=== PATIENT | male | born 1950 | race Caucasian/White ===

== ENCOUNTER 2018-08-03 10:11 | Inpatient (IN) ==
[2018-08-03] MEDS ORDERED: SODIUM CHLORIDE 0.9% 500 ML IV SCH (10:45)
--- NOTE | 2018-08-03 11:11 | XRay Report ---
XR chest 1V portable CLINICAL HISTORY: Chest Pain COMPARISON STUDY: Chest radiograph October or 2018. FINDINGS: There is no pneumothorax or pleural effusion. There is no consolidation or evidence for pul monary edema. Moderate sized hiatal hernia is noted. The appearance of the chest is unchanged. IMPRESSION: 1. No acute cardiopulmonary findings. 2. Moderate sized hiatal hernia. 3. Bibasilar opacities which favor atelectasis. Electronically signed by: Toy Hauser M.D. 08/03/2018 11:10 AM
[2018-08-03 11:22] LABS: Basophils # (auto) 0.04 K/uL (0-0.2); Basophils % (auto) 0.4 %; Eosinophils # (auto) 0.11 K/uL (0-0.5); Hematocrit (blood only) 30.4 % (42-52); Hemoglobin 10.5 g/dL (14.0-18.0); Immature Granulocytes # (auto) 0.06 K/uL (0.00-0.02); Immature Granulocytes % (auto) 0.6 %; Lymphocytes # (auto) 2.87 K/uL (1.2-3.4); Lymphocytes % (auto) 27.4 %; Mean Corpuscular Hgb Conc 34.5 g/dL (32-36); Mean Corpuscular Volume 93.5 fL (80-100); Mean Platelet Volume 10.5 fL (7.4-10.4); Monocytes # (auto) 0.68 K/uL (0.11-0.59); Monocytes % (auto) 6.5 %; Neutrophils # (auto) 6.72 K/uL (1.4-6.5); Neutrophils % (auto) 64.1 %; Platelet Count 237 K/uL (130-400); RDW Coefficient of Variation 13.9 % (11.5-14.5); RDW Standard Deviation 47.1 fL (36.4-46.3); Red Blood Count 3.25 M/uL (4.7-6.1); White Blood Count 10.48 K/uL (4.8-10.8)
[2018-08-03 11:38] LABS: Partial Thromboplastin Ratio 1.1; Partial Thromboplastin Time 29.9 Seconds (21.0-31.0)
[2018-08-03 11:43] LABS: Albumin Level 2.9 gm/dl (3.4-5.0); BUN Creatinine Ratio 40.6 (10-20); Calcium 8.1 mg/dl (8.5-10.1); Creatinine Clr Calc Pharmacy 74.9 ml/min; Est GFR (African American) 64.4; Est GFR (Non-African American) 55.5; Potassium 4.3 mmol/L (3.5-5.1)
[2018-08-03 11:45] LABS: Albumin Globulin Ratio 0.8 (0.9-2); Bilirubin,Total 0.5 mg/dl (0.2-1); Globulin 3.6 gm/dl (2.5-4.0); Total Protein 6.5 gm/dl (6.4-8.2)
[2018-08-03 11:53] LABS: Beta-Hydroxybutyrate 1.75 mg/dl (0.2-2.81)
[2018-08-03] MEDS ORDERED: OPTIRAY 320 125ml IV PRN (11:59)
--- NOTE | 2018-08-03 12:18 | CT Scan Report ---
CT OF THE ABDOMEN AND PELVIS WITH CONTRAST CLINICAL HISTORY: Abdominal pain. Melena. COMPARISON STUDY: CT of the abdomen and pelvis March 28, 2015. TECHNIQUE: Following IV administration of 120 mL of Optiray-320, axial images of the abdomen and pelv is were obtained from the lung bases to the proximal femurs. Images were reviewed in the axial, sagit edgar, and coronal planes. IV contrast was administered without complication. Automated exposure contr ol was utilized for the study. A dose lowering technique was utilized adhering to the principles of ALARA. CT DOSE: 1895.33 mGycm FINDINGS: A moderate sized hiatal hernia is noted. A 1.5 cm hypodense right hepatic lobe lesion is si milar to CT of March 28, 2015. This is benign given stability. The adrenal glands, kidneys and narvaez creas are unremarkable. There is no biliary or pancreatic ductal dilatation. There is no peripancreat ic or pericholecystic infiltration. Exam is compromised by streak artifact from body wall contacting the gantry. There is no evidence for a bowel obstruction. Caliber and wall thickness of small and lar ge bowel are normal. There is colonic diverticulosis without evidence for acute diverticulitis. Sensi tivity for detection of mucosal lesions is diminished given CT technique. No suspicious osseous lesio ns are noted. No ascites or lymphadenopathy. IMPRESSION: 1. No acute process within the abdomen or pelvis. 2. Moderate sized hiatal hernia. 3. No bowel obstruction. Normal appendix. 4. Colonic diverticulosis without evidence for acute diverticulitis. Electronically signed by: Toy Hauser M.D. 08/03/2018 12:16 PM
[2018-08-03] MEDS ORDERED: PANTOprazole 40 MG in SYRINGE 0 ML IV ONE ×2 (12:32→14:00)
[2018-08-03 12:51] LABS: INR 2.6 (0.9-1.1); Prothrombin Time 24.8 Seconds (9.0-12.0)
--- NOTE | 2018-08-03 13:43 | History & Physical Report ---
Date of Service August 03, 2018 Assessment & Plan (1) Acute upper GI bleed: This is a 68-year-old male who has a significant PMH of CAD with history of stent in 2003, T2 DM, paroxysmal atrial fibrillation on warfarin, HTN, history of PUD, morbid obesity, hiatal hernia, diverticulosis who presents to [facility] secondary to black stool x 2 weeks. In ED H/H noted to be 10.5/30.4, stool guaic + with gross melena noted Pre-renal ABDIEL bun 53/cr 1.31, hyperglycemic gluocse 339, LFTs WNL In ED received IV PPI, IVF 500ml bolus -admit to med tele -consult gastroenterology, appreciate input -per GI started on PPI bolus/gtt -vit k 5mg ordered for INR reversal -NPO after midnight, EGD planned in a.m. -trend H/H -repeat cbc, bmp, inr in a.m. (2) Anemia: -baseline hgb 15, today H/H 10.5/30.4 -follow H/H q6h (3) ABDIEL (acute kidney injury): -Bun/Cr 53/1.31 in ED -baseline Cr 1.1-1.2 -received 500ml IVF in ED -clear liquid diet, repeat in a.m. (4) Atrial fibrillation: -rate/rhythm controlled on ECG -continue metoprolol -hold warfarin, vit k 5mg given for reversal -PT/INR in a.m. -monitor on Tele for PAF (5) Coronary artery disease: -continue statin and BB, hold ASA/EARNESTINE in setting of acute GIB and ABDIEL -no chest pain or ecg changes (6) Diabetes: -last A1C 7.9 07/20/18 -hold glimepiride -Lantus/novolog per protocol -hyperglycemic in ED likely secondary to ABDIEL, UGIB -monitor closely (7) Hypertension: -given slight abdiel will hold EARNESTINE/HCTZ -continue metoprolol -monitor (8) DVT prophylaxis: -hold warfarin in setting of ? UGIB -check PT/INR in a.m. -vit k 5mg ordered Disposition: d/c to home when able Follow up: PCP Dr. Smiley upon discharge Patient was seen and examined in collaboration with Dr. Colon, please see addendum Starting 08/04/18 pt will be under the care of Dr. Colon History of Present Illness Chief Complaint: Black stool x 2 weeks. Primary Care Provider: Marina Smiley MD This is a 68-year-old male who has a significant PMH of CAD with history of stent in 2002, T2 DM, paroxysmal atrial fibrillation on warfarin, HTN, history of PUD, morbid obesity, hiatal hernia, diverticulosis who presents to [facility] secondary to black stool x 2 weeks. Over the past 2 weeks he has noted dark black BMs, no bright red blood. He complains of intermittent epigastric discomfort as well as left lower quadrant abdominal discomfort. Discomfort is not constant, comes and goes, not worse with certain meals but worse with soda. Abdominal discomfort occasionally improved with Tums. He denies any significant tobacco, alcohol or NSAID use. He only takes baby aspirin. He further complains of increasing fatigue, listlessness, easy fatigability, dyspnea on exertion. "Usually when I walk at work I get SOB and have to take 2-3 rests but not its more like 5-6." His appetite has been normal and he has been tolerating liquids. He denies fever, chills, sweats, lightheadedness, dizziness, chest pain, shortness breath at rest, palpitations, nausea, vomiting, diarrhea, UTI sx. Hx of PUD in past s/p EGD in 2001 per [facility] but patient doesnt recall this. He does take warfarin secondary to A. fib. Last INR was 3.6 per pt. His normal regimen is 5 mg Thursday and 2.5 mg all other days. He notes for the past 2 days he has been only taking half a tablet because he was concerned this was because of bleeding. Patient keeps a detailed record which was reviewed by me of his blood pressure, pulse, glucose. He states he has a "heart monitor," that he utilizes at home to monitor for arrhythmia. He has noted over the past 2 weeks with signs of melena his heart rate has been higher 70s and 80s. Allergies Allergy/AdvReac Type Severity Reaction Status Date / Time No Known Allergies Allergy Unknown Verified 08/03/18 11:00 Home Medications Home Medications Medication Instructions Recorded Confirmed Type aspirin [Aspir-81] 81 mg PO HS #0 10/24/14 08/03/18 History atorvastatin 80 mg PO HS #0 tab 10/24/14 08/03/18 History coenzyme Q10 [Co Q-10] 100 mg PO QAM #0 10/24/14 08/03/18 History lisinopril-hydrochlorothiazide 1 tab PO QAM #0 tab 10/24/14 08/03/18 History metoprolol tartrate 50 mg PO BID #0 10/24/14 08/03/18 History alpha lipoic acid 200 mg PO QAM 08/03/18 08/03/18 History cholecalciferol (vitamin D3) 1,000 unit PO HS 08/03/18 08/03/18 History [Vitamin D3] glimepiride 4 mg PO QDL 08/03/18 08/03/18 History warfarin [Coumadin] 2.5 mg PO 4XWK 08/03/18 08/03/18 History warfarin [Coumadin] 5 mg PO 3XWK 08/03/18 08/03/18 History Past Med/Surg History Medical History Diverticulosis (Chronic) Atrial fibrillation (Chronic) Obesity (Chronic) Coronary artery disease (Chronic) Kidney stone (Resolved) Hyperlipidemia associated with type 2 diabetes mellitus (Chronic) Diabetes (Chronic) Heart disease (Chronic) Hypertension (Chronic) Atrial fibrillation with RVR (Resolved) History of GI bleed Olecranon bursitis, right elbow Surgical History History of colonoscopy with polypectomy (Chronic) History of heart artery stent (Chronic) History of colonoscopy Family History Father , in 80s Unknown family medical history Mother , in 80s Lymphoma Other No significant family history Social History Preferred Language: Ukrainian Communication Ability: Effective Beliefs That Will Affect Care: None marital status: marri Current Living Situation: Family Current Living Situation Comment: son/daugther Feels Safe at Home: Yes Smoking Status: Never smoker Hx Alcohol Use: No Hx Substance Use: No Review of Systems All systems reviewed & are unremarkable except as noted in HPI & below Physical Exam Vital Signs (Past 24 Hours): Last Vital Signs Temp 37.4 C 08/03/18 10:16 Pulse 88 08/03/18 12:02 Resp 22 08/03/18 12:02 BP 114/64 08/03/18 13:01 Pulse Ox 99 08/03/18 13:01 Physical Exam: Gen: Morbidly obese, male, NAD, sitting up in bed, pleasant, conversing easily Head: Normocephalic, Atraumatic Eyes: Sclera normal, no conjunctival injection, PERRLA, EOMI ENT: Gross hearing intact, normal pharynx, mucous membranes moist Neck: supple, no adenopathy, No JVD, no bruit, Resp: Clear to auscultation b/l, no wheeze, rales, rhonchi. 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 Extremities: No edema bilaterally Skin: warm, moist, no rash, negative turgor, cap refill < 2sec Neuro: Alert and oriented x 3, speech normal, good mood/affect, cran nerve 2-12 intact grossly : deferred Results & Data Laboratory Results Short CBC 08/03/18 Range/Units 10:57 WBC 10.48 (4.8-10.8) K/uL Hgb 10.5 L (14.0-18.0) g/dL Hct 30.4 L (42-52) % Plt Count 237 (130-400) K/uL BMP 08/03/18 10:57 Sodium 139 Potassium 4.3 Chloride 107 Carbon Dioxide 24 BUN 53 H Creatinine 1.31 Glucose 339 H Calcium 8.1 L Liver Function 08/03/18 Range/Units 10:57 Total Bilirubin 0.5 (0.2-1) mg/dl AST 9 L (15-37) U/L ALT 17 (12-78) U/L Alkaline Phosphatase 43 L (45-117) U/L Albumin 2.9 L (3.4-5.0) gm/dl Diagnostic Findings CT abd/pelvis: IMPRESSION: 1. No acute process within the abdomen or pelvis. 2. Moderate sized hiatal hernia. 3. No bowel obstruction. Normal appendix. 4. Colonic diverticulosis without evidence for acute diverticulitis. CXR: IMPRESSION: 1. No acute cardiopulmonary findings. 2. Moderate sized hiatal hernia. 3. Bibasilar opacities which favor atelectasis. Medications Administered Ioversol (Optiray 320 125ml) 120 ml IV ONCE PRN PRN Reason: Interaction Checking Stop: 08/07/18 11:58 Last Admin: 08/03/18 11:59 Dose: 120 ml Documented by: [id number] Discontinued Medications Sodium Chloride (Nss) 500 mls @ 999 mls/hr IV .Q31M CARLA Stop: 08/03/18 11:15 Last Infusion: 08/03/18 11:43 Dose: 0 mls/hr Documented by: [id number] Admin: 08/03/18 11:04 Dose: 999 mls/hr Documented by: [id number] Pantoprazole Sodium 40 mg/ (Syringe) 10 mls @ 5 mls/min IV NOW ONE Stop: 08/03/18 12:33 Last Admin: 08/03/18 13:03 Dose: 5 mls/min Documented by: [id number] ECG Rate (beats per minute): 95 Rhythm: normal sinus Code Status & VTE Plan Code Status Full Code VTE Prophylaxis Plan VTE Prophylaxis will be ordered: Yes Supervising Physician Co-Signing Physician Notes Attending addendum The patient was seen and examined by me in the emergency room He has been complaining of black tarry stool for the last 1 week Has been on baby aspirin and Coumadin Did not take any other NSAID use Complains to have some epigastric discomfort and dizziness on standing and walking around On examination Obese, lying in bed comfortably Hemodynamically stable Chest-clear to auscultate bilaterally Heart-S1-S2, regular Abdomen-distended, soft, mild discomfort with history of on palpation Extremities no edema- Admission labs and imaging studies noted Has upper GI bleed with therapeutic INR We will reverse INR with vitamin K as per GI Protonix drip Likely endoscopy tomorrow Acute ischemic plan as outlined above by Camila Colon (1) Diabetes Diabetes mellitus complication status: without complication Diabetes mellitus fpc insulin use: without fpc use Diabetes mellitus type: type 2 Qualified Code(s): E11.9 - Type 2 diabetes mellitus without complications (2) Coronary artery disease Associated angina: without angina Coronary Disease-Associated Artery/Lesion type: grayling artery Pala vs. transplanted heart: grayling heart Qualified Code(s): I25.10 - Atherosclerotic heart disease of grayling coronary artery without angina pectoris (3) Anemia Anemia type: other cause Other causes of anemia: acute posthemorrhagic Qualified Code(s): D62 - Acute posthemorrhagic anemia (4) Atrial fibrillation Atrial fibrillation type: unspecified Qualified Code(s): I48.91 - Unspecified atrial fibrillation (5) Hypertension Hypertension type: essential hypertension Qualified Code(s): I10 - Essential (primary) hypertension
[2018-08-03] MEDS ORDERED: PANTOPRAZOLE BOLUS/DRIP 1 EA IV STA (13:55)
[2018-08-03] MEDS ORDERED: PANTOprazole 80 MG in DEXTROSE 5% 100 ML IV ONE (13:55)
--- NOTE | 2018-08-03 14:00 | Gastrointestinal Consultation ---
Date of Consultation August 03, 2018 Supervising Physician Co-Signing Physician Notes I saw and evaluated the patient. We are consulted for history of intermittent melena over the last few weeks. The patient has had a significant drop in his hemoglobin and hematocrit. He denies having any hematemesis or abdominal discomfort. No prior abdominal surgeries are noted by the patient. Physical examination No obvious distress, pleasant appearing male Obese abdomen, soft nontender Impression: Patient presenting with melena on long-standing anticoagulation. We will proceed with upper endoscopy to evaluate for evidence of peptic ulcer disease. We have discussed the risks and benefits to include bleeding, infection, perforation and need for subsequent studies. Overnight I would suggest nothing to eat or drink and beginning a Protonix drip. I would also consider reversal of the patient's anticoagulation with vitamin K if possible. History of Present Illness Reason for Consultation: Melena, anemia Requesting Physician: Dr. Kenzie Colon Attending Physician: Dr. Cheryl Han History of Present Illness Pt is a 68 y/o male who presented to ED w c/o weakness, LUIS, dizziness since last Thursday. He also began to notice dark tarry stools since yesterday. He denies any associated fever, chills, CP, resting SOB. + mild mid abd tenderness. No N/V. Labs on review showed H/H 10.5/30.4, INR 2.6. BUN up 53. Cr 1.3. His baseline Hgb is around 14-15. CXR and Abd CT scan w findings of bilateral atelectasis, hiatal hernia and diverticulosis but no other acute processes including no bowel obstruction. He is currently on Coumadin and baby ASA for Afib. He has hx of hiatal hernia, and per admission H&P hx of PUD but in my conversation w him, he denies this. He never had EGD eval in the past. Hx of colonoscopy in 2007 - diverticulosis and hyperplastic polyps. He denies NSAIDs, tobacco, ETOH uses. ASSESMENT AND PLAN: Pt is a 68 y/o male w melena, anemia in setting of Coumadin & baby ASA use for Afib. INR 2.6 on presentation. - PPI bolus and gtt - Reverse INR w Vit K 5mg IV x 1 dose. Repeat CBC and PT/INR tomorrow AM. - Monitor H/H and transfuse prn - NPO after midnight for EGD evaluation tomorrow. - If continues to have melena may consider tagged RBC scan today to help locate source of bleed. Allergies Allergy/AdvReac Type Severity Reaction Status Date / Time No Known Allergies Allergy Unknown Verified 08/03/18 11:00 Home Medications Home Medications Medication Instructions Recorded Confirmed Type aspirin [Aspir-81] 81 mg PO HS #0 10/24/14 08/03/18 History atorvastatin 80 mg PO HS #0 tab 10/24/14 08/03/18 History coenzyme Q10 [Co Q-10] 100 mg PO QAM #0 10/24/14 08/03/18 History lisinopril-hydrochlorothiazide 1 tab PO QAM #0 tab 10/24/14 08/03/18 History metoprolol tartrate 50 mg PO BID #0 10/24/14 08/03/18 History alpha lipoic acid 200 mg PO QAM 08/03/18 08/03/18 History cholecalciferol (vitamin D3) 1,000 unit PO HS 08/03/18 08/03/18 History [Vitamin D3] glimepiride 4 mg PO QDL 08/03/18 08/03/18 History warfarin [Coumadin] 2.5 mg PO 4XWK 08/03/18 08/03/18 History warfarin [Coumadin] 5 mg PO 3XWK 08/03/18 08/03/18 History Patient History Medical History Diverticulosis (Chronic) Atrial fibrillation (Chronic) Obesity (Chronic) Coronary artery disease (Chronic) Kidney stone (Resolved) Hyperlipidemia associated with type 2 diabetes mellitus (Chronic) Diabetes (Chronic) Heart disease (Chronic) Hypertension (Chronic) Atrial fibrillation with RVR (Resolved) History of GI bleed Olecranon bursitis, right elbow Surgical History History of colonoscopy with polypectomy (Chronic) History of heart artery stent (Chronic) History of colonoscopy Family History Father , in 80s Unknown family medical history Mother , in 80s Lymphoma Other No significant family history Social History Preferred Language: Luxembourgish Communication Ability: Effective Beliefs That Will Affect Care: None marital status: marri Current Living Situation: Family Current Living Situation Comment: son/daugther Feels Safe at Home: Yes Smoking Status: Never smoker Hx Alcohol Use: No Hx Substance Use: No Review of Systems See HPI above; rest of systems review negative. Physical Exam Vital Signs (Past 24 Hours): Last Vital Signs Temp 37.4 C 08/03/18 10:16 Pulse 88 08/03/18 12:02 Resp 20 08/03/18 13:31 BP 148/67 H 08/03/18 13:31 Pulse Ox 98 08/03/18 13:31 Constitutional: WD/WN, vitals as above + obese, well groomed, cooperative and comfortable Eyes: PERRL, conjunctivae normal, anicteric sclerae ENMT: external ear and nose normal, oropharynx normal Respiratory: normal respiratory effort, lungs clear to auscultation Cardiovascular: RRR, no murmur, no edema Gastrointestinal (Abdomen): normal bowel sounds, soft, nontender, no hepatosplenomegaly Skin: no rashes, warm and dry no jaundice Neurologic: Motor/Sensory: no asterixis Psychiatric: A+Ox3, euthymic affect Lymphatic: no lymphedema Results & Data Laboratory Results Laboratory Results - last 72 hr 08/03/18 08/03/18 08/03/18 10:57 10:57 10:57 WBC 10.48 RBC 3.25 L Hgb 10.5 L Hct 30.4 L MCV 93.5 MCH 32.3 MCHC 34.5 RDW Std Deviation 47.1 H RDW Coeff of Darrius 13.9 Plt Count 237 MPV 10.5 H Immature Gran % (Auto) 0.6 Neut % (Auto) 64.1 Lymph % (Auto) 27.4 Bennett % (Auto) 6.5 Eos % (Auto) 1.0 Baso % (Auto) 0.4 Immature Gran # (Auto) 0.06 H Neut # (Auto) 6.72 H Lymph # (Auto) 2.87 Bennett # (Auto) 0.68 H Eos # (Auto) 0.11 Baso # (Auto) 0.04 PT INR APTT 29.9 PTT Ratio 1.1 Sodium 139 Potassium 4.3 Chloride 107 Carbon Dioxide 24 Anion Gap 8.0 BUN 53 H Creatinine 1.31 Est Cr Clr Drug Dosing 74.9 Est GFR ( Amer) 64.4 Est GFR (Non-Af Amer) 55.5 BUN/Creatinine Ratio 40.6 H Glucose 339 H Calcium 8.1 L Total Bilirubin 0.5 AST 9 L ALT 17 Alkaline Phosphatase 43 L Total Protein 6.5 Albumin 2.9 L Globulin 3.6 Albumin/Globulin Ratio 0.8 L Lipase 214 Beta-Hydroxybutyric Acd 1.75 Blood Type Antibody Screen 08/03/18 08/03/18 10:57 11:40 WBC RBC Hgb Hct MCV MCH MCHC RDW Std Deviation RDW Coeff of Darrius Plt Count MPV Immature Gran % (Auto) Neut % (Auto) Lymph % (Auto) Bennett % (Auto) Eos % (Auto) Baso % (Auto) Immature Gran # (Auto) Neut # (Auto) Lymph # (Auto) Bennett # (Auto) Eos # (Auto) Baso # (Auto) PT 24.8 H INR 2.6 H APTT PTT Ratio Sodium Potassium Chloride Carbon Dioxide Anion Gap BUN Creatinine Est Cr Clr Drug Dosing Est GFR ( Amer) Est GFR (Non-Af Amer) BUN/Creatinine Ratio Glucose Calcium Total Bilirubin AST ALT Alkaline Phosphatase Total Protein Albumin Globulin Albumin/Globulin Ratio Lipase Beta-Hydroxybutyric Acd Blood Type O Positive Antibody Screen NEGATIVE
[2018-08-03] MEDS: PANTOprazole 40 MG in DEXTROSE 5% 100 ML IV SCH ×2 (14:30→21:06)
[2018-08-03] MEDS ORDERED: PHYTONADIONE 5 MG in SODIUM CHLORIDE 0.9% 50 ML IV ONE (14:30)
--- NOTE | 2018-08-03 15:43 | Emergency Department Note ---
Entered by Elisha Elaine acting as a scribe for History of Present Illness General Chief complaint: Rectal Bleed Stated complaint: INTERNAL BLEEDING OF SOME SORT, DR LEIGH Time Seen by Provider: 08/03/18 10:38 Source: patient History of Present Illness Onset (ago): day(s) 3 Location: abdomen (GI tract) Pain Consistency: + other (episodes) Quality: + other (black stools) Associated symptoms: + other (pain under sternum); no fever/chills The patient is a 68 year old male who presents to the Emergency Room with complaints of black stools that started several days ago. The patient reports that he did not defecate for several days which is abnormal for him. The following day he noticed an episode of black and tarry stool and then had another episode the following day. The patient notes that he has not had similar symptoms in the past. He notes that he may have had abnormal stools several years ago that he believed was due to a subjective ulcer. He states his PCP changed his diabetes medication at that time and his symptoms improved. He denies having received an endoscopy in the past. He denies any history of acid reflux but does note that he was belching 2 days prior to the start of his constipation episode and took a couple of Tums. The patient reports that he monitors his own heart rate and rhythm at home. He states that he was in the Emergency Room for an arrhythmia 5 months ago and was found to have atrial fibrillation at that time. He reports that he was admitted to the hospital for 4 days and started on Coumadin. He notes that he was seen in the hospital again overnight for another episode of atrial fibrillation in May. He states that his pulse rate is normally around 60 bpm and his blood pressure is generally within normal limits. He denies any fever or chills but notes he has a constant pain under his sternum. He denies drinking a lot of coffee or using ibuprofen. Home Medications Home Medications Medication Instructions Recorded Confirmed Type aspirin [Aspir-81] 81 mg PO HS #0 10/24/14 08/03/18 History atorvastatin 80 mg PO HS #0 tab 10/24/14 08/03/18 History coenzyme Q10 [Co Q-10] 100 mg PO QAM #0 10/24/14 08/03/18 History lisinopril-hydrochlorothiazide 1 tab PO QAM #0 tab 10/24/14 08/03/18 History metoprolol tartrate 50 mg PO BID #0 10/24/14 08/03/18 History alpha lipoic acid 200 mg PO QAM 08/03/18 08/03/18 History cholecalciferol (vitamin D3) 1,000 unit PO HS 08/03/18 08/03/18 History [Vitamin D3] glimepiride 4 mg PO QDL 08/03/18 08/03/18 History warfarin [Coumadin] 2.5 mg PO 4XWK 08/03/18 08/03/18 History warfarin [Coumadin] 5 mg PO 3XWK 08/03/18 08/03/18 History Allergies Allergy/AdvReac Type Severity Reaction Status Date / Time No Known Allergies Allergy Unknown Verified 08/03/18 11:00 Past Med/Surg History Medical History Diverticulosis (Chronic) Atrial fibrillation (Chronic) Obesity (Chronic) Coronary artery disease (Chronic) Kidney stone (Resolved) Hyperlipidemia associated with type 2 diabetes mellitus (Chronic) Diabetes (Chronic) Heart disease (Chronic) Hypertension (Chronic) Atrial fibrillation with RVR (Resolved) History of GI bleed Olecranon bursitis, right elbow Surgical History History of colonoscopy with polypectomy (Chronic) History of heart artery stent (Chronic) History of colonoscopy Family History Father , in 80s Unknown family medical history Mother , in 80s Lymphoma Other No significant family history Social History Preferred Language: Togolese Communication Ability: Effective Media Reconciliation Specialist Required: No Beliefs That Will Affect Care: None marital status: marri Current Living Situation: Family Current Living Situation Comment: own home w/ son and daugther Other Information That Helps Us Care for You: No Feels Safe at Home: Yes Safety Concerns: Feels Safe At This Time Smoking Status: Never smoker Hx Alcohol Use: No Hx Substance Use: No Review of Systems See HPI for pertinent positives & negatives. and A total of 10 systems reviewed and were otherwise negative Physical Exam Vital Signs Vital Signs - 24 hr 08/03/18 10:16 08/03/18 11:02 08/03/18 11:03 Temperature 37.4 C Temperature Source Oral Sepsis Recent Fever Within 48 Hours No Sepsis New/Unexplained Change in Mental Status No Sepsis Action Taken by Nursing No Action Required Pulse Rate 102 H Pulse Rate [Finger] 95 H Pulse Rate from SpO2 Sensor Respiratory Rate 20 18 Respiratory Effort / Characteristics Non-Labored Respiratory Depth Normal Blood Pressure 128/68 Blood Pressure [Right Arm] 161/80 H Blood Pressure Mean 88 Blood Pressure Mean [Right Arm] 107 Blood Pressure Position [Right Arm] Pulse Oximetry 97 99 98 Oxygen Delivery Method Room Air Room Air 08/03/18 12:02 08/03/18 13:01 08/03/18 13:31 Temperature Temperature Source Sepsis Recent Fever Within 48 Hours Sepsis New/Unexplained Change in Mental Status Sepsis Action Taken by Nursing Pulse Rate 88 Pulse Rate [Finger] Pulse Rate from SpO2 Sensor 87 78 81 Respiratory Rate 22 20 Respiratory Effort / Characteristics Respiratory Depth Blood Pressure 137/70 114/64 148/67 H Blood Pressure [Right Arm] Blood Pressure Mean 92 80 94 Blood Pressure Mean [Right Arm] Blood Pressure Position [Right Arm] Pulse Oximetry 96 99 98 Oxygen Delivery Method 08/03/18 14:22 08/03/18 14:42 08/03/18 14:46 Temperature Temperature Source Sepsis Recent Fever Within 48 Hours Sepsis New/Unexplained Change in Mental Status Sepsis Action Taken by Nursing Pulse Rate 98 H Pulse Rate [Finger] 97 H 94 H Pulse Rate from SpO2 Sensor 96 H Respiratory Rate 20 18 24 Respiratory Effort / Characteristics Non-Labored Respiratory Depth Normal Normal Blood Pressure 104/61 Blood Pressure [Right Arm] 109/60 117/65 Blood Pressure Mean 75 Blood Pressure Mean [Right Arm] 76 82 Blood Pressure Position [Right Arm] Pulse Oximetry 99 99 100 Oxygen Delivery Method Room Air Room Air 08/03/18 15:01 08/03/18 15:48 08/03/18 19:51 Temperature 36.8 C 36.9 C Temperature Source Oral Oral Sepsis Recent Fever Within 48 Hours Sepsis New/Unexplained Change in Mental Status Sepsis Action Taken by Nursing Pulse Rate Pulse Rate [Finger] 98 H 94 H Pulse Rate from SpO2 Sensor Respiratory Rate 18 18 Respiratory Effort / Characteristics Respiratory Depth Blood Pressure Blood Pressure [Right Arm] 133/83 132/80 Blood Pressure Mean Blood Pressure Mean [Right Arm] 99 97 Blood Pressure Position [Right Arm] Lying Left Lateral Pulse Oximetry 99 100 Oxygen Delivery Method Room Air Room Air Room Air GENERAL: Awake, alert, relatively well-appearing, in no distress HENT: Normocephalic, atraumatic. Oropharynx with dry mucous membranes and otherwise unremarkable. EYES: Normal conjunctiva. Sclera non-icteric. NECK: Supple. No nuchal rigidity. FROM. No JVD. RESPIRATORY: Clear to auscultation. CARDIAC: Regular rate, normal rhythm. Extremities warm and well perfused. Pulses equal. ABDOMEN: Soft, non-distended. Mild epigastric discomfort without discrete tenderness to palpation. No rebound or guarding. No masses. RECTAL: Gross melena, No red blood, Guaiac positive MUSCULOSKELETAL: Chest examination reveals no tenderness. The back is symmetrical on inspection without obvious abnormality. There is no CVA tenderness to palpation. No joint edema. LOWER EXTREMITIES: Calves are equal size bilaterally and non-tender. No edema. No discoloration. NEURO: Normal sensorium. No sensory or motor deficits noted. SKIN: No rash or jaundice noted. Course 1121: The patient was evaluated in room C07, and a complete history and physical examination were performed. 1236: I discussed the patient's case with KATHERINE Cardozo, who will evaluate the patient for further management and care. 1300: I discussed today's finding with the patient. He verbally agreed to the course of treatment. He will be evaluated for further management and care. Consultations Consultation #1: I discussed the patient's case with KATHERINE Cardozo, who will evaluate the patient for further management and care. Time: 12:36 Administered Medications Pantoprazole Sodium 40 mg/ (Dextrose) 100 mls @ 20 mls/hr IV Q5H CARLA Stop: 09/02/18 14:00 Last Infusion: 08/03/18 15:50 Dose: 20 mls/hr Documented by: [id number] Infusion: 08/03/18 14:38 Dose: 0 mls/hr Documented by: [id number] Admin: 08/03/18 14:30 Dose: 20 mls/hr Documented by: [id number] Sodium Chloride (Nss 1000ml) 1,000 mls @ 125 mls/hr IV .Q8H CARLA Stop: 08/04/18 02:14 Last Admin: 08/03/18 18:26 Dose: 125 mls/hr Documented by: [id number] Insulin Aspart (Novolog Flexpen) 0 units SC ACHS CARLA Stop: 09/02/18 16:29 Last Admin: 08/03/18 18:24 Dose: 10 units Documented by: [id number] Cosigned by: [id number] Discontinued Medications Sodium Chloride (Nss) 500 mls @ 999 mls/hr IV .Q31M CARLA Stop: 08/03/18 11:15 Last Infusion: 08/03/18 11:43 Dose: 0 mls/hr Documented by: [id number] Admin: 08/03/18 11:04 Dose: 999 mls/hr Documented by: [id number] Pantoprazole Sodium 40 mg/ (Syringe) 10 mls @ 5 mls/min IV NOW ONE Stop: 08/03/18 12:33 Last Admin: 08/03/18 13:03 Dose: 5 mls/min Documented by: [id number] Pantoprazole Sodium 40 mg/ (Syringe) 10 mls @ 5 mls/min IV NOW ONE; Protocol Stop: 08/03/18 14:01 Last Admin: 08/03/18 14:30 Dose: 5 mls/min Documented by: [id number] Phytonadione 5 mg/ Sodium (Chloride) 50.5 mls @ 101 mls/hr IV ONE ONE Stop: 08/03/18 14:59 Last Infusion: 08/03/18 15:08 Dose: 0 mls/hr Documented by: [id number] Admin: 08/03/18 14:38 Dose: 101 mls/hr Documented by: [id number] Ioversol (Optiray 320 125ml) 120 ml IV ONCE PRN PRN Reason: Interaction Checking Stop: 08/07/18 11:58 Last Admin: 08/03/18 11:59 Dose: 120 ml Documented by: [id number] Medical Decision Making Differential Diagnosis Differential diagnosis: Etiologies such as esophagitis, variceal bleed, [place], [place]imm[place] tear, gastritis, peptic ulcer disease, AVM, inflammatory bowel disease, ischemia, diverticulosis, colitis, malignancy, coagulopathy, thrombocytopenia, fissure, hemorrhoid, epistaxis , as well as others were entertained. Medical Records Attestation: I reviewed the patient's medical records. Home Medications Current Medication List: was personally reviewed by me Laboratory Data Attestation: I reviewed the patient's lab results. Result diagrams: 08/03/18 17:23 08/03/18 10:57 Lab Results 08/03/18 08/03/18 08/03/18 Range/Units 10:57 10:57 10:57 WBC 10.48 (4.8-10.8) K/uL RBC 3.25 L (4.7-6.1) M/uL Hgb 10.5 L (14.0-18.0) g/dL Hct 30.4 L (42-52) % MCV 93.5 (80-100) fL MCH 32.3 (25-34) pg MCHC 34.5 (32-36) g/dL RDW Std Deviation 47.1 H (36.4-46.3) fL RDW Coeff of Darrius 13.9 (11.5-14.5) % Plt Count 237 (130-400) K/uL MPV 10.5 H (7.4-10.4) fL Immature Gran % (Auto) 0.6 % Neut % (Auto) 64.1 % Lymph % (Auto) 27.4 % [place] % (Auto) 6.5 % Eos % (Auto) 1.0 % Baso % (Auto) 0.4 % Immature Gran # (Auto) 0.06 H (0.00-0.02) K/uL Neut # (Auto) 6.72 H (1.4-6.5) K/uL Lymph # (Auto) 2.87 (1.2-3.4) K/uL [place] # (Auto) 0.68 H (0.11-0.59) K/uL Eos # (Auto) 0.11 (0-0.5) K/uL Baso # (Auto) 0.04 (0-0.2) K/uL PT (9.0-12.0) Seconds INR (0.9-1.1) APTT 29.9 (21.0-31.0) Seconds PTT Ratio 1.1 Sodium 139 (136-145) mmol/L Potassium 4.3 (3.5-5.1) mmol/L Chloride 107 (98-107) mmol/L Carbon Dioxide 24 (21-32) mmol/L Anion Gap 8.0 (3-11) BUN 53 H (7-18) mg/dl Creatinine 1.31 (0.6-1.4) mg/dl Est Cr Clr Drug Dosing 74.9 ml/min Est GFR ( Amer) 64.4 Est GFR (Non-Af Amer) 55.5 BUN/Creatinine Ratio 40.6 H (10-20) Glucose 339 H (70-99) mg/dl POC Glucose (70-99) Calcium 8.1 L (8.5-10.1) mg/dl Total Bilirubin 0.5 (0.2-1) mg/dl AST 9 L (15-37) U/L ALT 17 (12-78) U/L Alkaline Phosphatase 43 L (45-117) U/L Total Protein 6.5 (6.4-8.2) gm/dl Albumin 2.9 L (3.4-5.0) gm/dl Globulin 3.6 (2.5-4.0) gm/dl Albumin/Globulin Ratio 0.8 L (0.9-2) Lipase 214 (73-393) U/L Beta-Hydroxybutyric Acd 1.75 (0.2-2.81) mg/dl Blood Type Antibody Screen 08/03/18 08/03/18 08/03/18 Range/Units 10:57 11:40 16:37 WBC (4.8-10.8) K/uL RBC (4.7-6.1) M/uL Hgb (14.0-18.0) g/dL Hct (42-52) % MCV (80-100) fL MCH (25-34) pg MCHC (32-36) g/dL RDW Std Deviation (36.4-46.3) fL RDW Coeff of Darrius (11.5-14.5) % Plt Count (130-400) K/uL MPV (7.4-10.4) fL Immature Gran % (Auto) % Neut % (Auto) % Lymph % (Auto) % [place] % (Auto) % Eos % (Auto) % Baso % (Auto) % Immature Gran # (Auto) (0.00-0.02) K/uL Neut # (Auto) (1.4-6.5) K/uL Lymph # (Auto) (1.2-3.4) K/uL [place] # (Auto) (0.11-0.59) K/uL Eos # (Auto) (0-0.5) K/uL Baso # (Auto) (0-0.2) K/uL PT 24.8 H (9.0-12.0) Seconds INR 2.6 H (0.9-1.1) APTT (21.0-31.0) Seconds PTT Ratio Sodium (136-145) mmol/L Potassium (3.5-5.1) mmol/L Chloride (98-107) mmol/L Carbon Dioxide (21-32) mmol/L Anion Gap (3-11) BUN (7-18) mg/dl Creatinine (0.6-1.4) mg/dl Est Cr Clr Drug Dosing ml/min Est GFR ( Amer) Est GFR (Non-Af Amer) BUN/Creatinine Ratio (10-20) Glucose (70-99) mg/dl POC Glucose 314 H (70-99) Calcium (8.5-10.1) mg/dl Total Bilirubin (0.2-1) mg/dl AST (15-37) U/L ALT (12-78) U/L Alkaline Phosphatase (45-117) U/L Total Protein (6.4-8.2) gm/dl Albumin (3.4-5.0) gm/dl Globulin (2.5-4.0) gm/dl Albumin/Globulin Ratio (0.9-2) Lipase (73-393) U/L Beta-Hydroxybutyric Acd (0.2-2.81) mg/dl Blood Type O Positive Antibody Screen NEGATIVE 08/03/18 08/03/18 Range/Units 17:23 20:19 WBC (4.8-10.8) K/uL RBC (4.7-6.1) M/uL Hgb 9.2 L (14.0-18.0) g/dL Hct 27.3 L (42-52) % MCV (80-100) fL MCH (25-34) pg MCHC (32-36) g/dL RDW Std Deviation (36.4-46.3) fL RDW Coeff of Darrius (11.5-14.5) % Plt Count (130-400) K/uL MPV (7.4-10.4) fL Immature Gran % (Auto) % Neut % (Auto) % Lymph % (Auto) % [place] % (Auto) % Eos % (Auto) % Baso % (Auto) % Immature Gran # (Auto) (0.00-0.02) K/uL Neut # (Auto) (1.4-6.5) K/uL Lymph # (Auto) (1.2-3.4) K/uL [place] # (Auto) (0.11-0.59) K/uL Eos # (Auto) (0-0.5) K/uL Baso # (Auto) (0-0.2) K/uL PT (9.0-12.0) Seconds INR (0.9-1.1) APTT (21.0-31.0) Seconds PTT Ratio Sodium (136-145) mmol/L Potassium (3.5-5.1) mmol/L Chloride (98-107) mmol/L Carbon Dioxide (21-32) mmol/L Anion Gap (3-11) BUN (7-18) mg/dl Creatinine (0.6-1.4) mg/dl Est Cr Clr Drug Dosing ml/min Est GFR ( Amer) Est GFR (Non-Af Amer) BUN/Creatinine Ratio (10-20) Glucose (70-99) mg/dl POC Glucose 281 H (70-99) Calcium (8.5-10.1) mg/dl Total Bilirubin (0.2-1) mg/dl AST (15-37) U/L ALT (12-78) U/L Alkaline Phosphatase (45-117) U/L Total Protein (6.4-8.2) gm/dl Albumin (3.4-5.0) gm/dl Globulin (2.5-4.0) gm/dl Albumin/Globulin Ratio (0.9-2) Lipase (73-393) U/L Beta-Hydroxybutyric Acd (0.2-2.81) mg/dl Blood Type Antibody Screen Imaging Data Radiologist's Impression: Radiology results as stated below per my review and the radiologist's interpretation: XR chest 1V portable CLINICAL HISTORY: Chest Pain COMPARISON STUDY: Chest radiograph October or 2018. FINDINGS: There is no pneumothorax or pleural effusion. There is no consolidation or evidence for pulmonary edema. Moderate sized hiatal hernia is noted. The appearance of the chest is unchanged. IMPRESSION: 1. No acute cardiopulmonary findings. 2. Moderate sized hiatal hernia. 3. Bibasilar opacities which favor atelectasis. Electronically signed by: Toy Hauser M.D. 08/03/2018 11:[address] OF THE ABDOMEN AND PELVIS WITH CONTRAST CLINICAL HISTORY: Abdominal pain. Melena. COMPARISON STUDY: CT of the abdomen and pelvis March 28, 2015. TECHNIQUE: Following IV administration of 120 mL of Optiray-320, axial images of the abdomen and pelvis were obtained from the lung bases to the proximal femurs. Images were reviewed in the axial, sagittal, and coronal planes. IV contrast was administered without complication. Automated exposure control was utilized for the study. A dose lowering technique was utilized adhering to the principles of ALARA. CT DOSE: 1895.33 mGycm FINDINGS: A moderate sized hiatal hernia is noted. A 1.5 cm hypodense right hepatic lobe lesion is similar to CT of March 28, 2015. This is benign given stability. The adrenal glands, kidneys and pancreas are unremarkable. There is no biliary or pancreatic ductal dilatation. There is no peripancreatic or pericholecystic infiltration. Exam is compromised by streak artifact from body wall contacting the gantry. There is no evidence for a bowel obstruction. C aliber and wall thickness of small and large bowel are normal. There is colonic diverticulosis without evidence for acute diverticulitis. Sensitivity for detection of mucosal lesions is diminished given CT technique. No suspicious osseous lesions are noted. No ascites or lymphadenopathy. IMPRESSION: 1. No acute process within the abdomen or pelvis. 2. Moderate sized hiatal hernia. 3. No bowel obstruction. Normal appendix. 4. Colonic diverticulosis without evidence for acute diverticulitis. Electronically signed by: Toy Hauser M.D. 08/03/2018 12:16 PM ECG Data Attestation: I personally reviewed and interpreted this ECG as follows: Indication: abdominal pain Rate (beats per minute): 95 Rhythm: sinus rhythm Findings: + other (normal axis) and + PVC; no ST depression, no ST elevation and no acute ischemic change Blood Pressure Blood Pressure Findings: Normal blood pressure MDM Narrative The patient is a pleasant 68-year-old gentleman with a past medical history of A. fib on Coumadin, who presents to emergency department with several days of melena in the setting of chronic history of epigastric discomfort per hpi. On arrival patient is in no acute distress, afebrile stable vital signs. Mild epigastric discomfort without discrete tenderness to palpation. Rectal exam demonstrates gross melena without gross red blood. Guaiac positive. EKG without overt ischemia. Chest x-ray is most likely bibasilar atelectasis. There is no evidence of free air or acute process otherwise. Hemoglobin is 10.5 down from 15 in May however no recent lab values for comparison. WBC and platelets within normal limits. INR 2.6. Glucose 300s however chemistry without acidosis. However, BUN 53 increased from 20 in May further consistent with the melena. CT of the abdomen pelvis negative for acute process. Patient was treated with IV fluid hydration and Protonix. Given the patient is hemodynamically stable unclear chronicity of the patient's new anemia will defer transfusion and/or INR reversal at this time to admitting team. Case was discussed with Ramon Cardozo PA-C, who will evaluate the patient for admission. Impression & Plan Acute upper GI bleed Discharge Plan Visit Data *Final* Discharge Date/Time: 08/03/18 14:56 Chief Complaint: Rectal Bleed Stated Complaint: INTERNAL BLEEDING OF SOME SORT, DR REFERRED ED Provider: Ziyad Milligan Discharge Problem: Acute upper GI bleed Patient Disposition: Admitted As Inpatient Discharge Instructions Interventions: ED Discharge Assessment Last Done: 08/03/18 14:56 The ayalaibe's documentation has been prepared under my direction and personally reviewed by me in its entirety. I confirm that the note above accurately reflects all work, treatment, procedures, and medical decision making performed by me.
[2018-08-03] MEDS ORDERED: CARBOHYDRATES FOR HYPOGLYCEMIA PO PRN (15:45)
[2018-08-03] MEDS ORDERED: GLUCOSE 40% GEL 15 GM TUBE PO PRN (15:45)
[2018-08-03] MEDS ORDERED: POLYETHYLENE (MIRALAX) 17 GM PACK PO PRN (15:45)
[2018-08-03] MEDS ORDERED: GLUCOSE 10 TABS/TUBE PO PRN (15:45)
[2018-08-03] MEDS ORDERED: DEXTROSE 50% 50 ML SYRINGE IV PRN (15:45)
[2018-08-03] MEDS ORDERED: ACETAMINOPHEN 325 MG TAB PO PRN (15:45)
[2018-08-03] MEDS ORDERED: GLUCAGON FOR INJ 1 MG VIAL SQ PRN (15:45)
[2018-08-03] MEDS ORDERED: MAGNESIUM HYDROXIDE SUSP 30 ML UDC PO PRN (15:45)
[2018-08-03] MEDS ORDERED: ALUMINUM/MAGNESIUM SUSP 30 ML UDC PO PRN (15:45)
[2018-08-03] MEDS ORDERED: ONDANSETRON INJ 2 MG/ML 2 ML VIAL IV PRN (15:45)
[2018-08-03 17:30] LABS: Hematocrit (blood only) 27.3 % (42-52); Hemoglobin 9.2 g/dL (14.0-18.0)
[2018-08-03] MEDS ORDERED: SODIUM CHLORIDE 0.9% 1000ML 1,000 ML IV SCH (18:15)
[2018-08-03] MEDS: INSULIN ASPART 100 UNITS/ML 3 ML PEN SC SCH ×2 (18:24→21:06)
[2018-08-03] MEDS: INSULIN GLARGINE SOLOSTAR 100 UNITS/ML 3 ML PEN SC SCH (21:07)
[2018-08-03] MEDS: METOPROLOL TARTRATE 50 MG TAB PO SCH (21:07)
[2018-08-03] MEDS: SUCRALFATE 1 GM TAB PO SCH (21:07)
[2018-08-03] MEDS: ATORVASTATIN 40 MG TAB PO SCH (21:07)
[2018-08-03] MEDS: CHOLECALCIFEROL 1,000 UNITS TAB PO SCH (21:08)
[2018-08-03 23:14] LABS: Hematocrit (blood only) 25.7 % (42-52); Hemoglobin 8.8 g/dL (14.0-18.0)
[2018-08-04] MEDS: PANTOprazole 40 MG in DEXTROSE 5% 100 ML IV SCH ×5 (01:36→21:21)
[2018-08-04 06:40] LABS: Basophils # (auto) 0.06 K/uL (0-0.2); Basophils % (auto) 0.5 %; Eosinophils # (auto) 0.19 K/uL (0-0.5); Eosinophils % (auto) 1.7 %; Hematocrit (blood only) 24.6 % (42-52); Hemoglobin 8.3 g/dL (14.0-18.0); Immature Granulocytes # (auto) 0.08 K/uL (0.00-0.02); Immature Granulocytes % (auto) 0.7 %; Lymphocytes # (auto) 3.81 K/uL (1.2-3.4); Lymphocytes % (auto) 34.2 %; Mean Corpuscular Hgb Conc 33.7 g/dL (32-36); Mean Corpuscular Volume 94.3 fL (80-100); Mean Platelet Volume 10.1 fL (7.4-10.4); Monocytes # (auto) 0.85 K/uL (0.11-0.59); Monocytes % (auto) 7.6 %; Neutrophils # (auto) 6.16 K/uL (1.4-6.5); Neutrophils % (auto) 55.3 %; Nucleated RBC # (auto) 0.04 K/uL (0-0); Nucleated RBC % (auto) 0.4 %; Platelet Count 227 K/uL (130-400); RDW Coefficient of Variation 14.3 % (11.5-14.5); RDW Standard Deviation 47.6 fL (36.4-46.3); Red Blood Count 2.61 M/uL (4.7-6.1); White Blood Count 11.15 K/uL (4.8-10.8)
[2018-08-04 06:55] LABS: INR 1.5 (0.9-1.1); Prothrombin Time 14.6 Seconds (9.0-12.0)
[2018-08-04 07:29] LABS: BUN Creatinine Ratio 30.3 (10-20); Calcium 7.7 mg/dl (8.5-10.1); Creatinine Clr Calc Pharmacy 83.8 ml/min; Est GFR (African American) 73.8; Est GFR (Non-African American) 63.7; Potassium 3.8 mmol/L (3.5-5.1)
[2018-08-04] MEDS: SUCRALFATE 1 GM TAB PO SCH (08:10)
[2018-08-04] MEDS: METOPROLOL TARTRATE 50 MG TAB PO SCH ×2 (08:10→20:29)
[2018-08-04] MEDS: INSULIN GLARGINE SOLOSTAR 100 UNITS/ML 3 ML PEN SC SCH ×2 (08:11→20:33)
[2018-08-04] MEDS: INSULIN ASPART 100 UNITS/ML 3 ML PEN SC SCH ×4 (08:11→20:35)
[2018-08-04 08:27] LABS: Estimated Average Glucose 183 mg/dl
--- NOTE | 2018-08-04 08:51 | History & Physical Bridge Note ---
Date of Service August 04, 2018 History & Physical Bridge Note I have examined the patient, reviewed the History & Physical and in the interval since the performance of the History & Physical I have noted the following changes of clinical significance: no changes noted Pt continued to have black stools overnight. No n/v, abd pain. H/H 8.3/24.6. He's NPO since midnight. Still on PPI gtt. He is scheduled for EGD by Dr. Han today. Exam: AAOx3, in NAD. CTA bilateral lungs, HRR no murmur or gallops, Abd soft, non tender, BS present. GI will give further recs after EGD is completed. Supervising Physician Co-Signing Physician Notes I saw and evaluated the patient. We are planning for upper endoscopy today to evaluate for suspected upper GI bleeding. The patient and I have discussed the risks to include bleeding, infection, perforation, pain and need for follow-up studies.
[2018-08-04] MEDS ORDERED: NON-FORMULARY MEDICATION (Alpha Lipoic Acid 200 MG) PO SCH (09:00)
[2018-08-04] MEDS ORDERED: NON-FORMULARY MEDICATION (Coenzyme Q10 [Co Q-10] 100 MG) PO SCH (09:00)
[2018-08-04] MEDS ORDERED: SODIUM CHLORIDE 0.9% 250 ML IV PRN (10:11)
--- NOTE | 2018-08-04 10:26 | Hospitalist Progress Note ---
Date of Service August 04, 2018 Assessment & Plan (1) Acute upper GI bleed: This is a 68-year-old male who has a significant PMH of CAD with history of stent in 2003, T2 DM, paroxysmal atrial fibrillation on warfarin, HTN, history of PUD, morbid obesity, hiatal hernia, diverticulosis who presents to [facility] secondary to black stool x 2 weeks. Plan for EGD this afternoon Continue Protonix gtt and carafate Hgb dropped further to 8.3, type and screen already done Will have attending obtain informed consent for transfusion IF HGB < 8.0 will transfuse 2 units of PRBC (order pending) Educated patient on risk/benefits of transfusion (2) Anemia: -baseline hgb 15, today H/H 8.3 and 24.6 -continue to follow H/H q6h -will transfuse 2 units PRBC hgb < 8.0 (3) ABDIEL (acute kidney injury): -improving, bun/cr 35/1.17 today -baseline Cr 1.1-1.2 -received 500ml IVF in ED and 1 L NS on 08/03 -NPO currently for upcoming EGD -start D5 1/2 NS with 10meq KCL 80 cc/hr while NPO (4) Atrial fibrillation: -rate/rhythm controlled on ECG -continue metoprolol -hold warfarin, vit k 5mg given for reversal -INR 1.5 today -monitor on Tele for PAF (5) Coronary artery disease: -continue statin and BB, hold ASA/EARNESTINE in setting of acute GIB and ABDIEL -no chest pain or ecg changes (6) Diabetes: -A1C 8.0 -hold glimepiride -Lantus/novolog per protocol ( will increase regimen if BSG still > 180 after NPO is lifted) -monitor closely -would recommending adding metformin to patients outpatient regimen at discharge (7) Hypertension: -given slight abdiel will hold EARNESTINE/HCTZ -continue metoprolol -monitor (8) DVT prophylaxis: -hold warfarin in setting of ? UGIB -check PT/INR in a.m. Disposition: d/c to home when able Follow up: PCP Dr. Smiley upon discharge Patient was seen and examined in collaboration with Dr. Colon, please see addendum Subjective Patient was seen and examined in room 261-1 with daughter at bedside. Follow-up for acute blood loss anemia and presumed upper GI bleed. "I feel the same as I did yesterday." He continues to complain of abdominal discomfort, constant, 3/10, no alleviating factors. He further continues to have LUIS, easy fatigability, lightheadedness upon standing. He denies fever, chills, sweats, chest pain, shortness breath at rest, palpitations, nausea, vomiting, diarrhea. He did have BM last evening which was black. He states GI was in to see him this morning and he is going to have endoscopy later this afternoon. Physical Exam Vital Signs (Past 24 Hours): Last Vital Signs Temp 36.6 C 08/04/18 07:53 Pulse 64 08/04/18 08:00 Resp 16 08/04/18 07:53 BP 96/56 L 08/04/18 07:53 Pulse Ox 98 08/04/18 07:53 Physical Exam: Gen: WD/WN, Male, NAD, A&O x3 HEENT: Normocephalic, atraumatic, conjunctivae moist, sclerae anicteric, mucous membranes moist. Lung: Clear to Auscultation bilaterally, no wheezes/rales/rhonchi Heart: Regular rate, regular rhythm, no murmurs, rubs, or gallops Abdomen: +obese abdomen, Soft, NT, ND +BS x 4 Extremities: No edema Skin: Warm, no rash, negative turgor. Results & Data Laboratory Results Short CBC 08/03/18 08/03/18 08/03/18 Range/Units 10:57 10:57 16:37 WBC 10.48 (4.8-10.8) K/uL Hgb 10.5 L (14.0-18.0) g/dL Hct 30.4 L (42-52) % Plt Count 237 (130-400) K/uL Glucose 339 H (70-99) mg/dl POC Glucose 314 H (70-99) 08/03/18 08/03/18 08/03/18 Range/Units 17:23 20:19 23:06 WBC (4.8-10.8) K/uL Hgb 9.2 L 8.8 L (14.0-18.0) g/dL Hct 27.3 L 25.7 L (42-52) % Plt Count (130-400) K/uL Glucose (70-99) mg/dl POC Glucose 281 H (70-99) 08/04/18 08/04/18 08/04/18 Range/Units 06:06 06:06 07:47 WBC 11.15 H (4.8-10.8) K/uL Hgb 8.3 L (14.0-18.0) g/dL Hct 24.6 L (42-52) % Plt Count 227 (130-400) K/uL Glucose 202 H (70-99) mg/dl POC Glucose 207 H (70-99) BMP 08/03/18 08/04/18 10:57 06:06 Sodium 139 141 Potassium 4.3 3.8 Chloride 107 110 H Carbon Dioxide 24 24 BUN 53 H 35 H Creatinine 1.31 1.17 Glucose 339 H 202 H Calcium 8.1 L 7.7 L Liver Function 08/03/18 Range/Units 10:57 Total Bilirubin 0.5 (0.2-1) mg/dl AST 9 L (15-37) U/L ALT 17 (12-78) U/L Alkaline Phosphatase 43 L (45-117) U/L Albumin 2.9 L (3.4-5.0) gm/dl Medications Administered Current Inpatient Medications Acetaminophen (Tylenol) 650 mg PO Q4H PRN PRN Reason: Pain or Fever Stop: 09/02/18 15:44 Al Hydrox/Mg Hydrox/Simethicone (Maalox) 15 ml PO Q4H PRN PRN Reason: Dyspepsia Stop: 09/02/18 15:44 Atorvastatin Calcium (Lipitor) 80 mg PO HS [facility] Stop: 09/02/18 20:59 Last Admin: 08/03/18 21:07 Dose: 80 mg Documented by: Dextrose (Dextrose 50%) 25 - 50 ml IV UD PRN; Protocol PRN Reason: Hypoglycemia Protocol Stop: 09/02/18 15:44 Glucagon (Glucagen) 1 mg SQ UD PRN; Protocol PRN Reason: Hypoglycemia Protocol Stop: 09/02/18 15:44 Glucose (Glucose 40%) 15 - 30 gm PO UD PRN; Protocol PRN Reason: Hypoglycemia Protocol Stop: 09/02/18 15:44 Glucose (Dex4 Glucose) 4 - 8 tabs PO UD PRN; Protocol PRN Reason: Hypoglycemia Protocol Stop: 09/02/18 15:44 Pantoprazole Sodium 40 mg/ (Dextrose) 100 mls @ 20 mls/hr IV Q5H [facility] Stop: 09/02/18 14:00 Last Admin: 08/04/18 06:10 Dose: 20 mls/hr Documented by: Potassium Chloride 10 meq/ (Dextrose/Sodium Chloride) 1,005 mls @ 80 mls/hr IV .[id number] CARLA Stop: 09/03/18 10:14 Sodium Chloride (Nss) 250 mls @ 15 mls/hr IV .[id number] PRN PRN Reason: For Transfusion Stop: 09/03/18 10:10 Insulin Aspart (Novolog Flexpen) 0 units SC ACHS [facility] Stop: 09/02/18 16:29 Last Admin: 08/04/18 08:11 Dose: 2 units Documented by: Insulin Glargine (Lantus Solostar Pen) 0 units SC BID [facility]; Protocol Stop: 09/02/18 20:59 Last Admin: 08/04/18 08:11 Dose: 10 units Documented by: Magnesium Hydroxide (Milk Of Magnesia) 30 ml PO Q12H PRN PRN Reason: Constipation Stop: 09/02/18 15:44 Metoprolol Tartrate (Lopressor) 50 mg PO BID [facility] Stop: 09/02/18 20:59 Last Admin: 08/04/18 08:10 Dose: Not Given Documented by: Miscellaneous (Carbohydrates For Hypoglycemia) 15 - 30 gm PO UD PRN PRN Reason: Hypoglycemia Treatment Stop: 09/02/18 15:44 Ondansetron HCl (Zofran) 4 mg IV Q6H PRN PRN Reason: Nausea Stop: 09/02/18 15:44 Polyethylene Glycol (Miralax Powder Packet) 17 gm PO DAILY PRN PRN Reason: Constipation Stop: 09/02/18 15:44 Sucralfate (Carafate Tab) 1 gm PO ACHS [facility] Stop: 09/02/18 20:59 Last Admin: 08/04/18 08:10 Dose: 1 gm Documented by: Vitamin D (Vitamin D3) 1,000 units PO HS [facility]LA Stop: 09/02/18 20:59 Last Admin: 08/03/18 21:08 Dose: 1,000 units Documented by: (1) Anemia Anemia type: other cause Other causes of anemia: acute posthemorrhagic Qualified Code(s): D62 - Acute posthemorrhagic anemia (2) Atrial fibrillation Atrial fibrillation type: unspecified Qualified Code(s): I48.91 - Unspecified atrial fibrillation (3) Coronary artery disease Coronary Disease-Associated Artery/Lesion type: [place] artery [place] vs. transplanted heart: [place] heart Associated angina: without angina Qualified Code(s): I25.10 - Atherosclerotic heart disease of [place] coronary artery without angina pectoris (4) Diabetes Diabetes mellitus type: type 2 Diabetes mellitus penitentiary insulin use: without terminal gauger use Diabetes mellitus complication status: without complication Qualified Code(s): E11.9 - Type 2 diabetes mellitus without complications (5) Hypertension Hypertension type: essential hypertension Qualified Code(s): I10 - Essential (primary) hypertension
--- NOTE | 2018-08-04 10:36 | History & Physical Bridge Note ---
Date of Service August 04, 2018 History & Physical Bridge Note I have examined the patient, reviewed the History & Physical and in the interval since the performance of the History & Physical I have noted the following changes of clinical significance: no changes noted. The patient presented with melena yesterday and we are evaluating with upper endoscopy today for suspected upper GI bleeding.
[2018-08-04] MEDS ORDERED: POTASSIUM CHLORIDE 10 MEQ in D5W AND 1/2NSS 1,000 ML IV SCH (10:45)
--- NOTE | 2018-08-04 10:46 | Anesthesiology Consultation ---
Date of Service August 04, 2018 Assessment & Plan (1) Encounter for pre-operative examination: Chart Review Chart Review: Acceptable Risk for Surgery NPO Date Last Intake of Fluids: 08/04/18 Time Last Intake of Fluids: 07:30 Date Last Intake of Solids: 08/03/18 Time Last Intake of Solids: 19:00 History Surgery Operation Date: 08/04/18 10:15 Proposed Procedures p Esophagogastroduodenoscopy Dr Guille Han Height/Weight Height: 5 ft 9 in Weight: 139 kg Allergies Allergy/AdvReac Type Severity Reaction Status Date / Time No Known Allergies Allergy Unknown Verified 08/03/18 11:00 Medications Home Medications Medication Instructions Recorded Confirmed Last Taken aspirin [Aspir-81] 81 mg PO HS #0 10/24/14 08/03/18 08/02/18 atorvastatin 80 mg PO HS #0 tab 10/24/14 08/03/18 08/02/18 coenzyme Q10 [Co Q-10] 100 mg PO QAM #0 10/24/14 08/03/18 08/02/18 lisinopril-hydrochlorothiazide 1 tab PO QAM #0 tab 10/24/14 08/03/18 08/02/18 metoprolol tartrate 50 mg PO BID #0 10/24/14 08/03/18 08/02/18 21:00 alpha lipoic acid 200 mg PO QAM 08/03/18 08/03/18 08/02/18 cholecalciferol (vitamin D3) 1,000 unit PO HS 08/03/18 08/03/18 08/02/18 [Vitamin D3] glimepiride 4 mg PO QDL 08/03/18 08/03/18 08/02/18 warfarin [Coumadin] 2.5 mg PO 4XWK 08/03/18 08/03/18 08/01/18 14:00 warfarin [Coumadin] 5 mg PO 3XWK 08/03/18 08/03/18 08/02/18 14:00 Active Medications Generic Name Dose Route Start Last Admin Trade Name Freq PRN Reason Stop Dose Admin Atorvastatin Calcium 80 mg 08/03/18 21:00 08/03/18 21:07 Lipitor PO 09/02/18 20:59 80 mg HS CARLA Administration Pantoprazole Sodium 40 mg/ 100 mls @ 20 mls/hr 08/03/18 14:01 08/04/18 06:10 Dextrose IV 09/02/18 14:00 20 mls/hr Q5H CARLA Administration Insulin Aspart 0 units 08/03/18 16:30 08/04/18 08:11 Novolog Flexpen SC 09/02/18 16:29 2 units ACHS CARLA Administration Insulin Glargine 0 units 08/03/18 21:00 08/04/18 08:11 Lantus Solostar Pen SC 09/02/18 20:59 10 units BID CARLA Administration Protocol Metoprolol Tartrate 50 mg 08/03/18 21:00 08/04/18 08:10 Lopressor PO 09/02/18 20:59 Not Given BID CARLA Sucralfate 1 gm 08/03/18 21:00 08/04/18 08:10 Carafate Tab PO 09/02/18 20:59 1 gm ACHS CARLA Administration Vitamin D 1,000 units 08/03/18 21:00 08/03/18 21:08 Vitamin D3 PO 09/02/18 20:59 1,000 units HS CARLA Administration Past Medical History Medical History Diverticulosis (Chronic) Atrial fibrillation (Chronic) Obesity (Chronic) Coronary artery disease (Chronic) Kidney stone (Resolved) Hyperlipidemia associated with type 2 diabetes mellitus (Chronic) Diabetes (Chronic) Heart disease (Chronic) Hypertension (Chronic) Atrial fibrillation with RVR (Resolved) History of GI bleed Olecranon bursitis, right elbow Past Family History Family History Father , in 80s Unknown family medical history Mother , in 80s Lymphoma Other No significant family history Past Surgical History Surgical History History of colonoscopy with polypectomy (Chronic) History of heart artery stent (Chronic) History of colonoscopy Social History Smoking Status: Never smoker Do You Dip or Chew Tobacco: No Hx Alcohol Use: No Hx Substance Use: No Physical Exam Vital Signs Last Vital Signs Temp 36.8 C 08/04/18 10:23 Pulse 65 08/04/18 10:23 Resp 20 08/04/18 10:23 BP 124/56 L 08/04/18 10:23 Pulse Ox 97 08/04/18 10:23 Testing Electrocardiogram Date: 08/04/18 Findings: + NSR @ (67 prolonged QT) Laboratory Results 08/04/18 06:06 08/04/18 06:06 Blood Type O Positive 08/03/18 11:40 Antibody Screen NEGATIVE 08/03/18 11:40 PT 14.6 Seconds (9.0-12.0) H 08/04/18 06:06 INR 1.5 (0.9-1.1) H 08/04/18 06:06 APTT 29.9 Seconds (21.0-31.0) 08/03/18 10:57 Hemoglobin A1c 8.0 % (4.5-5.6) H 08/04/18 06:06 08/04/18 07:47 POC Glucose 207 H
[2018-08-04] MEDS ORDERED: PROPOFOL IV EMULSION 10 MG/ML 20 ML VIAL IV ONE (11:15)
--- NOTE | 2018-08-04 11:25 | GI REPORT ---
Patient Name: Connor Johnson Procedure Date: 08/04/2018 10:23 AM Date of : 1950 Admit Type: Inpatient Age: 68 Gender: Male Attending MD: Cheryl Han DO Procedure: Upper GI endoscopy Providers: Cheryl Han DO Referring MD: Marina Barcenas Indications: Melena Medicines: Monitored Anesthesia Care Complications: No immediate complications. Estimated blood loss: Minimal. Estimated Blood Loss: Estimated blood loss was minimal. Procedure: Pre-Anesthesia Assessment: - Prior to the procedure, a History and Physical was performed, and patient medications, allergies and sensitivities were reviewed. The patient's tolerance of previous anesthesia was reviewed. - Patient identification and proposed procedure were verified prior to the procedure by the physician, the nurse and the cloth piecer. The procedure was verified in the procedure room. - Pre-procedure physical examination revealed no contraindications to sedation. - ASA Grade Assessment: III - A patient with severe systemic disease. - After reviewing the risks and benefits, the patient was deemed in satisfactory condition to undergo the procedure. - The anesthesia plan was to use monitored anesthesia care (MAC). - Immediately prior to administration of medications, the patient was re-assessed for adequacy to receive sedatives. - The heart rate, respiratory rate, oxygen saturations, blood pressure, adequacy of pulmonary ventilation, and response to care were monitored throughout the procedure. - The physical status of the patient was re-assessed after the procedure. After obtaining informed consent, the endoscope was passed under direct vision. Throughout the procedure, the patient's blood pressure, pulse, and oxygen saturations were monitored continuously. The Scope was introduced through the mouth, and advanced to the third part of duodenum. The upper GI endoscopy was accomplished without difficulty. The patient tolerated the procedure well. Findings: The upper third of the esophagus was normal. The middle third of the esophagus and lower third of the esophagus were mildly tortuous. A non-obstructing Schatzki ring was found at the gastroesophageal junction. A medium-sized type-III paraesophageal hernia was found. The proximal extent of the gastric folds (end of tubular esophagus) was 36 cm from the incisors. The hiatal narrowing was 41 cm from the incisors. The Z-line was 36 cm from the incisors. The gastric body, incisura and gastric antrum were normal. Biopsies were taken with a cold forceps for histology. Estimated blood loss was minimal. One partially obstructing oozing cratered duodenal ulcer (posterior bulb) with oozing hemorrhage (Alberto Class Ib) was found in the duodenal bulb. The lesion was 20 mm in largest dimension. Area was successfully injected with 4 mL of a 1:10,000 solution of epinephrine for hemostasis. Coagulation for hemostasis using bipolar probe was successful. Estimated blood loss: none. The second portion of the duodenum and third portion of the duodenum were normal. Impression: - Normal upper third of esophagus. - Tortuous esophagus. - Non-obstructing Schatzki ring. - Medium-sized paraesophageal hernia. - Normal gastric body, incisura and antrum. Biopsied. - One partially obstructing oozing duodenal ulcer with oozing hemorrhage (Alberto Class Ib). NSAID induced etiology. Injected. Treated with bipolar cautery. - Normal second portion of the duodenum and third portion of the duodenum. Recommendation: - Return patient to hospital chan for ongoing care. - Full liquid diet today. - Give Protonix (pantoprazole): 8 mg/hr IV by continuous infusion for another 48 hours. Then Protonix (or equivalent) 40 mg twice daily for 4 weeks then reduce to 40 mg per day. - Carafate slurry 2 times daily - If rebleeding recurrs would suggest IR intervention or surgery. - Repeat upper endoscopy in 3 months for surveillance. - Do an upper GI series at appointment to be scheduled. Cheryl Han D.O. Cheryl Han, 08/04/2018 11:24:30 AM This report has been signed electronically. Note Initiated On: 08/04/2018 10:23 AM Number of Addenda: 0 I attest to the content of the Intraoperative Record and orders documented therein, exceptions below {[id number]}
--- NOTE | 2018-08-04 11:29 | Anesthesiology Progress Note ---
Date of Service August 04, 2018 Anesthesia Post Procedure Vital Signs Vital Signs: Temp Pulse Pulse Resp BP BP Pulse Ox 08/04/18 11:12 60 18 108/49 L 99 08/04/18 10:23 36.8 C 65 20 124/56 L 97 08/04/18 08:00 64 08/04/18 07:53 36.6 C 60 16 96/56 L 98 08/04/18 04:22 36.8 C 92 H 20 130/79 99 08/03/18 23:57 75 08/03/18 23:09 36.8 C 20 130/84 100 08/03/18 19:51 36.9 C 94 H 18 132/80 100 08/03/18 16:10 98 H 08/03/18 15:48 36.8 C 98 H 18 133/83 99 08/03/18 14:46 98 H 24 104/61 100 08/03/18 14:42 94 H 18 117/65 99 08/03/18 14:22 97 H 20 109/60 99 08/03/18 13:31 20 148/67 H 98 08/03/18 13:01 114/64 99 08/03/18 12:02 88 22 137/70 96 Notes Mental Status: alert / awake / arousable Patient Amnestic to Procedure: Yes Nausea / Vomiting: adequately controlled Pain: adequately controlled Airway Patency, RR, SpO2: stable & adequate BP & HR: stable & adequate Hydration State: stable & adequate Anesthetic Complications: no major complications apparent
[2018-08-04 12:37] LABS: Hematocrit (blood only) 24.8 % (42-52); Hemoglobin 8.4 g/dL (14.0-18.0)
[2018-08-04 17:34] LABS: Hematocrit (blood only) 24.4 % (42-52); Hemoglobin 8.2 g/dL (14.0-18.0)
[2018-08-04] MEDS: SUCRALFATE 1 GM/10 ML UDC PO SCH (20:27)
[2018-08-04] MEDS: ATORVASTATIN 40 MG TAB PO SCH (20:28)
[2018-08-04] MEDS: CHOLECALCIFEROL 1,000 UNITS TAB PO SCH (20:32)
[2018-08-04 23:05] LABS: Hematocrit (blood only) 22.5 % (42-52); Hemoglobin 7.8 g/dL (14.0-18.0)
[2018-08-05] MEDS: PANTOprazole 40 MG in DEXTROSE 5% 100 ML IV SCH ×5 (02:00→21:13)
[2018-08-05] MEDS ORDERED: SODIUM CHLORIDE 0.9% 250 ML IV PRN (06:43)
[2018-08-05 06:44] LABS: Hematocrit (blood only) 21.9 % (42-52); Hemoglobin 7.4 g/dL (14.0-18.0); Mean Corpuscular Hgb Conc 33.8 g/dL (32-36); Mean Corpuscular Volume 96.5 fL (80-100); Mean Platelet Volume 8.8 fL (7.4-10.4); Nucleated RBC # (auto) 0.03 K/uL (0-0); Nucleated RBC % (auto) 0.4 %; Platelet Count 180 K/uL (130-400); RDW Coefficient of Variation 14.7 % (11.5-14.5); RDW Standard Deviation 49.8 fL (36.4-46.3); Red Blood Count 2.27 M/uL (4.7-6.1); White Blood Count 7.86 K/uL (4.8-10.8)
[2018-08-05] MEDS ORDERED: ACETAMINOPHEN 325 MG TAB PO ONE (06:45)
[2018-08-05 06:57] LABS: INR 1.3 (0.9-1.1); Prothrombin Time 12.8 Seconds (9.0-12.0)
[2018-08-05 07:10] LABS: BUN Creatinine Ratio 16.7 (10-20); Creatinine Clr Calc Pharmacy 84.3 ml/min; Est GFR (African American) 74.6; Est GFR (Non-African American) 64.3
[2018-08-05] MEDS: SUCRALFATE 1 GM/10 ML UDC PO SCH ×2 (07:31→21:09)
[2018-08-05] MEDS: METOPROLOL TARTRATE 50 MG TAB PO SCH ×2 (07:31→21:08)
[2018-08-05] MEDS ORDERED: FUROSEMIDE 20 MG in SYRINGE 0 ML IV SCH (08:00)
[2018-08-05] MEDS: INSULIN GLARGINE SOLOSTAR 100 UNITS/ML 3 ML PEN SC SCH ×2 (08:06→21:18)
[2018-08-05] MEDS: INSULIN ASPART 100 UNITS/ML 3 ML PEN SC SCH ×4 (08:08→21:17)
--- NOTE | 2018-08-05 08:38 | Gastroenterology Progress Note ---
Date of Service August 05, 2018 Assessment & Plan (1) Paraesophageal hernia: (2) Anemia: (3) Melena: (4) Duodenal ulcer: Pt is a 68 y/o male, admitted for melena, anemia in setting of Coumadin and baby ASA use for Afib. EGD done on 08/04 revealed tortous esophagus, Schatzki's ring, medium paraesophageal hernia oozing partially obstructing duodenal ulcer treated w epinephrine injection and thermal probe. Blood ct dropped a gram today but he denies any more BMs since EGD yesterday. He's getting 2U PRBC this morning - Monitor H/H and signs of GI bleeding closely. If he rebleeds will likely need to be transferred to tertiary care center w IR support for embolization. - FL diet - PPI gtt to complete x 72hrs; then convert to PO BID dose x 2 weeks then once daily - Carafate 1g susp BID - Repeat EGD in 3 month's time to reeval ulcer healing. - Outpt upper GI series to eval his paraesophageal hernia. Supervising Physician Co-Signing Physician Notes I saw and evaluated the patient. He appears to be somewhat improved today. I would suggest another 24 hours of intravenous Protonix then transition to Protonix 40 mg twice daily for 6 weeks. We will plan on repeating an upper endoscopy in 8-12 weeks. Subjective Pt denies any more BMs since EGD procedure. No abd pain, n/v. Tolerating FL diet well. Hgb down to 7.4 today, going to get 2U PRBC transfusion Physical Exam Vital Signs (Past 24 Hours): Last Vital Signs Temp 36.8 C 08/05/18 08:30 Pulse 66 08/05/18 08:30 Resp 20 08/05/18 08:30 BP 107/65 08/05/18 08:30 Pulse Ox 98 08/05/18 08:30 Constitutional: WD/WN, vitals as above + obese, well groomed, cooperative and comfortable Eyes: PERRL, conjunctivae normal, anicteric sclerae ENMT: external ear and nose normal, oropharynx normal Respiratory: normal respiratory effort, lungs clear to auscultation Cardiovascular: RRR, no murmur, no edema Gastrointestinal (Abdomen): normal bowel sounds, soft, nontender, no hepatosplenomegaly Skin: no rashes, warm and dry no jaundice Neurologic: Motor/Sensory: no asterixis Psychiatric: A+Ox3, euthymic affect Lymphatic: no lymphedema Results & Data Laboratory Results Laboratory Results - last 72 hr 08/03/18 08/03/18 08/03/18 10:57 10:57 10:57 WBC 10.48 RBC 3.25 L Hgb 10.5 L Hct 30.4 L MCV 93.5 MCH 32.3 MCHC 34.5 RDW Std Deviation 47.1 H RDW Coeff of Darrius 13.9 Plt Count 237 MPV 10.5 H Immature Gran % (Auto) 0.6 Neut % (Auto) 64.1 Lymph % (Auto) 27.4 [place] % (Auto) 6.5 Eos % (Auto) 1.0 Baso % (Auto) 0.4 Immature Gran # (Auto) 0.06 H Neut # (Auto) 6.72 H Lymph # (Auto) 2.87 [place] # (Auto) 0.68 H Eos # (Auto) 0.11 Baso # (Auto) 0.04 Absolute Nucleated RBC Nucleated RBC % (auto) PT INR APTT 29.9 PTT Ratio 1.1 Sodium 139 Potassium 4.3 Chloride 107 Carbon Dioxide 24 Anion Gap 8.0 BUN 53 H Creatinine 1.31 Est Cr Clr Drug Dosing 74.9 Est GFR ( Amer) 64.4 Est GFR (Non-Af Amer) 55.5 BUN/Creatinine Ratio 40.6 H Glucose 339 H POC Glucose Estimat Average Glucose Hemoglobin A1c Calcium 8.1 L Total Bilirubin 0.5 AST 9 L ALT 17 Alkaline Phosphatase 43 L Total Protein 6.5 Albumin 2.9 L Globulin 3.6 Albumin/Globulin Ratio 0.8 L Lipase 214 Beta-Hydroxybutyric Acd 1.75 Blood Type Blood Type Recheck Antibody Screen Crossmatch 08/03/18 08/03/18 08/03/18 10:57 11:40 16:37 WBC RBC Hgb Hct MCV MCH MCHC RDW Std Deviation RDW Coeff of Darrius Plt Count MPV Immature Gran % (Auto) Neut % (Auto) Lymph % (Auto) [place] % (Auto) Eos % (Auto) Baso % (Auto) Immature Gran # (Auto) Neut # (Auto) Lymph # (Auto) [place] # (Auto) Eos # (Auto) Baso # (Auto) Absolute Nucleated RBC Nucleated RBC % (auto) PT 24.8 H INR 2.6 H APTT PTT Ratio Sodium Potassium Chloride Carbon Dioxide Anion Gap BUN Creatinine Est Cr Clr Drug Dosing Est GFR ( Amer) Est GFR (Non-Af Amer) BUN/Creatinine Ratio Glucose POC Glucose 314 H Estimat Average Glucose Hemoglobin A1c Calcium Total Bilirubin AST ALT Alkaline Phosphatase Total Protein Albumin Globulin Albumin/Globulin Ratio Lipase Beta-Hydroxybutyric Acd Blood Type O Positive Blood Type Recheck Antibody Screen NEGATIVE Crossmatch See Detail 08/03/18 08/03/18 08/03/18 17:23 20:19 23:06 WBC RBC Hgb 9.2 L 8.8 L Hct 27.3 L 25.7 L MCV MCH MCHC RDW Std Deviation RDW Coeff of Darrius Plt Count MPV Immature Gran % (Auto) Neut % (Auto) Lymph % (Auto) [place] % (Auto) Eos % (Auto) Baso % (Auto) Immature Gran # (Auto) Neut # (Auto) Lymph # (Auto) [place] # (Auto) Eos # (Auto) Baso # (Auto) Absolute Nucleated RBC Nucleated RBC % (auto) PT INR APTT PTT Ratio Sodium Potassium Chloride Carbon Dioxide Anion Gap BUN Creatinine Est Cr Clr Drug Dosing Est GFR ( Amer) Est GFR (Non-Af Amer) BUN/Creatinine Ratio Glucose POC Glucose 281 H Estimat Average Glucose Hemoglobin A1c Calcium Total Bilirubin AST ALT Alkaline Phosphatase Total Protein Albumin Globulin Albumin/Globulin Ratio Lipase Beta-Hydroxybutyric Acd Blood Type Blood Type Recheck Antibody Screen Crossmatch 08/04/18 08/04/18 08/04/18 06:06 06:06 06:06 WBC 11.15 H RBC 2.61 L Hgb 8.3 L Hct 24.6 L MCV 94.3 MCH 31.8 MCHC 33.7 RDW Std Deviation 47.6 H RDW Coeff of Darrius 14.3 Plt Count 227 MPV 10.1 Immature Gran % (Auto) 0.7 Neut % (Auto) 55.3 Lymph % (Auto) 34.2 [place] % (Auto) 7.6 Eos % (Auto) 1.7 Baso % (Auto) 0.5 Immature Gran # (Auto) 0.08 H Neut # (Auto) 6.16 Lymph # (Auto) 3.81 H [place] # (Auto) 0.85 H Eos # (Auto) 0.19 Baso # (Auto) 0.06 Absolute Nucleated RBC 0.04 H Nucleated RBC % (auto) 0.4 PT 14.6 H INR 1.5 H APTT PTT Ratio Sodium 141 Potassium 3.8 Chloride 110 H Carbon Dioxide 24 Anion Gap 7.0 BUN 35 H Creatinine 1.17 Est Cr Clr Drug Dosing 83.8 Est GFR ( Amer) 73.8 Est GFR (Non-Af Amer) 63.7 BUN/Creatinine Ratio 30.3 H Glucose 202 H POC Glucose Estimat Average Glucose Hemoglobin A1c Calcium 7.7 L Total Bilirubin AST ALT Alkaline Phosphatase Total Protein Albumin Globulin Albumin/Globulin Ratio Lipase Beta-Hydroxybutyric Acd Blood Type Blood Type Recheck Antibody Screen Crossmatch 08/04/18 08/04/18 08/04/18 06:06 06:06 07:47 WBC RBC Hgb Hct MCV MCH MCHC RDW Std Deviation RDW Coeff of Darrius Plt Count MPV Immature Gran % (Auto) Neut % (Auto) Lymph % (Auto) [place] % (Auto) Eos % (Auto) Baso % (Auto) Immature Gran # (Auto) Neut # (Auto) Lymph # (Auto) [place] # (Auto) Eos # (Auto) Baso # (Auto) Absolute Nucleated RBC Nucleated RBC % (auto) PT INR APTT PTT Ratio Sodium Potassium Chloride Carbon Dioxide Anion Gap BUN Creatinine Est Cr Clr Drug Dosing Est GFR ( Amer) Est GFR (Non-Af Amer) BUN/Creatinine Ratio Glucose POC Glucose 207 H Estimat Average Glucose 183 Hemoglobin A1c 8.0 H Calcium Total Bilirubin AST ALT Alkaline Phosphatase Total Protein Albumin Globulin Albumin/Globulin Ratio Lipase Beta-Hydroxybutyric Acd Blood Type Blood Type Recheck O Positive Antibody Screen Crossmatch 08/04/18 08/04/18 08/04/18 12:13 12:22 16:48 WBC RBC Hgb 8.4 L Hct 24.8 L MCV MCH MCHC RDW Std Deviation RDW Coeff of Darrius Plt Count MPV Immature Gran % (Auto) Neut % (Auto) Lymph % (Auto) [place] % (Auto) Eos % (Auto) Baso % (Auto) Immature Gran # (Auto) Neut # (Auto) Lymph # (Auto) [place] # (Auto) Eos # (Auto) Baso # (Auto) Absolute Nucleated RBC Nucleated RBC % (auto) PT INR APTT PTT Ratio Sodium Potassium Chloride Carbon Dioxide Anion Gap BUN Creatinine Est Cr Clr Drug Dosing Est GFR ( Amer) Est GFR (Non-Af Amer) BUN/Creatinine Ratio Glucose POC Glucose 202 H 172 H Estimat Average Glucose Hemoglobin A1c Calcium Total Bilirubin AST ALT Alkaline Phosphatase Total Protein Albumin Globulin Albumin/Globulin Ratio Lipase Beta-Hydroxybutyric Acd Blood Type Blood Type Recheck Antibody Screen Crossmatch 08/04/18 08/04/18 08/04/18 16:54 20:26 22:56 WBC RBC Hgb 8.2 L 7.8 L Hct 24.4 L 22.5 L MCV MCH MCHC RDW Std Deviation RDW Coeff of Darrius Plt Count MPV Immature Gran % (Auto) Neut % (Auto) Lymph % (Auto) [place] % (Auto) Eos % (Auto) Baso % (Auto) Immature Gran # (Auto) Neut # (Auto) Lymph # (Auto) [place] # (Auto) Eos # (Auto) Baso # (Auto) Absolute Nucleated RBC Nucleated RBC % (auto) PT INR APTT PTT Ratio Sodium Potassium Chloride Carbon Dioxide Anion Gap BUN Creatinine Est Cr Clr Drug Dosing Est GFR ( Amer) Est GFR (Non-Af Amer) BUN/Creatinine Ratio Glucose POC Glucose 185 H Estimat Average Glucose Hemoglobin A1c Calcium Total Bilirubin AST ALT Alkaline Phosphatase Total Protein Albumin Globulin Albumin/Globulin Ratio Lipase Beta-Hydroxybutyric Acd Blood Type Blood Type Recheck Antibody Screen Crossmatch 08/05/18 08/05/18 08/05/18 06:32 06:32 06:32 WBC 7.86 RBC 2.27 L Hgb 7.4 L Hct 21.9 L MCV 96.5 MCH 32.6 MCHC 33.8 RDW Std Deviation 49.8 H RDW Coeff of Darrius 14.7 H Plt Count 180 MPV 8.8 Immature Gran % (Auto) Neut % (Auto) Lymph % (Auto) [place] % (Auto) Eos % (Auto) Baso % (Auto) Immature Gran # (Auto) Neut # (Auto) Lymph # (Auto) [place] # (Auto) Eos # (Auto) Baso # (Auto) Absolute Nucleated RBC 0.03 H Nucleated RBC % (auto) 0.4 PT 12.8 H INR 1.3 H APTT PTT Ratio Sodium 144 Potassium 4.0 Chloride 113 H Carbon Dioxide 28 Anion Gap 3.0 BUN 19 H Creatinine 1.16 Est Cr Clr Drug Dosing 84.3 Est GFR ( Amer) 74.6 Est GFR (Non-Af Amer) 64.3 BUN/Creatinine Ratio 16.7 Glucose 162 H POC Glucose Estimat Average Glucose Hemoglobin A1c Calcium 8.0 L Total Bilirubin AST ALT Alkaline Phosphatase Total Protein Albumin Globulin Albumin/Globulin Ratio Lipase Beta-Hydroxybutyric Acd Blood Type Blood Type Recheck Antibody Screen Crossmatch 08/05/18 07:28 WBC RBC Hgb Hct MCV MCH MCHC RDW Std Deviation RDW Coeff of Darrius Plt Count MPV Immature Gran % (Auto) Neut % (Auto) Lymph % (Auto) [place] % (Auto) Eos % (Auto) Baso % (Auto) Immature Gran # (Auto) Neut # (Auto) Lymph # (Auto) [place] # (Auto) Eos # (Auto) Baso # (Auto) Absolute Nucleated RBC Nucleated RBC % (auto) PT INR APTT PTT Ratio Sodium Potassium Chloride Carbon Dioxide Anion Gap BUN Creatinine Est Cr Clr Drug Dosing Est GFR ( Amer) Est GFR (Non-Af Amer) BUN/Creatinine Ratio Glucose POC Glucose 174 H Estimat Average Glucose Hemoglobin A1c Calcium Total Bilirubin AST ALT Alkaline Phosphatase Total Protein Albumin Globulin Albumin/Globulin Ratio Lipase Beta-Hydroxybutyric Acd Blood Type Blood Type Recheck Antibody Screen Crossmatch (1) Anemia Anemia type: other cause Other causes of anemia: acute posthemorrhagic Qualified Code(s): D62 - Acute posthemorrhagic anemia
--- NOTE | 2018-08-05 15:17 | Hospitalist Progress Note ---
Date of Service August 05, 2018 Assessment & Plan (1) Acute upper GI bleed: This is a 68-year-old male who has a significant PMH of CAD with history of stent in 2003, T2 DM, paroxysmal atrial fibrillation on warfarin, HTN, history of PUD, morbid obesity, hiatal hernia, diverticulosis who presents to [facility] secondary to black stool x 2 weeks. EGD showed significant duodenal ulcer with bleeding which were cauterized and injected Continue Protonix gtt for a total of 72 hours and carafate Hemoglobin dropped to 7.4 this morning We will get 2 units of PRBC Remains a stable clinically (2) Anemia: -baseline hgb 15, today H/H 8.3 and 24.6 -continue to follow H/H q6h -will transfuse 2 units PRBC hgb < 8.0 -Receiving 2 units of blood transfusion today (3) ABDIEL (acute kidney injury): -improving, bun/cr 35/1.17 today -baseline Cr 1.1-1.2 -received 500ml IVF in ED and 1 L NS on 08/03 -NPO currently for upcoming EGD -start D5 1/2 NS with 10meq KCL 80 cc/hr while NPO -Has been eating -Kidney function is much better (4) Atrial fibrillation: -rate/rhythm controlled on ECG -continue metoprolol -hold warfarin, vit k 5mg given for reversal -INR 1.5 today -monitor on Tele for PAF -We will hold any anticoagulation at least for today, likely start heparin low- dose with a bolus tomorrow and Coumadin after 5 days from the date of the EGD (5) Coronary artery disease: -continue statin and BB, hold ASA/EARNESTINE in setting of acute GIB and ABDIEL -no chest pain or ecg changes (6) Diabetes: -A1C 8.0 -hold glimepiride -Lantus/novolog per protocol ( will increase regimen if BSG still > 180 after NPO is lifted) -monitor closely -would recommending adding metformin to patients outpatient regimen at discharge (7) Hypertension: -given slight abdiel will hold EARNESTINE/HCTZ -continue metoprolol -monitor (8) DVT prophylaxis: -hold warfarin in setting of ? UGIB -check PT/INR in a.m. Disposition: d/c to home when able Subjective 08/05: The patient was seen and examined in telemetry He denies any complaints today His hemoglobin dropped to 7.8 and going to receive blood transfusion of 2 units Bowel has been removed. Physical Exam Vital Signs (Past 24 Hours): Last Vital Signs Temp 37.4 C 08/05/18 13:30 Pulse 62 08/05/18 13:30 Resp 16 08/05/18 13:30 BP 104/62 08/05/18 13:30 Pulse Ox 97 08/05/18 13:30 Physical Exam: No apparent distress at rest Constitutional: WD/WN, vitals as above + obese, well groomed, cooperative and comfortable Eyes: PERRL, conjunctivae normal, anicteric sclerae ENMT: external ear and nose normal, oropharynx normal Mouth: no dentition abnormality Mallampati Class: I Neck: normal visual inspection Respiratory: normal respiratory effort, lungs clear to auscultation normal respiratory effort Auscultation: lungs clear to auscultation bilaterally Cardiovascular: RRR, no murmur, no edema Rate/Rhythm: regular rate and regular rhythm Gastrointestinal (Abdomen): normal bowel sounds, soft, nontender, no hepatosplenomegaly Percussion/Palpation: + abdomen tender (Minimal tenderness in epigastrium) and abdomen soft Skin: no rashes, warm and dry no jaundice Neurologic: Motor/Sensory: no asterixis Psychiatric: A+Ox3, euthymic affect Lymphatic: no lymphedema Results & Data Laboratory Results Short CBC 08/04/18 08/04/18 08/05/18 Range/Units 16:54 22:56 06:32 WBC 7.86 (4.8-10.8) K/uL Hgb 8.2 L 7.8 L 7.4 L (14.0-18.0) g/dL Hct 24.4 L 22.5 L 21.9 L (42-52) % Plt Count 180 (130-400) K/uL BMP 08/05/18 06:32 Sodium 144 Potassium 4.0 Chloride 113 H Carbon Dioxide 28 BUN 19 H Creatinine 1.16 Glucose 162 H Calcium 8.0 L Medications Administered Current Inpatient Medications Acetaminophen (Tylenol) 650 mg PO Q4H PRN PRN Reason: Pain or Fever Stop: 09/02/18 15:44 Al Hydrox/Mg Hydrox/Simethicone (Maalox) 15 ml PO Q4H PRN PRN Reason: Dyspepsia Stop: 09/02/18 15:44 Atorvastatin Calcium (Lipitor) 80 mg PO HS [facility] Stop: 09/02/18 20:59 Last Admin: 08/04/18 20:28 Dose: 80 mg Documented by: Dextrose (Dextrose 50%) 25 - 50 ml IV UD PRN; Protocol PRN Reason: Hypoglycemia Protocol Stop: 09/02/18 15:44 Glucagon (Glucagen) 1 mg SQ UD PRN; Protocol PRN Reason: Hypoglycemia Protocol Stop: 09/02/18 15:44 Glucose (Glucose 40%) 15 - 30 gm PO UD PRN; Protocol PRN Reason: Hypoglycemia Protocol Stop: 09/02/18 15:44 Glucose (Dex4 Glucose) 4 - 8 tabs PO UD PRN; Protocol PRN Reason: Hypoglycemia Protocol Stop: 09/02/18 15:44 Pantoprazole Sodium 40 mg/ (Dextrose) 100 mls @ 20 mls/hr IV Q5H [facility] Stop: 09/02/18 14:00 Last Admin: 08/05/18 11:52 Dose: 20 mls/hr Documented by: Sodium Chloride (Nss) 250 mls @ 15 mls/hr IV .[id number] PRN PRN Reason: For Transfusion Stop: 09/03/18 10:10 Furosemide 20 mg/ Syringe 2 mls @ 4 mls/min IV TODAY@0800 [facility] Stop: 08/05/18 16:00 Last Admin: 08/05/18 08:06 Dose: 4 mls/min Documented by: Sodium Chloride (Nss) 250 mls @ 15 mls/hr IV .[id number] PRN PRN Reason: For Transfusion Stop: 09/04/18 06:42 Insulin Aspart (Novolog Flexpen) 0 units SC ACHS [facility] Stop: 09/02/18 16:29 Last Admin: 08/05/18 11:53 Dose: 7 units Documented by: Insulin Glargine (Lantus Solostar Pen) 0 - 10 units SC BID [facility]; Protocol Stop: 09/03/18 20:59 Last Admin: 08/05/18 08:06 Dose: 5 units Documented by: Magnesium Hydroxide (Milk Of Magnesia) 30 ml PO Q12H PRN PRN Reason: Constipation Stop: 09/02/18 15:44 Metoprolol Tartrate (Lopressor) 50 mg PO BID [facility] Stop: 09/02/18 20:59 Last Admin: 08/05/18 07:31 Dose: 50 mg Documented by: Miscellaneous (Carbohydrates For Hypoglycemia) 15 - 30 gm PO UD PRN PRN Reason: Hypoglycemia Treatment Stop: 09/02/18 15:44 Polyethylene Glycol (Miralax Powder Packet) 17 gm PO DAILY PRN PRN Reason: Constipation Stop: 09/02/18 15:44 Sucralfate (Carafate) 1 gm PO BID [facility] Stop: 09/03/18 20:59 Last Admin: 08/05/18 07:31 Dose: 1 gm Documented by: Vitamin D (Vitamin D3) 1,000 units PO HS [facility] Stop: 09/02/18 20:59 Last Admin: 08/04/18 20:32 Dose: 1,000 units Documented by: (1) Anemia Anemia type: other cause Other causes of anemia: acute posthemorrhagic Qualified Code(s): D62 - Acute posthemorrhagic anemia (2) Atrial fibrillation Atrial fibrillation type: unspecified Qualified Code(s): I48.91 - Unspecified atrial fibrillation (3) Coronary artery disease Coronary Disease-Associated Artery/Lesion type: [place] artery [place] vs. transplanted heart: [place] heart Associated angina: without angina Qualified Code(s): I25.10 - Atherosclerotic heart disease of [place] coronary artery without angina pectoris (4) Diabetes Diabetes mellitus type: type 2 Diabetes mellitus [employer] insulin use: without [employer] use Diabetes mellitus complication status: without complication Qualified Code(s): E11.9 - Type 2 diabetes mellitus without complications (5) Hypertension Hypertension type: essential hypertension Qualified Code(s): I10 - Essential (primary) hypertension
[2018-08-05] MEDS: ATORVASTATIN 40 MG TAB PO SCH (21:08)
[2018-08-05] MEDS: CHOLECALCIFEROL 1,000 UNITS TAB PO SCH (21:09)
[2018-08-06] MEDS: PANTOprazole 40 MG in DEXTROSE 5% 100 ML IV SCH ×3 (02:55→13:31)
[2018-08-06 07:42] LABS: Basophils # (auto) 0.04 K/uL (0-0.2); Basophils % (auto) 0.6 %; Eosinophils # (auto) 0.21 K/uL (0-0.5); Eosinophils % (auto) 3.4 %; Hematocrit (blood only) 26.5 % (42-52); Hemoglobin 8.9 g/dL (14.0-18.0); Immature Granulocytes # (auto) 0.04 K/uL (0.00-0.02); Immature Granulocytes % (auto) 0.6 %; Lymphocytes # (auto) 1.93 K/uL (1.2-3.4); Lymphocytes % (auto) 31.1 %; Mean Corpuscular Hgb Conc 33.6 g/dL (32-36); Mean Corpuscular Volume 93.3 fL (80-100); Mean Platelet Volume 9.9 fL (7.4-10.4); Monocytes # (auto) 0.52 K/uL (0.11-0.59); Monocytes % (auto) 8.4 %; Neutrophils # (auto) 3.47 K/uL (1.4-6.5); Neutrophils % (auto) 55.9 %; Platelet Count 189 K/uL (130-400); RDW Coefficient of Variation 15.8 % (11.5-14.5); RDW Standard Deviation 51.5 fL (36.4-46.3); Red Blood Count 2.84 M/uL (4.7-6.1); White Blood Count 6.21 K/uL (4.8-10.8)
[2018-08-06 08:07] LABS: RBC Morphology Unremarkable
[2018-08-06 08:17] LABS: BUN Creatinine Ratio 10.8 (10-20); Calcium 7.8 mg/dl (8.5-10.1); Creatinine Clr Calc Pharmacy 82.5 ml/min; Est GFR (African American) 72.3; Est GFR (Non-African American) 62.4; Magnesium 2.3 mg/dl (1.8-2.4); Potassium 3.4 mmol/L (3.5-5.1)
--- NOTE | 2018-08-06 09:00 | Fluoroscopy Report ---
FL upper GI with air RTN CLINICAL HISTORY: eval paraesophageal hernia COMPARISON STUDY: CT of the abdomen and pelvis August 03, 2018. FLUOROSCOPY TIME: 2.2 minutes. FLUOROSCOPIC IMAGES: 23 FINDINGS: Moderate esophageal dysmotility is noted. Mucosal detail is diminished on this exam. A mode rate sized hiatal hernia is noted. The gastric cardia and fundus are located within the chest. The ga stroesophageal junction appears to be within the chest. Caliber of opacified small bowel is normal. N o reflux was elicited. IMPRESSION: 1. Moderate sized hiatal hernia. Gastric cardia and fundus located within the chest. Gastroesophageal junction likely within the chest and therefore this favors a sliding-type hiatal hernia. 2. Esophageal dysmotility. Electronically signed by: Toy Hauser M.D. 08/06/2018 8:59 AM
[2018-08-06] MEDS: SUCRALFATE 1 GM/10 ML UDC PO SCH (09:45)
[2018-08-06] MEDS: INSULIN GLARGINE SOLOSTAR 100 UNITS/ML 3 ML PEN SC SCH (09:46)
[2018-08-06] MEDS: INSULIN ASPART 100 UNITS/ML 3 ML PEN SC SCH ×3 (09:47→17:34)
[2018-08-06] MEDS: METOPROLOL TARTRATE 50 MG TAB PO SCH (09:48)
--- NOTE | 2018-08-06 11:31 | Gastroenterology Progress Note ---
Date of Service August 06, 2018 Assessment & Plan (1) Paraesophageal hernia: (2) Anemia: (3) Melena: (4) Duodenal ulcer: Pt is a 68 y/o male, admitted for melena, anemia in setting of Coumadin and baby ASA use for Afib. EGD done on 08/04 revealed tortous esophagus, Schatzki's ring, medium paraesophageal hernia oozing partially obstructing duodenal ulcer treated w epinephrine injection and thermal probe. Plan: 1. Hb stable post transfusion at 8.6 today. No further gross bleeding. 2. May DC protonix drip at 2 today (total 36 hrs at that time). Replace with po BID PPI. 3. Carafate 1g susp BID 4. Repeat EGD in 3 month the verify healing of ulcer. Supervising Physician Co-Signing Physician Notes I saw and evaluated the patient. He does appear to be somewhat improved today. He is tolerating p.o. without any difficulty. I would recommend that he be on Protonix 40 mg twice daily for 6 weeks then 1 time daily thereafter. We will plan for an upper endoscopy as an outpatient in 3 months. Subjective Presented 08/03 for Melena EGD 08/04 with a partially obstructing duodenal bulb cratered ulcer and a medium sized type III paraesophageal hernia. UGI series today with a medium sized hiatal hernia, esophageal dysmotility No BM since EGD. No abd pain or n/v. Tolerating [place] diet well. Hgb on arrival 10.5, received 2 units of RBCs, today Hb 8.9. BUN today 13. Protonix drip infusing. Physical Exam Vital Signs (Past 24 Hours): Last Vital Signs Temp 36.6 C 08/06/18 07:23 Pulse 63 08/06/18 07:23 Resp 18 08/06/18 07:23 BP 117/74 08/06/18 07:23 Pulse Ox 95 08/06/18 07:23 Constitutional: WD/WN, vitals as above + obese Eyes: PERRL, conjunctivae normal, anicteric sclerae ENMT: external ear and nose normal, oropharynx normal Neck: trachea midline, no thyromegaly Respiratory: normal respiratory effort, lungs clear to auscultation Cardiovascular: RRR, no murmur, no edema Gastrointestinal (Abdomen): Percussion/Palpation: abdomen soft obese, no palpable masses Musculoskeletal: no cyanosis or clubbing, extremities motor strength 5/5 Skin: no rashes, warm and dry Neurologic: PERRL, EOMI, accommodation nl, no face palsy, no dysarthria Psychiatric: A+Ox3, euthymic affect Lymphatic: no cervical or axillary lymphadenopathy Results & Data Laboratory Results See HPI Diagnostic Findings UGI series 08/06: . Moderate sized hiatal hernia. Gastric cardia and fundus located within the chest. Gastroesophageal junction likely within the chest and therefore this favors a sliding-type hiatal hernia. 2. Esophageal dysmotility. Medications Administered Protonix drip (1) Anemia Anemia type: other cause Other causes of anemia: acute posthemorrhagic Qualified Code(s): D62 - Acute posthemorrhagic anemia
--- NOTE | 2018-08-06 15:14 | Hospitalist Progress Note ---
Date of Service August 06, 2018 Assessment & Plan (1) Acute upper GI bleed: This is a 68-year-old male who has a significant PMH of CAD with history of stent in 2002, T2 DM, paroxysmal atrial fibrillation on warfarin, HTN, history of PUD, morbid obesity, hiatal hernia, diverticulosis who presents to [facility] secondary to black stool x 2 weeks. EGD showed significant duodenal ulcer with bleeding which were cauterized and injected Continue Protonix gtt for a total of 72 hours and carafate Hemoglobin dropped to 7.4 this morning We will get 2 units of PRBC Hemoglobin is 8.9 today, will repeat at around 4 PM, stable at the time, relating the Protonix 40 mg twice daily for 6 weeks and then daily (2) Anemia: -baseline hgb 15, today H/H 8.3 and 24.6 -continue to follow H/H q6h -will transfuse 2 units PRBC hgb < 8.0 -Receiving 2 units of blood transfusion today -Hemoglobin 8.9 on 08/06 -Repeat at 4 PM today (3) ABDIEL (acute kidney injury): -improving, bun/cr 35/1.17 today -baseline Cr 1.1-1.2 -received 500ml IVF in ED and 1 L NS on 08/03 -NPO currently for upcoming EGD -start D5 1/2 NS with 10meq KCL 80 cc/hr while NPO -Has been eating -Kidney function is much better (4) Atrial fibrillation: -rate/rhythm controlled on ECG -continue metoprolol -hold warfarin, vit k 5mg given for reversal -INR 1.5 today -monitor on Tele for PAF -We will hold any anticoagulation at least for today, likely start heparin low- dose with a bolus tomorrow and Coumadin after 5 days from the date of the EGD -We will restart anticoagulation on discharge (5) Coronary artery disease: -continue statin and BB, hold ASA/EARNESTINE in setting of acute GIB and ABDIEL -no chest pain or ecg changes (6) Diabetes: -A1C 8.0 -hold glimepiride -Lantus/novolog per protocol ( will increase regimen if BSG still > 180 after NPO is lifted) -monitor closely -would recommending adding metformin to patients outpatient regimen at discharge (7) Hypertension: -given slight abdiel will hold EARNESTINE/HCTZ -continue metoprolol -monitor (8) DVT prophylaxis: -hold warfarin in setting of ? UGIB -check PT/INR in a.m. Disposition: d/c to home when able Subjective 08/05: The patient was seen and examined in telemetry He denies any complaints today His hemoglobin dropped to 7.8 and going to receive blood transfusion of 2 units Bowel has been removed. 08/06 The patient was seen and examined the medical telemetry He denies any symptoms except that bowel has been minimal bleeding Diet advanced to regular Physical Exam Vital Signs (Past 24 Hours): Last Vital Signs Temp 36.8 C 08/06/18 11:48 Pulse 56 L 08/06/18 11:48 Resp 17 08/06/18 11:48 BP 110/66 08/06/18 11:48 Pulse Ox 100 08/06/18 11:48 Physical Exam: No apparent distress at rest Constitutional: WD/WN, vitals as above + obese, well groomed, cooperative and comfortable Eyes: PERRL, conjunctivae normal, anicteric sclerae ENMT: external ear and nose normal, oropharynx normal Mouth: no dentition abnormality Mallampati Class: I Neck: normal visual inspection Respiratory: normal respiratory effort, lungs clear to auscultation normal respiratory effort Auscultation: lungs clear to auscultation bilaterally Cardiovascular: RRR, no murmur, no edema Rate/Rhythm: regular rate and regular rhythm Gastrointestinal (Abdomen): normal bowel sounds, soft, nontender, no hepatosplenomegaly Percussion/Palpation: + abdomen tender (Minimal tenderness in epigastrium) and abdomen soft Skin: no rashes, warm and dry no jaundice Neurologic: Motor/Sensory: no asterixis Psychiatric: A+Ox3, euthymic affect Lymphatic: no lymphedema Results & Data Laboratory Results Short CBC 08/06/18 Range/Units 06:59 WBC 6.21 (4.8-10.8) K/uL Hgb 8.9 L (14.0-18.0) g/dL Hct 26.5 L (42-52) % Plt Count 189 (130-400) K/uL BMP 08/06/18 06:59 Sodium 144 Potassium 3.4 L Chloride 111 H Carbon Dioxide 28 BUN 13 Creatinine 1.19 Glucose 162 H Calcium 7.8 L Medications Administered Current Inpatient Medications Acetaminophen (Tylenol) 650 mg PO Q4H PRN PRN Reason: Pain or Fever Stop: 09/02/18 15:44 Al Hydrox/Mg Hydrox/Simethicone (Maalox) 15 ml PO Q4H PRN PRN Reason: Dyspepsia Stop: 09/02/18 15:44 Atorvastatin Calcium (Lipitor) 80 mg PO HS [facility] Stop: 09/02/18 20:59 Last Admin: 08/05/18 21:08 Dose: 80 mg Documented by: Dextrose (Dextrose 50%) 25 - 50 ml IV UD PRN; Protocol PRN Reason: Hypoglycemia Protocol Stop: 09/02/18 15:44 Glucagon (Glucagen) 1 mg SQ UD PRN; Protocol PRN Reason: Hypoglycemia Protocol Stop: 09/02/18 15:44 Glucose (Glucose 40%) 15 - 30 gm PO UD PRN; Protocol PRN Reason: Hypoglycemia Protocol Stop: 09/02/18 15:44 Glucose (Dex4 Glucose) 4 - 8 tabs PO UD PRN; Protocol PRN Reason: Hypoglycemia Protocol Stop: 09/02/18 15:44 Sodium Chloride (Nss) 250 mls @ 15 mls/hr IV .[id number] PRN PRN Reason: For Transfusion Stop: 09/03/18 10:10 Sodium Chloride (Nss) 250 mls @ 15 mls/hr IV .[id number] PRN PRN Reason: For Transfusion Stop: 09/04/18 06:42 Pantoprazole Sodium 40 mg/ (Syringe) 10 mls @ 5 mls/min IV BID@0900,2100 [facility] Stop: 09/05/18 20:59 Insulin Aspart (Novolog Flexpen) 0 units SC ACHS [facility] Stop: 09/02/18 16:29 Last Admin: 08/06/18 12:24 Dose: 5 units Documented by: Insulin Glargine (Lantus Solostar Pen) 0 - 10 units SC BID [facility]; Protocol Stop: 09/03/18 20:59 Last Admin: 08/06/18 09:46 Dose: 5 units Documented by: Magnesium Hydroxide (Milk Of Magnesia) 30 ml PO Q12H PRN PRN Reason: Constipation Stop: 09/02/18 15:44 Metoprolol Tartrate (Lopressor) 50 mg PO BID [facility] Stop: 09/02/18 20:59 Last Admin: 08/06/18 09:48 Dose: 50 mg Documented by: Miscellaneous (Carbohydrates For Hypoglycemia) 15 - 30 gm PO UD PRN PRN Reason: Hypoglycemia Treatment Stop: 09/02/18 15:44 Polyethylene Glycol (Miralax Powder Packet) 17 gm PO DAILY PRN PRN Reason: Constipation Stop: 09/02/18 15:44 Sucralfate (Carafate) 1 gm PO BID [facility] Stop: 09/03/18 20:59 Last Admin: 08/06/18 09:45 Dose: 1 gm Documented by: Vitamin D (Vitamin D3) 1,000 units PO HS [facility] Stop: 09/02/18 20:59 Last Admin: 08/05/18 21:09 Dose: 1,000 units Documented by: (1) Anemia Anemia type: other cause Other causes of anemia: acute posthemorrhagic Qualified Code(s): D62 - Acute posthemorrhagic anemia (2) Atrial fibrillation Atrial fibrillation type: unspecified Qualified Code(s): I48.91 - Unspecified atrial fibrillation (3) Coronary artery disease Coronary Disease-Associated Artery/Lesion type: [place] artery [place] vs. transplanted heart: [place] heart Associated angina: without angina Qualified Code(s): I25.10 - Atherosclerotic heart disease of [place] coronary artery without angina pectoris (4) Diabetes Diabetes mellitus type: type 2 Diabetes mellitus rn long term care insulin use: roberto driver rn long term care use Diabetes mellitus complication status: without complication Qualified Code(s): E11.9 - Type 2 diabetes mellitus without complications (5) Hypertension Hypertension type: essential hypertension Qualified Code(s): I10 - Essential (primary) hypertension
[2018-08-06 16:07] LABS: Hematocrit (blood only) 27.7 % (42-52); Hemoglobin 9.3 g/dL (14.0-18.0)
[2018-08-06] MEDS ORDERED: PANTOprazole 40 MG in SYRINGE 0 ML IV SCH (21:00)
--- NOTE | 2018-08-07 08:32 | Discharge Summary ---
Date of Service August 07, 2018 Admission HPI Per Admitting Provider This is a 68-year-old male who has a significant PMH of CAD with history of stent in 2002, T2 DM, paroxysmal atrial fibrillation on warfarin, HTN, history of PUD, morbid obesity, hiatal hernia, diverticulosis who presents to [facility] secondary to black stool x 2 weeks. Over the past 2 weeks he has noted dark black BMs, no bright red blood. He complains of intermittent epigastric discomfort as well as left lower quadrant abdominal discomfort. Discomfort is not constant, comes and goes, not worse with certain meals but worse with soda. Abdominal discomfort occasionally improved with Tums. He denies any significant tobacco, alcohol or NSAID use. He only takes baby aspirin. He further complains of increasing fatigue, listlessness, easy fatigability, dyspnea on exertion. "Usually when I walk at work I get SOB and have to take 2-3 rests but not its more like 5-6." His appetite has been normal and he has been tolerating liquids. He denies fever, chills, sweats, lightheadedness, dizziness, chest pain, shortness breath at rest, palpitations, nausea, vomiting, diarrhea, UTI sx. Hx of PUD in past s/p EGD in 2001 per [facility] but patient doesnt recall this. He does take warfarin secondary to A. fib. Last INR was 3.6 per pt. His normal regimen is 5 mg Thursday and 2.5 mg all other days. He notes for the past 2 days he has been only taking half a tablet because he was concerned this was because of bleeding. Patient keeps a detailed record which was reviewed by me of his blood pressure, pulse, glucose. He states he has a "heart monitor," that he utilizes at home to monitor for arrhythmia. He has noted over the past 2 weeks with signs of melena his heart rate has been higher 70s and 80s. Admission Exam Per Admitting Provider Vital Signs (Past 24 Hours): Last Vital Signs Temp 37.4 C 08/03/18 10:16 Pulse 88 08/03/18 12:02 Resp 22 08/03/18 12:02 BP 114/64 08/03/18 13:01 Pulse Ox 99 08/03/18 13:01 Physical Exam: Gen: Morbidly obese, male, NAD, sitting up in bed, pleasant, conversing easily Head: Normocephalic, Atraumatic Eyes: Sclera normal, no conjunctival injection, PERRLA, EOMI ENT: Gross hearing intact, normal pharynx, mucous membranes moist Neck: supple, no adenopathy, No JVD, no bruit, Resp: Clear to auscultation b/l, no wheeze, rales, rhonchi. Normal insp/exp effort, no accessory muscle use CV: Regular rate, regular rhythm, no murmur, rub, gallop, or ectopy Abd: +obese protuberant, +BS x 4, soft, nontender Musculoskeletal: moves extremities active rom x 4, strength intact, good register of wills strength Extremities: No edema bilaterally Skin: warm, moist, no rash, negative turgor, cap refill < 2sec Neuro: Alert and oriented x 3, speech normal, good mood/affect, cran nerve 2-12 intact grossly : deferred Principal Diagnosis Acute duodenal ulcer bleed, status post EGD with cauterization of the ulcer bleeding, atrial fibrillation Discharge Exam Constitutional WD/WN, vitals as above + obese, well groomed, cooperative and comfortable Eyes PERRL, conjunctivae normal, anicteric sclerae ENMT external ear and nose normal, oropharynx normal Mouth: no dentition abnormality Mallampati Class: I Neck normal visual inspection Respiratory normal respiratory effort, lungs clear to auscultation normal respiratory effort Auscultation: lungs clear to auscultation bilaterally Cardiovascular RRR, no murmur, no edema Rate/Rhythm: regular rate and regular rhythm Gastrointestinal (Abdomen) normal bowel sounds, soft, nontender, no hepatosplenomegaly Percussion/Palpation: + abdomen tender (Minimal tenderness in epigastrium) and abdomen soft Skin no rashes, warm and dry no jaundice Neurologic Motor/Sensory: no asterixis Psychiatric A+Ox3, euthymic affect Lymphatic no lymphedema Discharge Data Allergies Allergy/AdvReac Type Severity Reaction Status Date / Time No Known Allergies Allergy Unknown Verified 08/03/18 11:00 Consultations 08/03/18 12:33 ED Decision to Admit Stat 08/03/18 13:38 Consult Gastroenterology Routine Procedures Performed Operation Date: 08/04/18 10:15 Actual Procedures p EGD Hemostasis - Cheryl Han Ordered Studies 08/03/18 11:12 CT abd pelvis IV con only Stat 08/06/18 08:30 FL upper GI with air RTN Routine Hospital Course (1) Acute upper GI bleed: This is a 68-year-old male who has a significant PMH of CAD with history of stent in 2002, T2 DM, paroxysmal atrial fibrillation on warfarin, HTN, history of PUD, morbid obesity, hiatal hernia, diverticulosis who presents to [facility] secondary to black stool x 2 weeks. EGD showed significant duodenal ulcer with bleeding which were cauterized and injected Continue Protonix gtt for a total of 72 hours and carafate Hemoglobin dropped to 7.4 this morning We will get 2 units of PRBC Hemoglobin is 8.9 today, will repeat at around 4 PM, stable at the time, rela ting the Protonix 40 mg twice daily for 6 weeks and then daily (2) Anemia: -baseline hgb 15, today H/H 8.3 and 24.6 -continue to follow H/H q6h -will transfuse 2 units PRBC hgb < 8.0 -Receiving 2 units of blood transfusion today -Hemoglobin 8.9 on 08/06 -Repeat at 4 PM today (3) ABDIEL (acute kidney injury): -improving, bun/cr 35/1.17 today -baseline Cr 1.1-1.2 -received 500ml IVF in ED and 1 L NS on 08/03 -NPO currently for upcoming EGD -start D5 1/2 NS with 10meq KCL 80 cc/hr while NPO -Has been eating -Kidney function is much better (4) Atrial fibrillation: -rate/rhythm controlled on ECG -continue metoprolol -hold warfarin, vit k 5mg given for reversal -INR 1.5 today -monitor on Tele for PAF -We will hold any anticoagulation at least for today, likely start heparin low- dose with a bolus tomorrow and Coumadin after 5 days from the date of the EGD -We will restart anticoagulation on discharge (5) Coronary artery disease: -continue statin and BB, hold ASA/EARNESTINE in setting of acute GIB and ABDIEL -no chest pain or ecg changes (6) Diabetes: -A1C 8.0 -hold glimepiride -Lantus/novolog per protocol ( will increase regimen if BSG still > 180 after NPO is lifted) -monitor closely -would recommending adding metformin to patients outpatient regimen at discharge (7) Hypertension: -given slight abdiel will hold EARNESTINE/HCTZ -continue metoprolol -monitor (8) DVT prophylaxis: -hold warfarin in setting of ? UGIB -check PT/INR in a.m. Disposition: d/c to home when able Total Time Total Time Spent Total Time Spent (In Minutes): 35 minutes Total Time Includes: Examination of the Patient, Discharge Planning, Medication Reconciliation and Communication With Other Providers Discharge Plan Discharge Items Patient Disposition: Home - Self-Care Reason For Visit: CONCERN FOR UPPER GI BLEED Discharge Diagnosis: Acute duodenal ulcer bleed, status post EGD with cauterization of the ulcer bleeding, atrial fibrillation Condition: Good Discharge Goals: Decrease discomfort, Improve function and Increase independence Activity: Resume your previous activity Non-emergency contact: Primary Care Provider Call non-emergency contact if: you have any medication questions and your symptoms worsen Follow-up/Referrals: Marina Smiley MD [Primary Care Provider] - 08/10/18 11:05 am ([facility] clinic notified. GI will call for appointment and will need a repeat endoscopy in 3 months) Diet: Heart Healthy Addtl Provider Instructions: Avoid any aspirin and/or NSAIDS Prescriptions: New sucralfate 100 mg/mL Suspension 10 ml PO BID 15 Days Qty: 300 RF: 0 pantoprazole [Protonix] 40 mg tablet,delayed release (DR/EC) 40 mg PO UD Qty: 60 RF: 0 Continued atorvastatin 80 mg Tablet 80 mg PO HS Qty: 0 RF: 0 lisinopril-hydrochlorothiazide 10-12.5 mg Tablet 1 tab PO QAM Qty: 0 RF: 0 metoprolol tartrate 50 mg Tablet 50 mg PO BID Qty: 0 RF: 0 coenzyme Q10 [Co Q-10] 100 mg Capsule 100 mg PO QAM Qty: 0 RF: 0 glimepiride 4 mg tablet 4 mg PO QDL RF: 0 warfarin [Coumadin] 5 mg tablet 2.5 mg PO 4XWK RF: 0 cholecalciferol (vitamin D3) [Vitamin D3] 1,000 unit Capsule 1,000 unit PO HS RF: 0 alpha lipoic acid 200 mg Tablet 200 mg PO QAM RF: 0 warfarin [Coumadin] 5 mg tablet 5 mg PO 3XWK RF: 0 Discontinued aspirin [Aspir-81] 81 mg Tablet,Delayed Release (Dr/Ec) 81 mg PO HS Qty: 0 RF: 0 Stand-Alone Forms: [facility] Discharge Orders: Discharge Order (Routine); Ordered 08/06/18 Ordered By: Kenzie Colon Admission Data Admit Date/Time: 08/03/18 13:38 Attending Provider: Kenzie Colon Admit Provider: Kenzie Colon Primary Care Provider: Marina Smliey Other Providers: Kenzie Colon ; Cheryl Han ; German Mcelroy Service: Telemetry Other Interventions: Discharge Summary Assessment (RN) Last Done: 08/06/18 17:08 DC Date/Time DO NOT enter until pt leaves facility: 08/06/18 18:15
== END 2018-08-06 18:15 | disposition home or self-care (01) | DRG 378 ==
LOC: ED 10:11 → SUATTDRO 13:38 → 2W 13:38

== ENCOUNTER 2019-04-22 07:23 | Inpatient (IN) ==
[2019-04-22 08:28] LABS: Basophils # (auto) 0.03 K/uL (0-0.2); Basophils % (auto) 0.4 %; Eosinophils # (auto) 0.24 K/uL (0-0.5); Eosinophils % (auto) 3.2 %; Hemoglobin 12.1 g/dL (14.0-18.0); Immature Granulocytes # (auto) 0.02 K/uL (0.00-0.02); Immature Granulocytes % (auto) 0.3 %; Lymphocytes # (auto) 1.64 K/uL (1.2-3.4); Lymphocytes % (auto) 21.8 %; Mean Corpuscular Hemoglobin 27.1 pg (25-34); Mean Corpuscular Hgb Conc 31.8 g/dL (32-36); Mean Platelet Volume 10.2 fL (7.4-10.4); Monocytes # (auto) 0.58 K/uL (0.11-0.59); Monocytes % (auto) 7.7 %; Neutrophils # (auto) 5.03 K/uL (1.4-6.5); Neutrophils % (auto) 66.6 %; Platelet Count 215 K/uL (130-400); RDW Coefficient of Variation 15.3 % (11.5-14.5); RDW Standard Deviation 47.5 fL (36.4-46.3); Red Blood Count 4.47 M/uL (4.7-6.1); White Blood Count 7.54 K/uL (4.8-10.8)
[2019-04-22 08:36] LABS: INR 1.9 (0.9-1.1); Prothrombin Time 18.8 Seconds (9.0-12.0)
[2019-04-22 09:13] LABS: BUN Creatinine Ratio 9.8 (10-20); Calcium 8.8 mg/dl (8.5-10.1); Est GFR (African American) 70.9; Est GFR (Non-African American) 61.1; Potassium 3.9 mmol/L (3.5-5.1)
[2019-04-22] MEDS ORDERED: INSULIN 70% ASPART PROTAMINE/30% ASPART SC ONE (09:21)
[2019-04-22] MEDS ORDERED: NovoLIN-R INSULIN PER UNIT CHARGE SC STA (09:22)
[2019-04-22 09:29] LABS: Beta-Hydroxybutyrate 5.09 mg/dl (0.2-2.81)
[2019-04-22] MEDS ORDERED: ONDANSETRON INJ 2 MG/ML 2 ML VIAL IV STA (09:41)
[2019-04-22] MEDS ORDERED: HYDROmorphone INJ 0.5 MG/0.5 ML SYR IV STA (09:41)
[2019-04-22] MEDS ORDERED: SODIUM CHLORIDE 0.9% 1000ML 1,000 ML IV SCH (10:00)
[2019-04-22] MEDS ORDERED: OPTIRAY 320 125ml IV PRN (10:09)
--- NOTE | 2019-04-22 10:27 | Emergency Department Note ---
ED Visit Note This patient was seen in concert with Dr. Castle and we discussed and agreed upon the history, physical, assessment and plan. See attending's note for details. Resident Activity Tracking Resident Involvement: Resident Care Provided Care Provided: Adult ED
--- NOTE | 2019-04-22 10:28 | CT Scan Report ---
HEAD & NECK CTA HISTORY: Stroke symptoms. Dizziness. Left eye pain. TECHNIQUE: Multiaxial CT images of the head were performed both before and after the intravenous admi nistration of contrast to evaluate the major cerebral vessels. Multiaxial CT images of the neck were also performed following the intravenous administration of contrast to evaluate the major cervical ve ssels. Maximum intensity projection images were also obtained. A dose lowering technique was utilized adhering to the principles of ALARA. COMPARISON: Head CT 04/21/2019. FINDINGS: Questionable subtle hypodense focus within the left posterior parietal lobe on image 17. This could r epresent a small infarct. There is no mass, hematoma, midline shift. The ventricles and sulci are wit hin normal limits. The paranasal sinuses and mastoid air cells are clear. The calvarium and skull bas e are intact. Visualized intracranial internal carotid arteries, distal vertebral arteries, and basil ar artery are widely patent. There is no significant stenosis, occlusion, or aneurysm seen within the bilateral ACAs, MCAs, or social group worker. The aortic arch and proximal great vessels are widely patent. Mild calcified plaque at the origin o f the right subclavian artery. The bilateral vertebral arteries and right carotid arteries are normal in course and caliber. There is moderate crescentic calcified and noncalcified plaque within the lef t carotid bulb resulting in approximately 60% stenosis. IMPRESSION: 1. Possible small hypodense focus within left posterior parietal lobe raising the possibility of an a cute infarct. This will be better appreciated on the same day brain MRI. 2. No significant stenosis, occlusion, or aneurysm within the [place]. 3. Approximately 60% stenosis within the left proximal internal carotid artery. 4. The right carotid arteries and vertebral arteries are patent. ACT 112: Negative or not required by law. Electronically signed by: Franco Shah M.D. 04/22/2019 10:27 AM
--- NOTE | 2019-04-22 10:28 | CT Scan Report ---
HEAD & NECK CTA HISTORY: Stroke symptoms. Dizziness. Left eye pain. TECHNIQUE: Multiaxial CT images of the head were performed both before and after the intravenous admi nistration of contrast to evaluate the major cerebral vessels. Multiaxial CT images of the neck were also performed following the intravenous administration of contrast to evaluate the major cervical ve ssels. Maximum intensity projection images were also obtained. A dose lowering technique was utilized adhering to the principles of ALARA. COMPARISON: Head CT 04/21/2019. FINDINGS: Questionable subtle hypodense focus within the left posterior parietal lobe on image 17. This could r epresent a small infarct. There is no mass, hematoma, midline shift. The ventricles and sulci are wit hin normal limits. The paranasal sinuses and mastoid air cells are clear. The calvarium and skull bas e are intact. Visualized intracranial internal carotid arteries, distal vertebral arteries, and basil ar artery are widely patent. There is no significant stenosis, occlusion, or aneurysm seen within the bilateral ACAs, MCAs, or training and development assistant. The aortic arch and proximal great vessels are widely patent. Mild calcified plaque at the origin o f the right subclavian artery. The bilateral vertebral arteries and right carotid arteries are normal in course and caliber. There is moderate crescentic calcified and noncalcified plaque within the lef t carotid bulb resulting in approximately 60% stenosis. IMPRESSION: 1. Possible small hypodense focus within left posterior parietal lobe raising the possibility of an a cute infarct. This will be better appreciated on the same day brain MRI. 2. No significant stenosis, occlusion, or aneurysm within the [place]. 3. Approximately 60% stenosis within the left proximal internal carotid artery. 4. The right carotid arteries and vertebral arteries are patent. ACT 112: Negative or not required by law. Electronically signed by: Franco Shah M.D. 04/22/2019 10:27 AM
--- NOTE | 2019-04-22 10:37 | XRay Report ---
XR chest 1V portable HISTORY: confusion COMPARISON: Chest 4/2 cm 19. FINDINGS: Moderate hiatus hernia, unchanged. The heart remains mildly enlarged. A few bibasilar linea r densities are again noted and favor atelectasis or scarring. No new focal lung consolidations. No e vidence for pulmonary edema. No pleural effusions. No pneumothorax. IMPRESSION: No significant change compared to the prior study. No acute process. ACT 112: Negative or not required by law. Electronically signed by: Franco Shah M.D. 04/22/2019 10:36 AM
--- NOTE | 2019-04-22 10:48 | Emergency Department Note ---
Entered by Will Holm acting as a scribe for History of Present Illness General Chief complaint: Neuro Symptoms/Deficit Stated complaint: LIGHTHEADED,THIGH PAIN,CONFUSION Time Seen by Provider: 04/22/19 07:25 Source: patient History of Present Illness Provider complaint: Neurological Symptoms Onset (ago): day(s) 2 Location: head Pain Consistency: + constant and + intermittent Maximum Pain Intensity: 1 Quality: + stabbing Relieved By: + none Associated symptoms: + other (Eye pain ); no headaches and no weakness The patient is a 68 year old male who presents to the Emergency Room with complaints of constant neurological symptoms that started about 2 days ago. The patient reports that he has been having trouble formulating sentences and focusing on what he is trying to say. The patient adds that he knows what he is trying to say but is unable to put the right words together. The patient was here yesterday for the same symptoms and his sugar was in the high 400s, however the remainder of the evaluation was unrevealing. Patient seemed to have significant improvement after IV fluids and insulin. His speech returned to baseline and he was discharged home as he did not wish to stay. The patient states that shortly after being discharged he started noticing intermittent stabbing left eye pain that lasts for a couple seconds each time. The patient adds that the pain is exacerbated by changing position or coughing. He denies any visual impairments. The patient does have a history of Afib and is on Coumadin. He also reports his sugars have been 200-400 for the past month. The patient denies any headache or weakness. Home Medications Home Medications Medication Instructions Recorded Confirmed Type atorvastatin [Lipitor] 80 mg PO HS #0 tab 10/24/14 04/22/19 History coenzyme Q10 [Co Q-10] 100 mg PO QAM #0 10/24/14 04/22/19 History lisinopril-hydrochlorothiazide 1 tab PO QAM #0 tab 10/24/14 04/22/19 History [Zestoretic] metoprolol tartrate [Lopressor] 50 mg PO BID #0 10/24/14 04/22/19 History alpha lipoic acid 200 mg PO QAM 08/03/18 04/22/19 History glimepiride [Amaryl] 4 mg PO QDL 08/03/18 04/22/19 History warfarin [Coumadin] 2.5 mg PO SUTUTHSA 08/03/18 04/22/19 History warfarin [Coumadin] 5 mg PO MOWEFR 08/03/18 04/22/19 History aspirin 81 mg PO HS 11/09/18 04/22/19 History nitroglycerin [Nitrostat] 0.4 mg SUBLINGUAL UD PRN 11/09/18 04/22/19 History Allergies Allergy/AdvReac Type Severity Reaction Status Date / Time No Known Allergies Allergy Unknown Verified 04/22/19 08:16 Past Med/Surg History Medical History (Updated 04/22/19 @ 13:08 by Teena Smalls PA-C) Atrial fibrillation (Chronic) on warfarin Chronic back pain Coronary artery disease (Chronic) Diabetes mellitus, type 2 Diabetes mellitus, type II GERD (gastroesophageal reflux disease) Heart disease (Chronic) Hiatal hernia History of colon polyps History of duodenal ulcer History of GI bleed bleeding ulcer HLD (hyperlipidemia) Hyperlipidemia associated with type 2 diabetes mellitus (Chronic) Hypertension (Chronic) Kidney stone (Resolved) Myocardial Infarction 2002 Obesity (Chronic) On anticoagulant therapy warfarin daily Osteoarthritis Prolonged Q-T interval on ECG Schatzki's ring Sleep apnea cpap Surgical History History of cardiac cath 2002 @ [facility] History of colonoscopy History of esophagogastroduodenoscopy (EGD) History of heart artery stent (Chronic) 2002--3 stents placed History of tooth extraction Family History Father , in 80s Unknown family medical history Mother , in 80s Lymphoma Grandmother (Maternal) Family history of diabetes mellitus Other No family history of adverse response to anesthesia Social History Preferred Language: Armenian Communication Ability: Effective Communication Ability Comment: able to sign name on Code Word, expresses some difficulty writing name Visual Impairment: No Limitations Mobility Manager Required: No Beliefs That Will Affect Care: None marital status: marri Current Living Situation: Family Current Living Situation Comment: lives with daughter Other Information That Helps Us Care for You: No Feels Safe at Home: Yes Safety Concerns: Feels Safe At This Time Smoking Status: Never smoker Do You Dip or Chew Tobacco: No ; Second Hand Exposure: No ; Tobacco Cessation Education Requested by Patient: No Hx Alcohol Use: No Hx Substance Use: No Review of Systems See HPI for pertinent positives & negatives. and A total of 10 systems reviewed and were otherwise negative Physical Exam Vital Signs Vital Signs - 24 hr 04/22/19 07:27 04/22/19 09:37 04/22/19 11:31 Temperature 36.8 C Temperature Source Oral Pulse Rate 61 Pulse Rate [Finger] 55 L 62 Pulse Rhythm Regular Pulse Strength Normal Respiratory Rate 22 16 16 Respiratory Effort / Characteristics Non-Labored Spontaneous Respiratory Depth Normal Respiratory Pattern Regular Blood Pressure 155/78 H Blood Pressure [Right Arm] 182/110 H 171/51 H Blood Pressure Mean 103 Blood Pressure Mean [Right Arm] 134 91 Blood Pressure Position Sitting Pulse Oximetry 95 99 96 Oxygen Delivery Method Room Air Room Air Room Air Sepsis Recent Fever Within 48 Hours No Sepsis New/Unexplained Change in Mental Status No Sepsis Action Taken by Nursing No Action Required Vital signs reviewed. General: Morbidly obese. Well-appearing 68 year old male, in no significant distress. HEENT: No scleral icterus, PERRLA, neck supple. Atraumatic. Cardiovascular: Regular rate and rhythm, no extra sounds. Pulmonary: Clear to auscultation bilaterally, normal work of breathing. Abdomen: Soft, nontender, nondistended, positive bowel sounds. Musculoskeletal: Atraumatic, no peripheral edema. Neurologic: Patient awake alert and oriented x 3, full strength in all 4 extremities. Cranial nerves 2 through 12 grossly intact. Negative pronator drift, intact finger to nose, speech is clear. Skin: Warm, dry, no rash Course Course 0733: Past medical records reviewed. The patient was evaluated in room B06 by the resident Dr. Garnett, and a complete history and physical examination were performed. I then performed my own assessment of the patient. 0939: I reevaluated the patient and he is resting comfortably in stable condition. 1038: Dr. Garnett (resident) updated the patient with results. They also discussed the treatment plan. 1047: Dr. Garnett discussed the patient's case with Teena GARCIA who is working under Dr. Christiana Navarro Hospitalist. They are going to accept the patient for further evaluation. Administered Medications Lisinopril/HCTZ (Prinzide 20/12.5mg) 1 tab PO QAM [facility] Stop: 05/22/19 10:59 Last Admin: 04/22/19 13:07 Dose: 1 tab Documented by: [id number] Discontinued Medications Hydromorphone HCl (Dilaudid) 0.5 mg IV NOW STA Stop: 04/22/19 09:42 Last Admin: 04/22/19 13:07 Dose: Not Given Documented by: [id number] Hydromorphone HCl (Dilaudid) Confirm Administered Dose 0.5 mg .ROUTE .STK-MED ONE Stop: 04/22/19 12:59 Last Admin: 04/22/19 13:02 Dose: 0.5 mg Documented by: [id number] Sodium Chloride (Nss 1000ml) 1,000 mls @ 200 mls/hr IV .Q5H CARLA Stop: 05/22/19 09:59 Last Admin: 04/22/19 11:01 Dose: 200 mls/hr Documented by: [id number] Insulin Aspart (Novolog Mix 70/30) 6 units SC ONE ONE Stop: 04/22/19 09:22 Last Admin: 04/22/19 13:07 Dose: Not Given Documented by: [id number] Insulin Human Regular (Novolin R U-100 Per Unit) 6 units SC NOW STA; Protocol Stop: 04/22/19 09:23 Last Admin: 04/22/19 09:33 Dose: 6 units Documented by: [id number] Cosigned by: [id number] Ioversol (Optiray 320 125ml) 118 ml IV ONCE PRN PRN Reason: Interaction Checking Stop: 04/26/19 10:08 Last Admin: 04/22/19 10:09 Dose: 118 ml Documented by: [id number] Metoprolol Tartrate (Lopressor) 50 mg PO NOW STA Stop: 04/22/19 10:51 Last Admin: 04/22/19 13:07 Dose: Not Given Documented by: [id number] Metoprolol Tartrate (Lopressor) Confirm Administered Dose 50 mg .ROUTE .STK-MED ONE Stop: 04/22/19 12:57 Last Admin: 04/22/19 13:02 Dose: 50 mg Documented by: [id number] Ondansetron HCl (Zofran) 4 mg IV NOW STA Stop: 04/22/19 09:42 Last Admin: 04/22/19 13:07 Dose: Not Given Documented by: [id number] Ondansetron HCl (Zofran) Confirm Administered Dose 4 mg .ROUTE .STK-MED ONE Stop: 04/22/19 12:58 Last Admin: 04/22/19 13:02 Dose: 4 mg Documented by: [id number] Medical Decision Making Differential Diagnosis Differential Diagnosis includes but is not limited to dehydration, stroke, anemia, hypoglycemia, hyponatremia, hypernatremia, urinary tract infection, pneumonia, bronchitis, sepsis, gastroenteritis, additional abdominal pathology, metabolic abnormalities and infections. Medical Records Attestation: I reviewed the patient's medical records. Home Medications Current Medication List: was personally reviewed by me Laboratory Data Attestation: I reviewed the patient's lab results. Result diagrams: 04/22/19 08:12 04/22/19 08:12 Lab Results 04/22/19 04/22/19 04/22/19 Range/Units 08:12 08:12 08:12 WBC 7.54 (4.8-10.8) K/uL RBC 4.47 L (4.7-6.1) M/uL Hgb 12.1 L (14.0-18.0) g/dL Hct 38.0 L (42-52) % MCV 85.0 (80-100) fL MCH 27.1 (25-34) pg MCHC 31.8 L (32-36) g/dL RDW Std Deviation 47.5 H (36.4-46.3) fL RDW Coeff of Darrius 15.3 H (11.5-14.5) % Plt Count 215 (130-400) K/uL MPV 10.2 (7.4-10.4) fL Immature Gran % (Auto) 0.3 % Neut % (Auto) 66.6 % Lymph % (Auto) 21.8 % [place] % (Auto) 7.7 % Eos % (Auto) 3.2 % Baso % (Auto) 0.4 % Immature Gran # (Auto) 0.02 (0.00-0.02) K/uL Neut # (Auto) 5.03 (1.4-6.5) K/uL Lymph # (Auto) 1.64 (1.2-3.4) K/uL [place] # (Auto) 0.58 (0.11-0.59) K/uL Eos # (Auto) 0.24 (0-0.5) K/uL Baso # (Auto) 0.03 (0-0.2) K/uL PT 18.8 H (9.0-12.0) Seconds INR 1.9 H (0.9-1.1) Sodium 136 (136-145) mmol/L Potassium 3.9 (3.5-5.1) mmol/L Chloride 105 (98-107) mmol/L Carbon Dioxide 27 (21-32) mmol/L Anion Gap 4.0 (3-11) BUN 12 (7-18) mg/dl Creatinine 1.21 (0.6-1.4) mg/dl Est Cr Clr Drug Dosing 82.0 ml/min Est GFR ( Amer) 70.9 Est GFR (Non-Af Amer) 61.1 BUN/Creatinine Ratio 9.8 L (10-20) Glucose 340 H* (70-99) mg/dl Calcium 8.8 (8.5-10.1) mg/dl Beta-Hydroxybutyric Acd 5.09 H (0.2-2.81) mg/dl Imaging Data Radiologist's Impression: Radiology results as stated below per my review and the radiologist's interpretation: XR chest 1V portable HISTORY: confusion COMPARISON: Chest 4/2 cm 19. FINDINGS: Moderate hiatus hernia, unchanged. The heart remains mildly enlarged. A few bibasilar linear densities are again noted and favor atelectasis or scarring. No new focal lung consolidations. No evidence for pulmonary edema. No pleural effusions. No pneumothorax. IMPRESSION: No significant change compared to the prior study. No acute process. ACT 112: Negative or not required by law. Electronically signed by: Franco Shah M.D. 04/22/2019 10:36 AM HEAD & NECK CTA HISTORY: Stroke symptoms. Dizziness. Left eye pain. TECHNIQUE: Multiaxial CT images of the head were performed both before and after the intravenous administration of contrast to evaluate the major cerebral vessels. Multiaxial CT images of the neck were also performed following the intravenous administration of contrast to evaluate the major cervical vessels. Maximum intensity projection images were also obtained. A dose lowering technique was utilized adhering to the principles of ALARA. COMPARISON: Head CT 04/21/2019. FINDINGS: Questionable subtle hypodense focus within the left posterior parietal lobe on image 17. This could represent a small infarct. There is no mass, hematoma, midline shift. The ventricles and sulci are within normal limits. The paranasal sinuses and mastoid air cells are clear. The calvarium and skull base are intact. Visualized intracranial internal carotid arteries, distal vertebral arteries, and basilar artery are widely patent. There is no significant stenosis, occlusion, or aneurysm seen within the bilateral ACAs, MCAs, or dressmaking teacher. The aortic arch and proximal great vessels are widely patent. Mild calcified plaque at the origin of the right subclavian artery. The bilateral vertebral arteries and right carotid arteries are normal in course and caliber. There is moderate crescentic calcified and noncalcified plaque within the left carotid bulb resulting in approximately 60% stenosis. IMPRESSION: 1. Possible small hypodense focus within left posterior parietal lobe raising the possibility of an acute infarct. This will be better appreciated on the same day brain MRI. 2. No significant stenosis, occlusion, or aneurysm within the [place] of [place]. 3. Approximately 60% stenosis within the left proximal internal carotid artery. 4. The right carotid arteries and vertebral arteries are patent. ACT 112: Negative or not required by law. Electronically signed by: Franco Shah M.D. 04/22/2019 10:27 AM Brain MRI WITHOUT CONTRAST HISTORY: headache, confusion TECHNIQUE: Multiplanar multisequence MRI of the brain was performed without the use of contrast. COMPARISON STUDY: Head CT 04/21/2019. FINDINGS: Multiple focal areas of restricted diffusion within the left posterior frontal and left posterior parietal lobes. Dominant focus measures 2.3 cm within the left posterior parietal lobe and corresponds to the abnormality on the same day head CT. These are consistent with acute infarct. The midline structures are intact. There is no mass, hematoma, midline shift. The ventricles are within normal limits. The major vascular flow-voids at the skull base are well- maintained. Cytotoxic edema within the left posterior frontal and parietal lobes at the site of infarcts. No significant mass effect. The paranasal sinuses and mastoid air cells are clear. IMPRESSION: Multiple small left posterior frontal and parietal lobe acute infarcts. ACT 112: Negative or not required by law. Electronically signed by: Franco Shah M.D. 04/22/2019 1:14 PM Dictated: 04/22/19 1256 Transcribed: 04/22/19 1256 ECG Data Attestation: I personally reviewed and interpreted this ECG as follows: Indication: + other (Neurological symptoms) Rate (beats per minute): 58 Rhythm: + sinus bradycardia ECG Intervals/blocks: + Normal QT-c (431) ECG ST segments: no ST depression and no ST elevation ECG Findings: + Other (Low voltage); no PACs and no PVCs Blood Pressure Blood Pressure Findings: Elevated blood pressure Blood Pressure Disposition: further management by hospitalist MDM Narrative This patient was evaluated and appeared to be in no significant distress. IV access was obtained and laboratory work was drawn. Patient was hydrated with normal saline solution. Patient was given 6 units of subcutaneous regular insulin for blood glucose of 340. CT imaging of the head yesterday was reviewed and unrevealing. MRI/MRA was ordered however there was a significant delay in obtaining the studies. CT angiogram head and neck was then performed. This study is read as above. There is concern for left posterior parietal lobe hypodense focus. MRI of the brain was performed shortly thereafter that confirm s these findings. Patient was discussed with the [facility] Hospitalist service for further evaluation and management. Patient is aware of the plan and agrees. Impression & Plan Stroke, Hyperglycemia Discharge Plan Visit Data *Final* Discharge Date/Time: 04/22/19 13:37 Chief Complaint: Neuro Symptoms/Deficit Stated Complaint: LIGHTHEADED,THIGH PAIN,CONFUSION ED Provider: Fel[facility] ED Midlevel Provider: Fartun Garnett Discharge Problem: Stroke, Hyperglycemia Patient Disposition: Admitted As Inpatient Discharge Instructions Interventions: ED Discharge Assessment Last Done: 04/22/19 13:37 Discharge Problem: Stroke Qualifiers: CVA mechanism: unspecified Qualified Code(s): I63.9 - Cerebral infarction, unspecified The scribe's documentation has been prepared under my direction and personally reviewed by me in its entirety. I confirm that the note above accurately reflects all work, treatment, procedures, and medical decision making performed by me.
[2019-04-22] MEDS ORDERED: METOPROLOL TARTRATE 50 MG TAB PO STA (10:50)
[2019-04-22] MEDS ORDERED: LISINOPRIL/HCTZ 20/12.5MG 1 TAB TAB PO SCH (11:00)
--- NOTE | 2019-04-22 12:04 | History & Physical Report ---
Date of Service April 22, 2019 Assessment & Plan (1) Stroke-like symptom: Pt is 68 y/o M with PMH CAD s/p stent x 2 in 2002, A-fib on Coumadin, HTN, HLD, DM II presented to ER with complaint of confusion. Patient states yesterday around 10 AM noticed that he was having confusion and could not use the phone and also had headache around left eye. Difficulty with reading, writing, typing. Reports trouble with word finding and trouble with comprehension. Was seen in ER 04/21/2019 and had unremarkable [address]contrast CT head Today in ER afebrile, P: 55-61, R: 22, BP: 155/78, 182/110, 95% on RA CTA HEAD & CTA NECK: 1. Possible small hypodense focus within left posterior parietal lobe raising the possibility of an acute infarct. This will be better appreciated on the same day brain MRI. 2. No significant stenosis, occlusion, or aneurysm within the [place]. 3. Approximately 60% stenosis within the left proximal internal carotid artery. 4. The right carotid arteries and vertebral arteries are patent. -Tele to monitor for arrhythmias -EKG in am -Lipid, HA1C in am -MRI brain pending -Echo with bubble study -Aspiration precautions -PT/OT consult -Continue statin, aspirin -Allow permissive HTN -Neurology consult (2) Hyperglycemia: (3) Diabetes mellitus, type II: Pt with h/o uncontrolled BSG's for months per home fasting BSG's. A1c: 8 in 08/2018 Random glucose: 340. In ER given Novolin R 6 units SQ -A1c in Am -Monitor BSGs -Hold glimeperide -Basal bolus insulin per protocol (4) Atrial fibrillation: On Coumadin INR: 1.9 -Continue Coumadin, Metoprolol -INR in am (5) Hypertension: Pt unsure if he took his PM meds yesterday and did not take morning meds today -Continue lisinopril/HCTZ, metoprolol (6) Coronary artery disease: S/P stent x 2 in 2002 Denies CP or SOB -Continue aspirin, atorvastatin, metoprolol (7) HLD (hyperlipidemia): -Continue atorvastatin DVT Prophylaxis -On Coumadin Full Code as per discussion with pt Follows with Dr Smiley for routine care Pt was seen and care coordinated with Dr Villeda. See addendum History of Present Illness Chief Complaint: Confusion Primary Care Provider: Marina Smiley MD Pt is 68 y/o M with PMH CAD s/p stent x 2 in 2002, A-fib on Coumadin, HTN, HLD, DM II presented to ER with complaint of confusion. Patient states yesterday around 10 AM noticed that he was having confusion and could not use the phone and also had headache around left eye. Patient reports cannot read, right, type or text. Reports trouble with word finding and trouble with comprehension. Was seen in ER 04/21/2019 and had unremarkable noncontrast CT head and was found to be hyperglycemic and given insulin with some improvement and was discharged home. Patient reports symptoms have continued with no improvement and return to ER for evaluation today. Patient denies any dizziness, vision loss, blurry vision, slurred speech, facial drooping, extremity weakness, dysphagia. Reports chronic bilateral feet paresthesias, denies any other extremity paresthesias. Reports fasting BSG's have been in the 300s for over a month and in 200s for previous months. Denies fever/chills, diaphoresis, N/V/D/C, syncope, neck pain, CP, SOB, orthopnea, palpitations, cough, sore throat, choking, otalgia, rhinorrhea, abdominal pain, extremity edema, rashes, urinary symptoms. Allergies Allergy/AdvReac Type Severity Reaction Status Date / Time No Known Allergies Allergy Unknown Verified 04/22/19 08:16 Home Medications Home Medications Medication Instructions Recorded Confirmed Type atorvastatin [Lipitor] 80 mg PO HS #0 tab 10/24/14 04/22/19 History coenzyme Q10 [Co Q-10] 100 mg PO QAM #0 10/24/14 04/22/19 History lisinopril-hydrochlorothiazide 1 tab PO QAM #0 tab 10/24/14 04/22/19 History [Zestoretic] metoprolol tartrate [Lopressor] 50 mg PO BID #0 10/24/14 04/22/19 History alpha lipoic acid 200 mg PO QAM 08/03/18 04/22/19 History glimepiride [Amaryl] 4 mg PO QDL 08/03/18 04/22/19 History warfarin [Coumadin] 2.5 mg PO SUTUTHSA 08/03/18 04/22/19 History warfarin [Coumadin] 5 mg PO MOWEFR 08/03/18 04/22/19 History aspirin 81 mg PO HS 11/09/18 04/22/19 History nitroglycerin [Nitrostat] 0.4 mg SUBLINGUAL UD PRN 11/09/18 04/22/19 History Past Med/Surg History Medical History (Updated 04/22/19 @ 13:08 by Teena Smalls PA-C) Atrial fibrillation (Chronic) on warfarin Chronic back pain Coronary artery disease (Chronic) Diabetes mellitus, type 2 Diabetes mellitus, type II GERD (gastroesophageal reflux disease) Heart disease (Chronic) Hiatal hernia History of colon polyps History of duodenal ulcer History of GI bleed bleeding ulcer HLD (hyperlipidemia) Hyperlipidemia associated with type 2 diabetes mellitus (Chronic) Hypertension (Chronic) Kidney stone (Resolved) Myocardial Infarction 2002 Obesity (Chronic) On anticoagulant therapy warfarin daily Osteoarthritis Prolonged Q-T interval on ECG Schatzki's ring Sleep apnea cpap Surgical History History of cardiac cath 2002 @ [facility] History of colonoscopy History of esophagogastroduodenoscopy (EGD) History of heart artery stent (Chronic) 2002--3 stents placed History of tooth extraction Family History Father , in 80s Unknown family medical history Mother , in 80s Lymphoma Grandmother (Maternal) Family history of diabetes mellitus Other No family history of adverse response to anesthesia Social History Preferred Language: [place] Communication Ability: Effective Communication Ability Comment: able to sign name on Code Word, expresses some difficulty writing name Visual Impairment: No Limitations Steeping Press Tender Required: No Beliefs That Will Affect Care: None marital status: marri Current Living Situation: Family Current Living Situation Comment: lives with daughter Other Information That Helps Us Care for You: No Feels Safe at Home: Yes Safety Concerns: Feels Safe At This Time Smoking Status: Never smoker Do You Dip or Chew Tobacco: No ; Second Hand Exposure: No ; Tobacco Cessation Education Requested by Patient: No Hx Alcohol Use: No Hx Substance Use: No Review of Systems Review of Systems: All systems reviewed & are unremarkable except as noted in HPI & below Physical Exam 2 Physical Exam: General: no distress, WDWN Head: normocephalic, atraumatic Eyes: PERRL, EOM's intact, no nystagmus, conjunctiva non-injected, anicteric ENT: normal inspection external ears, nose, mucous membranes moist Neck: supple, trachea midline, non-tender, ROM intact Lungs: clear, no respiratory distress, no wheezing/rhonchi/rales CV: Rate 58, regular rhythm, no murmur, no JVD, no pretibial edema Abd: normal BS, soft, non-tender Ext: no cyanosis, no calf tenderness Neuro: A&O x 3, normal affect, Facial sensation is intact and symmetric, The face is strong and symmetric, Hearing grossly intact, Soft palate elevates symmetrically, no dysarthria, Shoulder shrug intact, Tongue is midline, normal movement, no fasciculations, finger to nose intact, rapid alternating movements intact, Negative Romberg. Pt with noted difficulty trying to sign name on paper Skin: warm, dry Results & Data Vital Signs (Past 12 Hours) Vital Signs Temp Pulse Pulse Resp BP BP Pulse Ox 04/22/19 11:31 62 16 171/51 H 96 04/22/19 09:37 55 L 16 182/110 H 99 04/22/19 07:27 36.8 C 61 22 155/78 H 95 Laboratory Results Short CBC 04/22/19 Range/Units 08:12 WBC 7.54 (4.8-10.8) K/uL Hgb 12.1 L (14.0-18.0) g/dL Hct 38.0 L (42-52) % Plt Count 215 (130-400) K/uL [facility] 04/22/19 08:12 Sodium 136 Potassium 3.9 Chloride 105 Carbon Dioxide 27 BUN 12 Creatinine 1.21 Glucose 340 H* Calcium 8.8 Diagnostic Findings CTA HEAD & CTA NECK: IMPRESSION: 1. Possible small hypodense focus within left posterior parietal lobe raising the possibility of an acute infarct. This will be better appreciated on the same day brain MRI. 2. No significant stenosis, occlusion, or aneurysm within the [place]. 3. Approximately 60% stenosis within the left proximal internal carotid artery. 4. The right carotid arteries and vertebral arteries are patent. CXR: IMPRESSION: No significant change compared to the prior study. No acute process. ECG Rate (beats per minute): 58 Rhythm: sinus bradycardia Supervising Physician Co-Signing Physician Notes Pt was seen and examined. Agreed with Teena MURPHY exam, assessment and plan. 68 y/o M with PMH CAD s/p stent x 2 in 2002, A-fib on Coumadin, HTN, HLD, DM II presented to ER with stroke like symptoms. Patient states yesterday around 10 AM noticed that he was confused and could not use the phone and also had headache around left eye. As per family patient had trouble to read, write, type or text. Pt had trouble to find word and to comprehend. CTA head showed Possible small hypodense focus within left posterior parietal lobe raising the possibility of an acute infarct and approximately 60% stenosis within the left proximal internal carotid artery. MRI head showed multiple small left posterior frontal and parietal lobe acute infarcts. MRI finding discussed with patient and family. Pt said that he sometimes missed his coumadin dose, but in the last few weeks that he has been taking daily except last night. He said that his coumadin has been therapeutic, but when reviewed his outpatient lab, his INR was 1.4 on 03/29/19. I am not sure that pt failed coumadin therapy since his INR was sub therapeutic on 03/29 and we don't have any INR result for about 3 weeks until yesterday when he came to the ER with INR 2.4. Neurology consulted. Case discussed with neurology who will see the patient and provides recommendation. Will get an echo. PT/OT and speech therapy eval. Continue coumadin, aspirin and statin for now. Will continue monitor in tele. MD Christiana (1) Coronary artery disease Associated angina: without angina Coronary Disease-Associated Artery/Lesion type: [place] artery [place] vs. transplanted heart: [place] heart Qualified Code(s): I25.10 - Atherosclerotic heart disease of [place] coronary artery without angina pectoris (2) Atrial fibrillation Atrial fibrillation type: unspecified Qualified Code(s): I48.91 - Unspecified atrial fibrillation (3) Hypertension Hypertension type: essential hypertension Qualified Code(s): I10 - Essential (primary) hypertension
[2019-04-22] MEDS ORDERED: METOPROLOL TARTRATE 50 MG TAB ONE (12:56)
[2019-04-22] MEDS ORDERED: ONDANSETRON INJ 2 MG/ML 2 ML VIAL ONE (12:57)
[2019-04-22] MEDS ORDERED: HYDROmorphone INJ 0.5 MG/0.5 ML SYR ONE (12:58)
--- NOTE | 2019-04-22 13:15 | Magnetic Resonance Report ---
Brain MRI WITHOUT CONTRAST HISTORY: headache, confusion TECHNIQUE: Multiplanar multisequence MRI of the brain was performed without the use of contrast. COMPARISON STUDY: Head CT 04/21/2019. FINDINGS: Multiple focal areas of restricted diffusion within the left posterior frontal and left pos terior parietal lobes. Dominant focus measures 2.3 cm within the left posterior parietal lobe and cor responds to the abnormality on the same day head CT. These are consistent with acute infarct. The mid line structures are intact. There is no mass, hematoma, midline shift. The ventricles are within norm al limits. The major vascular flow-voids at the skull base are well-maintained. Cytotoxic edema withi n the left posterior frontal and parietal lobes at the site of infarcts. No significant mass effect. The paranasal sinuses and mastoid air cells are clear. IMPRESSION: Multiple small left posterior frontal and parietal lobe acute infarcts. ACT 112: Negative or not required by law. Electronically signed by: Franco Shah M.D. 04/22/2019 1:14 PM
[2019-04-22] MEDS ORDERED: DEXTROSE 50% 50 ML SYRINGE IV PRN (14:17)
[2019-04-22] MEDS ORDERED: CARBOHYDRATES FOR HYPOGLYCEMIA PO PRN (14:17)
[2019-04-22] MEDS ORDERED: PHARMACIST DISCHARGE MED REC CONSULT PRN (14:17)
[2019-04-22] MEDS ORDERED: GLUCOSE 10 TABS/TUBE PO PRN (14:17)
[2019-04-22] MEDS ORDERED: ONDANSETRON INJ 2 MG/ML 2 ML VIAL IV PRN (14:17)
[2019-04-22] MEDS ORDERED: GLUCAGON FOR INJ 1 MG VIAL SQ PRN (14:17)
[2019-04-22] MEDS ORDERED: GLUCOSE 40% GEL 15 GM TUBE PO PRN (14:17)
[2019-04-22] MEDS: WARFARIN SOD 5 MG TAB PO SCH (15:36)
[2019-04-22] MEDS: INSULIN GLARGINE SOLOSTAR 100 UNITS/ML 3 ML PEN SC SCH ×2 (15:37→21:11)
--- NOTE | 2019-04-22 15:37 | Neurology Consultation ---
Date of Consultation April 22, 2019 Assessment & Plan (1) Stroke: 1. MRI brain- stroke -multiple small left posterior frontal parietal infarcts 2. CTA 60% left proximal ICA stenosis- should be followed as outpatient in 6 months 3. TTE pending read 4. optimize coumadin INR 2.5-3.0 and continue aspirin 81 mg- cardiology for any changes 5. optimize DM, HTN, HLD LDL <70 6. PT/OT/speech for discharge needs 7. would not recommend driving until confusion has resolved and has seen ophthalmology (2) Hyperglycemia: as above (3) Diabetes mellitus, type II: as above (4) Acute confusion: as above (5) Atrial fibrillation: Supervising Physician Co-Signing Physician Notes I have seen and discussed above patient with Dr Claudia Paris, neurology. Patient seen and examined. Has a history of atrial fibrillation diabetes which is out of control. Sudden onset of confusion and speech and language dysfunction. This was accompanied by a mild left-sided headache. He is not otherwise been ill or had fever chills or sweats or medical or dental procedures. INR on admission was 1.9. MRI of the brain shows a left MCA infarction.. Left internal carotid artery is approximately 60%. On exam mild disfluency of speech. Apparent decreased vision in right eye supero-and infero-temporally. No facial asymmetry. No asymmetric strength. No dystaxia on [id number]. Impression left MCA infarction query related to mildly subtherapeutic INR. Plan recommend INR goal of 2.5-3. Patient encouraged to have much better control of blood sugar. Goal LDL 70 or below. The degree of stenosis in the left internal carotid is likely not significant enough to attributed to have caused the stroke. A follow-up carotid ultrasound should be performed in 6 months and then yearly thereafter with referral to vascular surgery of greater than 70% stenosis. We will follow with you. Claudia almeida MD History of Present Illness Reason for Consultation: stroke Requesting Physician: Dolores Villeda MD Attending Physician: Dolores Villeda MD History of Present Illness Connor is a 68 year old male with PMH- CAD s/p stent x 2 in 2002, A-fib on Coumadin, HTN, HLD, DM II presented to [facility] with complaint of confusion. In the am he notice he was confused and could not use the phone and also had headache around left eye. He could not right, type or text, word finding and trouble with comprehension. On 04/21/2019 he was seen in the ED and had unremarkable noncontrast CT head and was found to be hyperglycemic and given insulin with some improvement and was discharged home. There was no improvement of his symptoms and he returned to the ER for further evaluation. His ex and daughter are in the room and state he has been saying the wrong word for answers all day. There was an incident at home which caused him to miss his coumadin yesterday. denies CP, SOB, abdominal pain, one sided weakness, numbness tingling, N, V, new bowel or bladder issues, falls, vision changes or loss of vision. Allergies Allergy/AdvReac Type Severity Reaction Status Date / Time No Known Allergies Allergy Unknown Verified 04/22/19 08:16 Home Medications Home Medications Medication Instructions Recorded Confirmed Type atorvastatin [Lipitor] 80 mg PO HS #0 tab 10/24/14 04/22/19 History coenzyme Q10 [Co Q-10] 100 mg PO QAM #0 10/24/14 04/22/19 History lisinopril-hydrochlorothiazide 1 tab PO QAM #0 tab 10/24/14 04/22/19 History [Zestoretic] metoprolol tartrate [Lopressor] 50 mg PO BID #0 10/24/14 04/22/19 History alpha lipoic acid 200 mg PO QAM 08/03/18 04/22/19 History glimepiride [Amaryl] 4 mg PO QDL 08/03/18 04/22/19 History warfarin [Coumadin] 2.5 mg PO SUTUTHSA 08/03/18 04/22/19 History warfarin [Coumadin] 5 mg PO MOWEFR 08/03/18 04/22/19 History aspirin 81 mg PO HS 11/09/18 04/22/19 History nitroglycerin [Nitrostat] 0.4 mg SUBLINGUAL UD PRN 11/09/18 04/22/19 History Patient History Medical History (Updated 04/22/19 @ 13:08 by Teena Smalls PA-C) Atrial fibrillation (Chronic) on warfarin Chronic back pain Coronary artery disease (Chronic) Diabetes mellitus, type 2 Diabetes mellitus, type II GERD (gastroesophageal reflux disease) Heart disease (Chronic) Hiatal hernia History of colon polyps History of duodenal ulcer History of GI bleed bleeding ulcer HLD (hyperlipidemia) Hyperlipidemia associated with type 2 diabetes mellitus (Chronic) Hypertension (Chronic) Kidney stone (Resolved) Myocardial Infarction 2002 Obesity (Chronic) On anticoagulant therapy warfarin daily Osteoarthritis Prolonged Q-T interval on ECG Schatzki's ring Sleep apnea cpap Surgical History History of cardiac cath 2002 @ [facility] History of colonoscopy History of esophagogastroduodenoscopy (EGD) History of heart artery stent (Chronic) 2002--3 stents placed History of tooth extraction Family History Father , in 80s Unknown family medical history Mother , in 80s Lymphoma Grandmother (Maternal) Family history of diabetes mellitus Other No family history of adverse response to anesthesia Social History Preferred Language: [place]une[place] Communication Ability: Effective Communication Ability Comment: able to sign name on Code Word, expresses some difficulty writing name Visual Impairment: No Limitations Director Of Recreation Therapy Required: No Beliefs That Will Affect Care: None marital status: marri Current Living Situation: Family Current Living Situation Comment: lives with daughter Other Information That Helps Us Care for You: No Feels Safe at Home: Yes Safety Concerns: Feels Safe At This Time Smoking Status: Never smoker Do You Dip or Chew Tobacco: No ; Second Hand Exposure: No ; Tobacco Cessation Education Requested by Patient: No Hx Alcohol Use: No Hx Substance Use: No Physical Exam Physical Exam: Physical Exam: Constitutional: appearance nourished, morbidly obese Ears, Nose, Mouth and Throat: mucous membranes moist, no injection and skin normal, eyes normal Cardiovascular: irregular Respiratory: course breath sounds Musculoskeletal: non pitting peripheral edema Skin: no stigmata of neurocutaneous disease noted and normal and intact Eyes: extraocular muscles intact (EOMI) and pupils equal, round and reactive to light (PERRL), gross visual diego intact NEUROLOGIC EXAMINATION: Mental status: Alert and interactive Oriented [facility], not year, April, David next holiday, sticks out tongue, closes eye but points to ceiling with left rather than asked right Oriented to person Speech fluent with no evidence of aphasia, some word finding issues Cranial Nerves smile eye brow raise symmetric Reflexes: Deep tendon reflexes were symmetrical decreased Sensory: intact to light and cool touch Coordination: finger to nose no bipass, rapid hand movement slowed Gait/Stance: Posture normal. Gait normal: tandem gait, able to get out of bed with no issues. Motor: Negative for pronator drift of out stretched arms with eyes closed. Strength: biceps triceps hand flat knitter intrinsics 5/5 bilaterally hip flex plantar flex ext 5/5 bilaterally Results & Data Vital Signs (Past 12 Hours) Vital Signs Temp Pulse Pulse Resp BP BP Pulse Ox 04/22/19 14:23 37 C 55 L 20 146/81 H 98 04/22/19 13:08 64 16 160/88 H 99 04/22/19 11:31 62 16 171/51 H 96 04/22/19 09:37 55 L 16 182/110 H 99 04/22/19 07:27 36.8 C 61 22 155/78 H 95 Laboratory Results Abnormal lab results 04/22/19 04/22/19 04/22/19 Range/Units 08:12 08:12 08:12 RBC 4.47 L (4.7-6.1) M/uL Hgb 12.1 L (14.0-18.0) g/dL Hct 38.0 L (42-52) % MCHC 31.8 L (32-36) g/dL RDW Std Deviation 47.5 H (36.4-46.3) fL RDW Coeff of Darri[place] 15.3 H (11.5-14.5) % PT 18.8 H (9.0-12.0) Seconds INR 1.9 H (0.9-1.1) BUN/Creatinine Ratio 9.8 L (10-20) Glucose 340 H* (70-99) mg/dl POC Glucose (70-99) Beta-Hydroxybutyric Acd 5.09 H (0.2-2.81) mg/dl 04/22/19 04/22/19 Range/Units 14:45 14:46 RBC (4.7-6.1) M/uL Hgb (14.0-18.0) g/dL Hct (42-52) % MCHC (32-36) g/dL RDW Std Deviation (36.4-46.3) fL RDW Coeff of Darrius (11.5-14.5) % PT (9.0-12.0) Seconds INR (0.9-1.1) BUN/Creatinine Ratio (10-20) Glucose (70-99) mg/dl POC Glucose 327 H* 327 H* (70-99) Beta-Hydroxybutyric Acd (0.2-2.81) mg/dl Diagnostic Findings CTA head/neck- Possible small hypodense focus within left posterior parietal lobe raising the possibility of an acute infarct. This will be better appreciated on the same day brain MRI. 2. No significant stenosis, occlusion, or aneurysm within the [place]. Approximately 60% stenosis within the left proximal internal carotid artery. The right carotid arteries and vertebral arteries are patent. MRI brain- Multiple small left posterior frontal and parietal lobe acute infarcts. TTE pending read (1) Atrial fibrillation Atrial fibrillation type: unspecified Qualified Code(s): I48.91 - Unspecified atrial fibrillation (2) Stroke CVA mechanism: unspecified Qualified Code(s): I63.9 - Cerebral infarction, unspecified
[2019-04-22] MEDS: ACETAMINOPHEN 325 MG TAB PO PRN ×2 (16:58→21:10)
[2019-04-22] MEDS: INSULIN ASPART 100 UNITS/ML 3 ML PEN SC SCH ×2 (17:15→21:12)
[2019-04-22] MEDS: ASPIRIN 81 MG ECTAB PO SCH (21:13)
[2019-04-22] MEDS: ATORVASTATIN 40 MG TAB PO SCH (21:13)
[2019-04-22] MEDS: METOPROLOL TARTRATE 50 MG TAB PO SCH (21:13)
[2019-04-23 06:43] LABS: Basophils # (auto) 0.03 K/uL (0-0.2); Basophils % (auto) 0.4 %; Eosinophils # (auto) 0.21 K/uL (0-0.5); Eosinophils % (auto) 2.8 %; Hemoglobin 12.2 g/dL (14.0-18.0); Immature Granulocytes # (auto) 0.02 K/uL (0.00-0.02); Immature Granulocytes % (auto) 0.3 %; Lymphocytes # (auto) 2.34 K/uL (1.2-3.4); Lymphocytes % (auto) 31.5 %; Mean Corpuscular Hemoglobin 27.7 pg (25-34); Mean Corpuscular Hgb Conc 32.1 g/dL (32-36); Mean Corpuscular Volume 86.4 fL (80-100); Mean Platelet Volume 9.7 fL (7.4-10.4); Monocytes # (auto) 0.67 K/uL (0.11-0.59); Neutrophils # (auto) 4.17 K/uL (1.4-6.5); Platelet Count 219 K/uL (130-400); RDW Coefficient of Variation 15.5 % (11.5-14.5); White Blood Count 7.44 K/uL (4.8-10.8)
[2019-04-23 06:58] LABS: INR 2.2 (0.9-1.1); Prothrombin Time 21.5 Seconds (9.0-12.0)
[2019-04-23 07:02] LABS: Estimated Average Glucose 280 mg/dl; Hemoglobin A1C 11.4 % (4.5-5.6)
[2019-04-23 07:19] LABS: BUN Creatinine Ratio 10.6 (10-20); Calcium 8.6 mg/dl (8.5-10.1); Creatinine Clr Calc Pharmacy 80.6 ml/min; Est GFR (African American) 70.9; Est GFR (Non-African American) 61.1; Potassium 3.7 mmol/L (3.5-5.1)
[2019-04-23] MEDS: INSULIN ASPART 100 UNITS/ML 3 ML PEN SC SCH ×4 (09:09→20:05)
[2019-04-23] MEDS: INSULIN GLARGINE SOLOSTAR 100 UNITS/ML 3 ML PEN SC SCH (09:09)
[2019-04-23] MEDS: LISINOPRIL/HCTZ 10/12.5MG TAB PO SCH (09:10)
[2019-04-23] MEDS: METOPROLOL TARTRATE 50 MG TAB PO SCH ×2 (09:10→20:04)
[2019-04-23] MEDS: ACETAMINOPHEN 325 MG TAB PO PRN ×2 (10:36→20:10)
--- NOTE | 2019-04-23 10:42 | Progress Note ---
DATE: 04/23/2019 SUBJECTIVE: I am seeing Mr. Johnson in followup of a left posterior frontal and parietal acute infarct. CTA of head and neck showing an approximately 60% stenosis within the left proximal internal carotid artery with LDL is 87. Hemoglobin A1c 11.4. The patient has no new complaints, although does indicate that he feels mildly clumsy with the right hand while using it. This has been occurring since yesterday. He also has a mild headache in the left hemicrania. PHYSICAL EXAMINATION: VITAL SIGNS: 146/71, 52, 17, 37. GENERAL: The patient is awake and alert, oriented, some minor difficulty with naming. He is somewhat slow intermittently to answer. Repetitions are normal, 3-step commands are normal. NEUROLOGIC: Pupils are equal. I could not reliably visualize the optic nerve secondary to cataracts. There appears to be abnormal diego in the right eye, supero and inferotemporally. Whether or not this is related to the patient's untreated glaucoma is unclear. There is normal facial sensation and symmetry. Speech is normal. Language as above. Motor 5/5, no drift, equal rapid alternating movements. [id number] and [id number] are normal. There is no dysdiadochokinesia. Reflexes are symmetric. Toes are downgoing. No [id number] sensory loss to light touch. IMPRESSION: Left middle cerebral artery, cortical infarction. Likely related to atrial fibrillation. INR was subtherapeutic. Goal INR 2.5-3. PLAN: Continue antiplatelet therapy with aspirin. Due to some subjective fluctuation, recommend followup CT of the head. Would also recommend an EEG to rule out partial complex seizure. LDL remains elevated. Increase dose of statin with a goal LDL of less than 70. His uncontrolled diabetes remains a modifiable risk factor. We will follow with you.
--- NOTE | 2019-04-23 11:18 | CT Scan Report ---
CT head/brain wo con CLINICAL HISTORY: 68 years-old Male presenting with headache, right-sided weakness. TECHNIQUE: Multidetector CT imaging of the head was performed without the use of intravenous contrast . IV contrast: None. One or more dose lowering techniques were used consistent with the principles of ALARA (as low as reasonably achievable), including automatic exposure control, mA or kV adjustment t o individual patient size, and/or use of iterative reconstruction. COMPARISON: 04/21/2019. CT DOSE (mGy.cm): The estimated cumulative dose is 823.12 mGy.cm. FINDINGS: Regional Marketing Manager topogram: Unremarkable. Ventricles and sulci normal in size. No hemorrhage. Limited cortical infarct in the left parietal lob e new from prior exam consistent with an acute to subacute time course. No mass effect or midline kylah ft. No extra-axial fluid collection. Paranasal sinuses and mastoid air cells clear. Calvarium intact. IMPRESSION: 1. Acute to subacute limited cortical infarct in the left parietal lobe new from prior exam. No hemo rrhagic conversion. The report will be called/faxed according to standard departmental protocol for a critical finding. ACT 112: Negative or not required by law. Electronically signed by: Jeremie Gao M.D. 04/23/2019 11:17 AM
[2019-04-23] MEDS ORDERED: PHARMACY GLYCEMIC MGMT CONSULT PRN (11:45)
[2019-04-23] MEDS ORDERED: INSULIN HUMAN REGULAR IV BOLUS 5 UNITS in SYRINGE 0 ML IV ONE (12:15)
[2019-04-23] MEDS ORDERED: INSULIN GLARGINE SOLOSTAR 100 UNITS/ML 3 ML PEN SC ONE (12:15)
--- NOTE | 2019-04-23 13:04 | Pharmacy Report ---
Glycemic Control Consultation - Date of Service April 23, 2019 - Scope Scope: Glycemic Pharmacist consulted by Dr Rios on 04/23/19 for glycemic control and to write orders per [facility] inpatient glycemic control protocol - Objective Weight: 134.4 kg Accuchecks BSG (last 24hrs): 04/22/19 04/22/19 04/22/19 14:45 14:46 15:55 Glucose POC Glucose 327 H* 327 H* 320 H* 04/22/19 04/22/19 04/22/19 15:57 16:51 19:44 Glucose POC Glucose 327 H* 294 H 251 H 04/23/19 04/23/19 04/23/19 06:20 07:17 11:21 Glucose 243 H POC Glucose 242 H 321 H* 04/23/19 11:22 Glucose POC Glucose 305 H* Laboratory Data (last 24hrs): 04/23/19 06:20 Potassium 3.7 Carbon Dioxide 29 Anion Gap 5.0 Creatinine 1.21 Est Cr Clr Drug Dosing 80.6 HbA1c: Hemoglobin A1c 11.4 % (4.5-5.6) H 04/23/19 06:20 - Recent Pertinent Medications Outpatient Anti-diabetic Regimen: * Amaryl 4 mg QDL The patient is currently receiving: * Basal insulin: Lantus 20 units every 12 hours * Correctional Insulin: Novolog Correction per scale ACHS Goal Range: Low 120 mg/dL - High 160 mg/dL Correction Factor: 15 mg/dL/unit * Prandial insulin: Per carb ratio of 1 unit per 6 grams CHO consumed Risk Factors for Insulin Resistance: * Diet: T2DM - Assessment & Plan Assessment & Plan: ASSESSMENT: * Mr Johnson is a 68 y/o M with uncontrolled T2DM who presents s/p stroke. * Yesterday, the patient received 62 units of insulin with 40 units of Lantus. Blood sugars were elevated above goal range and fasting today was 243 mg/dL. * Based upon body habitus, adjusted body weight utilized for weight-based dosing. Will provide full weight-based stress of 3 Lantus for today (this is an increase of 10 units or 20%). Will also tighten Novolog as blood sugars climbed yesterday and at lunch today from weight-based stress of 3. Due to blood sugar over 300 mg/dL, small 5 units IV bolus given. * Since patient is not extremely high risk, will not order blood sugar overnight. * Pt is maintained on oral antidiabetic agents as an outpatient * Oral agents are not recommended for inpatient use d/t drug interactions, changing PO intake, and difficulty titrating for acute hyper/hypoglycemia. ADA recommends re-initiating outpatient oral agents 1-2 days prior to discharge if/when appropriate if they were held on admission. * Will hold oral agents for admission and utilize SQ basal bolus insulin regimen which is the recommended regimen for inpatient glycemic control. * Will initiate weight based insulin dosing for insulin johanna patient and titrate based on BSG trends. PLAN FOR INPATIENT GLYCEMIC CONTROL: * Basal insulin * Lantus 25 units SQ BID * Bolus insulin * NovoLog per scale ACHS or Q6hrs while NPO * Goal Range: Low 120 mg/dL - High 160 mg/dL * Correction Factor: 12 mg/dL/unit * Nutritional / Prandial insulin per carb ratio of 1 unit per 4 grams CHO consumed * Please note that the plan above was derived based on current level of insulin resistance and hospital stress. These recommendations are appropriate for inpatient admission only. Plan of care upon discharge will need to be reassessed to avoid potential outpatient hypo/hyperglycemia. Thank you.
--- NOTE | 2019-04-23 13:35 | Hospitalist Progress Note ---
Date of Service April 23, 2019 Assessment & Plan (1) Stroke-like symptom: Left MCA infarction Left internal carotid stenosis Pt is 68 y/o M with PMH CAD s/p stent x 2 in 2002, A-fib on Coumadin, HTN, HLD, DM II presented to ER with complaint of confusion. Patient noticed that he was having confusion and could not use the phone and also had headache around left eye. Difficulty with reading, writing, typing. Reports trouble with word finding and trouble with comprehension. Was seen in ER 04/21/2019 and had un[address]contrast CT head On this admission in ER afebrile, P: 55-61, R: 22, BP: 155/78, 182/110, 95% on RA CTA HEAD & CTA NECK: 1. Possible small hypodense focus within left posterior parietal lobe raising the possibility of an acute infarct. This will be better appreciated on the same day brain MRI. 2. No significant stenosis, occlusion, or aneurysm within the [place]. 3. Approximately 60% stenosis within the left proximal internal carotid artery. 4. The right carotid arteries and vertebral arteries are patent. - goal LDL<70 - cont. atorvastatin - cont. ASA Hx of pAfib, INR 1.9 - goal INR 2.5-3.5 -Allow permissive HTN Uncontrolled DM type 2, see below -Echo with bubble study: no ASD, EF 55-60%, mild concentric LVH, grade II diast. dysfunction, no LV wall motion abnormalities -Neurology consulted - pt will need carotid US follow up in 6 months and then yearly, if stenosis greater than 70%, need consult w/ vascular surgery -PT/OT (2) Hyperglycemia: Pt with h/o uncontrolled BSG's for months per home fasting BSG's Random glucose: 340. In ER given Novolin R 6 units -Hgb A1c 11.4%, says that this is due to neglect - early childhood special educator and pharm consulted for hyperglycemia management -plan to d/c home on lantus (3) Diabetes mellitus, type II: Pt with h/o uncontrolled BSG's for months per home fasting BSG's. A1c: 8 in 08/2018 Random glucose: 340. In ER given Novolin R 6 units SQ -HgbA1c 11.4% (04/23/2019) -early childhood special educator and pharm consulted for hyperglycemia management -Monitor BSGs -Hold glimeperide -plan to discharge home on lantus (4) Atrial fibrillation: On Coumadin INR: 1.9 -Continue Coumadin, Metoprolol -goal INR 2.5-3.5 (5) Hypertension: -Continue lisinopril/HCTZ, metoprolol - will cont. to monitor (6) Coronary artery disease: S/P stent x 2 in 2002 Denies CP or SOB -Continue aspirin, atorvastatin, metoprolol (7) HLD (hyperlipidemia): -Continue atorvastatin DVT Prophylaxis -On Coumadin Full Code as per discussion with pt Follows with Dr. Smiley for routine care Subjective Patient is sitting up on the edge of bed, patient's daughter and significant other present at the bedside. Patient states that he still feels very confused, difficulty to process and answer questions appropriately. Patient's daughter states that his main symptoms started on , at the time he was confused, came to the ED his blood sugar levels were quite elevated, this was treated and patient was offered admission however decided to go home as he felt somewhat better. Confusion however got worse then, daughter says that he was trying to put on his pants even though he was already wearing a pair of pants, etc. Discussed his conversation with neurology, patient is aware of stroke and need for further medications, especially talked about his uncontrolled diabetes mellitus. He saw early childhood special educator here and also pharmacy was consulted for management of his hyperglycemia. Discussed that I plan to discharge him on insulin, and even though it is difficult for him to follow instructions properly at this time, we will continue to educate him and his family so he is comfortable with the plan on discharge. Review of Systems Review of Systems: All systems reviewed & are unremarkable except as noted in HPI & below Constitutional: no fever and no chills Respiratory: no cough and no dyspnea Cardiovascular: no chest pain, no palpitations and no edema Gastrointestinal: no abdominal pain, no nausea and no vomiting Neurologic: + confusion Physical Exam Physical Exam: General: obese male, sitting up in the bed, in NAD Head: normocephalic, atraumatic Eyes: PERRL, EOM's intact, conjunctiva non-injected ENT: normal inspection external ears, nose, mucous membranes moist Neck: supple, trachea midline, non-tender, ROM intact Lungs: clear, no respiratory distress, no wheezing/rhonchi/rales CV: irregular, no murmur, no JVD, no pretibial edema Abd: normal BS, soft, non-tender Ext: no cyanosis, no calf tenderness Neuro: A&O x 3 but reports difficulty w/ processing information, answers questions slowly or is unable to answer,speech slow but fluent, no sensory loss, moves all 4 extremities spontaneously and w/o difficulty Skin: warm, dry Results & Data Vital Signs (Past 12 Hours) Vital Signs Temp Pulse Pulse Resp BP Pulse Ox 04/23/19 12:49 36.8 C 57 L 18 136/76 92 04/23/19 08:00 52 L 04/23/19 07:45 37.0 C 58 L 17 146/71 H 96 04/23/19 02:51 37.0 C 55 L 18 120/51 L 96 Laboratory Results 04/23/19 04/23/19 04/23/19 Range/Units 11:22 11:21 07:17 WBC (4.8-10.8) K/uL RBC (4.7-6.1) M/uL Hgb (14.0-18.0) g/dL Hct (42-52) % MCV (80-100) fL MCH (25-34) pg MCHC (32-36) g/dL RDW Std Deviation (36.4-46.3) fL RDW Coeff of [place] (11.5-14.5) % Plt Count (130-400) K/uL MPV (7.4-10.4) fL Immature Gran % (Auto) % Neut % (Auto) % Lymph % (Auto) % [place] % (Auto) % Eos % (Auto) % Baso % (Auto) % Immature Gran # (Auto) (0.00-0.02) K/uL Neut # (Auto) (1.4-6.5) K/uL Lymph # (Auto) (1.2-3.4) K/uL [place] # (Auto) (0.11-0.59) K/uL Eos # (Auto) (0-0.5) K/uL Baso # (Auto) (0-0.2) K/uL PT (9.0-12.0) Seconds INR (0.9-1.1) Sodium (136-145) mmol/L Potassium (3.5-5.1) mmol/L Chloride (98-107) mmol/L Carbon Dioxide (21-32) mmol/L Anion Gap (3-11) BUN (7-18) mg/dl Creatinine (0.6-1.4) mg/dl Est Cr Clr Drug Dosing ml/min Est GFR ( Amer) Est GFR (Non-Af Amer) BUN/Creatinine Ratio (10-20) Glucose (70-99) mg/dl POC Glucose 305 H* 321 H* 242 H (70-99) Estimat Average Glucose mg/dl Hemoglobin A1c (4.5-5.6) % Calcium (8.5-10.1) mg/dl Triglycerides (0-150) mg/dl Cholesterol (0-200) mg/dl LDL Cholesterol, Calc mg/dl VLDL Cholesterol, Calc mg/dl HDL Cholesterol mg/dl Cholesterol/HDL Ratio TSH (0.300-4.500) uIu/ml 04/23/19 04/23/19 04/23/19 Range/Units 06:20 06:20 06:20 WBC (4.8-10.8) K/uL RBC (4.7-6.1) M/uL Hgb (14.0-18.0) g/dL Hct (42-52) % MCV (80-100) fL MCH (25-34) pg MCHC (32-36) g/dL RDW Std Deviation (36.4-46.3) fL RDW Coeff of [place] (11.5-14.5) % Plt Count (130-400) K/uL MPV (7.4-10.4) fL Immature Gran % (Auto) % Neut % (Auto) % Lymph % (Auto) % [place] % (Auto) % Eos % (Auto) % Baso % (Auto) % Immature Gran # (Auto) (0.00-0.02) K/uL Neut # (Auto) (1.4-6.5) K/uL Lymph # (Auto) (1.2-3.4) K/uL [place] # (Auto) (0.11-0.59) K/uL Eos # (Auto) (0-0.5) K/uL Baso # (Auto) (0-0.2) K/uL PT 21.5 H (9.0-12.0) Seconds INR 2.2 H (0.9-1.1) Sodium 137 (136-145) mmol/L Potassium 3.7 (3.5-5.1) mmol/L Chloride 103 (98-107) mmol/L Carbon Dioxide 29 (21-32) mmol/L Anion Gap 5.0 (3-11) BUN 13 (7-18) mg/dl Creatinine 1.21 (0.6-1.4) mg/dl Est Cr Clr Drug Dosing 80.6 ml/min Est GFR ( Amer) 70.9 Est GFR (Non-Af Amer) 61.1 BUN/Creatinine Ratio 10.6 (10-20) Glucose 243 H (70-99) mg/dl POC Glucose (70-99) Estimat Average Glucose 280 mg/dl Hemoglobin A1c 11.4 H (4.5-5.6) % Calcium 8.6 (8.5-10.1) mg/dl Triglycerides 210 H (0-150) mg/dl Cholesterol 168 (0-200) mg/dl LDL Cholesterol, Calc 87 mg/dl VLDL Cholesterol, Calc 42 mg/dl HDL Cholesterol 39 mg/dl Cholesterol/HDL Ratio 4 TSH (0.300-4.500) uIu/ml 04/23/19 04/22/19 04/22/19 Range/Units 06:20 19:44 16:51 WBC 7.44 (4.8-10.8) K/uL RBC 4.40 L (4.7-6.1) M/uL Hgb 12.2 L (14.0-18.0) g/dL Hct 38.0 L (42-52) % MCV 86.4 (80-100) fL MCH 27.7 (25-34) pg MCHC 32.1 (32-36) g/dL RDW Std Deviation 49.0 H (36.4-46.3) fL RDW Coeff of [place] 15.5 H (11.5-14.5) % Plt Count 219 (130-400) K/uL MPV 9.7 (7.4-10.4) fL Immature Gran % (Auto) 0.3 % Neut % (Auto) 56.0 % Lymph % (Auto) 31.5 % [place] % (Auto) 9.0 % Eos % (Auto) 2.8 % Baso % (Auto) 0.4 % Immature Gran # (Auto) 0.02 (0.00-0.02) K/uL Neut # (Auto) 4.17 (1.4-6.5) K/uL Lymph # (Auto) 2.34 (1.2-3.4) K/uL [place] # (Auto) 0.67 H (0.11-0.59) K/uL Eos # (Auto) 0.21 (0-0.5) K/uL Baso # (Auto) 0.03 (0-0.2) K/uL PT (9.0-12.0) Seconds INR (0.9-1.1) Sodium (136-145) mmol/L Potassium (3.5-5.1) mmol/L Chloride (98-107) mmol/L Carbon Dioxide (21-32) mmol/L Anion Gap (3-11) BUN (7-18) mg/dl Creatinine (0.6-1.4) mg/dl Est Cr Clr Drug Dosing ml/min Est GFR ( Amer) Est GFR (Non-Af Amer) BUN/Creatinine Ratio (10-20) Glucose (70-99) mg/dl POC Glucose 251 H 294 H (70-99) Estimat Average Glucose mg/dl Hemoglobin A1c (4.5-5.6) % Calcium (8.5-10.1) mg/dl Triglycerides (0-150) mg/dl Cholesterol (0-200) mg/dl LDL Cholesterol, Calc mg/dl VLDL Cholesterol, Calc mg/dl HDL Cholesterol mg/dl Cholesterol/HDL Ratio TSH (0.300-4.500) uIu/ml 04/22/19 04/22/19 04/22/19 Range/Units 15:57 15:55 14:46 WBC (4.8-10.8) K/uL RBC (4.7-6.1) M/uL Hgb (14.0-18.0) g/dL Hct (42-52) % MCV (80-100) fL MCH (25-34) pg MCHC (32-36) g/dL RDW Std Deviation (36.4-46.3) fL RDW Coeff of [place] (11.5-14.5) % Plt Count (130-400) K/uL MPV (7.4-10.4) fL Immature Gran % (Auto) % Neut % (Auto) % Lymph % (Auto) % [place] % (Auto) % Eos % (Auto) % Baso % (Auto) % Immature Gran # (Auto) (0.00-0.02) K/uL Neut # (Auto) (1.4-6.5) K/uL Lymph # (Auto) (1.2-3.4) K/uL [place] # (Auto) (0.11-0.59) K/uL Eos # (Auto) (0-0.5) K/uL Baso # (Auto) (0-0.2) K/uL PT (9.0-12.0) Seconds INR (0.9-1.1) Sodium (136-145) mmol/L Potassium (3.5-5.1) mmol/L Chloride (98-107) mmol/L Carbon Dioxide (21-32) mmol/L Anion Gap (3-11) BUN (7-18) mg/dl Creatinine (0.6-1.4) mg/dl Est Cr Clr Drug Dosing ml/min Est GFR ( Amer) Est GFR (Non-Af Amer) BUN/Creatinine Ratio (10-20) Glucose (70-99) mg/dl POC Glucose 327 H* 320 H* 327 H* (70-99) Estimat Average Glucose mg/dl Hemoglobin A1c (4.5-5.6) % Calcium (8.5-10.1) mg/dl Triglycerides (0-150) mg/dl Cholesterol (0-200) mg/dl LDL Cholesterol, Calc mg/dl VLDL Cholesterol, Calc mg/dl HDL Cholesterol mg/dl Cholesterol/HDL Ratio TSH (0.300-4.500) uIu/ml 04/22/19 04/22/19 Range/Units 14:45 08:12 WBC (4.8-10.8) K/uL RBC (4.7-6.1) M/uL Hgb (14.0-18.0) g/dL Hct (42-52) % MCV (80-100) fL MCH (25-34) pg MCHC (32-36) g/dL RDW Std Deviation (36.4-46.3) fL RDW Coeff of [place] (11.5-14.5) % Plt Count (130-400) K/uL MPV (7.4-10.4) fL Immature Gran % (Auto) % Neut % (Auto) % Lymph % (Auto) % [place] % (Auto) % Eos % (Auto) % Baso % (Auto) % Immature Gran # (Auto) (0.00-0.02) K/uL Neut # (Auto) (1.4-6.5) K/uL Lymph # (Auto) (1.2-3.4) K/uL [place] # (Auto) (0.11-0.59) K/uL Eos # (Auto) (0-0.5) K/uL Baso # (Auto) (0-0.2) K/uL PT (9.0-12.0) Seconds INR (0.9-1.1) Sodium (136-145) mmol/L Potassium (3.5-5.1) mmol/L Chloride (98-107) mmol/L Carbon Dioxide (21-32) mmol/L Anion Gap (3-11) BUN (7-18) mg/dl Creatinine (0.6-1.4) mg/dl Est Cr Clr Drug Dosing ml/min Est GFR ( Amer) Est GFR (Non-Af Amer) BUN/Creatinine Ratio (10-20) Glucose (70-99) mg/dl POC Glucose 327 H* (70-99) Estimat Average Glucose mg/dl Hemoglobin A1c (4.5-5.6) % Calcium (8.5-10.1) mg/dl Triglycerides (0-150) mg/dl Cholesterol (0-200) mg/dl LDL Cholesterol, Calc mg/dl VLDL Cholesterol, Calc mg/dl HDL Cholesterol mg/dl Cholesterol/HDL Ratio TSH 1.870 (0.300-4.500) uIu/ml Medications Administered Current Inpatient Medications Acetaminophen (Tylenol) 650 mg PO Q4H PRN PRN Reason: Pain or Fever Stop: 05/22/19 14:16 Last Admin: 04/23/19 10:36 Dose: 650 mg Documented by: Aspirin (Ecotrin Ectab) 81 mg PO [facility] Stop: 05/22/19 20:59 Last Admin: 04/22/19 21:13 Dose: 81 mg Documented by: Atorvastatin Calcium (Lipitor) 80 mg PO [facility] Stop: 05/22/19 20:59 Last Admin: 04/22/19 21:13 Dose: 80 mg Documented by: Dextrose (Dextrose 50%) 25 - 50 ml IV UD PRN; Protocol PRN Reason: Hypoglycemia Protocol Stop: 05/22/19 14:16 Glucagon (Glucagen) 1 mg SQ UD PRN; Protocol PRN Reason: Hypoglycemia Protocol Stop: 05/22/19 14:16 Glucose (Dex4 Glucose) 4 - 8 tabs PO UD PRN; Protocol PRN Reason: Hypoglycemia Protocol Stop: 05/22/19 14:16 Glucose (Glucose 40%) 15 - 30 gm PO UD PRN; Protocol PRN Reason: Hypoglycemia Protocol Stop: 05/22/19 14:16 Lisinopril/HCTZ (Prinzide 10/12.5mg) 1 tab PO QAM [facility] Stop: 05/23/19 08:59 Last Admin: 04/23/19 09:10 Dose: 1 tab Documented by: Insulin Aspart (Novolog Flexpen) 0 units SC ACHS [facility] Stop: 05/22/19 16:29 Last Admin: 04/23/19 12:59 Dose: 26 units Documented by: Insulin Glargine (Lantus Solostar Pen) 25 units SC BID [facility] Stop: 05/23/19 20:59 Metoprolol Tartrate (Lopressor) 50 mg PO BID [facility] Stop: 05/22/19 20:59 Last Admin: 04/23/19 09:10 Dose: 50 mg Documented by: Miscellaneous (Carbohydrates For Hypoglycemia) 15 - 30 gm PO UD PRN PRN Reason: Hypoglycemia Protocol Stop: 05/22/19 14:16 Miscellaneous Information (Pharmacist Discharge Med Rec Consult) 1 ea N/A UD PRN PRN Reason: Consult Stop: 05/22/19 14:16 Miscellaneous Information (Consult Glycemic Management Pharmacy) 1 ea N/A UD PRN PRN Reason: Consult Stop: 05/23/19 11:44 Ondansetron HCl (Zofran) 4 mg IV Q6H PRN PRN Reason: Nausea Stop: 05/22/19 14:16 Warfarin Sodium (Coumadin) 5 mg PO [email or web address] [facility] Stop: 05/22/19 15:59 Last Admin: 04/22/19 15:36 Dose: 5 mg Documented by: Warfarin Sodium (Coumadin) 2.5 mg PO [email or web address] [facility] Stop: 05/23/19 15:59 (1) Atrial fibrillation Atrial fibrillation type: unspecified Qualified Code(s): I48.91 - Unspecified atrial fibrillation (2) Hypertension Hypertension type: essential hypertension Qualified Code(s): I10 - Essential (primary) hypertension (3) Coronary artery disease Coronary Disease-Associated Artery/Lesion type: [place] artery [place] vs. transplanted heart: [place] heart Associated angina: without angina Qualified Code(s): I25.10 - Atherosclerotic heart disease of [place] coronary artery without angina pectoris
[2019-04-23] MEDS: WARFARIN SOD 2.5 MG TAB PO SCH (17:19)
[2019-04-23] MEDS: ASPIRIN 81 MG ECTAB PO SCH (20:04)
[2019-04-23] MEDS: ATORVASTATIN 40 MG TAB PO SCH (20:04)
[2019-04-23] MEDS ORDERED: INSULIN GLARGINE SOLOSTAR 100 UNITS/ML 3 ML PEN SC SCH (21:00)
[2019-04-24 05:28] LABS: Basophils # (auto) 0.02 K/uL (0-0.2); Basophils % (auto) 0.2 %; Eosinophils % (auto) 3.5 %; Hematocrit (blood only) 39.3 % (42-52); Hemoglobin 12.5 g/dL (14.0-18.0); Immature Granulocytes # (auto) 0.03 K/uL (0.00-0.02); Immature Granulocytes % (auto) 0.3 %; Lymphocytes # (auto) 2.66 K/uL (1.2-3.4); Lymphocytes % (auto) 30.7 %; Mean Corpuscular Hemoglobin 27.7 pg (25-34); Mean Corpuscular Hgb Conc 31.8 g/dL (32-36); Mean Corpuscular Volume 87.1 fL (80-100); Mean Platelet Volume 9.9 fL (7.4-10.4); Monocytes # (auto) 0.87 K/uL (0.11-0.59); Neutrophils # (auto) 4.78 K/uL (1.4-6.5); Neutrophils % (auto) 55.3 %; Platelet Count 255 K/uL (130-400); RDW Coefficient of Variation 15.7 % (11.5-14.5); RDW Standard Deviation 50.2 fL (36.4-46.3); Red Blood Count 4.51 M/uL (4.7-6.1); White Blood Count 8.66 K/uL (4.8-10.8)
[2019-04-24 05:39] LABS: INR 2.7 (0.9-1.1); Prothrombin Time 26.1 Seconds (9.0-12.0)
[2019-04-24 05:56] LABS: BUN Creatinine Ratio 13.3 (10-20); Calcium 8.7 mg/dl (8.5-10.1); Creatinine Clr Calc Pharmacy 81.3 ml/min; Est GFR (African American) 71.6; Est GFR (Non-African American) 61.8; Potassium 3.8 mmol/L (3.5-5.1)
[2019-04-24] MEDS: LISINOPRIL/HCTZ 10/12.5MG TAB PO SCH (08:40)
[2019-04-24] MEDS: METOPROLOL TARTRATE 50 MG TAB PO SCH ×2 (08:40→20:52)
[2019-04-24] MEDS: INSULIN ASPART 100 UNITS/ML 3 ML PEN SC SCH ×4 (08:41→22:34)
[2019-04-24] MEDS ORDERED: INSULIN GLARGINE SOLOSTAR 100 UNITS/ML 3 ML PEN SC SCH ×2 (09:00→17:00)
--- NOTE | 2019-04-24 11:02 | Electroencephalogram ---
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 Home Medication List Home Medications Medication Instructions Recorded Confirmed Type atorvastatin [Lipitor] 80 mg PO HS #0 tab 10/24/14 04/22/19 History coenzyme Q10 [Co Q-10] 100 mg PO QAM #0 10/24/14 04/22/19 History lisinopril-hydrochlorothiazide 1 tab PO QAM #0 tab 10/24/14 04/22/19 History [Zestoretic] metoprolol tartrate [Lopressor] 50 mg PO BID #0 10/24/14 04/22/19 History alpha lipoic acid 200 mg PO QAM 08/03/18 04/22/19 History glimepiride [Amaryl] 4 mg PO QDL 08/03/18 04/22/19 History warfarin [Coumadin] 2.5 mg PO SUTUTHSA 08/03/18 04/22/19 History warfarin [Coumadin] 5 mg PO MOWEFR 08/03/18 04/22/19 History aspirin 81 mg PO HS 11/09/18 04/22/19 History nitroglycerin [Nitrostat] 0.4 mg SUBLINGUAL UD PRN 11/09/18 04/22/19 History Inpatient Medication List Acetaminophen (Tylenol) 650 mg PO Q4H PRN PRN Reason: Pain or Fever Stop: 05/22/19 14:16 Last Admin: 04/23/19 20:10 Dose: 650 mg Documented by: [id number] Admin: 04/23/19 10:36 Dose: 650 mg Documented by: [id number] Admin: 04/22/19 21:10 Dose: 650 mg Documented by: [id number] Admin: 04/22/19 16:58 Dose: 650 mg Documented by: [id number] Aspirin (Ecotrin Ectab) 81 mg PO [facility] Stop: 05/22/19 20:59 Last Admin: 04/23/19 20:04 Dose: 81 mg Documented by: [id number] Admin: 04/22/19 21:13 Dose: 81 mg Documented by: [id number] Atorvastatin Calcium (Lipitor) 80 mg PO [facility] Stop: 05/22/19 20:59 Last Admin: 04/23/19 20:04 Dose: 80 mg Documented by: [id number] Admin: 04/22/19 21:13 Dose: 80 mg Documented by: [id number] Lisinopril/HCTZ (Prinzide 10/12.5mg) 1 tab PO QAM [facility] Stop: 05/23/19 08:59 Last Admin: 04/24/19 08:40 Dose: 1 tab Documented by: [id number] Admin: 04/23/19 09:10 Dose: 1 tab Documented by: [id number] Insulin Aspart (Novolog Flexpen) 0 units SC ACHS [facility] Stop: 05/22/19 16:29 Last Admin: 04/24/19 08:41 Dose: 14 units Documented by: [id number] Cosigned by: [id number] Admin: 04/23/19 20:05 Dose: 2 units Documented by: [id number] Cosigned by: [id number] Admin: 04/23/19 17:20 Dose: 18 units Documented by: [id number] Cosigned by: [id number] Admin: 04/23/19 12:59 Dose: 26 units Documented by: [id number] Cosigned by: [id number] Admin: 04/23/19 09:09 Dose: 16 units Documented by: [id number] Cosigned by: [id number] Admin: 04/22/19 21:12 Dose: 7 units Documented by: [id number] Cosigned by: [id number] Admin: 04/22/19 17:15 Dose: 15 units Documented by: [id number] Cosigned by: [id number] Insulin Glargine (Lantus Solostar Pen) 20 units SC BID [facility] Stop: 05/24/19 08:59 Last Admin: 04/24/19 08:41 Dose: 20 units Documented by: [id number] Cosigned by: [id number] Metoprolol Tartrate (Lopressor) 50 mg PO BID [facility] Stop: 05/22/19 20:59 Last Admin: 04/24/19 08:40 Dose: 50 mg Documented by: [id number] Admin: 04/23/19 20:04 Dose: 50 mg Documented by: [id number] Admin: 04/23/19 09:10 Dose: 50 mg Documented by: [id number] Admin: 04/22/19 21:13 Dose: Not Given Documented by: [id number] Warfarin Sodium (Coumadin) 5 mg PO MoWeFr@1600 [facility] Stop: 05/22/19 15:59 Last Admin: 04/22/19 15:36 Dose: 5 mg Documented by: [id number] Warfarin Sodium (Coumadin) 2.5 mg PO SuTuThSa@1600 [facility] Stop: 05/23/19 15:59 Last Admin: 04/23/19 17:19 Dose: 2.5 mg Documented by: [id number] Discontinued Medications Lisinopril/HCTZ (Prinzide 20/12.5mg) 1 tab PO QAM [facility] Stop: 05/22/19 10:59 Last Admin: 04/22/19 13:07 Dose: 1 tab Documented by: [id number] Hydromorphone HCl (Dilaudid) 0.5 mg IV NOW STA Stop: 04/22/19 09:42 Last Admin: 04/22/19 13:07 Dose: Not Given Documented by: [id number] Hydromorphone HCl (Dilaudid) Confirm Administered Dose 0.5 mg .ROUTE .STK-MED ONE Stop: 04/22/19 12:59 Last Admin: 04/22/19 13:02 Dose: 0.5 mg Documented by: [id number] Sodium Chloride (Nss 1000ml) 1,000 mls @ 200 mls/hr IV .Q5H [facility] Stop: 05/22/19 09:59 Last Infusion: 04/22/19 14:40 Dose: 0 mls/hr Documented by: [id number] Admin: 04/22/19 11:01 Dose: 200 mls/hr Documented by: [id number] Insulin Human Regular 5 units/ (Syringe) 5 mls @ 2.5 mls/min IV TODAY@1215 ONE Stop: 04/23/19 12:16 Last Admin: 04/23/19 12:24 Dose: 2.5 mls/min Documented by: [id number] Cosigned by: [id number] Insulin Aspart (Novolog Mix 70/30) 6 units SC ONE ONE Stop: 04/22/19 09:22 Last Admin: 04/22/19 13:07 Dose: Not Given Documented by: [id number] Insulin Glargine (Lantus Solostar Pen) 0 - 20 units SC BID [facility]; Protocol Stop: 05/22/19 14:16 Last Admin: 04/23/19 09:09 Dose: 20 units Documented by: [id number] Cosigned by: [id number] Admin: 04/22/19 21:11 Dose: 20 units Documented by: [id number] Cosigned by: [id number] Admin: 04/22/19 15:37 Dose: 20 units Documented by: [id number] Cosigned by: [id number] Insulin Glargine (Lantus Solostar Pen) 5 units SC NOW ONE Stop: 04/23/19 12:16 Last Admin: 04/23/19 12:24 Dose: 5 units Documented by: [id number] Cosigned by: [id number] Insulin Glargine (Lantus Solostar Pen) 25 units SC BID [facility] Stop: 05/23/19 20:59 Last Admin: 04/23/19 20:06 Dose: 25 units Documented by: [id number] Cosigned by: [id number] Insulin Human Regular (Novolin R U-100 Per Unit) 6 units SC NOW STA; Protocol Stop: 04/22/19 09:23 Last Admin: 04/22/19 09:33 Dose: 6 units Documented by: [id number] Cosigned by: [id number] Ioversol (Optiray 320 125ml) 118 ml IV ONCE PRN PRN Reason: Interaction Checking Stop: 04/26/19 10:08 Last Admin: 04/22/19 10:09 Dose: 118 ml Documented by: [id number] Metoprolol Tartrate (Lopressor) 50 mg PO NOW STA Stop: 04/22/19 10:51 Last Admin: 04/22/19 13:07 Dose: Not Given Documented by: [id number] Metoprolol Tartrate (Lopressor) Confirm Administered Dose 50 mg .ROUTE .STK-MED ONE Stop: 04/22/19 12:57 Last Admin: 04/22/19 13:02 Dose: 50 mg Documented by: [id number] Ondansetron HCl (Zofran) 4 mg IV NOW STA Stop: 04/22/19 09:42 Last Admin: 04/22/19 13:07 Dose: Not Given Documented by: [id number] Ondansetron HCl (Zofran) Confirm Administered Dose 4 mg .ROUTE .STK-MED ONE Stop: 04/22/19 12:58 Last Admin: 04/22/19 13:02 Dose: 4 mg Documented by: [id number] Description This is a 21 electrode EEG with a single channel dedicated to limited EKG. The electrodes were placed in accordance with the International 10-20 system. This EEG is done as a bedside recording and is of good technical quality with few or no muscle or movement artifacts. Simultaneous video analysis patient moving the behavior is obtained Based on video recording the patient does appear to be intermittently drowsy but no abnormal involuntary motor activity is noted Under these conditions there is evidence for a background rhythm in the alpha range of up to 9 to 10 Hz and maximum frequency of up to 30 V maximum amplitude which is bilaterally symmetrical and maximum posterior head regions Polymorphic mid frequency theta activity is seen in normal amounts over the right hemisphere but over the left hemisphere there is a generalized increase in the amplitude and reduction in the frequency of this activity and occasionally isolated waveforms in the delta range are seen Beta activity seen bifrontally and symmetrically Major abnormal feature of the tracing is the presence of variable duration episodes (up to 1 to 2 minutes) abnormal EEG activity overlying the left hemisphere characterized by the appearance of increased higher amplitude slow wave activity and the emergence of periodic low amplitude sharp waves occurring at a frequency of up to 1/s and consistent with "periodic lateralized epileptiform discharges" no clear clinical accompaniments are noted during these intervals of time although it could be argued the patient may appear to be slightly more drowsy When the above abnormal activity stops the EEG reverts to its prior mildly focally abnormal state with a slight increase in slow-wave activity over the left hemisphere maximum in the mid portions Interpretation This is an abnormal EEG revealing evidence for a slow wave focus overlying the left hemisphere maximum in the central regions and extending into the temporal regions. This is certainly consistent with the known clinical appearance of a cerebrovascular accident on imaging and clinical exam There is also evidence for episodic relatively long runs of "periodic lateralized epileptiform discharges" or PLEDS which certainly have potentially epileptogenic features and are often associated with underlying structural disease particularly cerebrovascular accidents are not specific for this causation and may be seen with focal areas of inflammation etc. Clinical Correlation This is an abnormal EEG revealing evidence for a focal abnormality overlying the left hemisphere consistent with a CVA and revealing evidence for periodic lateralized epileptiform discharges which certainly could indicate ongoing subclinical electrographic seizure activity. A text message outlining these abnormal findings has been sent to the requesting physician Sim Horner MD
--- NOTE | 2019-04-24 13:24 | Pharmacy Report ---
Glycemic Control Progress Note - Date of Service April 24, 2019 - Scope Glycemic Pharmacist consulted for glycemic control to write orders per [facility] inpatient glycemic control protocol. - Objective Accuchecks BSG(last 24 hours):: 04/23/19 04/23/19 04/24/19 16:35 20:04 04:51 Glucose 128 H POC Glucose 147 H 179 H 04/24/19 04/24/19 07:20 11:05 Glucose POC Glucose 145 H 218 H HbA1c:: Hemoglobin A1c 11.4 % (4.5-5.6) H 04/23/19 06:20 - Recent Pertinent Medications The patient is currently receiving: * Basal insulin: Lantus 25 units every 12 hours * Correctional Insulin: Novolog Correction per scale ACHS Goal Range: Low 120 mg/dL - High 160 mg/dL Correction Factor: 12 mg/dL/unit * Prandial insulin: Per carb ratio of 1 unit per 4 grams CHO consumed * Oral Agents: - Outpatient Anti-Diabetic Meds Amaryl 4 mg qdl - Assessment & Plan ASSESSMENT: * See progress note from 04/23/19 for more background info, in short: * Pt receiving SQ basal bolus insulin regimen for hyperglycemia secondary to baseline DM (outpatient regimen on hold). * Patient is currently receiving an average of 112 units of insulin per day * 50 units of basal insulin * 62 units of prandial/correctional insulin * BSGs ranging 147 - 323 mg/dl over the past 24hrs * Changes needed to insulin regimen: * AM Fasting BSG = 145 mg/dl. This is in goal range for patient based on inpatient targets and co-morbidities. This was significantly decreased from yesterday's fasting of 242 mg/dL therefore will reduce by 20% to prevent future hypoglycemia. After discussion with hospital educator, will move to once daily insulin injection start tonight. * Post-prandial BSGs did trend downwards yesterday. Patient may require a slight tightening to a carbohydrate ratio of 3. Consider for tomorrow. * Total daily dose = ~110-120 units. PLAN FOR INPATIENT GLYCEMIC CONTROL: * Decreasing Lantus to 20 units SQ BID * Continuing correction factor of 12 mg/dl/unit * Continuing carb ratio of 1 unit per 4 grams CHO consumed * Continuing goal range of Low 120 mg/dL - High 160 mg/dL RECOMMENDATIONS FOR DISCHARGE: * Patient's HbA1C is elevated above 10% which necessitates at least two diabetic medications. * Recommend starting metformin XR 500 mg daily. Titrate every 1-2 weeks by 500 mg daily to maximum of 2000 mg daily (Patient did not tolerate immediate release metformin in the past. May be appropriate to have lower maximum dose in patient). * Recommend once daily Lantus. Dose is currently TBD. Patient is tolerating at least 40 units daily. * In the future, would recommend a once weekly GLP agonist such as Ozempic. This would be particularly beneficial due to the patient's cardiovascular history. Thank you.
[2019-04-24] MEDS ORDERED: levETIRAcetam 250 MG in DEXTROSE 5% 100 ML IV STA (14:06)
[2019-04-24] MEDS: WARFARIN SOD 2.5 MG TAB PO SCH (16:39)
--- NOTE | 2019-04-24 17:44 | Hospitalist Progress Note ---
Date of Service April 24, 2019 Assessment & Plan (1) Stroke-like symptom: Left MCA infarction Left internal carotid stenosis Pt is 68 y/o M with PMH CAD s/p stent x 2 in 2002, A-fib on Coumadin, HTN, HLD, DM II presented to ER with complaint of confusion. Patient noticed that he was having confusion and could not use the phone and also had headache around left eye. Difficulty with reading, writing, typing. Reports trouble with word finding and trouble with comprehension. Was seen in ER 04/21/2019 and had un[address] CT head On this admission in ER afebrile, P: 55-61, R: 22, BP: 155/78, 182/110, 95% on RA CTA HEAD & CTA NECK: 1. Possible small hypodense focus within left posterior parietal lobe raising the possibility of an acute infarct. This will be better appreciated on the same day brain MRI. 2. No significant stenosis, occlusion, or aneurysm within the [place]. 3. Approximately 60% stenosis within the left proximal internal carotid artery. 4. The right carotid arteries and vertebral arteries are patent. MRI Multiple small left posterior frontal and parietal lobe acute infarcts. - goal LDL<70 - cont. atorvastatin - cont. ASA Hx of pAfib, INR 1.9 - goal INR 2.5-3.5 - HTN - controlled Uncontrolled DM type 2, see below -Echo with bubble study: no ASD, EF 55-60%, mild concentric LVH, grade II diast. dysfunction, no LV wall motion abnormalities -Neurology consulted - pt will need carotid US follow up in 6 months and then yearly, if stenosis greater than 70%, need consult w/ vascular surgery -PT/OT Seizure activity -Secondary to above -Patient had shaking movements of his right body, observed by nursing staff and family, EEG also confirmed epileptiform waves/activity -Patient was started on Keppra, neurology notified and follows (2) Hyperglycemia: - Secondary to uncontrolled diabetes mellitus type 2 - Hgb A1c 11.4%, says that this is due to neglect - lollypop machine operator and pharm consulted for hyperglycemia management - Patient underwent thorough insulin education today (04/24), by diabetes educat or, family was present at the bedside - plan to d/c home on lantus (3) Diabetes mellitus, type II: Pt with h/o uncontrolled BSG's for months per home fasting BSG's. A1c: 8 in 08/2018 Random glucose: 340. In ER given Novolin R 6 units SQ -HgbA1c 11.4% (04/23/2019) -lollypop machine operator and pharm consulted for hyperglycemia management - Patient underwent thorough insulin education today (04/24), by lollypop machine operator, family was present at the bedside -Monitor BSGs -Hold glimeperide -plan to discharge home on lantus (4) Atrial fibrillation: On Coumadin INR: 1.9 on admission -Continue Coumadin, Metoprolol -goal INR 2.5-3.5 (5) Hypertension: -Continue lisinopril/HCTZ, metoprolol - will cont. to monitor (6) Coronary artery disease: S/P stent x 2 in 2002 Denies CP or SOB -Continue aspirin, atorvastatin, metoprolol (7) HLD (hyperlipidemia): -Continue atorvastatin DVT Prophylaxis -On Coumadin Full Code as per discussion with pt Follows with Dr. Smiley for routine care Subjective Patient is currently sitting up in bed, in no acute distress. Currently denies any fevers, chills, chest pain, shortness of breath, abdominal pain, nausea or vomiting. This morning it was reported by nursing staff, that patient had shaking movements of his right body. This was concerning for seizure and neurology was notified. Patient also underwent EEG which showed epileptic activity. He was started on Keppra. Currently actually seems to be more clear, answers questions more easily than yesterday. He was able to color a holiday picture from newspaper, and feels very proud that he is able to do it now. Earlier today also underwent education with lollypop machine operator, his family was at the bedside present, understand the need for insulin and how to administer it. Review of Systems Review of Systems: All systems reviewed & are unremarkable except as noted in HPI & below Constitutional: no fever and no chills Respiratory: no cough, no dyspnea and no pain on inspiration Cardiovascular: no chest pain, no palpitations and no edema Gastrointestinal: no abdominal pain, no nausea and no vomiting Musculoskeletal: + muscle weakness (reports RUE weakness) Neurologic: + confusion Physical Exam Physical Exam: General: obese male, sitting up in the bed, in NAD Head: normocephalic, atraumatic Eyes: PERRL, EOM's intact, conjunctiva non-injected ENT: normal inspection external ears, nose, mucous membranes moist Neck: supple, trachea midline, non-tender, ROM intact Lungs: clear, no respiratory distress, no wheezing/rhonchi/rales CV: irregular, no murmur, no JVD, no pretibial edema Abd: normal BS, soft, non-tender Ext: no cyanosis, no calf tenderness Neuro: A&O x 3 answers questions slowly, speech slow but fluent, no sensory loss, moves all 4 extremities spontaneously and w/o difficulty, strength 5/5 in all major muscle groups Skin: warm, dry Results & Data Vital Signs (Past 12 Hours) Vital Signs Temp Pulse Pulse Resp BP Pulse Ox 04/24/19 15:32 36.9 C 52 L 20 103/56 L 95 04/24/19 08:00 53 L 04/24/19 07:37 36.8 C 59 L 20 140/84 94 Laboratory Results 04/24/19 04/24/19 04/24/19 Range/Units 16:20 11:05 07:20 WBC (4.8-10.8) K/uL RBC (4.7-6.1) M/uL Hgb (14.0-18.0) g/dL Hct (42-52) % MCV (80-100) fL MCH (25-34) pg MCHC (32-36) g/dL RDW Std Deviation (36.4-46.3) fL RDW Coeff of [place] (11.5-14.5) % Plt Count (130-400) K/uL MPV (7.4-10.4) fL Immature Gran % (Auto) % Neut % (Auto) % Lymph % (Auto) % [place] % (Auto) % Eos % (Auto) % Baso % (Auto) % Immature Gran # (Auto) (0.00-0.02) K/uL Neut # (Auto) (1.4-6.5) K/uL Lymph # (Auto) (1.2-3.4) K/uL [place] # (Auto) (0.11-0.59) K/uL Eos # (Auto) (0-0.5) K/uL Baso # (Auto) (0-0.2) K/uL PT (9.0-12.0) Seconds INR (0.9-1.1) Sodium (136-145) mmol/L Potassium (3.5-5.1) mmol/L Chloride (98-107) mmol/L Carbon Dioxide (21-32) mmol/L Anion Gap (3-11) BUN (7-18) mg/dl Creatinine (0.6-1.4) mg/dl Est Cr Clr Drug Dosing ml/min Est GFR ( Amer) Est GFR (Non-Af Amer) BUN/Creatinine Ratio (10-20) Glucose (70-99) mg/dl POC Glucose 176 H 218 H 145 H (70-99) Calcium (8.5-10.1) mg/dl 04/24/19 04/24/19 04/24/19 Range/Units 04:51 04:51 04:51 WBC 8.66 (4.8-10.8) K/uL RBC 4.51 L (4.7-6.1) M/uL Hgb 12.5 L (14.0-18.0) g/dL Hct 39.3 L (42-52) % MCV 87.1 (80-100) fL MCH 27.7 (25-34) pg MCHC 31.8 L (32-36) g/dL RDW Std Deviation 50.2 H (36.4-46.3) fL RDW Coeff of [place] 15.7 H (11.5-14.5) % Plt Count 255 (130-400) K/uL MPV 9.9 (7.4-10.4) fL Immature Gran % (Auto) 0.3 % Neut % (Auto) 55.3 % Lymph % (Auto) 30.7 % [place] % (Auto) 10.0 % Eos % (Auto) 3.5 % Baso % (Auto) 0.2 % Immature Gran # (Auto) 0.03 H (0.00-0.02) K/uL Neut # (Auto) 4.78 (1.4-6.5) K/uL Lymph # (Auto) 2.66 (1.2-3.4) K/uL [place] # (Auto) 0.87 H (0.11-0.59) K/uL Eos # (Auto) 0.30 (0-0.5) K/uL Baso # (Auto) 0.02 (0-0.2) K/uL PT 26.1 H (9.0-12.0) Seconds INR 2.7 H (0.9-1.1) Sodium 139 (136-145) mmol/L Potassium 3.8 (3.5-5.1) mmol/L Chloride 104 (98-107) mmol/L Carbon Dioxide 32 (21-32) mmol/L Anion Gap 3.0 (3-11) BUN 16 (7-18) mg/dl Creatinine 1.20 (0.6-1.4) mg/dl Est Cr Clr Drug Dosing 81.3 ml/min Est GFR ( Amer) 71.6 Est GFR (Non-Af Amer) 61.8 BUN/Creatinine Ratio 13.3 (10-20) Glucose 128 H (70-99) mg/dl POC Glucose (70-99) Calcium 8.7 (8.5-10.1) mg/dl 04/23/19 Range/Units 20:04 WBC (4.8-10.8) K/uL RBC (4.7-6.1) M/uL Hgb (14.0-18.0) g/dL Hct (42-52) % MCV (80-100) fL MCH (25-34) pg MCHC (32-36) g/dL RDW Std Deviation (36.4-46.3) fL RDW Coeff of [place]ri[place] (11.5-14.5) % Plt Count (130-400) K/uL MPV (7.4-10.4) fL Immature Gran % (Auto) % Neut % (Auto) % Lymph % (Auto) % [place] % (Auto) % Eos % (Auto) % Baso % (Auto) % Immature Gran # (Auto) (0.00-0.02) K/uL Neut # (Auto) (1.4-6.5) K/uL Lymph # (Auto) (1.2-3.4) K/uL [place] # (Auto) (0.11-0.59) K/uL Eos # (Auto) (0-0.5) K/uL Baso # (Auto) (0-0.2) K/uL PT (9.0-12.0) Seconds INR (0.9-1.1) Sodium (136-145) mmol/L Potassium (3.5-5.1) mmol/L Chloride (98-107) mmol/L Carbon Dioxide (21-32) mmol/L Anion Gap (3-11) BUN (7-18) mg/dl Creatinine (0.6-1.4) mg/dl Est Cr Clr Drug Dosing ml/min Est GFR ( Amer) Est GFR (Non-Af Amer) BUN/Creatinine Ratio (10-20) Glucose (70-99) mg/dl POC Glucose 179 H (70-99) Calcium (8.5-10.1) mg/dl Diagnostic Findings MRI (04/22/2019) IMPRESSION: Multiple small left posterior frontal and parietal lobe acute infarcts. EEG(04/24/2019) Interpretation This is an abnormal EEG revealing evidence for a slow wave focus overlying the left hemisphere maximum in the central regions and extending into the temporal regions. This is certainly consistent with the known clinical appearance of a cerebrovascular accident on imaging and clinical exam There is also evidence for episodic relatively long runs of "periodic lateralized epileptiform discharges" or PLEDS which certainly have potentially epileptogenic features and are often associated with underlying structural disease particularly cerebrovascular accidents are not specific for this causation and may be seen with focal areas of inflammation etc. Clinical Correlation This is an abnormal EEG revealing evidence for a focal abnormality overlying the left hemisphere consistent with a CVA and revealing evidence for periodic lateralized epileptiform discharges which certainly could indicate ongoing subclinical electrographic seizure activity. Medications Administered Current Inpatient Medications Acetaminophen (Tylenol) 650 mg PO Q4H PRN PRN Reason: Pain or Fever Stop: 05/22/19 14:16 Last Admin: 04/23/19 20:10 Dose: 650 mg Documented by: Aspirin (Ecotrin Ectab) 81 mg PO [facility] Stop: 05/22/19 20:59 Last Admin: 04/23/19 20:04 Dose: 81 mg Documented by: Atorvastatin Calcium (Lipitor) 80 mg PO [facility] Stop: 05/22/19 20:59 Last Admin: 04/23/19 20:04 Dose: 80 mg Documented by: Dextrose (Dextrose 50%) 25 - 50 ml IV UD PRN; Protocol PRN Reason: Hypoglycemia Protocol Stop: 05/22/19 14:16 Glucagon (Glucagen) 1 mg SQ UD PRN; Protocol PRN Reason: Hypoglycemia Protocol Stop: 05/22/19 14:16 Glucose (Dex4 Glucose) 4 - 8 tabs PO UD PRN; Protocol PRN Reason: Hypoglycemia Protocol Stop: 05/22/19 14:16 Glucose (Glucose 40%) 15 - 30 gm PO UD PRN; Protocol PRN Reason: Hypoglycemia Protocol Stop: 05/22/19 14:16 Lisinopril/HCTZ (Prinzide 10/12.5mg) 1 tab PO QAM [facility] Stop: 05/23/19 08:59 Last Admin: 04/24/19 08:40 Dose: 1 tab Documented by: Insulin Aspart (Novolog Flexpen) 0 units SC ACHS [facility] Stop: 05/22/19 16:29 Last Admin: 04/24/19 16:40 Dose: 14 units Documented by: Insulin Glargine (Lantus Solostar Pen) 40 units SC DAILY [facility] Stop: 05/25/19 08:59 Levetiracetam (Keppra) 500 mg PO BID [facility] Stop: 05/24/19 20:59 Metoprolol Tartrate (Lopressor) 50 mg PO BID [facility] Stop: 05/22/19 20:59 Last Admin: 04/24/19 08:40 Dose: 50 mg Documented by: Miscellaneous (Carbohydrates For Hypoglycemia) 15 - 30 gm PO UD PRN PRN Reason: Hypoglycemia Protocol Stop: 05/22/19 14:16 Miscellaneous Information (Pharmacist Discharge Med Rec Consult) 1 ea N/A UD PRN PRN Reason: Consult Stop: 05/22/19 14:16 Miscellaneous Information (Consult Glycemic Management Pharmacy) 1 ea N/A UD PRN PRN Reason: Consult Stop: 05/23/19 11:44 Ondansetron HCl (Zofran) 4 mg IV Q6H PRN PRN Reason: Nausea Stop: 05/22/19 14:16 Warfarin Sodium (Coumadin) 5 mg PO [id number]@1600 [facility] Stop: 05/22/19 15:59 Last Admin: 04/22/19 15:36 Dose: 5 mg Documented by: Warfarin Sodium (Coumadin) 2.5 mg PO [id number]@1600 [facility] Stop: 05/23/19 15:59 Last Admin: 04/24/19 16:39 Dose: 2.5 mg Documented by: (1) Atrial fibrillation Atrial fibrillation type: unspecified Qualified Code(s): I48.91 - Unspecified atrial fibrillation (2) Hypertension Hypertension type: essential hypertension Qualified Code(s): I10 - Essential (primary) hypertension (3) Coronary artery disease Coronary Disease-Associated Artery/Lesion type: [place] artery [place] vs. transplanted heart: [place] heart Associated angina: without angina Qualified Code(s): I25.10 - Atherosclerotic heart disease of [place] coronary artery without angina pectoris
[2019-04-24] MEDS: levETIRAcetam 500 MG TAB PO SCH (20:51)
[2019-04-24] MEDS: ATORVASTATIN 40 MG TAB PO SCH (20:51)
[2019-04-24] MEDS: ASPIRIN 81 MG ECTAB PO SCH (20:52)
[2019-04-25] MEDS: levETIRAcetam 500 MG TAB PO SCH (07:56)
[2019-04-25] MEDS: INSULIN GLARGINE SOLOSTAR 100 UNITS/ML 3 ML PEN SC SCH (08:48)
[2019-04-25] MEDS: INSULIN ASPART 100 UNITS/ML 3 ML PEN SC SCH ×4 (08:49→21:09)
[2019-04-25] MEDS ORDERED: INSULIN GLARGINE SOLOSTAR 100 UNITS/ML 3 ML PEN SC SCH (09:00)
[2019-04-25 09:26] LABS: Hematocrit (blood only) 42.7 % (42-52); Hemoglobin 13.5 g/dL (14.0-18.0); Mean Corpuscular Hemoglobin 27.3 pg (25-34); Mean Corpuscular Hgb Conc 31.6 g/dL (32-36); Mean Corpuscular Volume 86.4 fL (80-100); Mean Platelet Volume 10.3 fL (7.4-10.4); Platelet Count 293 K/uL (130-400); RDW Coefficient of Variation 15.8 % (11.5-14.5); RDW Standard Deviation 50.1 fL (36.4-46.3); Red Blood Count 4.94 M/uL (4.7-6.1); White Blood Count 8.69 K/uL (4.8-10.8)
--- NOTE | 2019-04-25 09:32 | Pharmacy Report ---
Pharmacy Glycemic Short Note 2 - Date of Service April 25, 2019 - Glycemic Short BSG Results (Last 24 hours): 04/24/19 04/24/19 04/24/19 11:05 16:20 19:58 POC Glucose 218 H 176 H 103 H 04/25/19 07:11 POC Glucose 125 H OUTPATIENT ANTIDIABETIC REGIMEN: * Amaryl 4 mg qdl ASSESSMENT: 04/25: * Patient is received 87 units of insulin yesterday * 40 units of basal insulin * 47 units of prandial/correctional insulin * BSGs ranging 103 - 218 mg/dl over the past 24hrs * Changes needed to insulin regimen: * AM Fasting BSG = 125 mg/dl. This is in goal range for patient based on inpatient targets and co-morbidities. Fasting decreased somewhat again today, but still within range. Will reduce by ~12%. Lantus was changed to once daily dosing starting this morning * Post-prandial BSGs did trend downwards yesterday, and significantly downtrended at bedtime. Will loosen novolog scale today. 04/24 * Pt receiving SQ basal bolus insulin regimen for hyperglycemia secondary to baseline DM (outpatient regimen on hold). * Patient is currently receiving an average of 112 units of insulin per day * 50 units of basal insulin * 62 units of prandial/correctional insulin * BSGs ranging 147 - 323 mg/dl over the past 24hrs * Changes needed to insulin regimen: * AM Fasting BSG = 145 mg/dl. This is in goal range for patient based on inpatient targets and co-morbidities. This was significantly decreased from yesterday's fasting of 242 mg/dL therefore will reduce by 20% to prevent future hypoglycemia. After discussion with community nutrition educator, will move to once daily insulin injection start tonight. * Post-prandial BSGs did trend downwards yesterday. Patient may require a slight tightening to a carbohydrate ratio of 3. Consider for tomorrow. * Total daily dose = ~110-120 units. PLAN FOR INPATIENT GLYCEMIC CONTROL: * Hold outpatient oral diabetes medications * Basal insulin * Lantus 35 units SQ qam * Bolus insulin * NovoLog per scale ACHS or Q6hrs while NPO * Goal Range: Low 120 mg/dL - High 160 mg/dL * Correction Factor: 18 mg/dL/unit * Nutritional / Prandial insulin per carb ratio of 1 unit per 6 grams CHO c onsumed PLAN FOR DISCHARGE (as per 04/24 RX note): * Patient's HbA1C is elevated above 10% which necessitates at least two diabetic medications. * Recommend starting metformin XR 500 mg daily. Titrate every 1-2 weeks by 500 mg daily to maximum of 2000 mg daily (Patient did not tolerate immediate release metformin in the past. May be appropriate to have lower maximum dose in patient). * Recommend once daily Lantus. Dose is currently TBD. Patient is tolerating at least 40 units daily. * In the future, would recommend a once weekly GLP agonist such as Ozempic. This would be particularly beneficial due to the patient's cardiovascular history.
--- NOTE | 2019-04-25 09:33 | Progress Note ---
DATE: 04/24/2019 SUBJECTIVE: I am seeing Mr. 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 Follow up CT of the brain, which I have reviewed shows the infarct to be more noted on CAT scan that it was on the initial CT. There is an acute to subacute limited cortical infarction in the left parietal lobe. EEG showed intermittent long runs of left hemisphere PLEDs. Nursing notes that they have noted at least 1 episode of jerking of the right hand, lasting about 5 seconds. Today, he is feeling better, still with some minor left frontal headache. When I went into the room, he was certainly awake, alert, spontaneous language was fluent. At some point during the exam, I asked him to roll over onto his back. He appeared not to understand that and sat up. He did lay down then after a few seconds, but again appeared mildly confused, which also resolved. His naming, repetitions and 3-step commands are normal. Still appears to have impaired vision in the right eye in the supra and temporal field, no facial asymmetry, no dysarthria. No weakness in the upper and lowers. No drift. Equal rapid alternating movements. IMPRESSION: Left parietal infarction PLEDs, likely representing seizure. PLAN: After discussion with family, will give Keppra 1000 mg IV x1 followed by 500 mg twice a day orally. We will repeat an EEG tomorrow to see if the PLEDs have resolved or improved and to see if the patient clinically is better. I believe the spells or seizures have been simple partial and partial complex. It appears that the INR is at goal. We will follow with you.
[2019-04-25 09:34] LABS: INR 2.3 (0.9-1.1)
--- NOTE | 2019-04-25 09:35 | Anesthesiology Consultation ---
Date of Service April 25, 2019 History Height/Weight Height: 5 ft 10 in Weight: 133.9 kg Allergies Allergy/AdvReac Type Severity Reaction Status Date / Time No Known Allergies Allergy Unknown Verified 04/22/19 08:16 Medications Home Medications Medication Instructions Recorded Confirmed Last Taken atorvastatin [Lipitor] 80 mg PO HS #0 tab 10/24/14 04/22/19 04/21/19 coenzyme Q10 [Co Q-10] 100 mg PO QAM #0 10/24/14 04/22/19 04/21/19 lisinopril-hydrochlorothiazide 1 tab PO QAM #0 tab 10/24/14 04/22/19 04/21/19 [Zestoretic] metoprolol tartrate [Lopressor] 50 mg PO BID #0 10/24/14 04/22/19 04/21/19 alpha lipoic acid 200 mg PO QAM 08/03/18 04/22/19 04/21/19 glimepiride [Amaryl] 4 mg PO QDL 08/03/18 04/22/19 04/21/19 warfarin [Coumadin] 2.5 mg PO SUTUTHSA 08/03/18 04/22/19 04/19/19 warfarin [Coumadin] 5 mg PO MOWEFR 08/03/18 04/22/19 04/20/19 aspirin 81 mg PO HS 11/09/18 04/22/19 04/21/19 nitroglycerin [Nitrostat] 0.4 mg SUBLINGUAL UD PRN 11/09/18 04/22/19 Unknown Active Medications Generic Name Dose Route Start Last Admin Trade Name Freq PRN Reason Stop Dose Admin Acetaminophen 650 mg 04/22/19 14:17 04/23/19 20:10 Tylenol PO 05/22/19 14:16 650 mg Q4H PRN Administration Pain or Fever Aspirin 81 mg 04/22/19 21:00 04/24/19 20:52 Ecotrin Ectab PO 05/22/19 20:59 81 mg HS CARLA Administration Atorvastatin Calcium 80 mg 04/22/19 21:00 04/24/19 20:51 Lipitor PO 05/22/19 20:59 80 mg HS CARLA Administration Lisinopril/HCTZ 1 tab 04/23/19 09:00 04/24/19 08:40 Prinzide 10/12.5mg PO 05/23/19 08:59 1 tab QAM CARLA Administration Insulin Aspart 0 units 04/22/19 16:30 04/25/19 08:49 Novolog Flexpen SC 05/22/19 16:29 Not Given ACHS CARLA Insulin Glargine 35 units 04/25/19 09:00 04/25/19 08:48 Lantus Solostar Pen SC 05/25/19 08:59 35 units DAILY CARLA Administration Levetiracetam 500 mg 04/24/19 21:00 04/25/19 07:56 Keppra PO 05/24/19 20:59 500 mg BID CARLA Administration Metoprolol Tartrate 50 mg 04/22/19 21:00 04/24/19 20:52 Lopressor PO 05/22/19 20:59 50 mg BID CARLA Administration Warfarin Sodium 5 mg 04/22/19 16:00 04/22/19 15:36 Coumadin PO 05/22/19 15:59 5 mg [email or web address] CARLA Administration Warfarin Sodium 2.5 mg 04/23/19 16:00 04/24/19 16:39 Coumadin PO 05/23/19 15:59 2.5 mg [email or web address] CARLA Administration Past Medical History Medical History Atrial fibrillation (Chronic) on warfarin Chronic back pain Coronary artery disease (Chronic) Diabetes mellitus, type 2 Diabetes mellitus, type II GERD (gastroesophageal reflux disease) Heart disease (Chronic) Hiatal hernia History of colon polyps History of duodenal ulcer History of GI bleed bleeding ulcer HLD (hyperlipidemia) Hyperlipidemia associated with type 2 diabetes mellitus (Chronic) Hypertension (Chronic) Kidney stone (Resolved) Myocardial Infarction 2003 Obesity (Chronic) On anticoagulant therapy warfarin daily Osteoarthritis Prolonged Q-T interval on ECG Schatzki's ring Sleep apnea cpap Past Family History Family History Father , in 80s Unknown family medical history Mother , in 80s Lymphoma Grandmother (Maternal) Family history of diabetes mellitus Other No family history of adverse response to anesthesia Past Surgical History Surgical History [place] [facility] [place]oscopy History of esophagogastroduodenoscopy (EGD) History of heart artery stent (Chronic) 2002--3 stents placed History of tooth extraction Social History Smoking Status: Never smoker Do You Dip or Chew Tobacco: No Hx Alcohol Use: No Alcohol type: other alcohol intake frequency: other Hx Substance Use: No substance use type: does not use Physical Exam Vital Signs Last Vital Signs Temp 36.8 C 04/25/19 07:03 Pulse 47 L 04/25/19 08:00 Resp 22 04/25/19 07:03 BP 110/54 L 04/25/19 07:03 Pulse Ox 96 04/25/19 07:03 Testing Laboratory Results 04/25/19 09:02 PT 22.0 Seconds (9.0-12.0) H 04/25/19 09:02 INR 2.3 (0.9-1.1) H 04/25/19 09:02 Hemoglobin A1c 11.4 % (4.5-5.6) H 04/23/19 06:20 04/25/19 07:11 POC Glucose 125 H
--- NOTE | 2019-04-25 09:40 | Anesthesiology Consultation ---
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 History Height/Weight Height: 5 ft 10 in Weight: 133.9 kg Allergies Allergy/AdvReac Type Severity Reaction Status Date / Time No Known Allergies Allergy Unknown Verified 04/22/19 08:16 Medications Home Medications Medication Instructions Recorded Confirmed Last Taken atorvastatin [Lipitor] 80 mg PO HS #0 tab 10/24/14 04/22/19 04/21/19 coenzyme Q10 [Co Q-10] 100 mg PO QAM #0 10/24/14 04/22/19 04/21/19 lisinopril-hydrochlorothiazide 1 tab PO QAM #0 tab 10/24/14 04/22/19 04/21/19 [Zestoretic] metoprolol tartrate [Lopressor] 50 mg PO BID #0 10/24/14 04/22/19 04/21/19 alpha lipoic acid 200 mg PO QAM 08/03/18 04/22/19 04/21/19 glimepiride [Amaryl] 4 mg PO QDL 08/03/18 04/22/19 04/21/19 warfarin [Coumadin] 2.5 mg PO SUTUTHSA 08/03/18 04/22/19 04/19/19 warfarin [Coumadin] 5 mg PO MOWEFR 08/03/18 04/22/19 04/20/19 aspirin 81 mg PO HS 11/09/18 04/22/19 04/21/19 nitroglycerin [Nitrostat] 0.4 mg SUBLINGUAL UD PRN 11/09/18 04/22/19 Unknown Active Medications Generic Name Dose Route Start Last Admin Trade Name Freq PRN Reason Stop Dose Admin Acetaminophen 650 mg 04/22/19 14:17 04/23/19 20:10 Tylenol PO 05/22/19 14:16 650 mg Q4H PRN Administration Pain or Fever Aspirin 81 mg 04/22/19 21:00 04/24/19 20:52 Ecotrin Ectab PO 05/22/19 20:59 81 mg HS CARLA Administration Atorvastatin Calcium 80 mg 04/22/19 21:00 04/24/19 20:51 Lipitor PO 05/22/19 20:59 80 mg HS CARLA Administration Lisinopril/HCTZ 1 tab 04/23/19 09:00 04/24/19 08:40 Prinzide 10/12.5mg PO 05/23/19 08:59 1 tab QAM CARLA Administration Insulin Aspart 0 units 04/22/19 16:30 04/25/19 08:49 Novolog Flexpen SC 05/22/19 16:29 Not Given ACHS CARLA Insulin Glargine 35 units 04/25/19 09:00 04/25/19 08:48 Lantus Solostar Pen SC 05/25/19 08:59 35 units DAILY CARLA Administration Levetiracetam 500 mg 04/24/19 21:00 04/25/19 07:56 Keppra PO 05/24/19 20:59 500 mg BID CARLA Administration Metoprolol Tartrate 50 mg 04/22/19 21:00 04/24/19 20:52 Lopressor PO 05/22/19 20:59 50 mg BID CARLA Administration Warfarin Sodium 5 mg 04/22/19 16:00 04/22/19 15:36 Coumadin PO 05/22/19 15:59 5 mg [email or web address] CARLA Administration Warfarin Sodium 2.5 mg 04/23/19 16:00 04/24/19 16:39 Coumadin PO 05/23/19 15:59 2.5 mg [email or web address] CARLA Administration Past Medical History Medical History Atrial fibrillation (Chronic) on warfarin Chronic back pain Coronary artery disease (Chronic) Diabetes mellitus, type 2 Diabetes mellitus, type II GERD (gastroesophageal reflux disease) Heart disease (Chronic) Hiatal hernia History of colon polyps History of duodenal ulcer History of GI bleed bleeding ulcer HLD (hyperlipidemia) Hyperlipidemia associated with type 2 diabetes mellitus (Chronic) Hypertension (Chronic) Kidney stone (Resolved) Myocardial Infarction 2002 Obesity (Chronic) On anticoagulant therapy warfarin daily Osteoarthritis Prolonged Q-T interval on ECG Schatzki's ring Sleep apnea cpap Past Family History Family History Father , in 80s Unknown family medical history Mother , in 80s Lymphoma Grandmother (Maternal) Family history of diabetes mellitus Other No family history of adverse response to anesthesia Past Surgical History Surgical History History of cardiac cath 2002 @ [facility] [place] History of colonoscopy History of esophagogastroduodenoscopy (EGD) History of heart artery stent (Chronic) 2002--3 stents placed History of tooth extraction Social History Smoking Status: Never smoker Do You Dip or Chew Tobacco: No Hx Alcohol Use: No Alcohol type: other alcohol intake frequency: other Hx Substance Use: No substance use type: does not use Physical Exam Vital Signs Last Vital Signs Temp 36.8 C 04/25/19 07:03 Pulse 47 L 04/25/19 08:00 Resp 22 04/25/19 07:03 BP 110/54 L 04/25/19 07:03 Pulse Ox 96 04/25/19 07:03 Testing Laboratory Results 04/25/19 09:02 PT 22.0 Seconds (9.0-12.0) H 04/25/19 09:02 INR 2.3 (0.9-1.1) H 04/25/19 09:02 Hemoglobin A1c 11.4 % (4.5-5.6) H 04/23/19 06:20 04/25/19 07:11 POC Glucose 125 H Laboratory Tests 04/24/19 04:51 Sodium 139 Potassium 3.8 Chloride 104 Carbon Dioxide 32 BUN 16 Creatinine 1.20 Glucose 128 H Electrocardiogram Date: 04/23/19 Findings: + SB @ 56 bpm Chest X-Ray Date: 04/22/19 Findings: + NAD Echocardiogram Date: 04/23/19 EF: 55-60% LV Function: normal Other Findings: + LVH mild cocentric LVH
[2019-04-25 10:11] LABS: Calcium 8.8 mg/dl (8.5-10.1); Creatinine Clr Calc Pharmacy 72.1 ml/min; Est GFR (African American) 62.1; Est GFR (Non-African American) 53.6; Potassium 3.4 mmol/L (3.5-5.1)
--- NOTE | 2019-04-25 12:30 | Electroencephalogram ---
EEG Procedure Note Date of Service April 25, 2019 Start / End Times Start Time: 808 End Time: 828 Referring Physician Claudia Paris MD History PLED Left middle cerebral artery infarction with abnormal EEG showing left hemispheric PLEDs question persistent evidence for abnormal periodic discharges Home Medication List Home Medications Medication Instructions Recorded Confirmed Type atorvastatin [Lipitor] 80 mg PO HS #0 tab 10/24/14 04/22/19 History coenzyme Q10 [Co Q-10] 100 mg PO QAM #0 10/24/14 04/22/19 History lisinopril-hydrochlorothiazide 1 tab PO QAM #0 tab 10/24/14 04/22/19 History [Zestoretic] metoprolol tartrate [Lopressor] 50 mg PO BID #0 10/24/14 04/22/19 History alpha lipoic acid 200 mg PO QAM 08/03/18 04/22/19 History glimepiride [Amaryl] 4 mg PO QDL 08/03/18 04/22/19 History warfarin [Coumadin] 2.5 mg PO SUTUTHSA 08/03/18 04/22/19 History warfarin [Coumadin] 5 mg PO MOWEFR 08/03/18 04/22/19 History aspirin 81 mg PO HS 11/09/18 04/22/19 History nitroglycerin [Nitrostat] 0.4 mg SUBLINGUAL UD PRN 11/09/18 04/22/19 History Inpatient Medication List Acetaminophen (Tylenol) 650 mg PO Q4H PRN PRN Reason: Pain or Fever Stop: 05/22/19 14:16 Last Admin: 04/23/19 20:10 Dose: 650 mg Documented by: [id number] Admin: 04/23/19 10:36 Dose: 650 mg Documented by: [id number] Admin: 04/22/19 21:10 Dose: 650 mg Documented by: [id number] Admin: 04/22/19 16:58 Dose: 650 mg Documented by: [id number] Aspirin (Ecotrin Ectab) 81 mg PO HS [facility] Stop: 05/22/19 20:59 Last Admin: 04/24/19 20:52 Dose: 81 mg Documented by: [id number] Admin: 04/23/19 20:04 Dose: 81 mg Documented by: [id number] Admin: 04/22/19 21:13 Dose: 81 mg Documented by: [id number] Atorvastatin Calcium (Lipitor) 80 mg PO HS [facility] Stop: 05/22/19 20:59 Last Admin: 04/24/19 20:51 Dose: 80 mg Documented by: [id number] Admin: 04/23/19 20:04 Dose: 80 mg Documented by: [id number] Admin: 04/22/19 21:13 Dose: 80 mg Documented by: [id number] Lisinopril/HCTZ (Prinzide 10/12.5mg) 1 tab PO QAM [facility] Stop: 05/23/19 08:59 Last Admin: 04/24/19 08:40 Dose: 1 tab Documented by: [id number] Admin: 04/23/19 09:10 Dose: 1 tab Documented by: [id number] Insulin Aspart (Novolog Flexpen) 0 units SC ACHS [facility] Stop: 05/22/19 16:29 Last Admin: 04/25/19 08:49 Dose: Not Given Documented by: [id number] Cosigned by: [id number] Admin: 04/24/19 22:34 Dose: Not Given Documented by: [id number] Cosigned by: [id number] Admin: 04/24/19 16:40 Dose: 14 units Documented by: [id number] Cosigned by: [id number] Admin: 04/24/19 13:21 Dose: 19 units Documented by: [id number] Cosigned by: [id number] Admin: 04/24/19 08:41 Dose: 14 units Documented by: [id number] Cosigned by: [id number] Admin: 04/23/19 20:05 Dose: 2 units Documented by: [id number] Cosigned by: [id number] Admin: 04/23/19 17:20 Dose: 18 units Documented by: [id number] Cosigned by: [id number] Admin: 04/23/19 12:59 Dose: 26 units Documented by: [id number] Cosigned by: [id number] Admin: 04/23/19 09:09 Dose: 16 units Documented by: [id number] Cosigned by: [id number] Admin: 04/22/19 21:12 Dose: 7 units Documented by: [id number] Cosigned by: [id number] Admin: 04/22/19 17:15 Dose: 15 units Documented by: [id number] Cosigned by: [id number] Insulin Glargine (Lantus Solostar Pen) 35 units SC DAILY [facility] Stop: 05/25/19 08:59 Last Admin: 04/25/19 08:48 Dose: 35 units Documented by: [id number] Cosigned by: [id number] Levetiracetam (Keppra) 500 mg PO BID [facility] Stop: 05/24/19 20:59 Last Admin: 04/25/19 07:56 Dose: 500 mg Documented by: [id number] Admin: 04/24/19 20:51 Dose: 500 mg Documented by: [id number] Metoprolol Tartrate (Lopressor) 50 mg PO BID [facility] Stop: 05/22/19 20:59 Last Admin: 04/24/19 20:52 Dose: 50 mg Documented by: [id number] Admin: 04/24/19 08:40 Dose: 50 mg Documented by: [id number] Admin: 04/23/19 20:04 Dose: 50 mg Documented by: [id number] Admin: 04/23/19 09:10 Dose: 50 mg Documented by: [id number] Admin: 04/22/19 21:13 Dose: Not Given Documented by: [id number] Warfarin Sodium (Coumadin) 5 mg PO [email or web address] [facility] Stop: 05/22/19 15:59 Last Admin: 04/22/19 15:36 Dose: 5 mg Documented by: [id number] Warfarin Sodium (Coumadin) 2.5 mg PO [email or web address] [facility] Stop: 05/23/19 15:59 Last Admin: 04/24/19 16:39 Dose: 2.5 mg Documented by: [id number] Admin: 04/23/19 17:19 Dose: 2.5 mg Documented by: [id number] Discontinued Medications Lisinopril/HCTZ (Prinzide 20/12.5mg) 1 tab PO QAM [facility] Stop: 05/22/19 10:59 Last Admin: 04/22/19 13:07 Dose: 1 tab Documented by: [id number] Hydromorphone HCl (Dilaudid) 0.5 mg IV NOW [facility] Stop: 04/22/19 09:42 Last Admin: 04/22/19 13:07 Dose: Not Given Documented by: [id number] Hydromorphone HCl (Dilaudid) Confirm Administered Dose 0.5 mg .ROUTE .STK-MED ONE Stop: 04/22/19 12:59 Last Admin: 04/22/19 13:02 Dose: 0.5 mg Documented by: [id number] Sodium Chloride (Nss 1000ml) 1,000 mls @ 200 mls/hr IV .Q5H CARLA Stop: 05/22/19 09:59 Last Infusion: 04/22/19 14:40 Dose: 0 mls/hr Documented by: [id number] Admin: 04/22/19 11:01 Dose: 200 mls/hr Documented by: [id number] Insulin Human Regular 5 units/ (Syringe) 5 mls @ 2.5 mls/min IV TODAY@1215 ONE Stop: 04/23/19 12:16 Last Admin: 04/23/19 12:24 Dose: 2.5 mls/min Documented by: [id number] Cosigned by: [id number] Levetiracetam 1,000 mg/ (Dextrose) 110 mls @ 440 mls/hr IV NOW ONE Stop: 04/24/19 12:29 Last Infusion: 04/24/19 13:04 Dose: 0 mls/hr Documented by: [id number] Admin: 04/24/19 12:41 Dose: 440 mls/hr Documented by: [id number] Levetiracetam 250 mg/ Dextrose 102.5 mls @ 420 mls/hr IV NOW STA Stop: 04/24/19 14:20 Last Infusion: 04/24/19 14:48 Dose: 0 mls/hr Documented by: [id number] Admin: 04/24/19 14:27 Dose: 420 mls/hr Documented by: [id number] Insulin Aspart (Novolog Mix 70/30) 6 units SC ONE ONE Stop: 04/22/19 09:22 Last Admin: 04/22/19 13:07 Dose: Not Given Documented by: [id number] Insulin Glargine (Lantus Solostar Pen) 0 - 20 units SC BID [facility]; Protocol Stop: 05/22/19 14:16 Last Admin: 04/23/19 09:09 Dose: 20 units Documented by: [id number] Cosigned by: [id number] Admin: 04/22/19 21:11 Dose: 20 units Documented by: [id number] Cosigned by: [id number] Admin: 04/22/19 15:37 Dose: 20 units Documented by: [id number] Cosigned by: [id number] Insulin Glargine (Lantus Solostar Pen) 5 units SC NOW ONE Stop: 04/23/19 12:16 Last Admin: 04/23/19 12:24 Dose: 5 units Documented by: [id number] Cosigned by: [id number] Insulin Glargine (Lantus Solostar Pen) 25 units SC BID [facility] Stop: 05/23/19 20:59 Last Admin: 04/23/19 20:06 Dose: 25 units Documented by: [id number] Cosigned by: [id number] Insulin Glargine (Lantus Solostar Pen) 20 units SC BID [facility] Stop: 05/24/19 08:59 Last Admin: 04/24/19 08:41 Dose: 20 units Documented by: [id number] Cosigned by: [id number] Insulin Glargine (Lantus Solostar Pen) 20 units SC TODAY@1700 [facility] Stop: 04/24/19 17:01 Last Admin: 04/24/19 16:41 Dose: 20 units Documented by: [id number] Cosigned by: [id number] Insulin Human Regular (Novolin R U-100 Per Unit) 6 units SC NOW STA; Protocol Stop: 04/22/19 09:23 Last Admin: 04/22/19 09:33 Dose: 6 units Documented by: [id number] Cosigned by: [id number] Ioversol (Optiray 320 125ml) 118 ml IV ONCE PRN PRN Reason: Interaction Checking Stop: 04/26/19 10:08 Last Admin: 04/22/19 10:09 Dose: 118 ml Documented by: [id number] Metoprolol Tartrate (Lopressor) 50 mg PO NOW STA Stop: 04/22/19 10:51 Last Admin: 04/22/19 13:07 Dose: Not Given Documented by: [id number] Metoprolol Tartrate (Lopressor) Confirm Administered Dose 50 mg .ROUTE .STK-MED ONE Stop: 04/22/19 12:57 Last Admin: 04/22/19 13:02 Dose: 50 mg Documented by: [id number] Ondansetron HCl (Zofran) 4 mg IV NOW STA Stop: 04/22/19 09:42 Last Admin: 04/22/19 13:07 Dose: Not Given Documented by: [id number] Ondansetron HCl (Zofran) Confirm Administered Dose 4 mg .ROUTE .STK-MED ONE Stop: 04/22/19 12:58 Last Admin: 04/22/19 13:02 Dose: 4 mg Documented by: [id number] Description This is a 21 electrode EEG with a single channel dedicated to limited EKG. The above recording was performed at the bedside EEG and no photic stimulation was performed. While video analysis is said to have been recorded it was not transferred to the present tracing and it was impossible to assess patient's clinical status. Under these conditions there continues to be evidence for normal-appearing background rhythm in the alpha range of about 9 to 10 Hz and maximum frequency of up to 30 V maximal amplitude which is maximum posterior head regions bilaterally symmetrical The previously noted slight increase in slower frequency theta activity of higher amplitude over the central portion left hemisphere persists but may be a little less evident on today's recording. Rare waveforms in the delta range are seen but these remain of low amplitude and are not rhythmic overlying the left hemisphere Right hemispheric theta activity is normal as is the low amplitude bifrontal beta activity The current study continues to reveal evidence for periodic lateralized potentially epileptiform discharges in the central regions of the left hemisphere but on today's recording are of lower frequency occurring now up to 1 every 3 to 4 seconds, and appear to be a low amplitude. When this activity is present there is increased slow-wave activity overlying the central portions of the left hemispher similar to that which was seen on recording of 04/23. The abnormal patterns persist for minutes and then replaced by what appears to be an almost normal recording on the left hemisphere with the exception of some increased slower frequency theta and rare waves in the delta range Unfortunately without video analysis of patient movement and behavior it remains almost impossible to state whether or not the periodic lateralized epileptiform patterns are associated with clinical seizure activity Interpretation His EEG remains abnormal in a focal fashion with slight increase slow-wave activity overlying the central portion of the left hemisphere and revealing long intervals of time during which there are periodic lateralized epileptiform discharges. On current tracing the frequency of the abnormal discharges is reduced along with her amplitude with the duration of the intervals of time during which the pattern is present seems to be perhaps slightly greater Correlation with clinical findings is suggested The change in the appearance of the periodic lateralized epileptiform discharges may well be a normal evolutionary process and cortical reorganization after a CVA Clinical Correlation See above description and interpretation for details. Current tracing is changed in that there appears to be lower frequency and lower amplitude in the periodic lateralized epileptiform discharges but without adequate video analysis it is impossible to state whether or not these are clinically significant. Their presence however remains potentially epileptogenic Sim Horner MD
[2019-04-25] MEDS: METOPROLOL TARTRATE 50 MG TAB PO SCH ×2 (13:16→21:11)
[2019-04-25] MEDS: LISINOPRIL/HCTZ 10/12.5MG TAB PO SCH (13:16)
--- NOTE | 2019-04-25 14:13 | Neurology Progress Note ---
Date of Service April 25, 2019 Assessment & Plan (1) Stroke: 1. MRI brain- stroke -multiple small left posterior frontal parietal infarcts 2. CTA 60% left proximal ICA stenosis- should be followed as outpatient in 6 months 3. TTE pending read 4. optimize coumadin INR 2.5-3.0 and continue aspirin 81 mg- cardiology for any changes 5. optimize DM, HTN, HLD LDL <70 6. PT/OT/speech for discharge needs 7. would not recommend driving until confusion has resolved and has seen ophthalmology 8. EEG- still abnormal but may be normal evolution of stroke 9. Keppra 500 mg BID - will need to watch for breakthrough activity and mood issues. 10. ok to discharge to rehab once medically stable return to neurology 4-6 weeks after rehab Claudia Sapp PAC schedule (2) Hyperglycemia: as above (3) Diabetes mellitus, type II: as above (4) Acute confusion: as above (5) Atrial fibrillation: Supervising Physician Co-Signing Physician Notes I have seen and discussed above patient with Dr Claudia Paris, neurology Pt seen and examined. Cognitively mildly slow. Some diff with naming. unchanged OD field cut. No dysarthria, facial asymm or weakness. Imp L MCA infarct, intermittent confusion.EEG cw PLEDs which can be seen in sz. EEG today less PLEDS. Clinically still with confusion which waxes and wanes. Given addl Keppra 500 mg and Keppra dose increased to 750 mg twice a day. Repeat eeg in am, may need continuous EEG monitoring. CT head reordered, r/o bleed. Carotid us to confirm the LICA stenosis is less than 60%. Goal INR 2.5-3. GLORIA Paris MD Kashmir Ryan is a 68 year old male with PMH- CAD s/p stent x 2 in 2002, A-fib on Coumadin, HTN, HLD, DM II presented to [facility] with complaint of confusion. In the am he notice he was confused and could not use the phone and also had headache around left eye. He could not right, type or text, word finding and trouble with comprehension. On 04/21/2019 he was seen in the ED and had unremarkable noncontrast CT head and was found to be hyperglycemic and given insulin with some improvement and was discharged home. There was no improvement of his symptoms and he returned to the ER for further evaluation. His ex and daughter are in the room and state he has been saying the wrong word for answers all day. There was an incident at home which caused him to miss his coumadin the day prior to admission. His daughter is in the room and states she has not seen any abnormal movement with his right side since the Keppra was started. He still has confusion which is off from his baseline. denies CP, SOB, abdominal pain, one sided weakness, numbness tingling, N, V, new bowel or bladder issues, falls, vision changes or loss of vision. 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 triceps bilaterally 5/5 hip flex plantar flex ext 5/5 Results & Data Vital Signs (Past 12 Hours) Vital Signs Temp Pulse Pulse Resp BP Pulse Ox 04/25/19 10:38 36.8 C 55 L 19 112/63 92 04/25/19 08:00 47 L 04/25/19 07:03 36.8 C 55 L 22 110/54 L 96 04/25/19 04:10 36.8 C 59 L 18 120/68 97 Laboratory Results Abnormal lab results 04/24/19 04/24/19 04/25/19 Range/Units 16:20 19:58 07:11 Hgb (14.0-18.0) g/dL MCHC (32-36) g/dL RDW Std Deviation (36.4-46.3) fL RDW Coeff of [place] (11.5-14.5) % PT (9.0-12.0) Seconds INR (0.9-1.1) Potassium (3.5-5.1) mmol/L BUN (7-18) mg/dl Glucose (70-99) mg/dl POC Glucose 176 H 103 H 125 H (70-99) 04/25/19 04/25/19 04/25/19 Range/Units 09:02 09:02 09:02 Hgb 13.5 L (14.0-18.0) g/dL MCHC 31.6 L (32-36) g/dL RDW Std Deviation 50.1 H (36.4-46.3) fL RDW Coeff of [place]ri[place] 15.8 H (11.5-14.5) % PT 22.0 H (9.0-12.0) Seconds INR 2.3 H (0.9-1.1) Potassium 3.4 L (3.5-5.1) mmol/L BUN 19 H (7-18) mg/dl Glucose 197 H (70-99) mg/dl POC Glucose (70-99) 04/25/19 Range/Units 11:16 Hgb (14.0-18.0) g/dL MCHC (32-36) g/dL RDW Std Deviation (36.4-46.3) fL RDW Coeff of [place] (11.5-14.5) % PT (9.0-12.0) Seconds INR (0.9-1.1) Potassium (3.5-5.1) mmol/L BUN (7-18) mg/dl Glucose (70-99) mg/dl POC Glucose 172 H (70-99) Diagnostic Findings EEG-His EEG remains abnormal in a focal fashion with slight increase slow-wave activity overlying the central portion of the left hemisphere and revealing long intervals of time during which there are periodic lateralized epileptiform discharges. On current tracing the frequency of the abnormal discharges is reduced along with her amplitude with the duration of the intervals of time during which the pattern is present seems to be perhaps slightly greater Correlation with clinical findings is suggested The change in the appearance of the periodic lateralized epileptiform discharges may well be a normal evolutionary process and cortical reorganization after a CVA (1) Atrial fibrillation Atrial fibrillation type: unspecified Qualified Code(s): I48.91 - Unspecified atrial fibrillation (2) Stroke CVA mechanism: unspecified Qualified Code(s): I63.9 - Cerebral infarction, unspecified
[2019-04-25] MEDS: WARFARIN SOD 5 MG TAB PO SCH (16:39)
--- NOTE | 2019-04-25 17:37 | CT Scan Report ---
CT head/brain wo con CLINICAL HISTORY: Increased aphasia COMPARISON STUDY: 04/23/2019, MRI the brain dated 04/22/2019 TECHNIQUE: Axial CT of the brain is performed from the vertex to the skull base. IV contrast was not administered for this examination. A dose lowering technique was utilized adhering to the principles of ALARA. CT DOSE: 729.78 mGycm FINDINGS: No intra or extra-axial mass lesions are visualized. There are subacute infarction in the left fronta l lobe and left parietal lobe, unchanged in appearance. There is no acute hemorrhage. There is no mid line shift. There is no evidence of pathologic ventricular dilatation. There is no evidence of acute sinusitis IMPRESSION: 1. Areas of subacute infarction within the left frontal lobe and left parietal lobe, similar in appea alvaro to the preceding study 2. No evidence of acute hemorrhage. ACT 112: Negative or not required by law. Electronically signed by: Ramon Corral M.D. 04/25/2019 5:36 PM
--- NOTE | 2019-04-25 18:02 | Ultrasound Report ---
CAROTID ARTERY ULTRASOUND CLINICAL HISTORY: recurrent l kate ischemia, cta [place] 60% COMPARISON STUDY: CTA of the neck April 22, 2019. TECHNIQUE: Real-time, grayscale, and color Doppler sonography of the carotid and vertebral arteries w as performed. Images were viewed in the transverse and longitudinal planes. FINDINGS: There is moderate atherosclerotic plaque within the proximal left internal carotid artery. Velocity m easurements are listed below. COMMON CAROTID PEAK SYSTOLIC VELOCITY (CM/S): RIGHT 100 LEFT 86 ICA PEAK SYSTOLIC VELOCITY (CM/S): RIGHT 71 LEFT 93 Systolic ratios between the internal to common carotid arteries are normal. Antegrade flow is seen in the vertebral arteries. The external carotid arteries are patent. Blood pressure in the right arm measured 118/76. Blood pressure in the left arm measured 117/70. IMPRESSION: Moderate plaque within the proximal left internal carotid artery. Findings suggest less than 50% stenosis by sonographic criteria. ACT 112: Negative or not required by law. Electronically signed by: Toy Hauser M.D. 04/25/2019 6:01 PM
[2019-04-25] MEDS: levETIRAcetam 250 MG TAB PO SCH (21:08)
[2019-04-25] MEDS: ASPIRIN 81 MG ECTAB PO SCH (21:11)
[2019-04-25] MEDS: ATORVASTATIN 40 MG TAB PO SCH (21:14)
[2019-04-26] MEDS: ACETAMINOPHEN 325 MG TAB PO PRN ×2 (01:24→11:44)
--- NOTE | 2019-04-26 05:37 | Hospitalist Progress Note ---
Date of Service April 25, 2019 Assessment & Plan (1) Stroke-like symptom: Left MCA infarction Left internal carotid stenosis Pt is 68 y/o M with PMH CAD s/p stent x 2 in 2002, A-fib on Coumadin, HTN, HLD, DM II presented to ER with complaint of confusion. Patient noticed that he was having confusion and could not use the phone and also had headache around left eye. Difficulty with reading, writing, typing. Reports trouble with word finding and trouble with comprehension. Was seen in ER 04/21/2019 and had un[address]contrast CT head On this admission in ER afebrile, P: 55-61, R: 22, BP: 155/78, 182/110, 95% on RA CTA HEAD & CTA NECK: 1. Possible small hypodense focus within left posterior parietal lobe raising the possibility of an acute infarct. This will be better appreciated on the same day brain MRI. 2. No significant stenosis, occlusion, or aneurysm within the [place]. 3. Approximately 60% stenosis within the left proximal internal carotid artery. 4. The right carotid arteries and vertebral arteries are patent. MRI Multiple small left posterior frontal and parietal lobe acute infarcts. - goal LDL<70 - cont. atorvastatin - cont. ASA Hx of pAfib, INR 1.9 on admission, current 2.3 - goal INR 2.5-3.5 - HTN - controlled Uncontrolled DM type 2, see below -Echo with bubble study: no ASD, EF 55-60%, mild concentric LVH, grade II diast. dysfunction, no LV wall motion abnormalities -Neurology consulted - pt will need carotid US follow up in 6 months and then yearly, if stenosis greater than 70%, need consult w/ vascular surgery -PT/OT Seizure activity -Secondary to above -Patient had shaking movements of his right body, observed by nursing staff and family, EEG also confirmed epileptiform waves/activity -Patient was started on Keppra, neurology notified and follows -Given his clinical progress/persistent confusion, EEG will be repeated, CT head was also repeated Update: Increase in Keppra to 750 mg twice daily (2) Hyperglycemia: - Secondary to uncontrolled diabetes mellitus type 2 - Hgb A1c 11.4%, says that this is due to neglect - extension educator and pharm consulted for hyperglycemia management - Patient underwent thorough insulin education today (04/24), by extension educator, family was present at the bedside - plan to d/c home on lantus (3) Diabetes mellitus, type II: Pt with h/o uncontrolled BSG's for months per home fasting BSG's. A1c: 8 in 08/2018 Random glucose: 340. In ER given Novolin R 6 units SQ -HgbA1c 11.4% (04/23/2019) -extension educator and pharm consulted for hyperglycemia management - Patient underwent thorough insulin education (04/24), by extension educator, family was present at the bedside -Monitor BSGs -Hold glimeperide -plan to discharge home on lantus (4) Atrial fibrillation: On Coumadin INR: 1.9 on admission -Continue Coumadin, Metoprolol -goal INR 2.5-3.5, current INR 2.3 (5) Hypertension: -Continue lisinopril/HCTZ, metoprolol - will cont. to monitor (6) Coronary artery disease: S/P stent x 2 in 2002 Denies CP or SOB -Continue aspirin, atorvastatin, metoprolol (7) HLD (hyperlipidemia): -Continue atorvastatin DVT Prophylaxis: On Coumadin Full Code as per discussion with pt Follows with Dr. Smiley for routine care Subjective Patient says that he was brushing his teeth late at night, and then he fell on the floor, but did not say anything to anybody. Now family is present in the room, and he told them that he knows that it was wrong and he should have told the nurse or somebody. When asked about how he fell or what he had, he says he is not hurting anywhere and he could not answer anything about the possible fall. He said that he got up to bed and he felt fine at that lightheadedness say anything to anybody. He denies any pain in his legs buttocks arms, he was thoroughly examined by me and the nursing staff, we did not see any erythema or swelling or anything to identify what patient possibly could heard when he got to the floor. Right now patient is sitting on the edge of the bed, comfortable, in no acute distress. He is still having difficulty formulating sentences. His daughter is at the bedside with her . He otherwise denies any chest pain, shortness of breath, abdominal pain, nausea or vomiting. Nitoppra increased dose to 750 mg twice daily, by neurology. Review of Systems Review of Systems: All systems reviewed & are unremarkable except as noted in HPI & below Constitutional: no fever and no chills Respiratory: no cough, no dyspnea and no pain on inspiration Cardiovascular: no chest pain, no dyspnea on exertion, no palpitations and no edema Gastrointestinal: no abdominal pain, no nausea and no vomiting Musculoskeletal: + muscle weakness (reports RUE weakness) RUE weakness Neurologic: + confusion Physical Exam Physical Exam: General: obese male, sitting up in the bed, in NAD Head: normocephalic, atraumatic Eyes: PERRL, EOM's intact, conjunctiva non-injected ENT: normal inspection external ears, nose, mucous membranes moist Neck: supple, trachea midline, non-tender, ROM intact Lungs: clear, no respiratory distress, no wheezing/rhonchi/rales CV: irregular, no murmur, no JVD, no pretibial edema Abd: normal BS, soft, non-tender, obese, no guarding Ext: no cyanosis, no calf tenderness, moves extremities spontaneously, good strength in upper and lower extremities however patient feels his right upper extremity is weaker Neuro: A&O x 3 answers questions slowly, speech slow but fluent, no sensory loss, moves all 4 extremities spontaneously, he follows simple commands, however it takes him some time, good strength 5/5 in upper and lower extremities however patient feels his right upper extremity is weaker Skin: warm, dry Results & Data Vital Signs (Past 12 Hours) Vital Signs Temp Pulse Pulse Resp BP BP Pulse Ox 04/26/19 03:39 36.8 C 51 L 20 122/72 96 04/25/19 23:38 56 L 04/25/19 22:59 37 C 55 L 20 118/59 L 94 04/25/19 18:57 36.8 C 64 20 117/70 96 Diagnostic Findings EEG 04/25/2019 Interpretation His EEG remains abnormal in a focal fashion with slight increase slow-wave activity overlying the central portion of the left hemisphere and revealing long intervals of time during which there are periodic lateralized epileptiform discharges. On current tracing the frequency of the abnormal discharges is reduced along with her amplitude with the duration of the intervals of time during which the pattern is present seems to be perhaps slightly greater Correlation with clinical findings is suggested The change in the appearance of the periodic lateralized epileptiform discharges may well be a normal evolutionary process and cortical reorganization after a CVA Clinical Correlation See above description and interpretation for details. Current tracing is changed in that there appears to be lower frequency and lower amplitude in the periodic lateralized epileptiform discharges but without adequate video analysis it is impossible to state whether or not these are clinically significant. Their presence however remains potentially epileptogenic (1) Coronary artery disease Associated angina: without angina Coronary Disease-Associated Artery/Lesion type: [place] artery [place] vs. transplanted heart: [place] heart Qualified Code(s): I25.10 - Atherosclerotic heart disease of [place] coronary artery without angina pectoris (2) Atrial fibrillation Atrial fibrillation type: unspecified Qualified Code(s): I48.91 - Unspecified atrial fibrillation (3) Hypertension Hypertension type: essential hypertension Qualified Code(s): I10 - Essential (primary) hypertension
[2019-04-26] MEDS: METOPROLOL TARTRATE 50 MG TAB PO SCH ×2 (08:22→19:50)
[2019-04-26] MEDS: LISINOPRIL/HCTZ 10/12.5MG TAB PO SCH (08:22)
[2019-04-26] MEDS: levETIRAcetam 250 MG TAB PO SCH (08:22)
[2019-04-26] MEDS: INSULIN ASPART 100 UNITS/ML 3 ML PEN SC SCH ×4 (09:47→19:49)
[2019-04-26] MEDS: INSULIN GLARGINE SOLOSTAR 100 UNITS/ML 3 ML PEN SC SCH (09:48)
--- NOTE | 2019-04-26 10:28 | Electroencephalogram ---
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 potentially epileptogenic activity and clinically demonstrating intermittent confusion Home Medication List Home Medications Medication Instructions Recorded Confirmed Type atorvastatin [Lipitor] 80 mg PO HS #0 tab 10/24/14 04/22/19 History coenzyme Q10 [Co Q-10] 100 mg PO QAM #0 10/24/14 04/22/19 History lisinopril-hydrochlorothiazide 1 tab PO QAM #0 tab 10/24/14 04/22/19 History [Zestoretic] metoprolol tartrate [Lopressor] 50 mg PO BID #0 10/24/14 04/22/19 History alpha lipoic acid 200 mg PO QAM 08/03/18 04/22/19 History glimepiride [Amaryl] 4 mg PO QDL 08/03/18 04/22/19 History warfarin [Coumadin] 2.5 mg PO SUTUTHSA 08/03/18 04/22/19 History warfarin [Coumadin] 5 mg PO MOWEFR 08/03/18 04/22/19 History aspirin 81 mg PO HS 11/09/18 04/22/19 History nitroglycerin [Nitrostat] 0.4 mg SUBLINGUAL UD PRN 11/09/18 04/22/19 History Inpatient Medication List Acetaminophen (Tylenol) 650 mg PO Q4H PRN PRN Reason: Pain or Fever Stop: 05/22/19 14:16 Last Admin: 04/26/19 01:24 Dose: 650 mg Documented by: [id number] Admin: 04/23/19 20:10 Dose: 650 mg Documented by: [id number] Admin: 04/23/19 10:36 Dose: 650 mg Documented by: [id number] Admin: 04/22/19 21:10 Dose: 650 mg Documented by: [id number] Admin: 04/22/19 16:58 Dose: 650 mg Documented by: [id number] Aspirin (Ecotrin Ectab) 81 mg PO HS [facility] Stop: 05/22/19 20:59 Last Admin: 04/25/19 21:11 Dose: 81 mg Documented by: [id number] Admin: 04/24/19 20:52 Dose: 81 mg Documented by: [id number] Admin: 04/23/19 20:04 Dose: 81 mg Documented by: [id number] Admin: 04/22/19 21:13 Dose: 81 mg Documented by: [id number] Atorvastatin Calcium (Lipitor) 80 mg PO HS [facility] Stop: 05/22/19 20:59 Last Admin: 04/25/19 21:14 Dose: 80 mg Documented by: [id number] Admin: 04/24/19 20:51 Dose: 80 mg Documented by: [id number] Admin: 04/23/19 20:04 Dose: 80 mg Documented by: [id number] Admin: 04/22/19 21:13 Dose: 80 mg Documented by: [id number] Lisinopril/HCTZ (Prinzide 10/12.5mg) 1 tab PO QAM [facility] Stop: 05/23/19 08:59 Last Admin: 04/26/19 08:22 Dose: 1 tab Documented by: [id number] Admin: 04/25/19 13:16 Dose: Not Given Documented by: [id number] Admin: 04/24/19 08:40 Dose: 1 tab Documented by: [id number] Admin: 04/23/19 09:10 Dose: 1 tab Documented by: [id number] Insulin Aspart (Novolog Flexpen) 0 units SC ACHS [facility] Stop: 05/22/19 16:29 Last Admin: 04/26/19 09:47 Dose: 4 units Documented by: [id number] Cosigned by: [id number] Admin: 04/25/19 21:09 Dose: 1 units Documented by: [id number] Cosigned by: [id number] Admin: 04/25/19 17:54 Dose: 13 units Documented by: [id number] Cosigned by: [id number] Admin: 04/25/19 13:17 Dose: 7 units Documented by: [id number] Cosigned by: [id number] Admin: 04/25/19 08:49 Dose: Not Given Documented by: [id number] Cosigned by: [id number] Admin: 04/24/19 22:34 Dose: Not Given Documented by: [id number] Cosigned by: [id number] Admin: 04/24/19 16:40 Dose: 14 units Documented by: [id number] Cosigned by: [id number] Admin: 04/24/19 13:21 Dose: 19 units Documented by: [id number] Cosigned by: [id number] Admin: 04/24/19 08:41 Dose: 14 units Documented by: [id number] Cosigned by: [id number] Admin: 04/23/19 20:05 Dose: 2 units Documented by: [id number] Cosigned by: [id number] Admin: 04/23/19 17:20 Dose: 18 units Documented by: [id number] Cosigned by: [id number] Admin: 04/23/19 12:59 Dose: 26 units Documented by: [id number] Cosigned by: [id number] Admin: 04/23/19 09:09 Dose: 16 units Documented by: [id number] Cosigned by: [id number] Admin: 04/22/19 21:12 Dose: 7 units Documented by: [id number] Cosigned by: [id number] Admin: 04/22/19 17:15 Dose: 15 units Documented by: [id number] Cosigned by: [id number] Insulin Glargine (Lantus Solostar Pen) 35 units SC DAILY [facility] Stop: 05/25/19 08:59 Last Admin: 04/26/19 09:48 Dose: 35 units Documented by: [id number] Cosigned by: [id number] Admin: 04/25/19 08:48 Dose: 35 units Documented by: [id number] Cosigned by: [id number] Levetiracetam (Keppra) 750 mg PO BID [facility] Stop: 05/25/19 20:59 Last Admin: 04/26/19 08:22 Dose: 750 mg Documented by: [id number] Admin: 04/25/19 21:08 Dose: 750 mg Documented by: [id number] Metoprolol Tartrate (Lopressor) 50 mg PO BID [facility] Stop: 05/22/19 20:59 Last Admin: 04/26/19 08:22 Dose: 50 mg Documented by: [id number] Admin: 04/25/19 21:11 Dose: 50 mg Documented by: [id number] Admin: 04/25/19 13:16 Dose: Not Given Documented by: [id number] Admin: 04/24/19 20:52 Dose: 50 mg Documented by: [id number] Admin: 04/24/19 08:40 Dose: 50 mg Documented by: [id number] Admin: 04/23/19 20:04 Dose: 50 mg Documented by: [id number] Admin: 04/23/19 09:10 Dose: 50 mg Documented by: [id number] Admin: 04/22/19 21:13 Dose: Not Given Documented by: [id number] Warfarin Sodium (Coumadin) 5 mg PO [id number] [facility] Stop: 05/22/19 15:59 Last Admin: 04/25/19 16:39 Dose: 5 mg Documented by: [id number] Admin: 04/22/19 15:36 Dose: 5 mg Documented by: [id number] Warfarin Sodium (Coumadin) 2.5 mg PO [id number] [facility] Stop: 05/23/19 15:59 Last Admin: 04/24/19 16:39 Dose: 2.5 mg Documented by: [id number] Admin: 04/23/19 17:19 Dose: 2.5 mg Documented by: [id number] Discontinued Medications Lisinopril/HCTZ (Prinzide 20/12.5mg) 1 tab PO QAM [facility] Stop: 05/22/19 10:59 Last Admin: 04/22/19 13:07 Dose: 1 tab Documented by: [id number] Hydromorphone HCl (Dilaudid) 0.5 mg IV NOW [facility] Stop: 04/22/19 09:42 Last Admin: 04/22/19 13:07 Dose: Not Given Documented by: [id number] Hydromorphone HCl (Dilaudid) Confirm Administered Dose 0.5 mg .ROUTE .STK-MED ONE Stop: 04/22/19 12:59 Last Admin: 04/22/19 13:02 Dose: 0.5 mg Documented by: [id number] Sodium Chloride (Nss 1000ml) 1,000 mls @ 200 mls/hr IV .Q5H [facility] Stop: 05/22/19 09:59 Last Infusion: 04/22/19 14:40 Dose: 0 mls/hr Documented by: [id number] Admin: 04/22/19 11:01 Dose: 200 mls/hr Documented by: [id number] Insulin Human Regular 5 units/ (Syringe) 5 mls @ 2.5 mls/min IV TODAY@1215 [facility] Stop: 04/23/19 12:16 Last Admin: 04/23/19 12:24 Dose: 2.5 mls/min Documented by: [id number] Cosigned by: [id number] Levetiracetam 1,000 mg/ (Dextrose) 110 mls @ 440 mls/hr IV NOW ONE Stop: 04/24/19 12:29 Last Infusion: 04/24/19 13:04 Dose: 0 mls/hr Documented by: [id number] Admin: 04/24/19 12:41 Dose: 440 mls/hr Documented by: [id number] Levetiracetam 250 mg/ Dextrose 102.5 mls @ 420 mls/hr IV NOW [facility] Stop: 04/24/19 14:20 Last Infusion: 04/24/19 14:48 Dose: 0 mls/hr Documented by: [id number] Admin: 04/24/19 14:27 Dose: 420 mls/hr Documented by: [id number] Levetiracetam 500 mg/ Dextrose 105 mls @ 420 mls/hr IV NOW [facility] Stop: 04/25/19 16:35 Last Infusion: 04/25/19 17:56 Dose: 0 mls/hr Documented by: [id number] Infusion: 04/25/19 17:45 Dose: 420 mls/hr Documented by: [id number] Infusion: 04/25/19 16:43 Dose: 0 mls/hr Documented by: [id number] Admin: 04/25/19 16:39 Dose: 420 mls/hr Documented by: [id number] Insulin Aspart (Novolog Mix 70/30) 6 units SC ONE ONE Stop: 04/22/19 09:22 Last Admin: 04/22/19 13:07 Dose: Not Given Documented by: [id number] Insulin Glargine (Lantus Solostar Pen) 0 - 20 units SC BID [facility]; Protocol Stop: 05/22/19 14:16 Last Admin: 04/23/19 09:09 Dose: 20 units Documented by: [id number] Cosigned by: [id number] Admin: 04/22/19 21:11 Dose: 20 units Documented by: [id number] Cosigned by: [id number] Admin: 04/22/19 15:37 Dose: 20 units Documented by: [id number] Cosigned by: [id number] Insulin Glargine (Lantus Solostar Pen) 5 units SC NOW ONE Stop: 04/23/19 12:16 Last Admin: 04/23/19 12:24 Dose: 5 units Documented by: [id number] Cosigned by: [id number] Insulin Glargine (Lantus Solostar Pen) 25 units SC BID [facility] Stop: 05/23/19 20:59 Last Admin: 04/23/19 20:06 Dose: 25 units Documented by: [id number] Cosigned by: [id number] Insulin Glargine (Lantus Solostar Pen) 20 units SC BID [facility] Stop: 05/24/19 08:59 Last Admin: 04/24/19 08:41 Dose: 20 units Documented by: [id number] Cosigned by: [id number] Insulin Glargine (Lantus Solostar Pen) 20 units SC TODAY@1700 [facility] Stop: 04/24/19 17:01 Last Admin: 04/24/19 16:41 Dose: 20 units Documented by: [id number] Cosigned by: [id number] Insulin Human Regular (Novolin R U-100 Per Unit) 6 units SC NOW [facility]; Protocol Stop: 04/22/19 09:23 Last Admin: 04/22/19 09:33 Dose: 6 units Documented by: [id number] Cosigned by: [id number] Ioversol (Optiray 320 125ml) 118 ml IV ONCE PRN PRN Reason: Interaction Checking Stop: 04/26/19 10:08 Last Admin: 04/22/19 10:09 Dose: 118 ml Documented by: [id number] Levetiracetam (Keppra) 500 mg PO BID [facility] Stop: 05/24/19 20:59 Last Admin: 04/25/19 07:56 Dose: 500 mg Documented by: [id number] Admin: 04/24/19 20:51 Dose: 500 mg Documented by: [id number] Metoprolol Tartrate (Lopressor) 50 mg PO NOW [facility] Stop: 04/22/19 10:51 Last Admin: 04/22/19 13:07 Dose: Not Given Documented by: [id number] Metoprolol Tartrate (Lopressor) Confirm Administered Dose 50 mg .ROUTE .STK-MED ONE Stop: 04/22/19 12:57 Last Admin: 04/22/19 13:02 Dose: 50 mg Documented by: [id number] Ondansetron HCl (Zofran) 4 mg IV NOW [facility] Stop: 04/22/19 09:42 Last Admin: 04/22/19 13:07 Dose: Not Given Documented by: [id number] Ondansetron HCl (Zofran) Confirm Administered Dose 4 mg .ROUTE .STK-MED ONE Stop: 04/22/19 12:58 Last Admin: 04/22/19 13:02 Dose: 4 mg Documented by: [id number] Description This is a 21 electrode EEG with a single channel dedicated to limited EKG. The electrodes were placed in accordance with the International 10-20 system. This EEG was recorded as a bedside tracing is of good technical quality. No activation procedures were utilized. Drowsiness and light sleep are not clearly recorded. The video recording of the patient's head was obtained during the entirety of the tracing Under these conditions the tracing initially shows evidence for some mild focal slow-wave activity overlying the left mid temporal and central regions with preservation of the background alpha rhythm bilaterally and with very low amplitude random sharp appearing waveforms which were described previously but are now much less evident and prominent and demonstrate no periodicity Approximately 2 minutes into the tracing higher amplitude almost triphasic appearing waveforms emerge overlying the left mid temporal region predominantly but extending into the central regions and occurring at a frequency of about once every 2 to 3 seconds. Over the ensuing 2 to 3 minutes these waveforms increase in frequency and culminated in the appearance of high amplitude rhythmic theta delta activity overlying the mid temporal and central regions on the left with occasionally sharp appearing waveforms superimposed. Video recording of the patient's facial expressions however it does not change at all during this 2 and half minute to 3-minute period of time that from electroencephalographic viewpoint certainly would be consistent with a focal electroencephalographic seizure Tracing then returns to its baseline status of mild focal slowing overlying the left central mid temporal regions with occasional truncated sharp waves occu rring in a non-periodic fashion Towards the terminal portions of the recording another electroencephalographic appearing seizure event emerges again preceded by high amplitude triphasic appearing sharp waves initially at low frequency and of maximum focality over the left mid temporal region. These then increase in frequency and distribution and culminated in a several minute period of time during which the left hemisphere particularly central mid to upper portions is engulfed by high amplitude periodic theta delta activity with superimposed sharp forms Again no obvious clinical manifestations are seen on observing the video recording of the patient's face and head Interpretation This is an abnormal tracing revealing evidence of what appears to be 2 electroencephalographic focal seizures originating from the left mid temporal and central regions and lasting up to 3 minutes in duration but with no associated obvious clinical manifestations based on video recording is limited to the patient's face and head Clinical Correlation This EEG is consistent with 2 recorded electroencephalographic seizures originating from the left temporal and central regions in the setting of a baseline focus of altered EEG activity in the same area and in the clinical setting of a recent CVA involving the left hemisphere This patient may be an ideal candidate for inpatient electroencephalographic monitoring to determine efficacy of anticonvulsant treatment. This type of monitoring however is not available at this institution and transfer to a tertiary care center would be necessary Sim Horner MD
--- NOTE | 2019-04-26 11:35 | Hospitalist Progress Note ---
Date of Service April 26, 2019 Assessment & Plan (1) Stroke-like symptom: Left MCA infarction Left internal carotid stenosis Pt is 68 y/o M with PMH CAD s/p stent x 2 in 2002, A-fib on Coumadin, HTN, HLD, DM II presented to ER with complaint of confusion. Patient noticed that he was having confusion and could not use the phone and also had headache around left eye. Difficulty with reading, writing, typing. Reports trouble with word finding and trouble with comprehension. Was seen in ER 04/21/2019 and had unremark[address] noncontrast CT head On this admission in ER afebrile, P: 55-61, R: 22, BP: 155/78, 182/110, 95% on RA CTA HEAD & CTA NECK: 1. Possible small hypodense focus within left posterior parietal lobe raising the possibility of an acute infarct. This will be better appreciated on the same day brain MRI. 2. No significant stenosis, occlusion, or aneurysm within the [place]. 3. Approximately 60% stenosis within the left proximal internal carotid artery. 4. The right carotid arteries and vertebral arteries are patent. MRI Multiple small left posterior frontal and parietal lobe acute infarcts. - goal LDL<70 - cont. atorvastatin - cont. ASA Hx of pAfib, INR 1.9 on admission, current 2.3 - goal INR 2.5-3.5 - HTN - controlled Uncontrolled DM type 2, see below -Echo with bubble study: no ASD, EF 55-60%, mild concentric LVH, grade II diast. dysfunction, no LV wall motion abnormalities -Neurology consulted - pt will need carotid US follow up in 6 months and then yearly, if stenosis greater than 70%, then need consult w/ vascular surgery -PT/OT Seizure activity -Secondary to above -Patient had shaking movements of his right body, observed by nursing staff and family, EEG also confirmed epileptiform waves/activity -also continues to have episodes of confusion -Patient was started on Keppra, neurology notified and follows -Given his clinical progress/persistent confusion, EEG was repeated, CT head was also repeated - another EEG today (04/26), per neurology result abnormal/worsening (see details in result section ) and he should be transferred to [place] for contin uous EEG - also gave pt 1,000 mg of IV Keppra and increased his dose to 1500 mg twice a day (2) Hyperglycemia: - Secondary to uncontrolled diabetes mellitus type 2 - Hgb A1c 11.4%, says that this is due to neglect - wellness educator and pharm consulted for hyperglycemia management - Patient underwent thorough insulin education on (04/24), by wellness educator, family was present at the bedside - plan to d/c home on lantus (35 to 40 units) (3) Diabetes mellitus, type II: Pt with h/o uncontrolled BSG's for months per home fasting BSG's. A1c: 8 in 08/2018 Random glucose: 340. In ER given Novolin R 6 units SQ -HgbA1c 11.4% (04/23/2019) -wellness educator and pharm consulted for hyperglycemia management - Patient underwent thorough insulin education (04/24), by wellness educator, family was present at the bedside -Monitor BSGs -Hold glimeperide -plan to discharge home on lantus (4) Atrial fibrillation: On Coumadin INR: 1.9 on admission -Continue Coumadin, Metoprolol -goal INR 2.5-3.5, current INR 2.3 (5) Hypertension: - Continue lisinopril/HCTZ, metoprolol - will cont. to monitor (6) Coronary artery disease: S/P stent x 2 in 2002 Denies CP or SOB -Continue aspirin, atorvastatin, metoprolol (7) HLD (hyperlipidemia): -Continue atorvastatin DVT Prophylaxis: On Coumadin Full Code as per discussion with pt Follows with Dr. Smiley for routine care Subjective Notified by neurologist, that the patient's EEG is changing/worsening, and they recommend the need for continuous EEG and transfer to [place]. Also recommended to give 1000 mg of IV Keppra now and increase his dose to 1500 twice daily, which I did. Patient is sitting on the bed, his ex- is at the bedside. Currently he feels well, eating lunch. Denies any fevers, chills, chest pain, shortness of breath, abdominal pain nausea or vomiting. Per his ex-, patient seems to be less confused and more clear today. Discussed with them possibility of transfer to [place], they understand and agree with the plan. Discussed with neurologist, Dr. Tucker Alvarez in [place], who accepts the patient. Review of Systems Review of Systems: All systems reviewed & are unremarkable except as noted in HPI & below Constitutional: no fever and no chills Respiratory: no cough and no dyspnea Cardiovascular: no chest pain, no palpitations and no edema Gastrointestinal: no abdominal pain, no nausea and no vomiting Musculoskeletal: + muscle weakness (reports RUE weakness) RUE weakness Neurologic: + confusion Physical Exam Physical Exam: General: obese male, sitting up in the bed, in NAD Head: normocephalic, atraumatic Eyes: PERRL, EOM's intact, conjunctiva non-injected ENT: normal inspection external ears, nose, mucous membranes moist Neck: supple, trachea midline, non-tender, ROM intact Lungs: clear, no respiratory distress, no wheezing/rhonchi/rales CV: irregular, no murmur, no JVD, no pretibial edema Abd: normal BS, soft, non-tender, obese, no guarding Ext: no cyanosis, no calf tenderness, moves extremities spontaneously, strength 4/5 in RUE, otherwise 5/5 strength in all other major muscle groups Neuro: A&O x 3 answers questions slowly, speech slow but fluent, no sensory loss, moves all 4 extremities spontaneously, he follows simple commands, however it takes him some time to follow through,strength 4/5 in RUE, otherwise 5/5 strength in all other major muscle groups Skin: warm, dry Results & Data Vital Signs (Past 12 Hours) Vital Signs Temp Pulse Pulse Resp BP BP Pulse Ox 04/26/19 11:00 36.6 C 57 L 18 107/57 L 91 04/26/19 08:00 54 L 04/26/19 06:58 36.7 C 59 L 20 130/84 59 L 04/26/19 03:39 36.8 C 51 L 20 122/72 96 04/25/19 23:38 56 L Laboratory Results 04/26/19 04/26/19 04/26/19 Range/Units 11:47 11:47 11:47 WBC 7.91 (4.8-10.8) K/uL RBC 4.88 (4.7-6.1) M/uL Hgb 13.7 L (14.0-18.0) g/dL Hct 43.3 (42-52) % MCV 88.7 (80-100) fL MCH 28.1 (25-34) pg MCHC 31.6 L (32-36) g/dL RDW Std Deviation 50.2 H (36.4-46.3) fL RDW Coeff of [place] 15.5 H (11.5-14.5) % Plt Count 314 (130-400) K/uL MPV 9.7 (7.4-10.4) fL PT 23.5 H (9.0-12.0) Seconds INR 2.4 H (0.9-1.1) Sodium 139 (136-145) mmol/L Potassium 3.7 (3.5-5.1) mmol/L Chloride 104 (98-107) mmol/L Carbon Dioxide 32 (21-32) mmol/L Anion Gap 4.0 (3-11) BUN 23 H (7-18) mg/dl Creatinine 1.35 (0.6-1.4) mg/dl Est Cr Clr Drug Dosing 72.1 ml/min Est GFR ( Amer) 62.1 Est GFR (Non-Af Amer) 53.6 BUN/Creatinine Ratio 16.7 (10-20) Glucose 179 H (70-99) mg/dl POC Glucose (70-99) Calcium 9.0 (8.5-10.1) mg/dl 04/26/19 04/26/19 04/25/19 Range/Units 10:59 06:57 20:06 WBC (4.8-10.8) K/uL RBC (4.7-6.1) M/uL Hgb (14.0-18.0) g/dL Hct (42-52) % MCV (80-100) fL MCH (25-34) pg MCHC (32-36) g/dL RDW Std Deviation (36.4-46.3) fL RDW Coeff of [place] (11.5-14.5) % Plt Count (130-400) K/uL MPV (7.4-10.4) fL PT (9.0-12.0) Seconds INR (0.9-1.1) Sodium (136-145) mmol/L Potassium (3.5-5.1) mmol/L Chloride (98-107) mmol/L Carbon Dioxide (21-32) mmol/L Anion Gap (3-11) BUN (7-18) mg/dl Creatinine (0.6-1.4) mg/dl Est Cr Clr Drug Dosing ml/min Est GFR ( Amer) Est GFR (Non-Af Amer) BUN/Creatinine Ratio (10-20) Glucose (70-99) mg/dl POC Glucose 174 H 143 H 178 H (70-99) Calcium (8.5-10.1) mg/dl 04/25/19 Range/Units 16:28 WBC (4.8-10.8) K/uL RBC (4.7-6.1) M/uL Hgb (14.0-18.0) g/dL Hct (42-52) % MCV (80-100) fL MCH (25-34) pg MCHC (32-36) g/dL RDW Std Deviation (36.4-46.3) fL RDW Coeff of [place] (11.5-14.5) % Plt Count (130-400) K/uL MPV (7.4-10.4) fL PT (9.0-12.0) Seconds INR (0.9-1.1) Sodium (136-145) mmol/L Potassium (3.5-5.1) mmol/L Chloride (98-107) mmol/L Carbon Dioxide (21-32) mmol/L Anion Gap (3-11) BUN (7-18) mg/dl Creatinine (0.6-1.4) mg/dl Est Cr Clr Drug Dosing ml/min Est GFR ( Amer) Est GFR (Non-Af Amer) BUN/Creatinine Ratio (10-20) Glucose (70-99) mg/dl POC Glucose 238 H (70-99) Calcium (8.5-10.1) mg/dl 04/26/19 04/25/19 04/25/19 Range/Units 06:57 20:06 16:28 POC Glucose 143 H 178 H 238 H (70-99) 04/25/19 Range/Units 11:16 POC Glucose 172 H (70-99) Diagnostic Findings EEG 04/26 Interpretation This is an abnormal tracing revealing evidence of what appears to be 2 electroencephalographic focal seizures originating from the left mid temporal and central regions and lasting up to 3 minutes in duration but with no associated obvious clinical manifestations based on video recording is limited to the patient's face and head Clinical Correlation This EEG is consistent with 2 recorded electroencephalographic seizures originating from the left temporal and central regions in the setting of a baseline focus of altered EEG activity in the same area and in the clinical setting of a recent CVA involving the left hemisphere This patient may be an ideal candidate for inpatient electroencephalographic monitoring to determine efficacy of anticonvulsant treatment. This type of monitoring however is not available at this institution and transfer to a tertiary care center would be necessary. Medications Administered Current Inpatient Medications Acetaminophen (Tylenol) 650 mg PO Q4H PRN PRN Reason: Pain or Fever Stop: 05/22/19 14:16 Last Admin: 04/26/19 01:24 Dose: 650 mg Documented by: Aspirin (Ecotrin Ectab) 81 mg PO HS CARLA Stop: 05/22/19 20:59 Last Admin: 04/25/19 21:11 Dose: 81 mg Documented by: Atorvastatin Calcium (Lipitor) 80 mg PO HS [facility] Stop: 05/22/19 20:59 Last Admin: 04/25/19 21:14 Dose: 80 mg Documented by: Dextrose (Dextrose 50%) 25 - 50 ml IV UD PRN; Protocol PRN Reason: Hypoglycemia Protocol Stop: 05/22/19 14:16 Glucagon (Glucagen) 1 mg SQ UD PRN; Protocol PRN Reason: Hypoglycemia Protocol Stop: 05/22/19 14:16 Glucose (Dex4 Glucose) 4 - 8 tabs PO UD PRN; Protocol PRN Reason: Hypoglycemia Protocol Stop: 05/22/19 14:16 Glucose (Glucose 40%) 15 - 30 gm PO UD PRN; Protocol PRN Reason: Hypoglycemia Protocol Stop: 05/22/19 14:16 Lisinopril/HCTZ (Prinzide 10/12.5mg) 1 tab PO QAM CARLA Stop: 05/23/19 08:59 Last Admin: 04/26/19 08:22 Dose: 1 tab Documented by: Levetiracetam 1,000 mg/ (Dextrose) 110 mls @ 440 mls/hr IV NOW STA Stop: 04/26/19 11:41 Insulin Aspart (Novolog Flexpen) 0 units SC ACHS [facility] Stop: 05/22/19 16:29 Last Admin: 04/26/19 09:47 Dose: 4 units Documented by: Insulin Glargine (Lantus Solostar Pen) 35 units SC DAILY CARLA Stop: 05/25/19 08:59 Last Admin: 12/24/19 09:48 Dose: 35 units Documented by: Levetiracetam (Keppra) 1,500 mg PO BID [facility] Stop: 05/26/19 20:59 Metoprolol Tartrate (Lopressor) 50 mg PO BID [facility] Stop: 05/22/19 20:59 Last Admin: 04/26/19 08:22 Dose: 50 mg Documented by: Miscellaneous (Carbohydrates For Hypoglycemia) 15 - 30 gm PO UD PRN PRN Reason: Hypoglycemia Protocol Stop: 05/22/19 14:16 Miscellaneous Information (Pharmacist Discharge Med Rec Consult) 1 ea N/A UD PRN PRN Reason: Consult Stop: 05/22/19 14:16 Miscellaneous Information (Consult Glycemic Management Pharmacy) 1 ea N/A UD PRN PRN Reason: Consult Stop: 05/23/19 11:44 Ondansetron HCl (Zofran) 4 mg IV Q6H PRN PRN Reason: Nausea Stop: 05/22/19 14:16 Warfarin Sodium (Coumadin) 5 mg PO [id number]@1600 [facility] Stop: 05/22/19 15:59 Last Admin: 04/25/19 16:39 Dose: 5 mg Documented by: Warfarin Sodium (Coumadin) 2.5 mg PO [id number]@1600 [facility] Stop: 05/23/19 15:59 Last Admin: 04/24/19 16:39 Dose: 2.5 mg Documented by: (1) Coronary artery disease Associated angina: without angina Coronary Disease-Associated Artery/Lesion type: [place] artery [place] vs. transplanted heart: [place] heart Qualified Code(s): I25.10 - Atherosclerotic heart disease of [place] coronary artery without angina pectoris (2) Atrial fibrillation Atrial fibrillation type: unspecified Qualified Code(s): I48.91 - Unspecified atrial fibrillation (3) Hypertension Hypertension type: essential hypertension Qualified Code(s): I10 - Essential (primary) hypertension
[2019-04-26 11:59] LABS: Hematocrit (blood only) 43.3 % (42-52); Hemoglobin 13.7 g/dL (14.0-18.0); Mean Corpuscular Hemoglobin 28.1 pg (25-34); Mean Corpuscular Hgb Conc 31.6 g/dL (32-36); Mean Corpuscular Volume 88.7 fL (80-100); Mean Platelet Volume 9.7 fL (7.4-10.4); Platelet Count 314 K/uL (130-400); RDW Coefficient of Variation 15.5 % (11.5-14.5); RDW Standard Deviation 50.2 fL (36.4-46.3); Red Blood Count 4.88 M/uL (4.7-6.1); White Blood Count 7.91 K/uL (4.8-10.8)
[2019-04-26 12:12] LABS: INR 2.4 (0.9-1.1); Prothrombin Time 23.5 Seconds (9.0-12.0)
[2019-04-26 12:24] LABS: BUN Creatinine Ratio 16.7 (10-20); Creatinine Clr Calc Pharmacy 72.1 ml/min; Est GFR (African American) 62.1; Est GFR (Non-African American) 53.6; Potassium 3.7 mmol/L (3.5-5.1)
--- NOTE | 2019-04-26 13:08 | Discharge Summary ---
Date of Service April 26, 2019 Admission HPI Per Admitting Provider Pt is 68 y/o M with PMH CAD s/p stent x 2 in 2002, A-fib on Coumadin, HTN, HLD, DM II presented to ER with complaint of confusion. Patient states yesterday around 10 AM noticed that he was having confusion and could not use the phone and also had headache around left eye. Patient reports cannot read, right, type or text. Reports trouble with word finding and trouble with comprehension. Was seen in ER 04/21/2019 and had unremarkable noncontrast CT head and was found to be hyperglycemic and given insulin with some improvement and was discharged home. Patient reports symptoms have continued with no improvement and return to ER for evaluation today. Patient denies any dizziness, vision loss, blurry vision, slurred speech, facial drooping, extremity weakness, dysphagia. Reports chronic bilateral feet paresthesias, denies any other extremity paresthesias. Reports fasting BSG's have been in the 300s for over a month and in 200s for previous months. Denies fever/chills, diaphoresis, N/V/D/C, syncope, neck pain, CP, SOB, orthopnea, palpitations, cough, sore throat, choking, otalgia, rhinorrhea, abdominal pain, extremity edema, rashes, urinary symptoms. Admission Exam Per Admitting Provider General: no distress, WDWN Head: normocephalic, atraumatic Eyes: PERRL, EOM's intact, no nystagmus, conjunctiva non-injected, anicteric ENT: normal inspection external ears, nose, mucous membranes moist Neck: supple, trachea midline, non-tender, ROM intact Lungs: clear, no respiratory distress, no wheezing/rhonchi/rales CV: Rate 58, regular rhythm, no murmur, no JVD, no pretibial edema Abd: normal BS, soft, non-tender Ext: no cyanosis, no calf tenderness Neuro: A&O x 3, normal affect, Facial sensation is intact and symmetric, The face is strong and symmetric, Hearing grossly intact, Soft palate elevates symmetrically, no dysarthria, Shoulder shrug intact, Tongue is midline, normal movement, no fasciculations, finger to nose intact, rapid alternating movements intact, Negative Romberg. Pt with noted difficulty trying to sign name on paper Skin: warm, dry Principal Diagnosis Left MCA infarction, seizure, uncontrolled diabetes mellitus type 2, A. fib, subtherapeutic INR Discharge Exam General: obese male, sitting up in the bed, in NAD Head: normocephalic, atraumatic Eyes: PERRL, EOM's intact, conjunctiva non-injected ENT: normal inspection external ears, nose, mucous membranes moist Neck: supple, trachea midline, non-tender, ROM intact Lungs: clear, no respiratory distress, no wheezing/rhonchi/rales CV: irregular, no murmur, no JVD, no pretibial edema Abd: normal BS, soft, non-tender, obese, no guarding Ext: no cyanosis, no calf tenderness, moves extremities spontaneously, strength 4/5 in RUE, otherwise 5/5 strength in all other major muscle groups Neuro: A&O x 3 answers questions slowly, speech slow but fluent, no sensory loss, moves all 4 extremities spontaneously, he follows simple commands, however it takes him some time to follow through,strength 4/5 in RUE, otherwise 5/5 strength in all other major muscle groups Skin: warm, dry Discharge Data Allergies Allergy/AdvReac Type Severity Reaction Status Date / Time No Known Allergies Allergy Unknown Verified 04/22/19 08:16 Consultations 04/22/19 10:48 ED Decision to Admit Stat 04/22/19 14:17 Consult Case Management - Discharge Planning Routine Consult Neurology Routine 04/26/19 12:43 Burn CD for patient Stat Ordered Studies 04/22/19 08:11 MR brain wo con Stat FINDINGS: Multiple focal areas of restricted diffusion within the left posterior frontal and left posterior parietal lobes. Dominant focus measures 2.3 cm within the left posterior parietal lobe and corresponds to the abnormality on the same day head CT. These are consistent with acute infarct. The midline structures are intact. There is no mass, hematoma, midline shift. The ventricles are within normal limits. The major vascular flow-voids at the skull base are well- maintained. Cytotoxic edema within the left posterior frontal and parietal lobes at the site of infarcts. No significant mass effect. The paranasal sinuses and mastoid air cells are clear. IMPRESSION: Multiple small left posterior frontal and parietal lobe acute infarcts. 04/22/19 09:47 CT angio head wo/w Stat CT angio neck with con Stat FINDINGS: Questionable subtle hypodense focus within the left posterior parietal lobe on image 17. This could represent a small infarct. There is no mass, hematoma, midline shift. The ventricles and sulci are within normal limits. The paranasal sinuses and mastoid air cells are clear. The calvarium and skull base are intact. Visualized intracranial internal carotid arteries, distal vertebral arteries, and basilar artery are widely patent. There is no significant stenosi s, occlusion, or aneurysm seen within the bilateral ACAs, MCAs, or elevating grader operator. The aortic arch and proximal great vessels are widely patent. Mild calcified plaque at the origin of the right subclavian artery. The bilateral vertebral arteries and right carotid arteries are normal in course and caliber. There is moderate crescentic calcified and noncalcified plaque within the left carotid bulb resulting in approximately 60% stenosis. IMPRESSION: 1. Possible small hypodense focus within left posterior parietal lobe raising the possibility of an acute infarct. This will be better appreciated on the same day brain MRI. 2. No significant stenosis, occlusion, or aneurysm within the [place] of [place]. 3. Approximately 60% stenosis within the left proximal internal carotid artery. 4. The right carotid arteries and vertebral arteries are patent. 04/23/19 09:44 CT head/brain wo con Stat 04/25/19 16:20 US carotid doppler BI Routine FINDINGS: There is moderate atherosclerotic plaque within the proximal left internal carotid artery. Velocity measurements are listed below. COMMON CAROTID PEAK SYSTOLIC VELOCITY (CM/S): RIGHT 100 LEFT 86 ICA PEAK SYSTOLIC VELOCITY (CM/S): RIGHT 71 LEFT 93 Systolic ratios between the internal to common carotid arteries are normal. Antegrade flow is seen in the vertebral arteries. The external carotid arteries are patent. Blood pressure in the right arm measured 118/76. Blood pressure in the left arm measured 117/70. IMPRESSION: Moderate plaque within the proximal left internal carotid artery. Findings suggest less than 50% stenosis by sonographic criteria. 04/25/19 16:21 CT head/brain wo con Stat EEG 04/26/2019 Description This is a 21 electrode EEG with a single channel dedicated to limited EKG. The electrodes were placed in accordance with the International 10-20 system. This EEG was recorded as a bedside tracing is of good technical quality. No activation procedures were utilized. Drowsiness and light sleep are not clearly recorded. The video recording of the patient's head was obtained during the entirety of the tracing Under these conditions the tracing initially shows evidence for some mild focal slow-wave activity overlying the left mid temporal and central regions with preservation of the background alpha rhythm bilaterally and with very low amplitude random sharp appearing waveforms which were described previously but are now much less evident and prominent and demonstrate no periodicity Approximately 2 minutes into the tracing higher amplitude almost triphasic appearing waveforms emerge overlying the left mid temporal region predominantly but extending into the central regions and occurring at a frequency of about once every 2 to 3 seconds. Over the ensuing 2 to 3 minutes these waveforms increase in frequency and culminated in the appearance of high amplitude rhythmic theta delta activity overlying the mid temporal and central regions on the left with occasionally sharp appearing waveforms superimposed. Video recording of the patient's facial expressions however it does not change at all during this 2 and half minute to 3-minute period of time that from electroencephalographic viewpoint certainly would be consistent with a focal electroencephalographic seizure Tracing then returns to its baseline status of mild focal slowing overlying the left central mid temporal regions with occasional truncated sharp waves occurring in a non-periodic fashion Towards the terminal portions of the recording another electroencephalographic appearing seizure event emerges again preceded by high amplitude triphasic appearing sharp waves initially at low frequency and of maximum focality over the left mid temporal region. These then increase in frequency and distribution and culminated in a several minute period of time during which the left hemisphere particularly central mid to upper portions is engulfed by high amplitude periodic theta delta activity with superimposed sharp forms Again no obvious clinical manifestations are seen on observing the video recording of the patient's face and head Interpretation This is an abnormal tracing revealing evidence of what appears to be 2 electroencephalographic focal seizures originating from the left mid temporal and central regions and lasting up to 3 minutes in duration but with no associated obvious clinical manifestations based on video recording is limited to the patient's face and head Clinical Correlation This EEG is consistent with 2 recorded electroencephalographic seizures originating from the left temporal and central regions in the setting of a b aseline focus of altered EEG activity in the same area and in the clinical setting of a recent CVA involving the left hemisphere This patient may be an ideal candidate for inpatient electroencephalographic monitoring to determine efficacy of anticonvulsant treatment. This type of monitoring however is not available at this institution and transfer to a tertiary care center would be necessary Sim Horner MD Hospital Course (1) Stroke-like symptom: Left MCA infarction Left internal carotid stenosis Pt is 68 y/o M with PMH CAD s/p stent x 2 in 2002, A-fib on Coumadin, HTN, HLD, DM II presented to ER with complaint of confusion. Patient noticed that he was having confusion and could not use the phone and also had headache around left eye. Difficulty with reading, writing, typing. Reports trouble with word finding and trouble with comprehension. Was seen in ER 04/21/2019 and had unremark[address]contrast CT head On this admission in ER afebrile, P: 55-61, R: 22, BP: 155/78, 182/110, 95% on RA CTA HEAD & CTA NECK: 1. Possible small hypodense focus within left posterior parietal lobe raising the possibility of an acute infarct. This will be better appreciated on the same day brain MRI. 2. No significant stenosis, occlusion, or aneurysm within the [place]. 3. Approximately 60% stenosis within the left proximal internal carotid artery. 4. The right carotid arteries and vertebral arteries are patent. MRI Multiple small left posterior frontal and parietal lobe acute infarcts. - goal LDL<70 - cont. atorvastatin - cont. ASA Hx of pAfib, INR 1.9 on admission, current 2.3 - goal INR 2.5-3.5 - HTN - controlled Uncontrolled DM type 2, see below -Echo with bubble study: no ASD, EF 55-60%, mild concentric LVH, grade II diast. dysfunction, no LV wall motion abnormalities -Neurology consulted - pt will need carotid US follow up in 6 months and then yearly, if stenosis greater than 70%, then need consult w/ vascular surgery -PT/OT Seizure activity -Secondary to above -Patient had shaking movements of his right body, observed by nursing staff and family, EEG also confirmed epileptiform waves/activity -also continues to have episodes of confusion -Patient was started on Keppra, neurology notified and follows -Given his clinical progress/persistent confusion, EEG was repeated, CT head was also repeated - another EEG today (04/26), per neurology result abnormal/worsening (see details in result section ) and he should be transferred to [place] for continuous EEG - also gave pt 1,000 mg of IV Keppra and increased his dose to 1500 mg twice a day Patient's case discussed with neurologist, Dr. Tucker Alvarez in [facility], who graciously accepted patient for transfer for continuous EEG in their facility. (2) Hyperglycemia: - Secondary to uncontrolled diabetes mellitus type 2 - Hgb A1c 11.4%, says that this is due to neglect - rn diabetes educator and pharm consulted for hyperglycemia management - Patient underwent thorough insulin education on (04/24), by rn diabetes educator, family was present at the bedside - plan to d/c home on lantus (3) Diabetes mellitus, type II: Pt with h/o uncontrolled BSG's for months per home fasting BSG's. A1c: 8 in 08/2018 Random glucose: 340. In ER given Novolin R 6 units SQ -HgbA1c 11.4% (04/23/2019) -rn diabetes educator and pharm consulted for hyperglycemia management - Patient underwent thorough insulin education (04/24), by rn diabetes educator, family was present at the bedside -Monitor BSGs -Hold glimeperide -plan to discharge home on lantus (4) Atrial fibrillation: On Coumadin INR: 1.9 on admission -Continue Coumadin, Metoprolol -goal INR 2.5-3.5, current INR 2.3 (5) Hypertension: - Continue lisinopril/HCTZ, metoprolol - will cont. to monitor (6) Coronary artery disease: S/P stent x 2 in 2002 Denies CP or SOB -Continue aspirin, atorvastatin, metoprolol (7) HLD (hyperlipidemia): -Continue atorvastatin DVT Prophylaxis: On Coumadin Full Code as per discussion with pt Follows with Dr. Smiley for routine care Total Time Total Time Spent Total Time Spent (In Minutes): 40 Total Time Includes: Examination of the Patient, Discharge Planning, Medication Reconciliation and Communication With Other Providers Discharge Plan Discharge Items Patient Disposition: Transfer Acute Care Hospital Reason For Visit: LIGHTHEADED,THIGH PAIN,CONFUSION Discharge Diagnosis: Left MCA stroke, seizure Activity: As commented below Activity Comment: as tolerated, fall precautions Non-emergency contact: Hospitalist and Neurologist Call non-emergency contact if: you have any medication questions and your symptoms worsen Follow-up/Referrals: Marina Smilye MD [Primary Care Provider] - Diet: Carb Consistent or DM2 and Heart Healthy Addtl Attending Provider Instructions: Patient will be transferred to [facility], for continuous EEG. Patient was accepted by neurologist, Dr. Tucker Alvarez. Pending Studies at Discharge: No Stand-Alone Forms: My [facility] Skilled Items Patient informed of condition?: Yes DNR: No Discharge Level of Care: Other Communicable Disease: No Discharge Prognosis: Other Lines: Peripheral IV Urinary Catheter: No Medications and DC Order Prescriptions: New levetiracetam [Keppra] 500 mg Tablet 1,500 mg PO BID 30 Days Qty: 180 RF: 0 Lantus Solostar U-100 Insulin 100 unit/mL (3 mL) Insulin Pen 35 unit SC DAILY 30 Days Qty: 10.5 RF: 0 Continued atorvastatin [Lipitor] 80 mg Tablet 80 mg PO HS Qty: 0 RF: 0 lisinopril-hydrochlorothiazide [Zestoretic] 10-12.5 mg Tablet 1 tab PO QAM Qty: 0 RF: 0 metoprolol tartrate [Lopressor] 50 mg Tablet 50 mg PO BID Qty: 0 RF: 0 coenzyme Q10 [Co Q-10] 100 mg Capsule 100 mg PO QAM Qty: 0 RF: 0 warfarin [Coumadin] 5 mg tablet 2.5 mg PO SUTUTHSA RF: 0 alpha lipoic acid 200 mg Tablet 200 mg PO QAM RF: 0 warfarin [Coumadin] 5 mg tablet 5 mg PO MOWEFR RF: 0 aspirin 81 mg Tablet,Delayed Release (Dr/Ec) 81 mg PO HS RF: 0 nitroglycerin [Nitrostat] 0.4 mg Tablet, Sublingual 0.4 mg sublingual UD PRN (Reason: Angina) RF: 0 Discontinued glimepiride [Amaryl] 4 mg tablet 4 mg PO QDL RF: 0 Discharge Orders: Discharge Order (Routine); Ordered 04/26/19 Ordered By: Sahil Rios Admission Data Admit Date/Time: 04/22/19 11:49 Attending Provider: Sahil Rios Admit Provider: Dolores Villeda Primary Care Provider: Marina Smiley Other Providers: Dolores Villeda ; Claudia Paris ; [facility]
[2019-04-26] MEDS: WARFARIN SOD 2.5 MG TAB PO SCH (16:12)
--- NOTE | 2019-04-26 17:35 | Progress Note ---
DATE: 04/26/2019 SUBJECTIVE: I am seeing Mr. Johnson in followup of a left MCA infarction. CTA of the neck showing a 60% stenosis of the left internal carotid, a carotid ultrasound suggesting a less than 50% stenosis. No significant stenosis within the [place]. The patient has a history of atrial fibrillation and INR was 1.9 on admission. The goal has been changed to 2.5 to 3. The patient was given Keppra 2 days ago and yesterday EEG initially showing PLEDs. The PLEDs were less abundant yesterday, but this morning his EEG showed 2 electrographic seizures. The physician could not see if there was a clinical correlate as video did not visualize the entire patient. On this basis, I asked the hospitalist to give the patient another gram of Keppra, increase the Keppra to 1500 mg twice a day and have him transferred for continuous monitoring. He has not yet been transferred to [place]. His continues to note waxing and waning confusion with periods of relative clarity and better language. No focal jerking of the right arm has been noted. PHYSICAL EXAMINATION: He is awake and alert, his spontaneous speech and language are currently normal. Repetitions naming and 3-step commands are normal. There is a supero and inferotemporal field cut in the right eye. No facial asymmetry. No weakness of the upper or lower extremities without drift. [id number] is unremarkable. IMPRESSION: Left middle cerebral artery infarction, possibly embolic related to a mildly subtherapeutic INR. Continue aspirin and Coumadin with a goal INR of 2.5 to 3. Good control of LDL and much better control of diabetes. Continue the higher dose of Keppra. If the patient is not transferred soon or has new events, would recommend loading him with Depakote intravenous 15 mg/kg. The patient should see us in followup post discharge.
[2019-04-26] MEDS: ATORVASTATIN 40 MG TAB PO SCH (19:47)
[2019-04-26] MEDS: ASPIRIN 81 MG ECTAB PO SCH (19:48)
[2019-04-26] MEDS ORDERED: levETIRAcetam 500 MG TAB PO SCH (21:00)
== END 2019-04-26 21:32 | disposition short-term general hospital (02) | DRG 65 ==
LOC: ED 07:23 → SUATTDRO 11:49 → 2E 11:49

== ENCOUNTER 2020-03-04 11:45 | Inpatient (IN) ==
[2020-03-04] MEDS ORDERED: ONDANSETRON INJ 2 MG/ML 2 ML VIAL IV STA (12:08)
[2020-03-04] MEDS ORDERED: PANTOprazole 40 MG in SYRINGE 0 ML IV ONE (12:08)
[2020-03-04] MEDS ORDERED: SODIUM CHLORIDE 0.9% 1000ML 1,000 ML IV SCH (12:15)
--- NOTE | 2020-03-04 12:19 | Emergency Department Note ---
History of Present Illness General Chief complaint: GI Assessment Stated complaint: BLEEDING ULCER Time Seen by Provider: 03/04/20 11:54 Source: patient Mode of arrival: ambulatory Limitations: no limitations History of Present Illness Provider Complaint: + melena Onset (ago): 1 day(s) Pain Consistency: + constant Severity: moderate Maximum Pain Intensity: 6 Current Pain Intensity: 6 Relieved By: + none Exacerbated By: + eating Context: + history of GI bleed Associated symptoms: + abdominal pain, + nausea, + malaise and + other (lightheadedness, shortness of breath); no vomiting Treatments Prior to Arrival: + none HPI Narrative: This 69-year-old male patient presents to the emergency department today for evaluation of "I think I have a bleeding ulcer and it sucks". The patient states he has been experiencing some generalized epigastric abdominal pain for the past 1 week. Last evening, he developed some dark brown stool and this morning when he awoke, the stool was "black as can be". The patient states he does have a history of bleeding ulcers which have presented similarly in the past. He has followed with [facility] gastroenterology in the past, but has not seen them in approximately a year and a half. The patient did have a stroke in April and believes his PPIs were discontinued at that time. The patient has taken no medications for symptoms. He denies any associated fever. There has been nausea but no vomiting. He has not eaten or drink anything today due to concerns he may have a scope. He did not take his morning meds today either. The patient denies back or flank pain. No numbness or tingling. No dysuria, urinary frequency, urinary hesitancy. The patient is currently on Coumadin for atrial fibrillation and history of CVA last year. Last INR was 2.3 on 03/01/2020. Home Medications Home Medications Medication Instructions Recorded Confirmed Type atorvastatin [Lipitor] 80 mg PO DAILY@1900 #0 tab 10/24/14 03/04/20 History aspirin 81 mg PO DAILY@0700 11/09/18 03/04/20 History nitroglycerin [Nitrostat] 0.4 mg SUBLINGUAL UD PRN 11/09/18 03/04/20 History cholecalciferol (vitamin D3) 25 mcg PO DAILY@0703/04/20 03/04/20 History [Vitamin D3] levetiracetam 1,500 mg PO Q12 03/04/20 03/04/20 History lisinopril 10 mg PO DAILY@0700 03/04/20 03/04/20 History lutein 20 mg PO DAILY@1900 03/04/20 03/04/20 History metformin 500 mg PO DAILY@0700 03/04/20 03/04/20 History metoprolol tartrate 12.5 mg PO Q12 03/04/20 03/04/20 History warfarin 2.5 mg PO HUANG@1900 03/04/20 03/04/20 History warfarin 5 mg PO SUMOTUWETHFR@1900 03/04/20 03/04/20 History zonisamide 200 mg PO DAILY@0700 03/04/20 03/04/20 History Allergies Allergy/AdvReac Type Severity Reaction Status Date / Time rosuvastatin [From Crestor] AdvReac Severe Gastrointestinal Unverified 03/04/20 13:53 Upset ~ diarrhea Past Med/Surg History Medical History (Updated 03/04/20 @ 15:06 by Leta Gillis PA-C) Atrial fibrillation on warfarin Chronic back pain Coronary artery disease Diabetes mellitus, type 2 Diabetes mellitus, type II GERD (gastroesophageal reflux disease) Heart disease Hiatal hernia History of colon polyps History of duodenal ulcer History of GI bleed bleeding ulcer HLD (hyperlipidemia) Hyperlipidemia associated with type 2 diabetes mellitus Hypertension Kidney stone Myocardial Infarction 2002 Obesity On anticoagulant therapy warfarin daily Osteoarthritis Prolonged Q-T interval on ECG Schatzki's ring Sleep apnea cpap Surgical History History of cardiac cath 2002 @ [facility] History of colonoscopy History of esophagogastroduodenoscopy (EGD) History of heart artery stent 2002--3 stents placed History of tooth extraction Family History Father , in 80s Unknown family medical history Mother , in 80s Lymphoma Grandmother (Maternal) Family history of diabetes mellitus Other No family history of adverse response to anesthesia Social History Smoking Status: Never smoker Second Hand Exposure: No; Hx Alcohol Use: No Hx Substance Use: No Preferred Language: Turkmen Communication Ability: Effective Visual Impairment: No Limitations Slackline Operator Required: No Beliefs That Will Affect Care: None marital status: marri Current Living Situation: Family Current Living Situation Comment: lives with daughter Feels Safe at Home: Yes Assistive Devices: None Review of Systems A total of 10 systems reviewed and were otherwise negative Physical Exam 2 Vital Signs: Vital Signs - 24 hr 03/04/20 11:47 03/04/20 12:30 03/04/20 13:00 Temperature 36.8 C Temperature Source Oral Pulse Rate 108 H 111 H 93 H Pulse Rate from Sp O2 Sensor Pulse Rhythm Regular Pulse Strength Normal Respiratory Rate 20 20 21 Respiratory Effort / Characteristics Non-Labored Sponta neous Respiratory Depth Normal Respiratory Patter n Regular Blood Pressure 107/73 130/63 96/75 L Blood Pressure Jyoti n 84 73 86 Blood Pressure Pos ition Sitting Pulse Oximetry 98 96 96 Oxygen Delivery Me thod Room Air Sepsis Recent Feve r Within 48 Hours No Sepsis New/Unexpla ined Change in Men edgar Status N/A Sepsis Action Take n by Nursing No Action Required 03/04/20 13:21 03/04/20 13:30 03/04/20 14:09 Temperature Temperature Source Pulse Rate 98 H 88 97 H Pulse Rate from Sp O2 Sensor 94 H Pulse Rhythm Pulse Strength Respiratory Rate 23 23 20 Respiratory Effort / Characteristics Respiratory Depth Respiratory Patter n Blood Pressure 125/72 117/70 108/69 Blood Pressure Jyoti n 84 83 80 Blood Pressure Pos ition Pulse Oximetry 97 96 100 Oxygen Delivery Me thod Sepsis Recent Feve r Within 48 Hours Sepsis New/Unexpla ined Change in Men edgar Status Sepsis Action Take n by Nursing 03/04/20 14:30 03/04/20 14:38 Temperature Temperature Source Pulse Rate 98 H 101 H Pulse Rate from Sp O2 Sensor Pulse Rhythm Pulse Strength Respiratory Rate 19 16 Respiratory Effort / Characteristics Respiratory Depth Respiratory Patter n Blood Pressure 91/64 L 105/56 L Blood Pressure Jyoit n 74 61 Blood Pressure Pos ition Pulse Oximetry 97 96 Oxygen Delivery Me thod Sepsis Recent Feve r Within 48 Hours Sepsis New/Unexpla ined Change in Men edgar Status Sepsis Action Take n by Nursing Physical Exam: VITALS: Vitals are noted on the nurse's note and reviewed by myself. Patient is tachycardic. He is not hypotensive or febrile. GENERAL: This is a 69-year-old obese white male, in no acute distress, nondiaphoretic, well-developed well-nourished. SKIN: The skin was without rashes, erythema, edema, or bruising. There is no tenting of the skin. Capillary refill less than 2 seconds. HEAD: Normocephalic atraumatic. EYES: Extraocular movements intact. NECK: Supple without nuchal rigidity. No lymphadenopathy. HEART: Irregular rate and rhythm without murmurs gallops or rubs. LUNGS: Clear to auscultation bilaterally without wheezes, rales or rhonchi. No retractions or accessory muscle use. ABDOMEN: Positive bowel sounds x 4. Normal tympanic percussion. Obese. Tenderness noted in the epigastrium. Abdomen otherwise Soft, nontender, without masses or organomegaly. Will sign negative. No guarding or rebound tenderness. RECTAL -no rectal fissures. No skin tags appreciated diffuse. No active b leeding, but melanotic stool noted. A sterile, water-soluble lubricant was applied to the examiner's finger prior to internal exam. No rectal vault tenderness. No rectal masses. No fecal impaction. Stool Guaiac Test: Hemoccult positive. MUSCULOSKELETAL: No muscle atrophy, erythema, or edema noted. Full range of motion without joint tenderness in all extremities. No tenderness to palpation. Normal gait. Strength 5/5 throughout. NEURO: Patient was alert and oriented to person place and time. No focal neurological deficits. Course Course The patient was seen and evaluated as above. An order was placed for continuous cardiac monitoring. The monitor shows a sinus tachycardia at a rate of 108 bpm. IV access obtained, labs drawn. Labs reviewed by myself. I discussed the findings with the patient at bedside. I discussed the case with my attending and the ED pharmacist regarding reversal of anticoagulation. Imaging performed and reviewed by myself and radiologist as noted. Dr. Castle did speak with Dr. Antoine, pt's neurology manager recreation activities coordinator, at the patient's request. He was agreeable with anticoagulation reversal. Pt. medicated with Vitamin K, Protonix drip. I discussed the case with the toy department manager. I discussed the case with the [facility] Hospitalist service. Dr. Colon did agree to see and evaluate the patient. Administered Medications Pantoprazole Sodium 40 mg/ (Dextrose) 100 mls @ 20 mls/hr IV Q5H CARLA Stop: 04/03/20 13:29 Last Admin: 03/04/20 14:38 Dose: 8 mg/hr, 20 mls/hr Documented by: [id number] Discontinued Medications Sodium Chloride (Nss 1000ml) 1,000 mls @ 999 mls/hr IV .Q1H1M [facility] Stop: 03/04/20 13:15 Last Infusion: 03/04/20 14:10 Dose: 0 mls/hr Documented by: [id number] Admin: 03/04/20 12:47 Dose: 999 mls/hr Documented by: [id number] Pantoprazole Sodium 40 mg/ (Syringe) 10 mls @ 5 mls/min IV NOW ONE Stop: 03/04/20 12:09 Last Admin: 03/04/20 12:47 Dose: 5 mls/min Documented by: [id number] Pantoprazole Sodium 40 mg/ (Dextrose) 100 mls @ 400 mls/hr IV NOW ONE Stop: 03/04/20 13:29 Last Infusion: 03/04/20 14:54 Dose: 0 mls/hr Documented by: [id number] Admin: 03/04/20 14:38 Dose: 400 mls/hr Documented by: [id number] Phytonadione 5 mg/ Sodium (Chloride) 50.5 mls @ 101 mls/hr IV ONE ONE Stop: 03/04/20 13:42 Last Infusion: 03/04/20 14:44 Dose: 0 mls/hr Documented by: [id number] Admin: 03/04/20 14:05 Dose: 101 mls/hr Documented by: [id number] Ioversol (Ioversol 100ml) 93 ml IV ONCE ONE Stop: 03/04/20 12:31 Last Admin: 03/04/20 12:30 Dose: 93 ml Documented by: [id number] Ondansetron HCl (Ondansetron Inj 2 Mg/Ml 2 Ml Vial) 4 mg IV ONE STA Stop: 03/04/20 12:09 Last Admin: 03/04/20 12:46 Dose: 4 mg Documented by: [id number] Medical Decision Making Differential Diagnosis + hemorrhoids, + infectious diarrhea, + esophageal varices, + gastritis, + Mal imani-Zimmerman syndrome, + Upper gastrointestinal hemorrhage, + Lower gastrointestinal hemorrhage, + hematochezia, + melena, + anal fissure, + iverticulosis, + AVM, + coagulopathy, + colitis, + inflammatory bowel disease, + malignancy, + esophagitis, + peptic ulcer disease, + variceal bleed and + epistaxis Medical Records Attestation: I reviewed the patient's medical records. Recent INR 2.3 on 03/01/2020. Medication list reviewed as well as most recent office visit. Home Medications Current Medication List: was personally reviewed by me Laboratory Data Attestation: I reviewed the patient's lab results. No leukocytosis. Mild anemia with a hemoglobin of 11.2, hematocrit 34.0. INR elevated at 4.4. BUN elevated at 56. Creatinine 1.21. Hepatic function electrolytes without significant abnormality. Lipase 198. Result diagrams: 03/04/20 12:25 03/04/20 12:25 Lab Results 03/04/20 03/04/20 03/04/20 Range/Units 12:25 12:25 12:25 WBC 9.71 (4.8-10.8) K/uL RBC 3.68 L (4.7-6.1) M/uL Hgb 11.2 L (14.0-18.0) g/dL Hct 34.0 L (42-52) % MCV 92.4 (80-100) fL MCH 30.4 (25-34) pg MCHC 32.9 (32-36) g/dL RDW Std Deviation 47.0 H (36.4-46.3) fL RDW Coeff of Darrius 14.0 (11.5-14.5) % Plt Count 249 (130-400) K/uL MPV 9.8 (7.4-10.4) fL Immature Gran % (Auto) 0.4 % Neut % (Auto) 70.3 % Lymph % (Auto) 22.5 % Carter % (Auto) 5.7 % Eos % (Auto) 0.9 % Baso % (Auto) 0.2 % Neut # (Auto) 6.83 H (1.4-6.5) K/uL Lymph # (Auto) 2.18 (1.2-3.4) K/uL Carter # (Auto) 0.55 (0.11-0.59) K/uL Eos # (Auto) 0.09 (0-0.5) K/uL Baso # (Auto) 0.02 (0-0.2) K/uL Immature Gran # (Auto) 0.04 H (0.00-0.02) K/uL PT 43.2 H (9.0-12.0) Seconds INR 4.4 H (0.9-1.1) APTT 37.6 H (21.0-31.0) Seconds PTT Ratio 1.3 Sodium (136-145) mmol/L Potassium (3.5-5.1) mmol/L Chloride (98-107) mmol/L Carbon Dioxide (21-32) mmol/L Anion Gap (3-11) BUN (7-18) mg/dl Creatinine (0.6-1.4) mg/dl Est Cr Clr Drug Dosing ml/min Est GFR ( Amer) Est GFR (Non-Af Amer) BUN/Creatinine Ratio (10-20) Glucose (70-99) mg/dl Calcium (8.5-10.1) mg/dl Total Bilirubin (0.2-1) mg/dl AST (15-37) U/L ALT (12-78) U/L Alkaline Phosphatase (45-117) U/L Total Protein (6.4-8.2) gm/dl Albumin (3.4-5.0) gm/dl Globulin (2.5-4.0) gm/dl Albumin/Globulin Ratio (0.9-2) Lipase (73-393) U/L Blood Type O Positive Antibody Screen NEGATIVE Crossmatch See Detail 03/04/20 Range/Units 12:25 WBC (4.8-10.8) K/uL RBC (4.7-6.1) M/uL Hgb (14.0-18.0) g/dL Hct (42-52) % MCV (80-100) fL MCH (25-34) pg MCHC (32-36) g/dL RDW Std Deviation (36.4-46.3) fL RDW Coeff of Darrius (11.5-14.5) % Plt Count (130-400) K/uL MPV (7.4-10.4) fL Immature Gran % (Auto) % Neut % (Auto) % Lymph % (Auto) % Carter % (Auto) % Eos % (Auto) % Baso % (Auto) % Neut # (Auto) (1.4-6.5) K/uL Lymph # (Auto) (1.2-3.4) K/uL Carter # (Auto) (0.11-0.59) K/uL Eos # (Auto) (0-0.5) K/uL Baso # (Auto) (0-0.2) K/uL Immature Gran # (Auto) (0.00-0.02) K/uL PT (9.0-12.0) Seconds INR (0.9-1.1) APTT (21.0-31.0) Seconds PTT Ratio Sodium 144 (136-145) mmol/L Potassium 4.3 (3.5-5.1) mmol/L Chloride 114 H (98-107) mmol/L Carbon Dioxide 23 (21-32) mmol/L Anion Gap 7.0 (3-11) BUN 56 H (7-18) mg/dl Creatinine 1.21 (0.6-1.4) mg/dl Est Cr Clr Drug Dosing 73.0 ml/min Est GFR ( Amer) 70.4 Est GFR (Non-Af Amer) 60.7 BUN/Creatinine Ratio 46.4 H (10-20) Glucose 136 H (70-99) mg/dl Calcium 8.0 L (8.5-10.1) mg/dl Total Bilirubin 0.5 (0.2-1) mg/dl AST 12 L (15-37) U/L ALT 19 (12-78) U/L Alkaline Phosphatase 46 (45-117) U/L Total Protein 6.4 (6.4-8.2) gm/dl Albumin 3.0 L (3.4-5.0) gm/dl Globulin 3.4 (2.5-4.0) gm/dl Albumin/Globulin Ratio 0.9 (0.9-2) Lipase 198 (73-393) U/L Blood Type Antibody Screen Crossmatch Imaging Data Radiologist's Impression: ABDOMEN AND PELVIS CT WITH IV CONTRAST CT DOSE: 1004.90 mGycm HISTORY: Acute epigastric abdominal pain epigastric pain TECHNIQUE: Multiaxial CT images of the abdomen and pelvis were performed follow ing the IV administration of 93 cc of Optiray 320, A dose lowering technique was utilized adhering to the principles of ALARA. COMPARISON STUDY: CT abdomen and pelvis 08/03/2018 FINDINGS: Lung bases are generally clear. There is no pneumatosis or pneumoperitoneum. Cardiomegaly. Coronary artery calcifications. The spleen, pancreas, adrenal glands, gallbladder and liver appear unremarkable. Patency of the hepatic and portal veins. Unremarkable kidneys. Partial distention of the urinary bladder with mild wall thickening. There is a small left lateral urinary bladder diverticulum. Unremarkable prostate. Phleboliths of the pelvis. Mixed plaque of the abdominal aorta without aneurysm. Moderate sized hiatal hernia with partially imaged distal esophageal wall thickening. Colonic diverticulosis without acute diverticulitis. Terminal ileum is unremarkable. The appendix is not diagnostically visualized. No secondary signs of acute appendicitis. Tiny fat filled periumbilical hernia. Transitional lumbosacral anatomy. Grade 1 anterolisthesis L4 on L5 is likely secondary to long-standing facet arthrosis. Degenerative changes of the pelvis, hips and spine. IMPRESSION: 1. No bowel obstruction or bowel wall thickening. 2. Moderate hiatal hernia with distal esophageal wall thickening. Correlate clinically to exclude esophagitis. 3. Colonic diverticulosis without acute diverticulitis. 4. Additional findings as above. ACT 112: Negative or not required by law. The above report was generated using voice recognition software. It may contain grammatical, syntax or spelling errors. Electronically signed by: John Lan M.D. 03/04/2020 2:19 PM ECG Data Attestation: I personally reviewed and interpreted this ECG as follows: Indication: abdominal pain Rate (beats per minute): 102 Rhythm: atrial fibrillation Findings: + PVC; no T-wave inversion, no ST elevation and no acute ischemic change Comparison ECG Date: from (04/23/2019) Change: the following changes noted (Atrial fibrillation has replaced sinus bradycardia) Blood Pressure Blood Pressure Findings: Normal blood pressure MDM Narrative This 69-year-old male patient presents to the emergency department today for evaluation of abdominal pain and melena. The patient developed melanotic stool this morning. He has had some epigastric abdominal pain for approximately 1 week. He is afebrile. Hemoccult is positive with rectal exam. Patient's hemoglobin is 11.2. INR is elevated at 4.4. Patient is chronically anticoagulated for atrial fibrillation and does have history of CVA. He was given 5 mg vitamin K IV. CT imaging shows a moderate hiatal hernia with distal esophageal wall thickening, but no bowel obstruction or bowel wall thickening or evidence of acute diverticulitis. Patient will be admitted to the [facility] hospitalist service for ongoing management of his GI bleed. Please see hospitalist dictation. The chart was completed utilizing [employer] Speech voice recognition software. Grammatical errors, random word insertions, pronoun errors, and incomplete sentences are an occasional consequence of this system due to software limitations, ambient noise, and hardware issues. Any formal questions or concerns about the content, text, or information contained within the body of this dictation should be directly addressed to the provider for clarification. Impression & Plan Melena, Atrial fibrillation, Acute GI bleeding, Chronic anticoagulation Discharge Plan Visit Data Chief Complaint: GI Assessment Stated Complaint: BLEEDING ULCER ED Provider: Felicia Castle ED Midlevel Provider: Leta Gillis Discharge Problem: Melena, Atrial fibrillation, Acute GI bleeding, Chronic anticoagulation Patient Disposition: Admitted As Inpatient Forms Stand Alone Forms: [facility] Prescriptions Prescriptions: No Action atorvastatin [Lipitor] 80 mg Tablet 80 mg PO DAILY@1900 Qty: 0 RF: 0 aspirin 81 mg Tablet,Delayed Release (Dr/Ec) 81 mg PO DAILY@0700 RF: 0 nitroglycerin [Nitrostat] 0.4 mg Tablet, Sublingual 0.4 mg sublingual UD PRN (Reason: Angina) RF: 0 warfarin 2.5 mg tablet 2.5 mg PO HUANG@1900 RF: 0 zonisamide 100 mg capsule 200 mg PO DAILY@0700 RF: 0 lisinopril 10 mg tablet 10 mg PO DAILY@0700 RF: 0 warfarin 5 mg tablet 5 mg PO SUMOTUWETHFR@1900 RF: 0 levetiracetam 750 mg tablet 1,500 mg PO Q12 RF: 0 metformin 500 mg tablet extended release 24 hr 500 mg PO DAILY@0700 RF: 0 cholecalciferol (vitamin D3) [Vitamin D3] 25 mcg (1,000 unit) Capsule 25 mcg PO DAILY@0700 RF: 0 metoprolol tartrate 25 mg tablet 12.5 mg PO Q12 RF: 0 lutein 20 mg Capsule 20 mg PO DAILY@1900 RF: 0 Referrals Referrals: Jeremie Jain MD [Primary Care Provider] - Discharge Problem: Atrial fibrillation Qualifiers: Atrial fibrillation type: unspecified Qualified Code(s): I48.91 - Unspecified atrial fibrillation
[2020-03-04] MEDS ORDERED: IOVERSOL 100ml IV ONE (12:30)
[2020-03-04 12:35] LABS: Basophils # (auto) 0.02 K/uL (0-0.2); Basophils % (auto) 0.2 %; Eosinophils # (auto) 0.09 K/uL (0-0.5); Eosinophils % (auto) 0.9 %; Hemoglobin 11.2 g/dL (14.0-18.0); Immature Granulocytes # (auto) 0.04 K/uL (0.00-0.02); Immature Granulocytes % (auto) 0.4 %; Lymphocytes # (auto) 2.18 K/uL (1.2-3.4); Lymphocytes % (auto) 22.5 %; Mean Corpuscular Hemoglobin 30.4 pg (25-34); Mean Corpuscular Hgb Conc 32.9 g/dL (32-36); Mean Corpuscular Volume 92.4 fL (80-100); Mean Platelet Volume 9.8 fL (7.4-10.4); Monocytes # (auto) 0.55 K/uL (0.11-0.59); Monocytes % (auto) 5.7 %; Neutrophils # (auto) 6.83 K/uL (1.4-6.5); Neutrophils % (auto) 70.3 %; Platelet Count 249 K/uL (130-400); Red Blood Count 3.68 M/uL (4.7-6.1); White Blood Count 9.71 K/uL (4.8-10.8)
[2020-03-04 12:55] LABS: BUN Creatinine Ratio 46.4 (10-20); Est GFR (African American) 70.4; Est GFR (Non-African American) 60.7; INR 4.4 (0.9-1.1); Partial Thromboplastin Ratio 1.3; Partial Thromboplastin Time 37.6 Seconds (21.0-31.0); Potassium 4.3 mmol/L (3.5-5.1); Prothrombin Time 43.2 Seconds (9.0-12.0)
[2020-03-04 12:58] LABS: Albumin Globulin Ratio 0.9 (0.9-2); Bilirubin,Total 0.5 mg/dl (0.2-1); Globulin 3.4 gm/dl (2.5-4.0); Total Protein 6.4 gm/dl (6.4-8.2)
--- NOTE | 2020-03-04 13:03 | Electrocardiogram Report ---
Test Reason : Blood Pressure : / mmHG Vent. Rate : 102 BPM Atrial Rate : 234 BPM P-R Int : 000 ms QRS Dur : 074 ms QT Int : 302 ms P-R-T Axes : 000 035 -01 degrees QTc Int : 393 ms Atrial fibrillation with rapid ventricular response with premature ventricular or aberrantly conducte d complexes Diffuse Minor Nonspecific T wave abnormality Abnormal ECG When compared with ECG of 23-APR-2019 06:38, Atrial fibrillation has replaced Sinus rhythm Vent. rate has increased BY 46 BPM Confirmed by Tucker Lazcano ([id number]) on 03/04/2020 1:02:10 PM Referred By: REFERRED SELF Confirmed By:Tucker Lazcano
[2020-03-04] MEDS ORDERED: PHYTONADIONE 5 MG in SODIUM CHLORIDE 0.9% 50 ML IV ONE (13:13)
[2020-03-04] MEDS ORDERED: SODIUM CHLORIDE 0.9% 250 ML IV PRN ×2 (13:13→21:02)
[2020-03-04] MEDS ORDERED: PANTOprazole 40 MG in DEXTROSE 5% 100 ML IV ONE (13:15)
--- NOTE | 2020-03-04 14:21 | CT Scan Report ---
ABDOMEN AND PELVIS CT WITH IV CONTRAST CT DOSE: 1004.90 mGycm HISTORY: Acute epigastric abdominal pain epigastric pain TECHNIQUE: Multiaxial CT images of the abdomen and pelvis were performed following the IV administrat ion of 93 cc of Optiray 320, A dose lowering technique was utilized adhering to the principles of [place] LENA. COMPARISON STUDY: CT abdomen and pelvis 08/03/2018 FINDINGS: Lung bases are generally clear. There is no pneumatosis or pneumoperitoneum. Cardiomegaly. Coronary artery calcifications. The spleen, pancreas, adrenal glands, gallbladder and liver appear un remarkable. Patency of the hepatic and portal veins. Unremarkable kidneys. Partial distention of the urinary bladder with mild wall thickening. There is a small left lateral urinary bladder diverticulum . Unremarkable prostate. Phleboliths of the pelvis. Mixed plaque of the abdominal aorta without aneur ysm. Moderate sized hiatal hernia with partially imaged distal esophageal wall thickening. Colonic diverti culosis without acute diverticulitis. Terminal ileum is unremarkable. The appendix is not diagnostica lly visualized. No secondary signs of acute appendicitis. Tiny fat filled periumbilical hernia. Trans itional lumbosacral anatomy. Grade 1 anterolisthesis L4 on L5 is likely secondary to long-standing fa cet arthrosis. Degenerative changes of the pelvis, hips and spine. IMPRESSION: 1. No bowel obstruction or bowel wall thickening. 2. Moderate hiatal hernia with distal esophageal wall thickening. Correlate clinically to exclude eso phagitis. 3. Colonic diverticulosis without acute diverticulitis. 4. Additional findings as above. ACT 112: Negative or not required by law. The above report was generated using voice recognition software. It may contain grammatical, syntax o r spelling errors. Electronically signed by: John Lan M.D. 03/04/2020 2:19 PM
[2020-03-04] MEDS: PANTOprazole 40 MG in DEXTROSE 5% 100 ML IV SCH ×3 (14:38→23:43)
[2020-03-04] MEDS ORDERED: ONDANSETRON INJ 2 MG/ML 2 ML VIAL IV PRN (15:04)
--- NOTE | 2020-03-04 15:27 | History & Physical Report ---
Date of Service March 04, 2020 Assessment & Plan (1) Acute upper GI bleed: Has been complaining of abdominal pain for the last 1 week Melena for the last 2 days without any NSAID use but has been on aspirin 81 mg daily and Coumadin History of duodenal ulcer about 1-1/2-year ago Hemoglobin 11.2 on admission and it was 13.7 in April 2019 Has been started on intravenous Protonix drip Received vitamin K to reverse INR which was 4.4 as of today Monitor H&H every 6 hourly, type and hold 2 units GI consult N.p.o. after midnight for possible EGD tomorrow morning (2) Duodenal ulcer: History of duodenal ulcer with EGD about 1-1/2-year ago with cauterization Likely has recurrent GI bleed likely secondary to use of aspirin and is complicated by use of Coumadin GI consult and possible endoscopy (3) Atrial fibrillation: Rate seems to be reasonably controlled Tachycardia of 101 likely secondary to a stress Continue current medications except Coumadin (4) Hypertension: Pressure seems to be at the lower side with systolic 105 Continue current medications (5) Coronary artery disease: History of coronary stent and atrial fibrillation No acute cardiac symptoms (6) Diabetes mellitus, type II: Will hold metformin Sliding scale insulin coverage DVT prophylaxis SCDs CODE STATUS Full History of Present Illness Chief Complaint: Abdominal pain for 1 week with black tarry stool for the last 2 days Primary Care Provider: Jeremie Jain MD He is a 69-year-old obese male with significant past medical history of atrial fibrillation on Coumadin, type 2 diabetes, history of duodenal ulcer bleed , CAD, hypertension, history of stroke and hyperlipidemia apparently has been complaining of abdominal discomfort mainly in the lower quadrants for the last 7 days. He has been complaining of black tarry stool for the last 2 days without any diarrhea. Abdominal discomfort and pain has been increasing and sometimes the pain goes to the back but does not have any nausea and/or vomiting. He has not used any NSAID's and as an outpatient but has been on aspirin 81 mg daily along with Coumadin. Denies any fever and/or chills, any chest pain and/or palpitation, any headache, blurred vision, numbness or tingling involving any of the extremities. He was started on intravenous Protonix, received vitamin K for increased INR and was admitted to telemetry unit for continuation of care. Allergies Allergy/AdvReac Type Severity Reaction Status Date / Time rosuvastatin [From Crestor] AdvReac Severe Gastrointestinal Unverified 03/04/20 13:53 Upset ~ diarrhea Home Medications Home Medications Medication Instructions Recorded Confirmed Type atorvastatin [Lipitor] 80 mg PO DAILY@1900 #0 tab 10/24/14 03/04/20 History aspirin 81 mg PO DAILY@0700 11/09/18 03/04/20 History nitroglycerin [Nitrostat] 0.4 mg SUBLINGUAL UD PRN 11/09/18 03/04/20 History cholecalciferol (vitamin D3) 25 mcg PO DAILY@0700 03/04/20 03/04/20 History [Vitamin D3] levetiracetam 1,500 mg PO Q12 03/04/20 03/04/20 History lisinopril 10 mg PO DAILY@0700 03/04/20 03/04/20 History lutein 20 mg PO DAILY@1900 03/04/20 03/04/20 History metformin 500 mg PO DAILY@0700 03/04/20 03/04/20 History metoprolol tartrate 12.5 mg PO Q12 03/04/20 03/04/20 History warfarin 2.5 mg PO HUANG@0 03/04/20 03/04/20 History warfarin 5 mg PO SUMOTUWETHFR@1900 03/04/20 03/04/20 History zonisamide 200 mg PO DAILY@0700 03/04/20 03/04/20 History Past Med/Surg History Medical History (Updated 03/04/20 @ 15:06 by Leta Gillis PA-C) Atrial fibrillation on warfarin Chronic back pain Coronary artery disease Diabetes mellitus, type 2 Diabetes mellitus, type II GERD (gastroesophageal reflux disease) Heart disease Hiatal hernia History of colon polyps History of duodenal ulcer History of GI bleed bleeding ulcer HLD (hyperlipidemia) Hyperlipidemia associated with type 2 diabetes mellitus Hypertension Kidney stone Myocardial Infarction 2002 Obesity On anticoagulant therapy warfarin daily Osteoarthritis Prolonged Q-T interval on ECG Schatzki's ring Sleep apnea cpap Surgical History History of cardiac cath 2002 @ [facility] [place] History of colonoscopy History of esophagogastroduodenoscopy (EGD) History of heart artery stent 2002--3 stents placed History of tooth extraction Family History Father , in 80s Unknown family medical history Mother , in 80s Lymphoma Grandmother (Maternal) Family history of diabetes mellitus Other No family history of adverse response to anesthesia Social History Smoking Status: Never smoker Second Hand Exposure: No; Hx Alcohol Use: No Hx Substance Use: No Preferred Language: Thai Communication Ability: Effective Visual Impairment: No Limitations Figure Skater Required: No Beliefs That Will Affect Care: None marital status: marri Current Living Situation: Family Current Living Situation Comment: lives with daughter and son Other Information That Helps Us Care for You: No Feels Safe at Home: Yes Safety Concerns: Feels Safe At This Time Assistive Devices: None Review of Systems Review of Systems: All systems reviewed & are unremarkable except as noted in HPI & below Physical Exam Physical Exam: Lying in bed comfortably Constitutional: well developed, well nourished, + acute distress (Minimal abdominal discomfort) and + obese; not ill appearing Eyes: PERRL, conjunctivae normal, anicteric sclerae ENMT: external ear and nose normal, oropharynx normal Neck: trachea midline, no thyromegaly Respiratory: no respiratory distress Auscultation: lungs clear to auscultation bilaterally Cardiovascular: Rate/Rhythm: + irregularly irregular Heart Sounds: no murmur Gastrointestinal (Abdomen): Inspection/Auscultation: normal bowel sounds; abdomen not distended Percussion/Palpation: + abdomen tender (Lower quadrants and epigastrium) and abdomen soft Musculoskeletal: No acute arthritis in any joint Neurologic: Alert, awake and oriented x3. No focal sensory and motor deficit appreciated Psychiatric: A+Ox3, euthymic affect Lymphatic: no cervical or axillary lymphadenopathy Results & Data Results & Data ([facility]) Vital Signs (Past 12 Hours) Vital Signs Temp Pulse Resp BP Pulse Ox 03/04/20 14:38 101 H 16 105/56 L 96 03/04/20 14:30 98 H 19 91/64 L 97 03/04/20 14:09 97 H 20 108/69 100 03/04/20 13:30 88 23 117/70 96 03/04/20 13:21 98 H 23 125/72 97 03/04/20 13:00 93 H 21 96/75 L 96 03/04/20 12:30 111 H 20 130/63 96 03/04/20 11:47 36.8 C 108 H 20 107/73 98 Laboratory Results Short CBC 03/04/20 Range/Units 12:25 WBC 9.71 (4.8-10.8) K/uL Hgb 11.2 L (14.0-18.0) g/dL Hct 34.0 L (42-52) % Plt Count 249 (130-400) K/uL BMP 03/04/20 12:25 Sodium 144 Potassium 4.3 Chloride 114 H Carbon Dioxide 23 BUN 56 H Creatinine 1.21 Glucose 136 H Calcium 8.0 L Liver Function 03/04/20 Range/Units 12:25 Total Bilirubin 0.5 (0.2-1) mg/dl AST 12 L (15-37) U/L ALT 19 (12-78) U/L Alkaline Phosphatase 46 (45-117) U/L Albumin 3.0 L (3.4-5.0) gm/dl Medications Administered Current Inpatient Medications Pantoprazole Sodium 40 mg/ (Dextrose) 100 mls @ 20 mls/hr IV Q5H CARLA Stop: 04/03/20 13:29 Last Admin: 03/04/20 14:38 Dose: 8 mg/hr, 20 mls/hr Documented by: Sodium Chloride (Nss) 250 mls @ 15 mls/hr IV .[id number] PRN PRN Reason: For Transfusion Stop: 03/04/20 23:13 Sodium Chloride (Nss 1000ml) 1,000 mls @ 80 mls/hr IV .[id number] CARLA Stop: 03/06/20 04:44 Ondansetron HCl (Ondansetron Inj 2 Mg/Ml 2 Ml Vial) 4 mg IV Q6H PRN PRN Reason: Nausea Stop: 04/03/20 15:03 Code Status & VTE Plan VTE Prophylaxis Plan VTE Prophylaxis will be ordered: Yes (1) Coronary artery disease Associated angina: without angina Coronary Disease-Associated Artery/Lesion type: [place] artery [place] vs. transplanted heart: [place] heart Qualified Code(s): I25.10 - Atherosclerotic heart disease of [place] coronary artery without angina pectoris (2) Atrial fibrillation Atrial fibrillation type: unspecified Qualified Code(s): I48.91 - Unspecified atrial fibrillation (3) Hypertension Hypertension type: essential hypertension Qualified Code(s): I10 - Essential (primary) hypertension
--- NOTE | 2020-03-04 16:06 | XRay Report ---
XR chest 2V PA/lateral HISTORY: 69 years-old Male r/o chf acute shortness of breath COMPARISON: Chest radiograph 04/22/2019 TECHNIQUE: PA and lateral views of the chest FINDINGS: Moderate hiatal hernia. Cardiomediastinal and hilar silhouettes are unchanged. Mild linear subsegment al bibasilar atelectasis. Hyperinflation. No pneumothorax, pleural effusion, overt pulmonary edema or airspace elevation typical for pneumonia. Bones appear grossly intact. IMPRESSION: 1. No acute process. 2. Moderate hiatal hernia. ACT 112: Negative or not required by law. The above report was generated using voice recognition software. It may contain grammatical, syntax o r spelling errors. Electronically signed by: John Lan M.D. 03/04/2020 4:05 PM
[2020-03-04] MEDS ORDERED: NITROGLYCERIN SL 0.4 MG/TAB TAB SL PRN (16:15)
[2020-03-04] MEDS: SODIUM CHLORIDE 0.9% 1000ML 1,000 ML IV SCH (16:17)
[2020-03-04] MEDS ORDERED: GLUCOSE 40% GEL 15 GM TUBE PO PRN (16:30)
[2020-03-04] MEDS ORDERED: GLUCOSE 10 TABS/TUBE PO PRN (16:30)
[2020-03-04] MEDS ORDERED: GLUCAGON FOR INJ 1 MG VIAL IM PRN (16:30)
[2020-03-04] MEDS ORDERED: CARBOHYDRATES FOR HYPOGLYCEMIA PO PRN (16:30)
[2020-03-04] MEDS ORDERED: DEXTROSE 50% 50 ML SYRINGE IV PRN (16:30)
[2020-03-04] MEDS: INSULIN ASPART 100 UNITS/ML 3 ML PEN SC SCH ×2 (17:07→21:35)
[2020-03-04 18:57] LABS: Hematocrit (blood only) 29.7 % (42-52); Hemoglobin 9.8 g/dL (14.0-18.0)
[2020-03-04] MEDS ORDERED: NON-FORMULARY MEDICATION (Lutein 20 mg Capsule) PO SCH (19:00)
[2020-03-04] MEDS: levETIRAcetam 500 MG TAB PO SCH (19:32)
[2020-03-04] MEDS: METOPROLOL TARTRATE 25 MG TAB PO SCH (19:32)
[2020-03-05 00:25] LABS: Hematocrit (blood only) 28.1 % (42-52)
[2020-03-05] MEDS: SODIUM CHLORIDE 0.9% 1000ML 1,000 ML IV SCH ×2 (04:17→16:45)
[2020-03-05] MEDS: PANTOprazole 40 MG in DEXTROSE 5% 100 ML IV SCH ×4 (05:24→19:26)
[2020-03-05 06:49] LABS: Basophils # (auto) 0.02 K/uL (0-0.2); Basophils % (auto) 0.3 %; Eosinophils # (auto) 0.18 K/uL (0-0.5); Eosinophils % (auto) 3.1 %; Hematocrit (blood only) 27.4 % (42-52); Hemoglobin 9.1 g/dL (14.0-18.0); Immature Granulocytes # (auto) 0.02 K/uL (0.00-0.02); Immature Granulocytes % (auto) 0.3 %; Lymphocytes # (auto) 1.66 K/uL (1.2-3.4); Lymphocytes % (auto) 28.4 %; Mean Corpuscular Hemoglobin 30.7 pg (25-34); Mean Corpuscular Hgb Conc 33.2 g/dL (32-36); Mean Corpuscular Volume 92.6 fL (80-100); Mean Platelet Volume 9.7 fL (7.4-10.4); Monocytes # (auto) 0.42 K/uL (0.11-0.59); Monocytes % (auto) 7.2 %; Neutrophils # (auto) 3.55 K/uL (1.4-6.5); Neutrophils % (auto) 60.7 %; Platelet Count 209 K/uL (130-400); RDW Coefficient of Variation 14.2 % (11.5-14.5); RDW Standard Deviation 47.5 fL (36.4-46.3); Red Blood Count 2.96 M/uL (4.7-6.1); White Blood Count 5.85 K/uL (4.8-10.8)
[2020-03-05 07:00] LABS: INR 1.6 (0.9-1.1); Prothrombin Time 16.5 Seconds (9.0-12.0)
[2020-03-05 07:29] LABS: BUN Creatinine Ratio 36.3 (10-20); Calcium 7.6 mg/dl (8.5-10.1); Creatinine Clr Calc Pharmacy 86.2 ml/min; Est GFR (African American) 86.5; Est GFR (Non-African American) 74.6; Magnesium 2.1 mg/dl (1.8-2.4); Potassium 4.1 mmol/L (3.5-5.1)
[2020-03-05] MEDS: INSULIN ASPART 100 UNITS/ML 3 ML PEN SC SCH ×4 (07:59→21:54)
[2020-03-05] MEDS: METOPROLOL TARTRATE 25 MG TAB PO SCH ×2 (08:05→19:25)
[2020-03-05] MEDS: levETIRAcetam 500 MG TAB PO SCH ×2 (08:05→19:25)
[2020-03-05] MEDS: CHOLECALCIFEROL 1,000 UNITS 25 MCG TAB PO SCH (08:06)
[2020-03-05] MEDS: lisinopril 10 MG TAB PO SCH (08:06)
[2020-03-05] MEDS ORDERED: ZONISAMIDE 100MG PO SCH (09:00)
[2020-03-05] MEDS: ZONISAMIDE 100MG PO SCH (10:39)
[2020-03-05 12:40] LABS: Hematocrit (blood only) 27.3 % (42-52); Hemoglobin 8.9 g/dL (14.0-18.0)
--- NOTE | 2020-03-05 14:22 | Gastrointestinal Consultation ---
Date of Consultation March 05, 2020 Assessment & Plan (1) Acute GI bleeding: Likely due to Pradeep lesion or esophagitis in the setting of supratherapeutic INR. Would expect to resolve with holding anti-coagulation - until no further evidence of active GI bleeding. Agree with Protonix, though can be BID, does not have to be by IV drip. Should be KS'ed on pantoprazole 20mg BID x 2 months then daily. May have full liquid diet today. Will make NPO after midnight so that endoscopy could be completed tomorrow if there is evidence of hemodynamically significant gross GI bleeding overnight. Present on Admission?: Yes Supervising Physician Co-Signing Physician Notes I have personally seen and examined the patient with CHARU Covington on 03/05/2020. Her note reflects my exam and findings. I agree with her impression and plan. Patient was not taking and PPI. Has Hx of hiatal hernia and was over anticoagulated. EGD would not add to his care at this point. Had lengthy discussion with patient and at bedside about no indication for EGD at this point. Previous EGD in 2019. Can readdress if clinical situation changes. Ba Shelby M.D. History of Present Illness Reason for Consultation: UGI bleed,H/O DU on coumadin Requesting Physician: Dr. Colon Attending Physician: Sim Huerta MD History of Present Illness Mr. Connor Johnson is a 69-year-old male patient with history of cardioembolic stroke, A. fib on chronic anticoagulation,(also on aspirin), DM 2. He has not been maintained on a PPI. He presented to the ED yesterday for melena which occurred yesterday. He also tells us that he has had periumbilical and epigastric abdominal discomfort for approximately 1 week prior. On arrival, he was supratherapeutic with an INR of 4.4. Hemoglobin on arrival yesterday was 11.2 (prior in April 2019 was 13) today hemoglobin is 8.9. BUN was 56 on arrival and today is 37. CT on arrival with suggestion of distal esop hagitis. Coumadin has been held and reversed with vitamin K. INR today 1.6. He has not had any further bowel movement since arrival. He is on a Protonix drip. He carries a history of a oozing duodenal ulcer found on EGD in August 2018 (treated with injection of epinephrine and cauterized) also occurring while anticoagulated. Allergies Allergy/AdvReac Type Severity Reaction Status Date / Time rosuvastatin [From Crestor] AdvReac Severe Gastrointestinal Unverified 03/04/20 13:53 Upset ~ diarrhea Home Medications Home Medications Medication Instructions Recorded Confirmed Type atorvastatin [Lipitor] 80 mg PO DAILY@1900 #0 tab 10/24/14 03/04/20 History aspirin 81 mg PO DAILY@0700 11/09/18 03/04/20 History nitroglycerin [Nitrostat] 0.4 mg SUBLINGUAL UD PRN 11/09/18 03/04/20 History cholecalciferol (vitamin D3) 25 mcg PO DAILY@0700 03/04/20 03/04/20 History [Vitamin D3] levetiracetam 1,500 mg PO Q12 03/04/20 03/04/20 History lisinopril 10 mg PO DAILY@0700 03/04/20 03/04/20 History lutein 20 mg PO DAILY@1900 03/04/20 03/04/20 History metformin 500 mg PO DAILY@0700 03/04/20 03/04/20 History metoprolol tartrate 12.5 mg PO Q12 03/04/20 03/04/20 History warfarin 2.5 mg PO HUANG@1900 03/04/20 03/04/20 History warfarin 5 mg PO SUMOTUWETHFR@1900 03/04/20 03/04/20 History zonisamide 200 mg PO DAILY@0700 03/04/20 03/04/20 History Patient History Medical History (Updated 03/06/20 @ 01:53 by Sim Huerta MD) Atrial fibrillation on warfarin Cerebrovascular disease Chronic back pain Coronary artery disease Diabetes mellitus, type 2 Diabetes mellitus, type II GERD (gastroesophageal reflux disease) Heart disease Hiatal hernia History of colon polyps History of duodenal ulcer History of GI bleed bleeding ulcer HLD (hyperlipidemia) Hyperlipidemia associated with type 2 diabetes mellitus Hypertension Kidney stone Myocardial Infarction 2002 Obesity On anticoagulant therapy warfarin daily Osteoarthritis Prolonged Q-T interval on ECG Schatzki's ring Seizure disorder Sleep apnea cpap Surgical History History of cardiac cath 2002 @ [facility] [place] History of colonoscopy History of esophagogastroduodenoscopy (EGD) History of heart artery stent 2002--3 stents placed History of tooth extraction Family History Father , in 80s Unknown family medical history Mother , in 80s Lymphoma Grandmother (Maternal) Family history of diabetes mellitus Other No family history of adverse response to anesthesia Social History Smoking Status: Never smoker Second Hand Exposure: No; Hx Alcohol Use: No Hx Substance Use: No Preferred Language: Tajik Communication Ability: Effective Visual Impairment: No Limitations Building Attendant Required: No Beliefs That Will Affect Care: None marital status: marri Current Living Situation: Family Current Living Situation Comment: lives with daughter and son Other Information That Helps Us Care for You: No Feels Safe at Home: Yes Safety Concerns: Feels Safe At This Time Assistive Devices: None Review of Systems Review of Systems: ROS: Gen: Denies weakness, fevers, weight loss Eyes: No eye redness, or pain, no recent vision changes Resp: No SOB, no cough Cardio: No palpitations/irregular beats, no chest pain GI: As per HPI, otherwise negative : Denies pain on urination Skin: No jaundice, itching or new rashes Physical Exam Constitutional: WD/WN, vitals as above Eyes: PERRL, conjunctivae normal, anicteric sclerae ENMT: external ear and nose normal, oropharynx normal Neck: trachea midline, no thyromegaly Respiratory: normal respiratory effort, lungs clear to auscultation Cardiovascular: RRR, no murmur, no edema Gastrointestinal (Abdomen): Percussion/Palpation: + abdomen tender (periumbilical area) and abdomen soft; no guarding and no hepatosplenomegaly Skin: no rashes, warm and dry Neurologic: PERRL, EOMI, accommodation nl, no face palsy, no dysarthria Psychiatric: A+Ox3, euthymic affect Results & Data ([facility]) Vital Signs (Past 12 Hours) Vital Signs Temp Pulse Pulse Resp BP Pulse Ox 03/05/20 12:46 82 128/78 03/05/20 12:45 84 114/78 03/05/20 11:40 36.5 C 72 18 132/88 98 03/05/20 11:15 36.7 C 80 20 101/65 99 03/05/20 07:45 36.5 C 84 81 20 115/85 100 03/05/20 03:55 36.4 C L 90 16 125/77 99 Laboratory Results WBC 5.8, Hb 9.1, HCT two 7.4, Plts 207, INR 1.6, NA 143, K4.1, BUN 37, CR 1.[address] abd/pelvis on 03/04/20: 1. No bowel obstruction or bowel wall thickening. 2. Moderate hiatal hernia with distal esophageal wall thickening. Correlate clinically to exclude esophagitis. 3. Colonic diverticulosis without acute diverticulitis. 4. Additional findings as above.
--- NOTE | 2020-03-05 15:34 | Electrocardiogram Report ---
Test Reason : Blood Pressure : / mmHG Vent. Rate : 071 BPM Atrial Rate : 394 BPM P-R Int : 000 ms QRS Dur : 090 ms QT Int : 442 ms P-R-T Axes : 000 027 003 degrees QTc Int : 480 ms Atrial fibrillation with premature ventricular or aberrantly conducted complexes Abnormal ECG When compared with ECG of 04-MAR-2020 12:44, Nonspecific T wave abnormality no longer evident in Anterolateral leads QT has lengthened Confirmed by Gabriel Burnett ([id number]) on 03/05/2020 3:33:55 PM Referred By: REFERRED SELF Confirmed By:Joo Burnett
--- NOTE | 2020-03-05 22:09 | Hospitalist Progress Note ---
Date of Service March 05, 2020 Assessment & Plan (1) Acute GI bleeding: Presented with melena. History of duodenal ulcers 2001 and 2018. Takes aspirin 81 mg daily for ischemic heart disease (s/p PCI with stents). No other risk factors for peptic ulcer disease. On warfarin with INR of 4.4 at time of admission. Received vitamin K. Started on pantoprazole infusion. Hgb 11.2 >> 9.1. Systolic BP low at times, but not orthostatic at time of my assessment late this morning. GI consulted. No need for emergent EGD. Continue PPI. Hold ASA and warfarin (resume both REX due to history of CAD, AF, stroke). Monitor H/H. (2) Anemia: Hgb 11.2 >> 9.1. Acute blood loss anemia secondary to GI bleed. No indication for transfusion at this time per guidelines. Transfusion guidelines discussed with patient; he indicates that he would like to avoid transfusion if possible. (3) Coronary artery disease: CAD, s/p PCI with stents in 2002. Hold ASA due to acute GI bleed. Discussed with Cardiology. Resume aspirin REX, ideally within 5-7 days. (4) Atrial fibrillation: Chronic AF with rate controlled on metoprolol. Holding warfarin due to acute GI bleed- resume REX. (5) Hypertension: Continue metoprolol and lisinopril with hold parameters. (6) Diabetes mellitus, type II: Hold metformin during hospital stay. FBS today = 104. Insulin coverage as needed. (7) Cerebrovascular disease: History of embolic strokes secondary to AF. Resume warfarin as soon as possible. (8) Seizure disorder: Continue levetiracetam and zonisamide. (9) DVT prophylaxis: Usually on warfarin therapy for AF. Warfarin held due to GI bleed. SCD's. Ambulate. (10) Discharge planning issues: Anticipated discharge to home. Family Medicine follow-up with Dr. Jain. Cardiology follow-up with Dr. Everett. Admission and Anticipated Discharge Date Admission Date: March 05, 2020 Subjective Recheck for GI bleed and other problems. Patient seen in their room around 1140. His was visiting at bedside and daughter offered assistance via phone. Last episode of melena was last evening. No abdominal pain, nausea, vomiting. Feels weak and lightheaded. Hungry and would like to eat. Seen by GI earlier today. They recommend empiric treatment with PPI and not proceeding with EGD today unless there is an urgent need. Review of Systems: Constitutional- no fever. Cardiac- no chest pain. Pulmonary- no cough or SOB. GI- as noted above. - no urinary symptoms. Otherwise, as noted above. Physical Exam Constitutional: no acute distress Eyes: + anicteric sclerae Respiratory: no respiratory distress Auscultation: lungs clear to auscultation bilaterally Cardiovascular: Rate/Rhythm: + irregularly irregular Heart Sounds: no gallop, no murmur and no cardiac rub Vessels: no JVD Extremities: no calf tenderness and no edema Gastrointestinal (Abdomen): normal bowel sounds, soft, nontender, no hepatosplenomegaly Musculoskeletal: Extremities: no cyanosis Skin: no rashes, warm and dry Psychiatric: Orientation: alert and oriented x 3 Results & Data Results & Data ([facility]) Vital Signs (Past 12 Hours) Vital Signs Temp Pulse Pulse Resp BP Pulse Ox 03/05/20 19:38 36.4 C L 74 16 100/66 98 03/05/20 15:21 36.4 C L 79 19 112/76 100 03/05/20 14:51 81 03/05/20 12:46 82 128/78 03/05/20 12:45 84 114/78 03/05/20 11:40 36.5 C 72 18 132/88 98 03/05/20 11:15 36.7 C 80 20 101/65 99 Laboratory Results Laboratory Results - last 24 hr 03/05/20 03/05/20 03/05/20 06:07 06:07 06:07 WBC 5.85 RBC 2.96 L Hgb 9.1 L Hct 27.4 L MCV 92.6 MCH 30.7 MCHC 33.2 RDW Std Deviation 47.5 H RDW Coeff of [place]ri[place] 14.2 Plt Count 209 MPV 9.7 Immature Gran % (Auto) 0.3 Neut % (Auto) 60.7 Lymph % (Auto) 28.4 [place] % (Auto) 7.2 Eos % (Auto) 3.1 Baso % (Auto) 0.3 Neut # (Auto) 3.55 Lymph # (Auto) 1.66 [place] # (Auto) 0.42 Eos # (Auto) 0.18 Baso # (Auto) 0.02 Immature Gran # (Auto) 0.02 PT 16.5 H INR 1.6 H Sodium 143 Potassium 4.1 Chloride 115 H Carbon Dioxide 24 Anion Gap 4.0 BUN 37 H Creatinine 1.02 Est Cr Clr Drug Dosing 86.2 Est GFR ( Amer) 86.5 Est GFR (Non-Af Amer) 74.6 BUN/Creatinine Ratio 36.3 H Glucose 114 H POC Glucose Calcium 7.6 L Magnesium 2.1 03/05/20 03/05/20 03/05/20 07:39 10:55 11:38 WBC RBC Hgb Hct MCV MCH MCHC RDW Std Deviation RDW Coeff of Darrius Plt Count MPV Immature Gran % (Auto) Neut % (Auto) Lymph % (Auto) [place] % (Auto) Eos % (Auto) Baso % (Auto) Neut # (Auto) Lymph # (Auto) [place] # (Auto) Eos # (Auto) Baso # (Auto) Immature Gran # (Auto) PT INR Sodium Potassium Chloride Carbon Dioxide Anion Gap BUN Creatinine Est Cr Clr Drug Dosing Est GFR ( Amer) Est GFR (Non-Af Amer) BUN/Creatinine Ratio Glucose POC Glucose 104 H 98 130 H Calcium Magnesium 03/05/20 03/05/20 03/05/20 12:22 16:42 21:39 WBC RBC Hgb 8.9 L Hct 27.3 L MCV MCH MCHC RDW Std Deviation RDW Coeff of Darrius Plt Count MPV Immature Gran % (Auto) Neut % (Auto) Lymph % (Auto) [place] % (Auto) Eos % (Auto) Baso % (Auto) Neut # (Auto) Lymph # (Auto) [place] # (Auto) Eos # (Auto) Baso # (Auto) Immature Gran # (Auto) PT INR Sodium Potassium Chloride Carbon Dioxide Anion Gap BUN Creatinine Est Cr Clr Drug Dosing Est GFR ( Amer) Est GFR (Non-Af Amer) BUN/Creatinine Ratio Glucose POC Glucose 231 H 92 Calcium Magnesium ECG Additional Comments: EKG performed at 1205 reviewed and demonstrated AF at 70 / min, PVC's, no acute changes. (1) Atrial fibrillation Atrial fibrillation type: unspecified Qualified Code(s): I48.91 - Unspecified atrial fibrillation (2) Anemia Anemia type: other cause Other causes of anemia: acute posthemorrhagic Qualified Code(s): D62 - Acute posthemorrhagic anemia (3) Coronary artery disease Coronary Disease-Associated Artery/Lesion type: [place] artery [place] vs. transplanted heart: [place] heart Associated angina: without angina Qualified Code(s): I25.10 - Atherosclerotic heart disease of [place] coronary artery without angina pectoris (4) Hypertension Hypertension type: essential hypertension Qualified Code(s): I10 - Essential (primary) hypertension
[2020-03-06] MEDS: PANTOprazole 40 MG in DEXTROSE 5% 100 ML IV SCH ×3 (00:03→09:29)
[2020-03-06 06:55] LABS: INR 1.3 (0.9-1.1); Prothrombin Time 13.7 Seconds (9.0-12.0)
[2020-03-06 07:00] LABS: Hematocrit (blood only) 26.1 % (42-52); Hemoglobin 8.6 g/dL (14.0-18.0); Mean Corpuscular Hemoglobin 30.8 pg (25-34); Mean Corpuscular Volume 93.5 fL (80-100); Mean Platelet Volume 9.7 fL (7.4-10.4); Platelet Count 214 K/uL (130-400); RDW Coefficient of Variation 14.2 % (11.5-14.5); RDW Standard Deviation 48.4 fL (36.4-46.3); Red Blood Count 2.79 M/uL (4.7-6.1); White Blood Count 6.57 K/uL (4.8-10.8)
[2020-03-06 07:18] LABS: BUN Creatinine Ratio 17.6 (10-20); Creatinine Clr Calc Pharmacy 84.7 ml/min; Est GFR (African American) 84.5; Est GFR (Non-African American) 72.9; Potassium 3.9 mmol/L (3.5-5.1)
[2020-03-06 07:36] LABS: Estimated Average Glucose 117 mg/dl; Hemoglobin A1C 5.7 % (4.5-5.6)
[2020-03-06] MEDS: lisinopril 10 MG TAB PO SCH (08:04)
[2020-03-06] MEDS: METOPROLOL TARTRATE 25 MG TAB PO SCH ×2 (08:04→20:14)
[2020-03-06] MEDS: CHOLECALCIFEROL 1,000 UNITS 25 MCG TAB PO SCH (08:04)
[2020-03-06] MEDS: ZONISAMIDE 100MG PO SCH (08:04)
[2020-03-06] MEDS: INSULIN ASPART 100 UNITS/ML 3 ML PEN SC SCH ×4 (08:07→20:11)
[2020-03-06] MEDS: levETIRAcetam 500 MG TAB PO SCH ×2 (08:51→21:04)
--- NOTE | 2020-03-06 11:48 | Gastroenterology Progress Note ---
Date of Service March 06, 2020 Assessment & Plan (1) Acute GI bleeding: Likely due to Pradeep lesion or esophagitis in the setting of supratherapeutic INR. He does have a hx of duodenal ulcer and that is also considered. Gross GI bleeding seems to be decreasing, Hb fairly stable, no BM since 03/04. Agree with Protonix, though can be BID, does not have to be by IV drip. Should be DC'ed on pantoprazole 20mg BID x 2 months then daily. Restarting Coumadin/ASA per cardiology, but typically OK from a GI standpoint to restart Coumadin when no active bleeding and restart ASA in 7 days. Adv diet to regular consistency. No plans for endoscopy. Admission and Anticipated Discharge Date Admission Date: March 05, 2020 Supervising Physician Co-Signing Physician Notes I have personally seen and examined the patient with CHARU Covington on 03/06/2020. Her note reflects my exam and findings. I agree with her impression and plan. H/H remains stable. No need for EGD at this point. Ba Shelby M.D. Subjective Admitted on 03/04 for melena, anemia. Has had upper abd aching pain varying in intensity, max about 5, this morning about 2-3. Feels "better today." Hb 11.2 on arrival ->8.6 today. No blood transfusions. Coumadin, ASA being held Most recent BM 03/04, diana regan. Review of Systems Review of Systems: ROS: Gen: Denies weakness, fevers, weight loss Eyes: No eye redness, or pain, no recent vision changes Resp: No SOB, no cough Cardio: No palpitations/irregular beats, no chest pain GI: As per HPI, otherwise negative : Denies pain on urination Skin: No jaundice, itching or new rashes Physical Exam Constitutional: WD/WN, vitals as above Eyes: PERRL, conjunctivae normal, anicteric sclerae ENMT: external ear and nose normal, oropharynx normal Neck: trachea midline, no thyromegaly Respiratory: normal respiratory effort, lungs clear to auscultation Cardiovascular: RRR, no murmur, no edema Gastrointestinal (Abdomen): Percussion/Palpation: abdomen soft; abdomen nontender, no guarding and no hepatosplenomegaly Skin: no rashes, warm and dry Neurologic: PERRL, EOMI, accommodation nl, no face palsy, no dysarthria Psychiatric: A+Ox3, euthymic affect Results & Data ([place]) Vital Signs (Past 12 Hours) Vital Signs Temp Pulse Pulse Resp BP Pulse Ox 03/06/20 07:32 36.6 C 73 18 111/71 99 03/06/20 07:21 79 03/06/20 04:13 36.4 C L 105 H 18 96/64 L 96 Laboratory Results WBC 6.5 Hb 8.6, Hct 26, plat 214. INR 1.3, Na 144, K 3.9, BUN 18, Cr [address] 03/04: 1. No bowel obstruction or bowel wall thickening. 2. Moderate hiatal hernia with distal esophageal wall thickening. Correlate clinically to exclude esophagitis. 3. Colonic diverticulosis without acute diverticulitis. 4. Additional findings as above. CXR 03/04: 1. No acute process. 2. Moderate hiatal her
--- NOTE | 2020-03-06 14:36 | Hospitalist Progress Note ---
Date of Service March 06, 2020 Assessment & Plan (1) Acute GI bleeding: Acute GI bleeding Melena Likely due to Pradeep lesion or esophagitis in the setting of supratherapeutic INR H/O Duodenal ulcers 2001 and 2018. Patient is on aspirin and coumadin at home INR received with Vit K Held Aspirin, coumadin Monitor H&H and transfuse PRBCs as needed IV Protonix drip transition to p.o. Protonix 20 mg twice daily No plan for endoscopy as per GI Appreciate GI input Resume aspirin, Coumadin as able Plan to continue Protonix 20 mg twice daily for 2 months and then once daily (2) Anemia: Hgb 11.2 > 9.1>8.6 Acute blood loss anemia secondary to GI bleed. Patient prefers to avoid transfusion if possible Monitor CBC (3) Coronary artery disease: CAD, s/p PCI with stents in 2002. Hold ASA due to acute GI bleed. Prior hospitalist discussed with Cardiology. Plan to resume Aspirin in 7 days. (4) Atrial fibrillation: Chronic atrial fibrillation Continue metoprolol Coumadin on hold for now Resume Coumadin as able (5) Hypertension: Continue metoprolol Lisinopril dose decreased to 5 mg daily due to relatively low blood pressure Monitor BP (6) Diabetes mellitus, type II: Hold metformin Continue Insulin therapy Monitor BGs (7) Cerebrovascular disease: H/O Embolic strokes Resume warfarin, Aspirin as able. (8) Seizure disorder: Continue levetiracetam and zonisamide. (9) DVT prophylaxis: SCD's Re: GI bleed Ambulate. (10) Discharge planning issues: Expect to discharge to home when medically stable Family Medicine follow-up with Dr. Jain. Cardiology follow-up with Dr. Everett. Admission and Anticipated Discharge Date Admission Date: March 05, 2020 Subjective Patient is seen and examined at bedside Denies melena, bright red blood per rectum this morning Reports minimal abdominal discomfort Also denies chest pain, dyspnea, dizziness, nausea, vomiting Family at bedside Offers no other complaints No plan for endoscopy as per GI Review of Systems Review of Systems: All systems reviewed & are unremarkable except as noted in HPI & below Physical Exam Physical Exam: Physical Exam: Vitals signs as noted above General Appearance:Obese, no apparent distress Head: normocephalic, Atraumatic Eyes: normal inspection, EOMI Neck: supple, Trachea midline Respiratory/Chest: Normal breath sounds, CTA Cardiovascular: Irregularly irregular, No murmur Abdomen/GI:Soft, Non tender, Bowel sounds present Extremities/Musculoskelatal:normal inspection, no edema Neurologic/Psych:AAOX3, grossly no focal neurological deficits Skin: normal color, warm Results & Data Results & Data ([facility]) Vital Signs (Past 12 Hours) Vital Signs Temp Pulse Pulse Resp BP Pulse Ox 03/06/20 11:43 36.9 C 77 18 92/60 L 99 03/06/20 07:32 36.6 C 73 18 111/71 99 03/06/20 07:21 79 03/06/20 04:13 36.4 C L 105 H 18 96/64 L 96 Laboratory Results Short CBC 03/06/20 Range/Units 06:36 WBC 6.57 (4.8-10.8) K/uL Hgb 8.6 L (14.0-18.0) g/dL Hct 26.1 L (42-52) % Plt Count 214 (130-400) K/uL BMP 03/06/20 06:36 Sodium 144 Potassium 3.9 Chloride 116 H Carbon Dioxide 25 BUN 18 D Creatinine 1.04 Glucose 102 H Calcium 8.0 L (1) Anemia Anemia type: other cause Other causes of anemia: acute posthemorrhagic Qualified Code(s): D62 - Acute posthemorrhagic anemia (2) Coronary artery disease Coronary Disease-Associated Artery/Lesion type: [place] artery [place] vs. transplanted heart: [place] heart Associated angina: without angina Qualified Code(s): I25.10 - Atherosclerotic heart disease of [place] coronary artery without angina pectoris (3) Atrial fibrillation Atrial fibrillation type: unspecified Qualified Code(s): I48.91 - Unspecified atrial fibrillation (4) Hypertension Hypertension type: essential hypertension Qualified Code(s): I10 - Essential (primary) hypertension
[2020-03-06] MEDS ORDERED: ATORVASTATIN 40 MG TAB PO SCH (19:00)
[2020-03-06] MEDS: PANTOprazole 40 MG TAB PO SCH (20:12)
[2020-03-06 20:20] LABS: Hematocrit (blood only) 27.4 % (42-52); Hemoglobin 9.1 g/dL (14.0-18.0)
[2020-03-07] MEDS: CHOLECALCIFEROL 1,000 UNITS 25 MCG TAB PO SCH (06:36)
[2020-03-07] MEDS: METOPROLOL TARTRATE 25 MG TAB PO SCH (06:36)
[2020-03-07] MEDS: levETIRAcetam 500 MG TAB PO SCH (06:36)
[2020-03-07 06:54] LABS: Hematocrit (blood only) 28.2 % (42-52); Hemoglobin 9.1 g/dL (14.0-18.0)
[2020-03-07] MEDS ORDERED: lisinopril 5 MG TAB PO SCH (07:00)
[2020-03-07 07:01] LABS: INR 1.4 (0.9-1.1); Prothrombin Time 14.2 Seconds (9.0-12.0)
[2020-03-07] MEDS: PANTOprazole 40 MG TAB PO SCH (08:26)
[2020-03-07] MEDS: ZONISAMIDE 100MG PO SCH (08:27)
[2020-03-07] MEDS: INSULIN ASPART 100 UNITS/ML 3 ML PEN SC SCH ×2 (08:36→12:21)
--- NOTE | 2020-03-07 13:58 | Hospitalist Progress Note ---
Date of Service March 07, 2020 Assessment & Plan (1) Acute GI bleeding: Acute GI bleeding Melena Likely due to Pradeep lesion or esophagitis in the setting of supratherapeutic INR H/O Duodenal ulcers 2001 and 2018. Patient is on aspirin and coumadin at home INR received with Vit K Held Aspirin, coumadin during hospital stay Monitor H&H and transfuse PRBCs as needed IV Protonix drip transition to p.o. Protonix 20 mg twice daily No plan for endoscopy as per GI Appreciate GI input Resume aspirin, Coumadin as able Continue Protonix 20 mg twice daily for 2 months and then once daily Plan to resume coumadin on 03/09/20 if no recurrence of bleeding Plan to resume Aspirin on 03/12/20 if no recurrence of bleeding (2) Anemia: Hgb 11.2 > 9.1>8.6>9.1 Acute blood loss anemia secondary to GI bleed. Patient prefers to avoid transfusion if possible Monitor CBC Plan to repeat CBC as outpatient (3) Coronary artery disease: CAD, s/p PCI with stents in 2002. Hold ASA due to acute GI bleed. Prior hospitalist discussed with Cardiology. Plan to resume Aspirin in 7 days. (4) Atrial fibrillation: Chronic atrial fibrillation Continue metoprolol Coumadin on hold for now Resume Coumadin as above (5) Hypertension: Continue metoprolol Lisinopril dose decreased to 5 mg daily due to relatively low blood pressure Monitor BP (6) Diabetes mellitus, type II: Hold metformin Continue Insulin therapy Monitor BGs (7) Cerebrovascular disease: H/O Embolic strokes Resume warfarin, Aspirin as able. (8) Seizure disorder: Continue levetiracetam and zonisamide. (9) DVT prophylaxis: SCD's Re: GI bleed Ambulate. (10) Discharge planning issues: Family Medicine follow-up with Dr. Jain. Cardiology follow-up with Dr. Everett. Admission and Anticipated Discharge Date Admission Date: March 05, 2020 Subjective Patient is seen and examined at bedside States feeling much better today No recurrence of blood in stools No new complaints Hb stable Discussed with GI today Patient's daughter at bedside Denies chest pain, abd pain, dyspnea, dizziness, nausea, vomiting Review of Systems Review of Systems: All systems reviewed & are unremarkable except as noted in HPI & below Physical Exam Physical Exam: Physical Exam: Vitals signs as noted above General Appearance:Obese, no apparent distress Head: normocephalic, Atraumatic Eyes: normal inspection, EOMI Neck: supple, Trachea midline Respiratory/Chest: Normal breath sounds, CTA Cardiovascular: Irregularly irregular, No murmur Abdomen/GI:Soft, Non tender, Bowel sounds present Extremities/Musculoskelatal:normal inspection, no edema Neurologic/Psych:AAOX3, grossly no focal neurological deficits Skin: normal color, warm Results & Data Results & Data ([facility]) Vital Signs (Past 12 Hours) Vital Signs Temp Pulse Pulse Resp BP Pulse Ox 03/07/20 11:00 36.6 C 81 18 101/65 98 03/07/20 09:26 86 03/07/20 06:30 36.9 C 83 18 118/73 98 03/07/20 03:21 37.1 C 87 16 110/73 98 Laboratory Results Short CBC 03/06/20 03/07/20 Range/Units 20:00 06:18 Hgb 9.1 L 9.1 L (14.0-18.0) g/dL Hct 27.4 L 28.2 L (42-52) % (1) Anemia Anemia type: other cause Other causes of anemia: acute posthemorrhagic Qualified Code(s): D62 - Acute posthemorrhagic anemia (2) Coronary artery disease Coronary Disease-Associated Artery/Lesion type: [place] artery [place] vs. transplanted heart: [place] heart Associated angina: without angina Qualified Code(s): I25.10 - Atherosclerotic heart disease of [place] coronary artery without angina pectoris (3) Atrial fibrillation Atrial fibrillation type: unspecified Qualified Code(s): I48.91 - Unspecified atrial fibrillation (4) Hypertension Hypertension type: essential hypertension Qualified Code(s): I10 - Essential (primary) hypertension
--- NOTE | 2020-03-07 14:15 | Discharge Summary ---
Date of Service March 07, 2020 Admission HPI Per Admitting Provider He is a 69-year-old obese male with significant past medical history of atrial fibrillation on Coumadin, type 2 diabetes, history of duodenal ulcer bleed , CAD, hypertension, history of stroke and hyperlipidemia apparently has been complaining of abdominal discomfort mainly in the lower quadrants for the last 7 days. He has been complaining of black tarry stool for the last 2 days without any diarrhea. Abdominal discomfort and pain has been increasing and sometimes the pain goes to the back but does not have any nausea and/or vomiting. He has not used any NSAID's and as an outpatient but has been on aspirin 81 mg daily along with Coumadin. Denies any fever and/or chills, any chest pain and/or palpitation, any headache, blurred vision, numbness or tingling involving any of the extremities. He was started on intravenous Protonix, received vitamin K for increased INR and was admitted to telemetry unit for continuation of care. Admission Exam Per Admitting Provider Physical Exam Physical Exam: Lying in bed comfortably Constitutional: well developed, well nourished, + acute distress (Minimal abdominal discomfort) and + obese; not ill appearing Eyes: PERRL, conjunctivae normal, anicteric sclerae ENMT: external ear and nose normal, oropharynx normal Neck: trachea midline, no thyromegaly Respiratory: no respiratory distress Auscultation: lungs clear to auscultation bilaterally Cardiovascular: Rate/Rhythm: + irregularly irregular Heart Sounds: no murmur Gastrointestinal (Abdomen): Inspection/Auscultation: normal bowel sounds; abdomen not distended Percussion/Palpation: + abdomen tender (Lower quadrants and epigastrium) and abdomen soft Musculoskeletal: No acute arthritis in any joint Neurologic: Alert, awake and oriented x3. No focal sensory and motor deficit appreciated Psychiatric: A+Ox3, euthymic affect Lymphatic: no cervical or axillary lymphadenopathy Principal Diagnosis Acute Gastrointestinal bleeding Anemia Discharge Data Allergies Allergy/AdvReac Type Severity Reaction Status Date / Time rosuvastatin [From Crestor] AdvReac Severe Gastrointestinal Unverified 03/04/20 13:53 Upset ~ diarrhea Consultations 03/04/20 14:46 ED Decision to Admit Stat 03/04/20 15:04 Consult Gastroenterology Routine Procedures Performed CT ABD: 1. No bowel obstruction or bowel wall thickening. 2. Moderate hiatal hernia with distal esophageal wall thickening. Correlate clinically to exclude esophagitis. 3. Colonic diverticulosis without acute diverticulitis. CXR: 1. No acute process. 2. Moderate hiatal hernia. Ordered Studies 03/04/20 12:08 CT abd pelvis IV con only Stat Hospital Course (1) Acute GI bleeding: Acute GI bleeding Melena Likely due to Pradeep lesion or esophagitis in the setting of supratherapeutic INR due to Warfarin therapy H/O Duodenal ulcers 2001 and 2018. ---Was not on PPI at home Patient is on aspirin and coumadin at home INR received with Vit K Held Aspirin, coumadin during hospital stay Monitor H&H and transfuse PRBCs as needed IV Protonix drip transition to p.o. Protonix 20 mg twice daily No plan for endoscopy as per GI Appreciate GI input Resume aspirin, Coumadin as able Continue Protonix 20 mg twice daily for 2 months and then once daily Plan to resume coumadin on 03/09/20 if no recurrence of bleeding Plan to resume Aspirin on 03/12/20 if no recurrence of bleeding (2) Anemia: Hgb 11.2 > 9.1>8.6>9.1 Acute blood loss anemia secondary to GI bleed. Patient prefers to avoid transfusion if possible Monitor CBC Plan to repeat CBC as outpatient (3) Coronary artery disease: CAD, s/p PCI with stents in 2002. Hold ASA due to acute GI bleed. Prior hospitalist discussed with Cardiology. Plan to resume Aspirin in 7 days. (4) Atrial fibrillation: Chronic atrial fibrillation Continue metoprolol Coumadin on hold for now Resume Coumadin as above (5) Hypertension: Continue metoprolol Lisinopril dose decreased to 5 mg daily due to relatively low blood pressure Monitor BP (6) Diabetes mellitus, type II: Hold metformin Continue Insulin therapy Monitor BGs (7) Cerebrovascular disease: H/O Embolic strokes Resume warfarin, Aspirin as able. (8) Seizure disorder: Continue levetiracetam and zonisamide. (9) DVT prophylaxis: SCD's Re: GI bleed Ambulate. (10) Discharge planning issues: Family Medicine follow-up with Dr. Jain. Cardiology follow-up with Dr. Everett. Total Time Total Time Spent Total Time Spent (In Minutes): 39 minutes Total Time Includes: Examination of the Patient, Discharge Planning, Medication Reconciliation, Communication With Other Providers and Other Discharge Plan Discharge Items Patient Disposition: Home - Self-Care Reason For Visit: ACUTE GI BLEED,RAFAEL Discharge Diagnosis: Acute Gastrointestinal bleeding Anemia Activity: Per Instructions section Exercise/Sports: Gradually increase as tolerated Non-emergency contact: Primary Care Provider and Marine Steam Fitter Call non-emergency contact if: you have any medication questions, your symptoms worsen, your pain is not controlled, your pain is worsening, your pain is unusual for you, your pain is concerning for you and you have a fever Follow-up/Referrals: Jeremie Jain MD [Primary Care Provider] - (Date & Time 03/13/2020 12:20 PM Provider Jeremie Jain MD Department Family [facility] ) Diet: Carb Consistent or DM2 and Heart Healthy Ambulatory Orders: Complete Blood Count no Diff (Timed) Timeframe: [id number] Location: Determined by Patient Ordered By: Rick Castellano Attending Provider Instructions: Follow up with your PCP on 03/13/2020 12:20 PM as scheduled Follow up with your electronic warfare officer in 4-6 weeks as advised Follow up with [facility] as advised for management of your coumadin dosing If No recurrence of Bleeding then: You can resume taking coumadin on 03/09/20 You can resume taking Aspirin on 03/12/20 Other Medication changes: Start taking Protonix 20 mg twice daily for 2 months and then once daily as recommended by your Marine Steam Fitter Your Lisinopril is decreased from 10mg daily to 5mg daily as your blood pressure is relatively low. Further adjustment of dosage as per your primary care physician. Get Blood Test (complete blood count) on 03/09/20 and follow up with your primary care physician with results Seek immediate medical attention if your symptoms reoccur or worsen Pending Studies at Discharge: No Stand-Alone Forms: My wufoo, Smoking Cessation Medications and DC Order Prescriptions: New lisinopril [Zestril] 5 mg Tablet 5 mg PO DAILY@0700 Qty: 30 RF: 1 pantoprazole 20 mg tablet,delayed release (DR/EC) 20 mg PO BID Qty: 60 RF: 1 Continued atorvastatin [Lipitor] 80 mg Tablet 80 mg PO DAILY@1900 Qty: 0 RF: 0 aspirin 81 mg Tablet,Delayed Release (Dr/Ec) 81 mg PO DAILY@0700 RF: 0 nitroglycerin [Nitrostat] 0.4 mg Tablet, Sublingual 0.4 mg sublingual UD PRN (Reason: Angina) RF: 0 warfarin 2.5 mg tablet 2.5 mg PO HUANG@1900 RF: 0 zonisamide 100 mg capsule 200 mg PO DAILY@0700 RF: 0 warfarin 5 mg tablet 5 mg PO SUMOTUWETHFR@1900 RF: 0 levetiracetam 750 mg tablet 1,500 mg PO Q12 RF: 0 metformin 500 mg tablet extended release 24 hr 500 mg PO DAILY@0700 RF: 0 cholecalciferol (vitamin D3) [Vitamin D3] 25 mcg (1,000 unit) Capsule 25 mcg PO DAILY@0700 RF: 0 metoprolol tartrate 25 mg tablet 12.5 mg PO Q12 RF: 0 lutein 20 mg Capsule 20 mg PO DAILY@1900 RF: 0 Discontinued lisinopril 10 mg tablet 10 mg PO DAILY@0700 RF: 0 Discharge Orders: Discharge Order (Routine); Ordered 03/07/20 Ordered By: Rick Ledesma Admission Data Admit Date/Time: 03/05/20 10:59 Attending Provider: Rick Ledesma Admit Provider: Kenzie Colon Primary Care Provider: Jeremie Jain Other Providers: Kenzie Colon ; Daisy Pascual ; Tiffany Chaves ; James Farmer ; Roxanne Fishman ; Markus Parrish ; Cheryl Han ; Maryanne Bronson ; Chris Beebe ; Ba Shelby ; Cristine Simons ; Elisha Snowden ; Arina Ferrer ; Breanne Jimenez ; Rubén Wells Other Interventions: Discharge Summary Assessment (RN) Last Done: 03/07/20 14:17
== END 2020-03-07 14:41 | disposition home or self-care (01) | DRG 813 ==
LOC: 2S 11:45 → ED 11:45 → SUATTDRO 15:05 → 2S 15:44 → SUATTDRO 03-05 10:59 → 2N 03-06 13:19

== ENCOUNTER 2025-02-23 09:36 | Inpatient (IN) ==
--- NOTE | 2025-02-23 10:09 | Emergency Department Note ---
History of Present Illness General Chief complaint: Hypertension Stated complaint: LIGHTHEADED, LOSS OF BALANCE, BP FLUXATING Time Seen by Provider: 02/23/25 09:47 Source: patient Mode of arrival: ambulatory History of Present Illness Patient is a 74-year-old male with history of prior seizure, CVA, hyperlipidemia, type 2 diabetes, chronic anemia, atrial fibrillation, CAD status post stent placement, chronic anticoagulation with Coumadin who presents for ongoing lightheadedness and disequilibrium for several days. He says he notices when he walking that he feels off balance and needs to hold onto something for support. Does not notice he needs a certain way. Symptoms resolve when sitting or lying flat. He did state that he was standing sugar off last night and became disoriented and fell forward onto the ground. He did strike his head but denies any loss of conscious. No headache, vision change, speech change, numbness or weakness in his extremities, facial droop. He says he has had intermittent episodes of lightheadedness and disequilibrium over the past few weeks that have become more frequent recently. Recently made some medication changes related to his antihypertensives due to intermittent episodes of hypotension. Home Medications Medication Instructions Recorded Confirmed Type atorvastatin 80 mg tablet (Lipitor) 80 mg PO DAILY@1899 #0 tabs 10/24/14 02/23/25 History aspirin 81 mg tablet,delayed 81 mg PO DAILY@0700 11/09/18 02/23/25 History release nitroglycerin 0.4 mg sublingual 0.4 mg sublingual UD PRN Angina 11/09/18 02/23/25 History tablet (Nitrostat) cholecalciferol (vitamin D3) 25 25 mcg PO DAILY@0703/04/20 02/23/25 History mcg (1,000 unit) capsule (Vitamin D3) levetiracetam 750 mg tablet 1,500 mg PO Q12 03/04/20 02/23/25 History lutein 20 mg capsule 20 mg PO DAILY@1900 03/04/20 02/23/25 History metformin 500 mg tablet,extended 500 mg PO DAILY@0700 03/04/20 02/23/25 History release 24 hr metoprolol tartrate 25 mg tablet 12.5 mg PO Q12 03/04/20 02/23/25 History warfarin 2.5 mg tablet 2.5 mg PO .6 DAYS A WK 03/04/20 02/23/25 History warfarin 5 mg tablet 5 mg PO UD 03/04/20 02/23/25 History zonisamide 100 mg capsule 200 mg PO DAILY@0700 03/04/20 02/23/25 History chlorthalidone 25 mg tablet 0 mg PO DAILY 02/23/25 02/23/25 History insulin glargine 100 unit/mL (3 5 unit subcut HS 02/23/25 02/23/25 History mL) subcutaneous pen (Lantus Solostar U-100 Insulin) lisinopril 5 mg tablet (Zestril) 20 mg PO DAILY@0700 02/23/25 02/23/25 History pantoprazole 20 mg tablet,delayed 20 mg PO QAM 02/23/25 02/23/25 History release sodium chloride 0.65 % nasal spray 2 spray intranasal Q4H PRN Epistax 02/23/25 02/23/25 History aerosol (Saline Nasal Mist) Allergies Allergy/AdvReac Type Severity Reaction Status Date / Time rosuvastatin [From Crestor] AdvReac Severe Gastrointestinal Unverified 05/26/24 08:05 Upset ~ diarrhea Past Med/Surg History Problem List Ambulatory dysfunction (Acute) Near syncope (Acute) Anticoagulated on Coumadin Epistaxis Seizure disorder Discharge planning issues Cerebrovascular disease Acute GI bleeding (Acute) Chronic anticoagulation (Acute) HLD (hyperlipidemia) Stroke (Acute) Hyperglycemia (Acute) Diabetes mellitus, type II Stroke-like symptom Diabetes (Chronic) Hyperglycemia (Acute) DVT prophylaxis Acute upper GI bleed (Acute) History of colonoscopy with polypectomy (Chronic) Diverticulosis (Chronic) ABDIEL (acute kidney injury) Anemia Encounter for pre-operative examination Melena (Acute) Duodenal ulcer Paraesophageal hernia Encounter for pre-operative examination Duodenal ulcer Prolonged Q-T interval on ECG Atrial fibrillation (Chronic) on warfarin Obesity (Chronic) Coronary artery disease (Chronic) Hyperlipidemia associated with type 2 diabetes mellitus (Chronic) Heart disease (Chronic) Hypertension (Chronic) History of heart artery stent (Chronic) 2002--3 stents placed Medical History Chronic back pain Diabetes mellitus, type 2 GERD (gastroesophageal reflux disease) Hiatal hernia History of colon polyps History of duodenal ulcer History of GI bleed Myocardial Infarction On anticoagulant therapy Osteoarthritis Schatzki's ring Sleep apnea Surgical History History of cardiac cath History of colonoscopy History of esophagogastroduodenoscopy (EGD) History of tooth extraction Family History Father , in 80s Unknown family medical history Mother , in 80s Lymphoma Grandmother (Maternal) Family history of diabetes mellitus Other No family history of adverse response to anesthesia Social History Smoking Status: Never smoker Second Hand Exposure: No; Do You Dip or Chew Tobacco: No; Hx Alcohol Use: No Hx Substance Use: No Preferred Language: Japanese Communication Ability: Effective Communication Ability Comment: able to sign name on Code Word, expresses some difficulty writing name Visual Impairment: No Limitations Data Control Assistant Required: No Beliefs That Will Affect Care: None marital status: marri Current Living Situation: Family Current Living Situation Comment: lives with daughter and son Feels Safe at Home: Yes Assistive Devices: None Review of Systems Review of systems negative outside of positive findings mentioned in HPI. Physical Exam Vital Signs Vital Signs - 24 hr 02/23/25 09:41 02/23/25 09:44 02/23/25 10:11 Temperature 36.4 C L Temperature Source Temporal Artery Scan Pulse Rate - Lying 61 Pulse Rate - Sitting 55 L Pulse Rate - Standing 64 Pulse Rate 55 L Pulse Rate [Apical] 56 L Respiratory Rate 20 24 Respiratory Effort / Characteristics Non-Labored Spontaneous Respiratory Depth Normal Blood Pressure - Lying 143/83 H Blood Pressure - Sitting 151/103 H Blood Pressure- Standing 160/107 H Blood Pressure 140/83 Blood Pressure [Left Arm] 153/112 H Blood Pressure Mean 102 Blood Pressure Mean [Left Arm] 125 Blood Pressure Position [Left Arm] Semi-fowlers Pulse Oximetry 100 96 Oxygen Delivery Method Room Air Room Air Sepsis Recent Fever Within 48 Hours No Sepsis New/Unexplained Change in Mental Status No Sepsis Action Taken by Nursing No Action Required 02/23/25 10:34 02/23/25 10:44 Temperature Temperature Source Pulse Rate - Lying Pulse Rate - Sitting Pulse Rate - Standing Pulse Rate 61 Pulse Rate [Apical] 55 L Respiratory Rate 17 Respiratory Effort / Characteristics Respiratory Depth Blood Pressure - Lying Blood Pressure - Sitting Blood Pressure- Standing Blood Pressure Blood Pressure [Left Arm] 168/106 H Blood Pressure Mean Blood Pressure Mean [Left Arm] 126 Blood Pressure Position [Left Arm] Semi-fowlers Pulse Oximetry 96 Oxygen Delivery Method Room Air Sepsis Recent Fever Within 48 Hours Sepsis New/Unexplained Change in Mental Status Sepsis Action Taken by Nursing See below Constitutional WD/WN, vitals as above Eyes PERRL, conjunctivae normal, anicteric sclerae Respiratory normal respiratory effort, lungs clear to auscultation Cardiovascular Rate/Rhythm: + bradycardic and + irregularly irregular Heart Sounds: normal S1 and normal S2 Vessels: dorsalis pedis pulses present Neurologic AAO x 4, cranial nerves II through XII are intact, 5 out of 5 strength in the upper and lower extremities bilaterally, no sensation deficits noted to the extremities or face, normal speech, no dysmetria noted in all 4 limbs, NIH stroke scale of zero. Course Administered Medications Discontinued Medications Ioversol (Optiray 320 125ml) 115 ml IV ONCE ONE Stop: 02/23/25 11:34 Last Admin: 02/23/25 11:34 Dose: 115 ml Documented By: EDK Medical Decision Making Differential Diagnosis Cardiac arrhythmia, orthostatic hypotension, ACS, aortic stenosis, vertigo, vasovagal syncope, TIA, CVA, metabolic abnormality, medication side effect Medical Records Attestation: I reviewed the patient's medical records. Home Medications Current Medication List: was personally reviewed by me Laboratory Data Attestation: I reviewed the patient's lab results. 02/23/25 10:13 02/23/25 10:13 Lab Results 02/23/25 Range/Units 10:13 WBC 6.05 (4.8-10.8) K/ul RBC 4.60 L (4.70-6.10) M/uL Hgb 13.9 L (14.0-18.0) g/dl Hct 41.7 L (42.0-52.0) % MCV 90.7 (80.0-100.0) fL MCH 30.2 (25.0-34.0) pg MCHC 33.3 (32.0-36.0) g/dL RDW Std Deviation 42.4 (36.4-46.3) fL RDW Coeff of Darrius 12.9 (11.5-14.5) % Plt Count 196 (130-400) K/uL MPV 9.9 (9.4-12.4) fL Immature Gran % (Auto) 0.3 % Neut % (Auto) 51.5 % Lymph % (Auto) 35.7 % Rains % (Auto) 8.9 % Eos % (Auto) 2.6 % Baso % (Auto) 1.0 % Neut # (Auto) 3.11 (1.40-6.50) K/uL Lymph # (Auto) 2.16 (1.20-3.40) K/uL Rains # (Auto) 0.54 (0.11-0.59) K/uL Eos # (Auto) 0.16 (0.00-0.50) K/uL Baso # (Auto) 0.06 (0.00-0.20) K/uL Immature Gran # (Auto) 0.02 (0.01-0.20) K/uL PT 29.1 H (9.0-12.0) Seconds INR 2.9 H (0.9-1.1) APTT 38 H (21-31) Seconds PTT Ratio 1.4 Sodium 139 (136-145) mmol/L Potassium 3.4 L (3.5-5.1) mmol/L Chloride 102 (98-107) mmol/L Carbon Dioxide 30 (21-32) mmol/L Anion Gap 7 (3-11) BUN 20 (6-23) mg/dl Creatinine 1.09 (0.6-1.4) mg/dl Est Cr Clr Drug Dosing 75.7 ml/min eGFR 71.22 BUN/Creatinine Ratio 18.3 (10-20) Glucose 125 H (70-99(Fasting)) mg/dl Calcium 8.9 (8.6-10.3) mg/dl Magnesium 1.9 (1.7-2.4) mg/dl Total Bilirubin 1.0 (0.2-1.0) mg/dl AST 21 (13-39) U/L ALT 16 (7-52) U/L Alkaline Phosphatase 53 (34-104) U/L Troponin I High Sens 8.0 (0-20) pg/ml Total Protein 7.0 (6.0-8.3) gm/dl Albumin 3.6 (3.4-5.0) gm/dl Globulin 3.4 (2.5-4.0) gm/dl Albumin/Globulin Ratio 1.1 (0.9-2) Imaging Data Attestation: I personally reviewed and interpreted this imaging study as follows: My Impression: no acute cardiopulmonary process noted on independent review. Radiologist's Impression: Chest X-Ray 02/23/25 10:04 XR chest 1V portable HISTORY: 74 years-old Male neuro deficit, acute stroke suspected COMPARISON: 03/04/2020 TECHNIQUE: AP view of the chest FINDINGS: Cardiac silhouette is enlarged. Hiatal hernia. Pulmonary vascular congestion. No pneumothorax. Trace pleural effusions with mild bibasilar densities. The bones appear grossly intact. IMPRESSION: 1. Cardiomegaly with pulmonary vascular congestion. 2. Trace pleural effusions with mild bibasilar densities suggestive of atelectasis. 3. Hiatal hernia. ACT 112: Negative or not required by law. The above report was generated using voice recognition software. It may contain grammatical, syntax or spelling errors. Electronically signed by: Onofre Lan M.D. 02/23/2025 11:[address] 02/23/25 10:04 CT SCAN OF THE BRAIN WITHOUT IV CONTRAST CLINICAL HISTORY: Neurological deficit. Stroke like symptoms. COMPARISON STUDY: CT of the brain dated 08/03/2022 TECHNIQUE: Unenhanced CT scan of the brain is performed from the vertex to the skull base. Images are reviewed in the axial, sagittal, coronal planes. A dose lowering technique was utilized adhering to the principles of ALARA. FINDINGS: Brain parenchyma: Left parieto-occipital encephalomalacia is unchanged and consistent with a remote insult. There is age-related involutional change noting mild subcortical and periventricular microangiopathic disease. There is no hemorrhage, mass effect, or evidence of acute territorial ischemia by CT criteria. A chronic lacunar infarct is noted in the left basal ganglia. Hernandez- white matter differentiation is preserved. No extra-axial fluid collection is seen. Ventricles, sulci, cisterns: Prominent secondary to involutional change. Intracranial vasculature: There is atherosclerotic calcification of the cavernous carotid arteries. Calvarium: Unremarkable. Sinuses and mastoids: There is mild mucosal thickening within the ethmoid sinuses. The remaining visualized paranasal sinuses are clear. The mastoid air cells are well pneumatized. Orbits: The bony orbits are grossly intact. IMPRESSION: There is no hemorrhage, mass effect, or evidence of acute territorial ischemia by CT criteria. ACT 112: Negative or not required by law. Electronically signed by: Jered Desouza M.D. 02/23/2025 12:05 PM Head CTA 02/23/25 10:04 CTA ANGIOGRAPHY OF THE HEAD CLINICAL HISTORY: neuro deficit, acute stroke suspected there are deficit. Suspected acute stroke. COMPARISON STUDY: April 2019 TECHNIQUE: Helical axial images of the head were obtained following uneventful intravenous administration of 115 cc of Optiray. Sagittal and coronal reconstructions were viewed as well as maximal intensity projections on an independent 3-D workstation. Automated exposure control was utilized for the study. A dose lowering technique was utilized adhering to the principles of ALARA. CT DOSE: FINDINGS: There are no lesion suspicious for aneurysm. There are no major intracranial branch occlusions. The dural venous sinuses appear patent. IMPRESSION: No evidence of aneurysm, intracranial branch occlusion or stenosis. ACT 112: Negative or not required by law. Electronically signed by: Ramon Corral M.D. 02/23/2025 12:00 PM Neck CTA 02/23/25 10:04 CT angio neck with con CLINICAL HISTORY: 74 years-old Male with neuro deficit, acute stroke suspected. Acute stroke like symptoms with recent fall. History of 60% stenosis of the left internal carotid artery. COMPARISON STUDY: Head CT 02/23/2025, CTA neck 04/22/2019 TECHNIQUE: Following the IV administration of 115 mL of Optiray, CT angiogram of the neck was performed from the aortic arch to the skull base. Images are reviewed in the axial, sagittal, and coronal planes. 3-D MIPS images are created and assessed. IV contrast was administered without complication. All measurements were calculated based on NASCET criteria. A dose lowering technique was utilized adhering to the principles of ALARA. CT DOSE: 1062.12 mGy.cm FINDINGS: Three-vessel morphology of the thoracic aortic arch. Patency of the innominate and imaged subclavian arteries. The common carotid arteries are patent with moderate atherosclerosis. Atherosclerotic plaque of the left greater than right carotid bulb. The right ICA is patent. There is unchanged 60% stenosis within the proximal cervical segment left ICA on image 227. The vertebral arteries are codominant and appear to be widely patent. No pneumothorax. 4 mm groundglass nodule within the left upper lobe on image 23 series 7, not clearly seen on the prior study. No acute fracture. Multilevel degenerative changes of the spine. IMPRESSION: 1. Atherosclerosis with 60% stenosis involving the proximal left ICA, not significantly changed compared to 04/22/2019. 2. Patent vertebral arteries. ACT 112: Negative or not required by law. The above report was generated using voice recognition software. It may contain grammatical, syntax or spelling errors. Electronically signed by: Onofre Lan M.D. 02/23/2025 11:55 AM ECG Data Attestation: I personally reviewed and interpreted this ECG as follows: Indication: + weakness Rate (beats per minute): 61 Rhythm: + atrial fibrillation ECG Intervals/blocks: + Normal QRS and + Normal QT ECG [place]: + Normal ECG ST segments: + Normal ST segments Comparison ECG Date: from (03/23/2020) Change: no significant change Blood Pressure Blood Pressure Findings: Elevated blood pressure MDM Narrative Patient is a 74-year-old male presents with several days of near syncope and ambulatory dysfunction. Hypertensive on arrival that he did not take his blood pressure medication. EKG reviewed and shows slow A-fib with a rate of 61 bpm. No ischemic changes noted. No focal neurologic deficits noted on my examination. CT of the head as well as CTA were ordered and nonconcerning. Lab work reviewed. Low suspicion for central cause of dizziness and ambulatory dysfunction dysfunction based on exam however cannot rule out minor ischemic stroke without MRI. Would recommend admission to hospital service for MRI as well as possible echocardiogram and cardiology consultation. Stable for admission to telemetry bed. Impression & Plan Near syncope, Ambulatory dysfunction Discharge Plan Visit Data Chief Complaint: Hypertension Stated Complaint: LIGHTHEADED, LOSS OF BALANCE, BP FLUXATING ED Provider: Ryan Haque Discharge Problem: Near syncope, Ambulatory dysfunction Patient Disposition: Admitted As Inpatient Condition: Good Forms Stand Alone Forms: My [facility] Calendly Prescriptions Prescriptions: No Action atorvastatin [Lipitor] 80 mg Tablet 80 mg PO DAILY@1900 Qty: 0 aspirin 81 mg Tablet,Delayed Release (Dr/Ec) 81 mg PO DAILY@0700 nitroglycerin [Nitrostat] 0.4 mg Tablet, Sublingual 0.4 mg sublingual UD PRN (Reason: Angina) warfarin 2.5 mg tablet 2.5 mg PO .6 DAYS A WK zonisamide 100 mg capsule 200 mg PO DAILY@0700 warfarin 5 mg tablet 5 mg PO UD Patient Comments: either thursday or thursday, pt doesnt remember which day he takes the 5 mg levetiracetam 750 mg tablet 1,500 mg PO Q12 Rx Instructions: 0700 and 1900 metformin 500 mg tablet extended release 24 hr 500 mg PO DAILY@0700 cholecalciferol (vitamin D3) [Vitamin D3] 25 mcg (1,000 unit) Capsule 25 mcg PO DAILY@0700 metoprolol tartrate 25 mg tablet 12.5 mg PO Q12 Rx Instructions: 0700 and 1900 lutein 20 mg Capsule 20 mg PO DAILY@1900 chlorthalidone 25 mg tablet 0 mg PO DAILY Patient Comments: 02/22-per pt they started the medication but put it on hold insulin glargine [Lantus Solostar U-100 Insulin] 100 unit/mL (3 mL) insulin pen 5 unit SUBCUT HS pantoprazole 20 mg tablet,delayed release (DR/EC) 20 mg PO QAM lisinopril [Zestril] 5 mg tablet 20 mg PO DAILY@0700 Saline Nasal Mist 0.65 % aerosol,spray 2 spray intranasal Q4H PRN (Reason: Epistax) Rx Instructions: while awake Referrals Referrals: Jeremie Jain MD [Primary Care Provider] -
[2025-02-23 10:30] LABS: Hematocrit (blood only) 41.7 % (42.0-52.0); Hemoglobin 13.9 g/dl (14.0-18.0); Immature Granulocytes # (auto) 0.02 K/uL (0.01-0.20); Immature Granulocytes % (auto) 0.3 %; Mean Corpuscular Hemoglobin 30.2 pg (25.0-34.0); Mean Corpuscular Volume 90.7 fL (80.0-100.0); Platelet Count 196 K/uL (130-400); RDW Standard Deviation 42.4 fL (36.4-46.3); Red Blood Count 4.60 M/uL (4.70-6.10); White Blood Count 6.05 K/ul (4.8-10.8)
[2025-02-23 10:49] LABS: Alanine Aminotransferase 16.0 U/L (7-52); Albumin Globulin Ratio 1.1 (0.9-2); Albumin Level 3.6 gm/dl (3.4-5.0); Alkaline Phosphatase 53.0 U/L (34-104); Anion Gap 7.0 (3-11); Bilirubin,Total 1.0 mg/dl (0.2-1.0); Blood Urea Nitrogen 20.0 mg/dl (6-23); Calcium 8.9 mg/dl (8.6-10.3); Carbon Dioxide 30.0 mmol/L (21-32); Chloride 102.0 mmol/L (98-107); Creatinine Clr Calc Pharmacy 75.7 ml/min; Globulin 3.4 gm/dl (2.5-4.0); Glucose 125.0 mg/dl (70-99(Fasting)); Magnesium 1.9 mg/dl (1.7-2.4); Potassium 3.4 mmol/L (3.5-5.1); Sodium 139.0 mmol/L (136-145); Total Protein 7.0 gm/dl (6.0-8.3)
[2025-02-23 10:59] LABS: INR 2.9 (0.9-1.1); Partial Thromboplastin Time 38 Seconds (21-31); Prothrombin Time 29.1 Seconds (9.0-12.0)
--- NOTE | 2025-02-23 11:21 | XRay Report ---
XR chest 1V portable HISTORY: 74 years-old Male neuro deficit, acute stroke suspected COMPARISON: 03/04/2020 TECHNIQUE: AP view of the chest FINDINGS: Cardiac silhouette is enlarged. Hiatal hernia. Pulmonary vascular congestion. No pneumothorax. Trace pleural effusions with mild bibasilar densities. The bones appear grossly intact. IMPRESSION: 1. Cardiomegaly with pulmonary vascular congestion. 2. Trace pleural effusions with mild bibasilar densities suggestive of atelectasis. 3. Hiatal hernia. ACT 112: Negative or not required by law. The above report was generated using voice recognition software. It may contain grammatical, syntax o r spelling errors. Electronically signed by: Onofre Lan M.D. 02/23/2025 11:20 AM
[2025-02-23] MEDS: OPTIRAY 320 125ml IV ONE (11:34)
--- NOTE | 2025-02-23 11:56 | CT Scan Report ---
CT angio neck with con CLINICAL HISTORY: 74 years-old Male with neuro deficit, acute stroke suspected. Acute stroke like symptoms with recent fall. History of 60% stenosis of the left internal carotid artery. COMPARISON STUDY: Head CT 02/23/2025, CTA neck 04/22/2019 TECHNIQUE: Following the IV administration of 115 mL of Optiray, CT angiogram of the neck was perform ed from the aortic arch to the skull base. Images are reviewed in the axial, sagittal, and coronal pl anes. 3-D MIPS images are created and assessed. IV contrast was administered without complication. Al l measurements were calculated based on NASCET criteria. A dose lowering technique was utilized adhe ring to the principles of ALARA. CT DOSE: 1062.12 mGy.cm FINDINGS: Three-vessel morphology of the thoracic aortic arch. Patency of the innominate and imaged subclavian arteries. The common carotid arteries are patent with moderate atherosclerosis. Atherosclerotic plaqu e of the left greater than right carotid bulb. The right ICA is patent. There is unchanged 60% stenos is within the proximal cervical segment left ICA on image 227. The vertebral arteries are codominant and appear to be widely patent. No pneumothorax. 4 mm groundglass nodule within the left upper lobe on image 23 series 7, not clearly seen on the prior study. No acute fracture. Multilevel degenerative changes of the spine. IMPRESSION: 1. Atherosclerosis with 60% stenosis involving the proximal left ICA, not significantly changed albaro red to 04/22/2019. 2. Patent vertebral arteries. ACT 112: Negative or not required by law. The above report was generated using voice recognition software. It may contain grammatical, syntax o r spelling errors. Electronically signed by: Onofre Lan M.D. 02/23/2025 11:55 AM
--- NOTE | 2025-02-23 12:02 | CT Scan Report ---
CTA ANGIOGRAPHY OF THE HEAD CLINICAL HISTORY: neuro deficit, acute stroke suspected there are deficit. Suspected acute stroke. COMPARISON STUDY: April 2019 TECHNIQUE: Helical axial images of the head were obtained following uneventful intravenous administr ation of 115 cc of Optiray. Sagittal and coronal reconstructions were viewed as well as maximal inten sity projections on an independent 3-D workstation. Automated exposure control was utilized for the study. A dose lowering technique was utilized adhering to the principles of ALARA. CT DOSE: FINDINGS: There are no lesion suspicious for aneurysm. There are no major intracranial branch occlusi ons. The dural venous sinuses appear patent. IMPRESSION: No evidence of aneurysm, intracranial branch occlusion or stenosis. ACT 112: Negative or not required by law. Electronically signed by: Ramon Corral M.D. 02/23/2025 12:00 PM
--- NOTE | 2025-02-23 12:06 | CT Scan Report ---
CT SCAN OF THE BRAIN WITHOUT IV CONTRAST CLINICAL HISTORY: Neurological deficit. Stroke like symptoms. COMPARISON STUDY: CT of the brain dated 08/03/2022 TECHNIQUE: Unenhanced CT scan of the brain is performed from the vertex to the skull base. Images are reviewed in the axial, sagittal, coronal planes. A dose lowering technique was utilized adhering to the principles of ALARA. FINDINGS: Brain parenchyma: Left parieto-occipital encephalomalacia is unchanged and consistent with a remote i nsult. There is age-related involutional change noting mild subcortical and periventricular microangi opathic disease. There is no hemorrhage, mass effect, or evidence of acute territorial ischemia by CT criteria. A chronic lacunar infarct is noted in the left basal ganglia. Hernandez-white matter differenti ation is preserved. No extra-axial fluid collection is seen. Ventricles, sulci, cisterns: Prominent secondary to involutional change. Intracranial vasculature: There is atherosclerotic calcification of the cavernous carotid arteries. Calvarium: Unremarkable. Sinuses and mastoids: There is mild mucosal thickening within the ethmoid sinuses. The remaining visu alized paranasal sinuses are clear. The mastoid air cells are well pneumatized. Orbits: The bony orbits are grossly intact. IMPRESSION: There is no hemorrhage, mass effect, or evidence of acute territorial ischemia by CT esvin damian. ACT 112: Negative or not required by law. Electronically signed by: Jered Desouza M.D. 02/23/2025 12:05 PM
--- NOTE | 2025-02-23 12:44 | History & Physical Report ---
Date of Service February 23, 2025 Assessment & Plan (1) Near syncope: (2) Hypertension: (3) Atrial fibrillation: (4) Diabetes mellitus, type II: (5) Seizure disorder: (6) GERD (gastroesophageal reflux disease): Plan Pt is a 74 y/o with a PMHx significant for T2DM, Hx AZ, Hx CVA, Afib, CAD, HLD, HTN, sleep apnea, seizure disorder, GERD, paraesophageal hernia, diverticulosis -- who presented to the ED c/o lightheadedness & dizziness x2 wks. #Near Syncope // Dizziness - Head CT & CTA revealed no evidence of hemorrhage/ischemia or vessel occlusion. Neck CTA is stable from 2019 with 60% stenosis of the Lt ICA. -MRI w/o contrast to assess for ischemia -Check Lipids, A1C to complete Stroke work-up -CBC, BMP, INR in AM -PT/OT evaluation #HTN - Multiple medication changes, concern for hypotensive episodes at home -Home Meds: Lisinopril, Metoprolol, Chlorthalidone -Continue Lisinopril, Metoprolol -HOLD Chlorthalidone -Orthostatics Q shift #Afib // Hx AZ // Hx CVA // CAD // HLD - no acute issues -Home Meds: Warfarin, ASA, Atorvastatin -Continue Home meds -Telemetry Bed #T2DM - no acute issues -Home Meds: Metformin, Glargine 5 units in evening -HOLD Metformin -Continue Glargine #Seizure Disorder - no acute issues -Home Meds: Keppra, Zonisamide -Continue home meds #GERD - no acute issues -Home Meds: Pantoprazole -Continue home meds Dispo: admit to med/tele VTE Proph: Continue Warfarin, encourage ambulation History of Present Illness Primary Care Provider: Jeremie Jain MD Pt is a 74 y/o with a PMHx significant for T2DM, Hx AZ, Hx CVA, Afib, CAD, HLD, HTN, sleep apnea, seizure disorder, GERD, paraesophageal hernia, Hx Duodenal ulcer, diverticulosis -- who presented to the ED c/o lightheadedness & dizziness that has been going on for two weeks. Pt states that over the course of the last two weeks, he has had progressive dizziness that has made him feel unstable/weak and it's difficult for him to keep balance. Pt notes that the dizziness often occurs when moving from a sitting to standing position. He states that he did have an episode once while removing his shirt. Pt states that often times he needs to be able to hold onto a surface to help stabilize him when he is trying to walk. He admits to experiencing one fall 02/22, but denies hitting his head. Pt states the sx are worse upon initial standing. Pt denies associated h/a, changes in vision, difficulty swallowing, F/C, CP, Palpitations, SOB, abd pain, changes in bowel or bladder habits. Pt admits to having difficulty controlling BP since January 2024. He states that he has worked with his PCP to try and stabilize his BP, and has had several medication changes since then. Pt was transported to the ED via personal vehicle. While in the ED, the patient had a Head CT that revealed no hemorrhage, mass effect, or evidence of acute territorial ischemia by CT criteria. He had a Head CTA that revealed no evidence of aneurysm, intracranial branch occlusion or stenosis. He had a Neck CTA that revealed 60% Atherosclerosis involving the proximal ICA - not significantly changed from 2019; with patent vertebral arteries. Pt's INR in the ED was 2.9; he is currently on warfarin. Pt is being admitted for further evaluation and care. Allergies Allergy/AdvReac Type Severity Reaction Status Date / Time rosuvastatin [From Crestor] AdvReac Severe Gastrointestinal Unverified 05/26/24 08:05 Upset ~ diarrhea Home Medications Medication Instructions Recorded Confirmed Type atorvastatin 80 mg tablet (Lipitor) 80 mg PO DAILY@1899 #0 tabs 10/24/14 02/23/25 History aspirin 81 mg tablet,delayed 81 mg PO DAILY@0711/09/18 02/23/25 History release nitroglycerin 0.4 mg sublingual 0.4 mg sublingual UD PRN Angina 11/09/18 02/23/25 History tablet (Nitrostat) cholecalciferol (vitamin D3) 25 25 mcg PO DAILY@0703/04/20 02/23/25 History mcg (1,000 unit) capsule (Vitamin D3) levetiracetam 750 mg tablet 1,500 mg PO Q12 03/04/20 02/23/25 History lutein 20 mg capsule 20 mg PO DAILY@1900 03/04/20 02/23/25 History metformin 500 mg tablet,extended 500 mg PO DAILY@0700 03/04/20 02/23/25 History release 24 hr metoprolol tartrate 25 mg tablet 12.5 mg PO Q12 03/04/20 02/23/25 History warfarin 2.5 mg tablet 2.5 mg PO .6 DAYS A WK 03/04/20 02/23/25 History warfarin 5 mg tablet 5 mg PO UD 03/04/20 02/23/25 History zonisamide 100 mg capsule 200 mg PO DAILY@0700 03/04/20 02/23/25 History chlorthalidone 25 mg tablet 0 mg PO DAILY 02/23/25 02/23/25 History insulin glargine 100 unit/mL (3 5 unit subcut HS 02/23/25 02/23/25 History mL) subcutaneous pen (Lantus Solostar U-100 Insulin) lisinopril 5 mg tablet (Zestril) 20 mg PO DAILY@0700 02/23/25 02/23/25 History pantoprazole 20 mg tablet,delayed 20 mg PO QAM 02/23/25 02/23/25 History release sodium chloride 0.65 % nasal spray 2 spray intranasal Q4H PRN Epistax 02/23/25 02/23/25 History aerosol (Saline Nasal Mist) Past Med/Surg History Problem List Ambulatory dysfunction (Acute) Near syncope (Acute) Anticoagulated on Coumadin Epistaxis Seizure disorder Discharge planning issues Cerebrovascular disease Acute GI bleeding (Acute) Chronic anticoagulation (Acute) HLD (hyperlipidemia) Stroke (Acute) Hyperglycemia (Acute) Diabetes mellitus, type II Stroke-like symptom Diabetes (Chronic) Hyperglycemia (Acute) DVT prophylaxis Acute upper GI bleed (Acute) History of colonoscopy with polypectomy (Chronic) Diverticulosis (Chronic) ABDIEL (acute kidney injury) Anemia Encounter for pre-operative examination Melena (Acute) Duodenal ulcer Paraesophageal hernia Encounter for pre-operative examination Duodenal ulcer Prolonged Q-T interval on ECG Atrial fibrillation (Chronic) on warfarin Obesity (Chronic) Coronary artery disease (Chronic) Hyperlipidemia associated with type 2 diabetes mellitus (Chronic) Heart disease (Chronic) Hypertension (Chronic) History of heart artery stent (Chronic) 2002--3 stents placed Medical History Chronic back pain Diabetes mellitus, type 2 GERD (gastroesophageal reflux disease) Hiatal hernia History of colon polyps History of duodenal ulcer History of GI bleed Myocardial Infarction On anticoagulant therapy Osteoarthritis Schatzki's ring Sleep apnea Surgical History History of cardiac cath History of colonoscopy History of esophagogastroduodenoscopy (EGD) History of tooth extraction Family History Father , in 80s Unknown family medical history Mother , in 80s Lymphoma Grandmother (Maternal) Family history of diabetes mellitus Other No family history of adverse response to anesthesia Social History Smoking Status: Never smoker Second Hand Exposure: No; Do You Dip or Chew Tobacco: No; Hx Alcohol Use: No Hx Substance Use: No Preferred Language: Mongolian Communication Ability: Effective Communication Ability Comment: able to sign name on Code Word, expresses some difficulty writing name Visual Impairment: No Limitations Marketing Research Coordinator Required: No Beliefs That Will Affect Care: None marital status: marri Current Living Situation: Family Current Living Situation Comment: lives with daughter and son Feels Safe at Home: Yes Safety Concerns: Feels Safe At This Time Assistive Devices: None Review of Systems Review of Systems: All systems reviewed & are unremarkable except as noted in Subjective Physical Exam Physical Exam: General: Pt is a 74 y/o obese male in NAD in bed. VS: reviewed Skin: Warm and dry; no lesions or ulcerations Eyes: PERRLA, no scleral or conjunctival abnormalities noted Respiratory: CTA bilat, no adventitious sounds noted. Chest expansion is full and symmetrical Cardio: irregularly irregular Abdomen: normoactive BS x4, soft, nontender to palpation MSK: FROM of extremities, UE strength +5, LE strength +3, no deformities Neuro: A&Ox3, able to keep eyes closed against resistance, tongue protrudes straight, sensations equal on face, cooperative Results & Data Results & Data Vital Signs (Past 12 Hours) Vital Signs Temp Pulse Pulse Resp BP BP Pulse Ox 02/23/25 10:44 55 L 17 168/106 H 96 02/23/25 10:34 61 02/23/25 09:44 56 L 24 153/112 H 96 02/23/25 09:41 97.5 F L 55 L 20 140/83 100 O2 Del Method 02/23/25 10:44 Room Air 02/23/25 10:34 02/23/25 09:44 Room Air 02/23/25 09:41 Room Air Laboratory Results Laboratory Results WBC 6.05 K/ul (4.8-10.8) 02/23/25 10:13 RBC 4.60 M/uL (4.70-6.10) L 02/23/25 10:13 Hgb 13.9 g/dl (14.0-18.0) L 02/23/25 10:13 Hct 41.7 % (42.0-52.0) L 02/23/25 10:13 MCV 90.7 fL (80.0-100.0) 02/23/25 10:13 MCH 30.2 pg (25.0-34.0) 02/23/25 10:13 MCHC 33.3 g/dL (32.0-36.0) 02/23/25 10:13 RDW Std Deviation 42.4 fL (36.4-46.3) 02/23/25 10:13 RDW Coeff of Darrius 12.9 % (11.5-14.5) 02/23/25 10:13 Plt Count 196 K/uL (130-400) 02/23/25 10:13 MPV 9.9 fL (9.4-12.4) 02/23/25 10:13 Immature Gran % (Auto) 0.3 % 02/23/25 10:13 Neut % (Auto) 51.5 % 02/23/25 10:13 Lymph % (Auto) 35.7 % 02/23/25 10:13 Gilmer % (Auto) 8.9 % 02/23/25 10:13 Eos % (Auto) 2.6 % 02/23/25 10:13 Baso % (Auto) 1.0 % 02/23/25 10:13 Neut # (Auto) 3.11 K/uL (1.40-6.50) 02/23/25 10:13 Lymph # (Auto) 2.16 K/uL (1.20-3.40) 02/23/25 10:13 Gilmer # (Auto) 0.54 K/uL (0.11-0.59) 02/23/25 10:13 Eos # (Auto) 0.16 K/uL (0.00-0.50) 02/23/25 10:13 Baso # (Auto) 0.06 K/uL (0.00-0.20) 02/23/25 10:13 Immature Gran # (Auto) 0.02 K/uL (0.01-0.20) 02/23/25 10:13 PT 29.1 Seconds (9.0-12.0) H 02/23/25 10:13 INR 2.9 (0.9-1.1) H 02/23/25 10:13 APTT 38 Seconds (21-31) H 02/23/25 10:13 PTT Ratio 1.4 02/23/25 10:13 Sodium 139 mmol/L (136-145) 02/23/25 10:13 Potassium 3.4 mmol/L (3.5-5.1) L 02/23/25 10:13 Chloride 102 mmol/L (98-107) 02/23/25 10:13 Carbon Dioxide 30 mmol/L (21-32) 02/23/25 10:13 Anion Gap 7 (3-11) 02/23/25 10:13 BUN 20 mg/dl (6-23) 02/23/25 10:13 Creatinine 1.09 mg/dl (0.6-1.4) 02/23/25 10:13 Est Cr Clr Drug Dosing 75.7 ml/min 02/23/25 10:13 eGFR 71.22 02/23/25 10:13 BUN/Creatinine Ratio 18.3 (10-20) 02/23/25 10:13 Glucose 125 mg/dl (70-99(Fasting)) H 02/23/25 10:13 Calcium 8.9 mg/dl (8.6-10.3) 02/23/25 10:13 Magnesium 1.9 mg/dl (1.7-2.4) 02/23/25 10:13 Total Bilirubin 1.0 mg/dl (0.2-1.0) 02/23/25 10:13 AST 21 U/L (13-39) 02/23/25 10:13 ALT 16 U/L (7-52) 02/23/25 10:13 Alkaline Phosphatase 53 U/L (34-104) 02/23/25 10:13 Troponin I High Sens 8.0 pg/ml (0-20) 02/23/25 10:13 Total Protein 7.0 gm/dl (6.0-8.3) 02/23/25 10:13 Albumin 3.6 gm/dl (3.4-5.0) 02/23/25 10:13 Globulin 3.4 gm/dl (2.5-4.0) 02/23/25 10:13 Albumin/Globulin Ratio 1.1 (0.9-2) 02/23/25 10:13 Impressions Chest X-Ray 02/23/25 10:04 XR chest 1V portable HISTORY: 74 years-old Male neuro deficit, acute stroke suspected COMPARISON: 03/04/2020 TECHNIQUE: AP view of the chest FINDINGS: Cardiac silhouette is enlarged. Hiatal hernia. Pulmonary vascular congestion. No pneumothorax. Trace pleural effusions with mild bibasilar densities. The bones appear grossly intact. IMPRESSION: 1. Cardiomegaly with pulmonary vascular congestion. 2. Trace pleural effusions with mild bibasilar densities suggestive of atelectasis. 3. Hiatal hernia. ACT 112: Negative or not required by law. The above report was generated using voice recognition software. It may contain grammatical, syntax or spelling errors. Electronically signed by: Onofre Lan M.D. 02/23/2025 11:[address] 02/23/25 10:04 CT SCAN OF THE BRAIN WITHOUT IV CONTRAST CLINICAL HISTORY: Neurological deficit. Stroke like symptoms. COMPARISON STUDY: CT of the brain dated 08/03/2022 TECHNIQUE: Unenhanced CT scan of the brain is performed from the vertex to the skull base. Images are reviewed in the axial, sagittal, coronal planes. A dose lowering technique was utilized adhering to the principles of ALARA. FINDINGS: Brain parenchyma: Left parieto-occipital encephalomalacia is unchanged and consistent with a remote insult. There is age-related involutional change noting mild subcortical and periventricular microangiopathic disease. There is no hemorrhage, mass effect, or evidence of acute territorial ischemia by CT criteria. A chronic lacunar infarct is noted in the left basal ganglia. Hernandez- white matter differentiation is preserved. No extra-axial fluid collection is seen. Ventricles, sulci, cisterns: Prominent secondary to involutional change. Intracranial vasculature: There is atherosclerotic calcification of the cavernous carotid arteries. Calvarium: Unremarkable. Sinuses and mastoids: There is mild mucosal thickening within the ethmoid sinuses. The remaining visualized paranasal sinuses are clear. The mastoid air cells are well pneumatized. Orbits: The bony orbits are grossly intact. IMPRESSION: There is no hemorrhage, mass effect, or evidence of acute territorial ischemia by CT criteria. ACT 112: Negative or not required by law. Electronically signed by: Jered Desouza M.D. 02/23/2025 12:05 PM Head CTA 02/23/25 10:04 CTA ANGIOGRAPHY OF THE HEAD CLINICAL HISTORY: neuro deficit, acute stroke suspected there are deficit. Suspected acute stroke. COMPARISON STUDY: April 2019 TECHNIQUE: Helical axial images of the head were obtained following uneventful intravenous administration of 115 cc of Optiray. Sagittal and coronal reconstructions were viewed as well as maximal intensity projections on an independent 3-D workstation. Automated exposure control was utilized for the study. A dose lowering technique was utilized adhering to the principles of ALARA. CT DOSE: FINDINGS: There are no lesion suspicious for aneurysm. There are no major intracranial branch occlusions. The dural venous sinuses appear patent. IMPRESSION: No evidence of aneurysm, intracranial branch occlusion or stenosis. ACT 112: Negative or not required by law. Electronically signed by: Ramon Corral M.D. 02/23/2025 12:00 PM Neck CTA 02/23/25 10:04 CT angio neck with con CLINICAL HISTORY: 74 years-old Male with neuro deficit, acute stroke suspected. Acute stroke like symptoms with recent fall. History of 60% stenosis of the left internal carotid artery. COMPARISON STUDY: Head CT 02/23/2025, CTA neck 04/22/2019 TECHNIQUE: Following the IV administration of 115 mL of Optiray, CT angiogram of the neck was performed from the aortic arch to the skull base. Images are reviewed in the axial, sagittal, and coronal planes. 3-D MIPS images are created and assessed. IV contrast was administered without complication. All measurements were calculated based on NASCET criteria. A dose lowering technique was utilized adhering to the principles of ALARA. CT DOSE: 1062.12 mGy.cm FINDINGS: Three-vessel morphology of the thoracic aortic arch. Patency of the innominate and imaged subclavian arteries. The common carotid arteries are patent with moderate atherosclerosis. Atherosclerotic plaque of the left greater than right carotid bulb. The right ICA is patent. There is unchanged 60% stenosis within the proximal cervical segment left ICA on image 227. The vertebral arteries are codominant and appear to be widely patent. No pneumothorax. 4 mm groundglass nodule within the left upper lobe on image 23 series 7, not clearly seen on the prior study. No acute fracture. Multilevel degenerative changes of the spine. IMPRESSION: 1. Atherosclerosis with 60% stenosis involving the proximal left ICA, not significantly changed compared to 04/22/2019. 2. Patent vertebral arteries. ACT 112: Negative or not required by law. The above report was generated using voice recognition software. It may contain grammatical, syntax or spelling errors. Electronically signed by: Onofre Lan M.D. 02/23/2025 11:55 AM Brain MRI 02/23/25 13:42 MRI OF THE BRAIN WITHOUT IV CONTRAST CLINICAL HISTORY: Syncope possible stroke. Patient fell. COMPARISON STUDY: MRI the brain dated 04/22/2019 TECHNIQUE: MRI of the brain was performed utilizing various T1 and T2-weighted sequences in the axial, sagittal, and coronal planes. IV contrast was not adm inistered for this examination. FINDINGS: No intra or extra-axial mass lesions are visualized. Axial diffusion-weighted images reveal no evidence of acute or subacute infarction. A punctate focus of increased signal within the right posterior pontomedullary junction is too subtle to be considered a true lesion. There is no evidence of hydrocephalus. FLAIR images reveal areas of gliosis within the left posterior parietal lobe consistent with an old infarct. There is also an area of gliosis within the left medial temporal lobe. There is scattered foci of increased FLAIR and T2 signal within the white matter likely on a small vessel basis. Gradient echo images reveal no hemorrhagic foci. IMPRESSION: 1. No acute intracranial findings 2. Areas of left hemispheric gliosis consistent with the sequela of old infarcts. No evidence of acute or subacute infarction. ACT 112: Negative or not required by law. Electronically signed by: Ramon Corral M.D. 02/23/2025 2:59 PM Supervising Physician Co-Signing Physician Notes Patient seen and examined, chart reviewed, case discussed with Elisha Garcia PA-C and I agree with the assessment and plan as above except as otherwise noted Labs and images reviewed History of recurrent presyncope and orthostasis, with 1 episode of near syncope. Some bilateral lower extremity weakness although no focal localizing symptoms. Orthostatics were negative however these were taken before he took his normal daily medications. Will repeat afterwards. PT/OT consulted. MRI ordered to rule out stroke pathology also suspect acute stroke is less likely given he does not have symptoms that localize to a territory and mild bilateral lower extremit y weakness is somewhat inconsistent with this. Extremity strength and hands of feet is 5/5 although easily fatigued on hip flexion. No evidence of acute seizure. He did have balance difficulty with his old stroke, ?some orthostasis +/- risk of recrudescence. Will switch lisinopril to ARB, target olmesartan for d/c. Chlorthalidone to be reassessed based on BP. Has had orthostatic hypotension at home Agree with above PG Care Time/CCT Total # of Minutes Spent Total Time Spent with Patient: Total time spent is greater than 50% in coordination of care (as documented) at patient's floor/unit and/or counseling patient: Coding Level of Care Code 14222 INT INP/OBS CARE MIN Diagnoses Near syncope R55 Essential hypertension I10 Hypertension type: essential hypertension Atrial fibrillation, unspecified type I48.91 Atrial fibrillation type: unspecified Diabetes mellitus, type II E11.9 Seizure disorder G40.909 GERD (gastroesophageal reflux disease) K21.9 (2) Hypertension Hypertension type: essential hypertension Qualified Code(s): I10 - Essential (primary) hypertension (3) Atrial fibrillation Atrial fibrillation type: unspecified Qualified Code(s): I48.91 - Unspecified atrial fibrillation
--- NOTE | 2025-02-23 15:01 | Magnetic Resonance Report ---
MRI OF THE BRAIN WITHOUT IV CONTRAST CLINICAL HISTORY: Syncope possible stroke. Patient fell. COMPARISON STUDY: MRI the brain dated 04/22/2019 TECHNIQUE: MRI of the brain was performed utilizing various T1 and T2-weighted sequences in the axial , sagittal, and coronal planes. IV contrast was not administered for this examination. FINDINGS: No intra or extra-axial mass lesions are visualized. Axial diffusion-weighted images reveal no eviden ce of acute or subacute infarction. A punctate focus of increased signal within the right posterior p ontomedullary junction is too subtle to be considered a true lesion. There is no evidence of hydrocephalus. FLAIR images reveal areas of gliosis within the left posterior parietal lobe consistent with an old i nfarct. There is also an area of gliosis within the left medial temporal lobe. There is scattered foc i of increased FLAIR and T2 signal within the white matter likely on a small vessel basis. Gradient echo images reveal no hemorrhagic foci. IMPRESSION: 1. No acute intracranial findings 2. Areas of left hemispheric gliosis consistent with the sequela of old infarcts. No evidence of acut e or subacute infarction. ACT 112: Negative or not required by law. Electronically signed by: Ramon Corral M.D. 02/23/2025 2:59 PM
[2025-02-23] MEDS ORDERED: ONDANSETRON INJ 2 MG/ML 2 ML VIAL IV PRN (17:35)
[2025-02-23] MEDS ORDERED: PHARMACIST DISCHARGE MED REC CONSULT PRN (17:35)
[2025-02-23] MEDS ORDERED: POLYETHYLENE (MIRALAX) 17 GM PACK PO PRN (17:35)
[2025-02-23] MEDS ORDERED: CARBOHYDRATES FOR HYPOGLYCEMIA PO PRN (17:35)
[2025-02-23] MEDS ORDERED: GLUCOSE 40% GEL 15 GM TUBE PO PRN (17:35)
[2025-02-23] MEDS ORDERED: ACETAMINOPHEN 325 MG TAB PO PRN (17:35)
[2025-02-23] MEDS ORDERED: GLUCAGON FOR INJ 1 MG VIAL SQ PRN (17:35)
[2025-02-23] MEDS ORDERED: GLUCOSE 10 TAB/TUBE PO PRN (17:35)
[2025-02-23] MEDS ORDERED: DEXTROSE 50% 50 ML SYRINGE IV PRN (17:35)
[2025-02-23] MEDS: METOPROLOL TARTRATE 25 MG TAB PO SCH (20:51)
[2025-02-23] MEDS: levETIRAcetam 500 MG TAB PO SCH (20:51)
[2025-02-23] MEDS: ATORVASTATIN 40 MG TAB PO SCH (20:51)
[2025-02-23] MEDS: WARFARIN SOD 2.5 MG TAB PO SCH (20:52)
[2025-02-23] MEDS: LANTUS PER UNIT CHARGE SQ SCH (20:52)
[2025-02-23] MEDS: MELATONIN 3 MG TAB PO PRN (20:52)
[2025-02-24] MEDS: ZONISAMIDE 100 MG CAPSULE PO SCH (06:08)
[2025-02-24] MEDS: CHOLECALCIFEROL 25 MCG (1000 UNITS) TAB PO SCH (06:08)
[2025-02-24] MEDS: ASPIRIN 81 MG ECTAB PO SCH (06:08)
--- NOTE | 2025-02-24 06:30 | Electrocardiogram Report ---
Test Reason : Blood Pressure : */* mmHG Vent. Rate : 61 BPM Atrial Rate : * BPM P-R Int : * ms QRS Dur : 102 ms QT Int : 460 ms P-R-T Axes : * 32 22 degrees QTcB Int : 463 ms Atrial fibrillation Abnormal ECG When compared with ECG of 05-Mar-2020 12:05, Nonspecific T wave abnormality, improved in Inferior leads Confirmed by Murtaza Travis ([id number]) on 02/24/2025 6:30:04 AM Referred By: REFERRED SELF Confirmed By: Murtaza Travis
[2025-02-24] MEDS: LOSARTAN POTASSIUM 25 MG TAB PO SCH (08:25)
[2025-02-24 09:05] LABS: Hematocrit (blood only) 40.8 % (42.0-52.0); Hemoglobin 13.5 g/dl (14.0-18.0); Immature Granulocytes # (auto) 0.02 K/uL (0.01-0.20); Immature Granulocytes % (auto) 0.4 %; Mean Corpuscular Hemoglobin 30.1 pg (25.0-34.0); Mean Corpuscular Volume 91.1 fL (80.0-100.0); Platelet Count 189 K/uL (130-400); RDW Standard Deviation 42.9 fL (36.4-46.3); Red Blood Count 4.48 M/uL (4.70-6.10); White Blood Count 5.51 K/ul (4.8-10.8)
[2025-02-24 09:21] LABS: Anion Gap 9.0 (3-11); Blood Urea Nitrogen 22.0 mg/dl (6-23); Calcium 8.9 mg/dl (8.6-10.3); Carbon Dioxide 28.0 mmol/L (21-32); Chloride 102.0 mmol/L (98-107); Cholesterol 121.0 mg/dl (0-200); Creatinine Clr Calc Pharmacy 62.1 ml/min; Glucose 115.0 mg/dl (70-99(Fasting)); HDL Cholesterol 33.0 mg/dl; Potassium 3.3 mmol/L (3.5-5.1); Sodium 139.0 mmol/L (136-145); Triglycerides 135.0 mg/dl (0-150)
[2025-02-24 09:36] LABS: INR 3.1 (0.9-1.1); Prothrombin Time 30.4 Seconds (9.0-12.0)
--- NOTE | 2025-02-24 10:05 | Hospitalist Progress Note ---
Date of Service February 24, 2025 Assessment & Plan (1) Near syncope: (2) Hypertension: (3) Atrial fibrillation: (4) Diabetes mellitus, type II: (5) Seizure disorder: (6) GERD (gastroesophageal reflux disease): Plan Pt is a 74 y/o with a PMHx significant for T2DM, Hx NH, Hx CVA, Afib, CAD, HLD, HTN, sleep apnea, seizure disorder, GERD, paraesophageal hernia, diverticulosis -- who presented to the ED c/o lightheadedness & dizziness x2 wks. #Near Syncope // Dizziness - Head CT & CTA revealed no evidence of hemorrhage/ischemia or vessel occlusion. Neck CTA is stable from 2019 with 60% stenosis of the Lt ICA. MRI 02/22 revealed no acute intracranial findings, did have areas of left hemispheric gliosis consistent with the sequela of old infarcts, no evidence of acute or subacute infarction -Echocardiogram w/o bubble -CBC, BMP, INR in AM -PT/OT evaluation #HTN - Multiple medication changes, concern for hypotensive episodes at home -Home Meds: Lisinopril, Metoprolol, Chlorthalidone -Continue Lisinopril, Metoprolol -HOLD Chlorthalidone -Orthostatics Q shift #Afib // Hx NH // Hx CVA // CAD // HLD - no acute issues -Home Meds: Warfarin, ASA, Atorvastatin -Continue Home meds -Telemetry Bed #T2DM - no acute issues -Home Meds: Metformin, Glargine 5 units in evening -HOLD Metformin -Continue Glargine #Seizure Disorder - no acute issues -Home Meds: Keppra, Zonisamide -Continue home meds #GERD - no acute issues -Home Meds: Pantoprazole -Continue home meds Dispo: admit to med/tele VTE Proph: Continue Warfarin, encourage ambulation Admission and Anticipated Discharge Date Admission Date: February 23, 2025 Subjective Pt is a 74 y/o with a PMHx significant for T2DM, Hx NH, Hx CVA, Afib, CAD, HLD, HTN, sleep apnea, seizure disorder, GERD, paraesophageal hernia, diverticulosis -- who presented to the ED c/o lightheadedness & dizziness x2 wks. Physical Exam Physical Exam: Secondary Trauma Survey: General: - Alert: Yes - Oriented: Yes - GCS 15: Yes HEENT: - No pain/tenderness. - No lacerations/abrasions - No numbness/tingling - PERLAA. Normal Visual Acuity. No visua l field cuts. No nystagmus. No contact lenses. Normal hearing. No relative afferent pupillary defect. No facial asymmetry. Normal palatal elevation, uvula midline. Midline tongue protrusion. Shoulder shrug with 5/5 strength bilaterally. - Mucous membranes moist. Neck: - Midline Tenderness: No - Cleared C-Spine: Yes Thorax: - Pain/Tenderness: None - Lacerations/Abrasions: None - Swelling/Ecchymosis: None - Air/Bony Crepitus: None Cardiopulmonary: - Regular Rate and Rhythm. No murmurs, r ubs or gallops. - Breath sounds CTAB. No wheezes, rales, or rhonchi. - Symmetrical Chest Rise Abdomen - Pain/Tenderness: None - Lacerations/Abrasions: None - No abdominal distension - Abdominal rigidity/guarding: None - Bowel Sounds: Present, normal - Pelvis stable Back/Spine - Lacerations/Abrasions: None - Swelling/Ecchymosis: None - Pain/Tenderness: None - Step-offs: None Extremities: - RUE: No deformity. No lacerations/kori sions. No swelling/ecchymosis. No pain/tenderness. Full active and passive range of motion. Lasting Machine Operator Bed strength, elbow flexion/extension, shoulder flexion/extension/abduction/adduction/external rotation/internal rotation intact with 5/5 strength. Sensation intact to soft touch without deficit. Radial pulse intact, cap refill in the thumb <2 seconds. - LUE: No deformity. No lacerations/kori sions. No swelling/ecchymosis. No pain/tenderness. Full active and passive range of motion. Lasting Machine Operator Bed strength, elbow flexion/extension, shoulder flexion/extension/abduction/adduction/external rotation/internal rotation intact with 5/5 strength. Sensation intact to soft touch without deficit. Radial pulse intact, cap refill in the thumb <2 seconds. - LLE: No deformity. No lacerations/kori sions. No swelling/ecchymosis. No pain/tenderness. Full active and passive range of motion. Hip flexion/extension, knee flexion/extension, ankle dorsiflexion/plantarflexion with 5/5 strength. Sensation intact to soft touch without deficit. PT pulse intact to palpation, cap refill in the hallux <2 seconds. - RLE: No deformity. No lacerations/kori sions. No swelling/ecchymosis. No pain/tenderness. Full active and passive range of motion. Hip flexion/extension, knee flexion/extension, ankle dorsiflexion/plantarflexion with 5/5 strength. Sensation intact to soft touch without deficit. PT pulse intact to palpation, cap refill in the hallux <2 seconds. Mental status Adequate for Full Exam: Yes C-Spine Cleared (Radiologically AND Clinically): Yes Results & Data Results & Data Vital Signs (Past 12 Hours) Vital Signs Temp Pulse Pulse Resp BP Pulse Ox O2 Del Method 02/24/25 05:51 59 L 02/24/25 03:02 97.8 F 66 18 122/76 92 Room Air 02/23/25 23:09 68 02/23/25 22:37 97.7 F 66 18 144/87 H 95 Room Air PG Care Time/CCT Total # of Minutes Spent Total Time Spent with Patient: Total time spent is greater than 50% in coordination of care (as documented) at patient's floor/unit and/or counseling patient: Coding Diagnoses Near syncope R55 Essential hypertension I10 Hypertension type: essential hypertension Atrial fibrillation, unspecified type I48.91 Atrial fibrillation type: unspecified Diabetes mellitus, type II E11.9 Seizure disorder G40.909 GERD (gastroesophageal reflux disease) K21.9 (2) Hypertension Hypertension type: essential hypertension Qualified Code(s): I10 - Essential (primary) hypertension (3) Atrial fibrillation Atrial fibrillation type: unspecified Qualified Code(s): I48.91 - Unspecified atrial fibrillation
[2025-02-24 10:09] LABS: Hemoglobin A1C 6.3 % (4.5-5.6)
[2025-02-24 12:26] VITALS: RESP 16
[2025-02-24 12:34] VITALS: BP 125/80; TEMP 97.7; O2SAT 95
--- NOTE | 2025-02-24 13:55 | Discharge Summary ---
Discharge Summary Date of Service February 24, 2025 Principal Dx & Hospital Course #1 = Principal Diagnosis (1) Near syncope: (2) Hypertension: (3) Atrial fibrillation: (4) Diabetes mellitus, type II: Plan #Near Syncope // Dizziness // HTN - Pt is a 74 y/o with a PMHx significant for T2DM, Hx NE, Hx CVA, Afib, CAD, HLD, HTN, sleep apnea, seizure disorder, GERD, paraesophageal hernia, diverticulosis -- who presented to the ED c/o lightheadedness & dizziness x2 wks. While in the ED, pt had a Head CT & CTA revealed no evidence of hemorrhage/ischemia or vessel occlusion. Neck CTA is stable from 2019 with 60% stenosis of the Lt ICA. MRI brain 02/23 revealed no acute intracranial findings, did have areas of left hemispheric gliosis consistent with the sequela of old infarcts, no evidence of acute or subacute in farction; these MRI results were reviewed and confirmed by Dr. Tapia. Pt's Lisinopril and Chlorthalidone were discontinued due to orthostasis and Losartan initiated. Several Orthostatic BPs were taken following this change and no orthostasis/orthostatic symptoms occurred. Pt to take Metoprolol and Losartan at home as Rx. Patient was cleared by PT/OT for discharge. Patient was encouraged to keep cardiology appointment next week. #Afib // Hx NE // Hx CVA // CAD // HLD - Pt experienced A-fib with rates in the 60s and 70s while here. An Echocardiogram was declined on 02/24 with pt citing that he had a Cardiology appointment on 03/07/25. Continue Warfarin, ASA, and Atorvastatin 80mg. While no acute stroke present, patient is on high intensity statin for CVA prevention. With no acute stroke DAPT is not indicated, continue Warfarin and ASA as prescribed. #T2DM - No acute issues, Please continue to take Metformin and Glargine as prescribed. Defer to PCP for antiglycemic medication with greater cardiovascular benefits for stroke prevention. #Seizure Disorder - No acute issues; Please continue to take your home medications as prescribed #GERD - No acute issues; Please continue to take your home medications as prescribed Dispo: discharge to home Notes For Next Care Provider Pt was encouraged to update echocardiogram but declined d/t upcoming appointment with cardiology. Admission HPI Per Admitting Provider Pt is a 74 y/o with a PMHx significant for T2DM, Hx NE, Hx CVA, Afib, CAD, HLD, HTN, sleep apnea, seizure disorder, GERD, paraesophageal hernia, Hx Duodenal ulcer, diverticulosis -- who presented to the ED c/o lightheadedness & dizziness that has been going on for two weeks. Pt states that over the course of the last two weeks, he has had progressive dizziness that has made him feel unstable/weak and it's difficult for him to keep balance. Pt notes that the dizziness often occurs when moving from a sitting to standing position. He states that he did have an episode once while removing his shirt. Pt states that often times he needs to be able to hold onto a surface to help stabilize him when he is trying to walk. He admits to experiencing one fall 02/22, but denies hitting his head. Pt states the sx are worse upon initial standing. Pt denies associated h/a, changes in vision, difficulty swallowing, F/C, CP, Palpitations, SOB, abd pain, changes in bowel or bladder habits. Pt admits to having difficulty controlling BP since January 2024. He states that he has worked with his PCP to try and stabilize his BP, and has had several medication changes since then. Pt was transported to the ED via personal vehicle. While in the ED, the patient had a Head CT that revealed no hemorrhage, mass effect, or evidence of acute territorial ischemia by CT criteria. He had a Head CTA that revealed no evidence of aneurysm, intracranial branch occlusion or stenosis. He had a Neck CTA that revealed 60% Atherosclerosis involving the pro ximal ICA - not significantly changed from 2019; with patent vertebral arteries. Pt's INR in the ED was 2.9; he is currently on warfarin. Pt is being admitted for further evaluation and care. Discharge Exam Tertiary Trauma Survey: General: - Alert: Yes - Oriented: Yes - GCS 15: Yes HEENT: - No pain/tenderness. - No lacerations/abrasions - No numbness/tingling - PERLAA. Normal Visual Acuity. No nystagmus. No contact lenses. Normal hearing. No relative afferent pupillary defect. No facial asymmetry. Normal palatal elevation, uvula midline. Midline tongue protrusion. Shoulder shrug with 5/5 strength bilaterally. - Mucous membranes moist. Neck: - Midline Tenderness: No - Cleared C-Spine: Yes Thorax: - Pain/Tenderness: None - Lacerations/Abrasions: None - Swelling/Ecchymosis: None - Air/Bony Crepitus: None Cardiopulmonary: - Irregular Rate and Rhythm. No murmurs. - Breath sounds CTAB. No wheezes, rales, or rhonchi. - Symmetrical Chest Rise Abdomen - Pain/Tenderness: None - Lacerations/Abrasions: None - No abdominal distension - Abdominal rigidity/guarding: None - Bowel Sounds: Present, normal - Pelvis stable Back/Spine - Lacerations/Abrasions: None - Swelling/Ecchymosis: None - Pain/Tenderness: None - Step-offs: None Extremities: - RUE: No deformity. No lacerations/abrasions. No swelling/ecchymosis. No pain/tenderness. Full active and passive range of motion. Volunteer Services Coordinator strength, elbow flexion/extension, shoulder flexion/extension/abduction/adduction/external rotation/internal rotation intact with 5/5 strength. Sensation intact to soft touch without deficit. Radial pulse intact, cap refill in the thumb <2 seconds. - LUE: No deformity. No lacerations/abrasions. Mild ecchymosis of the upper arm, no swelling/ecchymosis otherwise noted. No pain/tenderness. Full active and passive range of motion. Volunteer Services Coordinator strength, elbow flexion/extension, shoulder flexion/extension/abduction/adduction/external rotation/internal rotation intact with 5/5 strength. Sensation intact to soft touch without deficit. Radial pulse intact, cap refill in the thumb <2 seconds. - LLE: No deformity. No lacerations/abrasions. No swelling/ecchymosis. No pain/tenderness. Full active and passive range of motion. Hip flexion/extension, knee flexion/extension, ankle dorsiflexion/plantarflexion with 5/5 strength. Sensation intact to soft touch without deficit. PT pulse intact to palpation, cap refill in the hallux <2 seconds. - RLE: No deformity. No lacerations/abrasions. No swelling/ecchymosis. No pain/tenderness. Full active and passive range of motion. Hip flexion/extension, knee flexion/extension, ankle dorsiflexion/plantarflexion with 5/5 strength. Sensation intact to soft touch without deficit. PT pulse intact to palpation, cap refill in the hallux <2 seconds. Mental status Adequate for Full Exam: Yes C-Spine Cleared Clinically: Yes Discharge Plan Discharge Items Patient Disposition: Home - Self-Care Reason For Visit: DIZZINESS Discharge Diagnosis: Near Syncope Condition on Discharge: Good Activity: Resume your previous activity Non-emergency contact: Primary Care Provider and Water Main Inspector Call non-emergency contact if: you have any medication questions and your symptoms worsen Follow-up/Referrals: Jeremie Jain MD [Primary Care Provider] - Chitra Darby PA-C [Physician Manager Documentation] - Diet: Regular Addtl Attending Provider Instructions: You were hospitalized for near syncope on 02/23. While you were here you received a CTA of the neck that revealed 60% stenosis of the left internal carotid artery. Your head CT, head CTA, and MRI of the brain showed no acute ischemic changes. MRI of the brain did demonstrate location of old infarct. Several Orthostatic BP readings were taken throughout the duration of your stay and with no orthostasis occurring. Your Lisinopril and Chlorthalidone were discontinued. A new medication called Losartan will be sent to your pharmacy. Medications: Your medication list has been reviewed and reconciled upon discharge to ensure accuracy and continuity of care. An updated list of all your medications is included with your hospital discharge paperwork. Please review this list closely, and make note of any changes. We sent a new medication called Losartan to your pharmacy. Take once daily. Start this 02/25 in the morning. This is an antihypertensive to help maintain your blood pressure. Take your medications as instructed; do not skip a dose of your medicines. Make sure all of your doctors know every medicine you are taking (including [id number] medicines, vitamins, and supplements). Call your primary care provider before taking any new medicines (including over- the-counter medicines, vitamins, and supplements), because some of these may interact with your current medications, or may make your symptoms worse. Tell your primary care provider if you cannot afford your medications. Activity: You can do normal everyday activities as your body allows. Take rest breaks if you feel tired. Do not overexert. Stop activity if you have pain, shortness of breath or feel dizzy. Follow-up appointments: Make an appointment with your primary care physician within one week of discharge. A copy of this summary will be sent to them. Every time you see your primary care physician, or any other doctor, bring your medication list, and a list of questions. CONTACT YOUR PRIMARY CARE PROVIDER if you experience any of the following: Shortness of breath or difficulty breathing Fevers or chills Feeling tired with normal activity or experiencing dizziness or fainting Difficulty following your treatment plan, or difficulty taking medications CALL 911 OR GO TO THE EMERGENCY DEPARTMENT if you experience any of the following: Severe abdominal pain or nausea/vomiting Severe chest pain, or chest pain that radiates (moves) to your jaw or arm Sudden, severe shortness of breath or difficulty breathing Thank you for allowing us to participate in your care. Pending Studies at Discharge: No Stand-Alone Forms: My [facility] [employer] Smoking Cessation Medications and DC Order Prescriptions: New losartan 25 mg Tablet 25 mg PO QAM Qty: 30 0RF Continued atorvastatin [Lipitor] 80 mg Tablet 80 mg PO DAILY@1900 Qty: 0 aspirin 81 mg Tablet,Delayed Release (Dr/Ec) 81 mg PO DAILY@0700 nitroglycerin [Nitrostat] 0.4 mg Tablet, Sublingual 0.4 mg sublingual UD PRN (Reason: Angina) warfarin 2.5 mg tablet 2.5 mg PO .6 DAYS A WK zonisamide 100 mg capsule 200 mg PO DAILY@0700 warfarin 5 mg tablet 5 mg PO UD Patient Comments: either thursday or thursday, pt doesnt remember which day he takes the 5 mg levetiracetam 750 mg tablet 1,500 mg PO Q12 Rx Instructions: 0700 and 1900 metformin 500 mg tablet extended release 24 hr 500 mg PO DAILY@0700 cholecalciferol (vitamin D3) [Vitamin D3] 25 mcg (1,000 unit) Capsule 25 mcg PO DAILY@0700 metoprolol tartrate 25 mg tablet 12.5 mg PO Q12 Rx Instructions: 0700 and 1900 lutein 20 mg Capsule 20 mg PO DAILY@1900 insulin glargine [Lantus Solostar U-100 Insulin] 100 unit/mL (3 mL) insulin pen 5 unit SUBCUT HS pantoprazole 20 mg tablet,delayed release (DR/EC) 20 mg PO QAM Saline Nasal Mist 0.65 % aerosol,spray 2 spray intranasal Q4H PRN (Reason: Epistax) Rx Instructions: while awake Discontinued chlorthalidone 25 mg tablet 0 mg PO DAILY Patient Comments: 02/22-per pt they started the medication but put it on hold lisinopril [Zestril] 5 mg tablet 20 mg PO DAILY@0700 Discharge Orders: Discharge Order (Routine); Ordered 02/24/25 Ordered By: Elisha Bhakta/Other Patient Handouts: Managing Type 2 Diabetes, Blood Pressure Check Steps Admission Data Admit Date/Time: 02/23/25 14:13 Attending Provider: Antoinette Devine Admit Provider: Jeremie Jorge Primary Care Provider: Jeremie Jain Other Interventions: Discharge Summary Assessment (RN) Last Done: 02/24/25 14:39 Hospital Stay Data Diagnostic Imagining Performed 02/23/25 10:04 CT angio head w con Stat CT angio neck with con Stat CT head/brain wo con Stat 02/23/25 13:42 MRI Brain [MR brain wo con] Urgent Pending Results Patient Have Any Pending Studies at Discharge: No Discharge Instructions Given to Patient (Per Discharging Provider) You were hospitalized for near syncope on 02/23. While you were here you received a CTA of the neck that revealed 60% stenosis of the left internal carotid artery. Your head CT, head CTA, and MRI of the brain showed no acute ischemic changes. MRI of the brain did demonstrate location of old infarct. Several Orthostatic BP readings were taken throughout the duration of your stay and with no orthostasis occurring. Your Lisinopril and Chlorthalidone were discontinued. A new medication called Losartan will be sent to your pharmacy. Medications: Your medication list has been reviewed and reconciled upon discharge to ensure accuracy and continuity of care. An updated list of all your medications is included with your hospital discharge paperwork. Please review this list closely, and make note of any changes. We sent a new medication called Losartan to your pharmacy. Take once daily. Start this 02/25 in the morning. This is an antihypertensive to help maintain your blood pressure. Take your medications as instructed; do not skip a dose of your medicines. Make sure all of your doctors know every medicine you are taking (including qhce-qsa-xqqrmch medicines, vitamins, and supplements). Call your primary care provider before taking any new medicines (including over- the-counter medicines, vitamins, and supplements), because some of these may interact with your current medications, or may make your symptoms worse. Tell your primary care provider if you cannot afford your medications. Activity: You can do normal everyday activities as your body allows. Take rest breaks if you feel tired. Do not overexert. Stop activity if you have pain, shortness of breath or feel dizzy. Follow-up appointments: Make an appointment with your primary care physician within one week of discharge. A copy of this summary will be sent to them. Every time you see your primary care physician, or any other doctor, bring your medication list, and a list of questions. CONTACT YOUR PRIMARY CARE PROVIDER if you experience any of the following: Shortness of breath or difficulty breathing Fevers or chills Feeling tired with normal activity or experiencing dizziness or fainting Difficulty following your treatment plan, or difficulty taking medications CALL 911 OR GO TO THE EMERGENCY DEPARTMENT if you experience any of the following: Severe abdominal pain or nausea/vomiting Severe chest pain, or chest pain that radiates (moves) to your jaw or arm Sudden, severe shortness of breath or difficulty breathing Thank you for allowing us to participate in your care. Supervising Physician Co-Signing Physician Notes JOSAFAT Supervision Note: I did not personally see or examine the patient today, but I verified all huntley points of JOSAFAT Garcia's assessment and plan with the following exceptions/additions: None Total Time Total Time Spent Total Time Spent (In Minutes): Time spent day of discharge was around 50 minutes including direct patient care, medication reconciliation, documentation, review of labs and images, and coordination of care. Coding Level of Care Code 83072 INP/OBS DISCH >30 MIN Diagnoses Near syncope R55 Essential hypertension I10 Hypertension type: essential hypertension Atrial fibrillation, unspecified type I48.91 Atrial fibrillation type: unspecified Diabetes mellitus, type II E11.9
[2025-02-24] MEDS ORDERED: STROKE PATIENT DISCHARGE STA (14:18)
[2025-02-24 14:40] VITALS: PULSE 63
[2025-02-27] MEDS ORDERED: WARFARIN SOD 5 MG TAB PO SCH (16:00)
== END 2025-02-24 16:00 | disposition home or self-care (01) | DRG 312 ==
LOC: ED 09:36 → 2N 14:13 → SUATTDRO 14:13 → 2N 17:16